=== PATIENT | male | born 1965 | race Caucasian/White ===

== ENCOUNTER 2020-07-02 19:12 | Inpatient (IN) | payer MEDICAID, SELFPAY ==
[2020-07-02] VITALS (28 sets, daily range): BP systolic 124–170; BP diastolic 73–120; PULSE 72–155; RESP 8–26; TEMP 36.7–36.9; O2SAT 93–98; BMI 34.5
--- NOTE | 2020-07-02 19:31 | XR_ITS ---
WS: [id number] Portable AP upright chest, 07/02/2020 Clinical Data: Palpitations Comparison: None. Findings: No nodules, masses or effusions are seen. The heart is normal. The pulmonary vascularity is not increased. No pneumonia or pneumothorax is seen. There are monitor leads on the chest wall. XR/XR chest 1V portable [id number] Impression: Negative chest.
--- NOTE | 2020-07-02 19:46 | W.ED.ARRPALP ---
HPI - Arrhythmia/Palpitations General: Chief Complaint: Arrhythmia/Palpitations Stated Complaint: General Medical Time Seen by Provider: 07/02/20 19:29 Source: patient, family and wood type cutter Mode of arrival: ambulatory Limitations: no limitations History of Present Illness: HPI narrative: Mr. Macdonald is a very nice 55-year-old male who speaks very little Mongolian but mostly Eritrean. His son who is with him as an wood type cutter. We have tried to contact the wood type cutter line but are unable to reach them. Patient states for the past few days he has felt weak and dizzy. He denies any chest pain or heart palpitations. Denies any syncope or near syncope. Patient states overall he just feels weak. He was a follow-up at the [facility] today for recently being treated for pneumonia and he was noted to have a very fast heart rate and because of this he was referred here to the ER. The patient denies any other complaints or this time. Associated symptoms: Deny diaphoresis, nausea, pre-syncope, syncope or vomiting Review of Systems Const: Denies: fever(s), chills, body aches, fatigue, malaise or diaphoresis Eyes: Denies: change in vision, blurry vision, photophobia, eye discomfort, eye discharge, eye redness or yellow eyes ENMT: Denies: throat pain, odynophagia, hoarseness, swelling of lips/tongue, ear or mastoid pain, ear discharge, change in hearing or nasal discharge Card: Denies: chest pain, palpitations, irregular heart rhythm, edema, lightheadedness, syncope, pre-syncope, dyspnea on exertion or orthopnea Resp: Reports: dyspnea; Denies: productive cough, non-productive cough, wheezing, hemoptysis or chest congestion GI: Denies: abdominal pain, nausea, vomiting, hematemesis, coffee ground emesis, heartburn, diarrhea, constipation, GI cramping, hematochezia or melena : Denies: flank pain, dysuria, urinary frequency, urinary urgency or hematuria Musc: Denies: neck pain, back pain, extremity pain, extremity swelling, joint pain, joint swelling, joint redness, joint warmth or joint stiffness Skin/Breast: Denies: rash, pruritus, erythema, skin pain or skin tenderness Neuro: Denies: headache(s), numbness in extremities, weakness in extremities, sensory changes, lack of coordination, difficulty walking, dizziness, vertigo, confusion, Slurred speech present or seizure-like activity Josias/Lymph: Denies: easy bruising, easy bleeding, petechiae, purpura or enlarged lymph nodes All/Imm: Denies: urticaria, throat swelling, tongue swelling, facial swelling or acute wheezing Physical Exam Const: COMMON NORMALS: no acute distress, patient oriented x3, no limitations and alert GENERAL APPEARANCE: cooperative HENMT: COMMON NORMALS: normocephalic, atraumatic, external ears normal, EAC's normal and Normal external nose present HEAD & SCALP: normal to inspection, normocephalic and atraumatic FACE & SINUS: normal facial exam and face symmetric NOSE: Normal external nose present and Normal nares present EXTERNAL EAR: Yes external ears normal EXTERNAL AUDITORY CANAL: EAC's normal MOUTH: Normal oral and palatal mucosa present, lip normal and tongue normal Eye: COMMON NORMALS: Equal, round and reactive pupils present and conjunctivae normal GENERAL EYE: appearance normal, both eyes and all related structures ALIGNMENT: Yes alignment normal PERIORBITAL: periorbital findings normal EYELID: eyelids normal CONJUNCTIVA: Yes conjunctivae normal SCLERA: sclerae normal PUPIL: Yes Equal, round and reactive pupils present Neck/C-Spine: COMMON NORMALS: full ROM, no lymphadenopathy, supple, no meningeal signs and no JVD GENERAL: Yes normal visual inspection and Yes trachea midline Chest: COMMONS NORMALS: normal inspection of the chest and normal palpation of entire chest wall Resp: COMMON NORMALS: normal respiratory effort, No retractions, No use of accessory muscles and clear to auscultation bilaterally EFFORT & INSPECTION: Yes able to speak in complete sentences and Yes symmetric chest movement AUSCULTATION: clear to auscultation bilaterally, no crackles, no rales, no rhonchi and no wheezes Cardio: COMMON NORMALS: no JVD, regular rhythm, S1 normal heart sound present and S2 normal heart sound present RATE: tachycardic RHYTHM: regular rhythm HEART SOUNDS: S1 normal heart sound present, S2 normal heart sound present, no click, no gallops, no murmurs and no rubs GI: COMMON NORMALS: Soft to palpation and No hepatosplenomegaly present PALPATION: Yes Soft to palpation, No Tenderness to palpation present (GI), No Guarding due to palpation present (GI), No Rigid due to palpation, Yes No hepatosplenomegaly present, No Hernia present, No Palpable mass present and No Pulsatile mass present : COMMON NORMALS: Yes no CVA tenderness BLADDER/KIDNEY EXAM: Yes no CVA tenderness Back/Pelvis: COMMON NORMALS: no CVA tenderness, thoracic and lumbar spine normal to inspection, no thoracic nor lumbar tenderness and thoraco-lumbar ROM normal Extremity: COMMON NORMALS: normal to inspection, full ROM, capillary refill normal, no joint enlargement, no clubbing, cyanosis or edema and no calf tenderness Neuro: COMMON NORMALS: patient oriented x3, CN's II-XII intact bilaterally, moves all extremities, no focal motor deficits and no sensory deficits noted SENSORIUM/ORIENTATION: Yes alert MENINGEAL SIGNS: Yes no meningeal signs SPEECH: speech normal Psych: COMMON NORMALS: mental status grossly normal, Normal thought process present, cooperative, normal affect, speech normal and activity/motor behavior normal SPEECH: Yes normal speech THOUGHT PROCESS: Normal thought process present Skin: COMMON NORMALS: no rashes or lesions noted, turgor normal, no jaundice, no petechiae and no mottling GENERAL SKIN EXAM: no rashes or lesions noted and turgor normal Course Vital Signs: Vital signs: Vital Signs Temperature 98.1 F 07/02/20 23:52 Pulse Rate 114 H 07/02/20 23:52 Respiratory Rate 25 H 07/02/20 23:52 Blood Pressure 129/73 07/02/20 23:52 Pulse Oximetry 93 07/02/20 23:52 MDM - Arrhythmia/Palpitations MDM Narrative: Medical decision making narrative: The case was endorsed to Dr. Morgan who agrees to follow-up in the CT of the chest. Patient's been given Lovenox here. His heart rate is improved after 2 boluses of Cardizem and being placed on a drip. Patient has an elevated BNP but clinically there is no sign of congestive heart failure. This time he is feeling better as he feels less short of breath with his heart rate down but because of this new onset atrial fibrillation he will need to be admitted and further evaluated and cared for by the hospitalist service. Lab Data: Attestation: I reviewed the patient's lab results. Labs: Lab Results 07/02/20 07/02/20 07/02/20 Range/Units 19:51 19:51 19:51 WBC 7.9 (4.0-10.0) 10^3/ uL RBC 4.99 (4.1-5.3) 10^6/u L Hgb 14.5 (11.7-16.6) g/dL Hct 43.6 (42.0-52.0) % MCV 87.4 (80-94) fL MCH 29.1 (28.0-34.0) pg MCHC 33.3 (30.0-36.0) g/dL RDW 13.2 (12.1-15.1) % Plt Count 245 (130-400) 10^3/c mm MPV 11.5 H (7.4-10.4) fL Neut % (Auto) 62.1 % Lymph % (Auto) 28.5 % [place] % (Auto) 7.0 % Eos % (Auto) 1.5 % Baso % (Auto) 0.6 % Neut # (Auto) 4.87 (1.8-7.7) 10^3/u L Lymph # (Auto) 2.2 (0.8-4.8) 10^3/u L [place] # (Auto) 0.6 (0.2-0.9) 10^3/u L Eos # (Auto) 0.1 (0.0-0.8) 10^3/u L Baso # (Auto) 0.1 (0.0-0.1) 10^3/u L Nucleated RBC % (a uto) 0 % Nucleated RBCs # 0.0 /100WBC PT 13.00 (12.1-14.9) SECO NDS INR 0.96 (0.8-1.2) APTT 25.2 (23.9-36.7) SECO NDS D-Dimer (0-0.59) ug/mIFE U Sodium 139 (136-145) mmol/L Potassium 4.3 (3.5-5.1) mmol/L Chloride 102 (98-107) mmol/L Carbon Dioxide 25 (22-29) mmol/L Anion Gap 16.3 (5-19) BUN 23 H (6-20) mg/dL Creatinine 0.8 (0.7-1.2) mg/dL GFR Calculation 99.6 (90-130) mL/min Glucose 271 H (65-115) mg/dL Calculated Osmolal ity 301 H (285-295) mOsm/k g Calcium 9.5 (8.5-10.5) mg/dL Magnesium 2.1 (1.7-2.3) mg/dL Total Bilirubin 0.4 (0.15-1.2) mg/dL AST 14 (0-40) U/L ALT 22 (0-41) U/L Alkaline Phosphata se 43 (40-130) IU/L Troponin T Baselin e (0-15) ng/L NT-Pro-B Natriuret Pep 1396 H (0-125) pg/mL Total Protein 6.7 (6.6-8.7) g/dL Albumin 4.4 (3.5-5.2) g/dL Globulin 2.3 (1.3-4.6) g/dL TSH (0.27-4.20) uIU/ mL Free T4 (0.82-1.77) ng/d L SARS-CoV-2 Ag (Rap id) (Negative) 07/02/20 07/02/20 07/02/20 Range/Units 19:51 19:51 20:50 WBC (4.0-10.0) 10^3/ uL RBC (4.1-5.3) 10^6/u L Hgb (11.7-16.6) g/dL Hct (42.0-52.0) % MCV (80-94) fL MCH (28.0-34.0) pg MCHC (30.0-36.0) g/dL RDW (12.1-15.1) % Plt Count (130-400) 10^3/c mm MPV (7.4-10.4) fL Neut % (Auto) % Lymph % (Auto) % [place] % (Auto) % Eos % (Auto) % Baso % (Auto) % Neut # (Auto) (1.8-7.7) 10^3/u L Lymph # (Auto) (0.8-4.8) 10^3/u L [place] # (Auto) (0.2-0.9) 10^3/u L Eos # (Auto) (0.0-0.8) 10^3/u L Baso # (Auto) (0.0-0.1) 10^3/u L Nucleated RBC % (a uto) % Nucleated RBCs # /100WBC PT (12.1-14.9) SECO NDS INR (0.8-1.2) APTT (23.9-36.7) SECO NDS D-Dimer 0.90 H (0-0.59) ug/mIFE U Sodium (136-145) mmol/L Potassium (3.5-5.1) mmol/L Chloride (98-107) mmol/L Carbon Dioxide (22-29) mmol/L Anion Gap (5-19) BUN (6-20) mg/dL Creatinine (0.7-1.2) mg/dL GFR Calculation (90-130) mL/min Glucose (65-115) mg/dL Calculated Osmolal ity (285-295) mOsm/k g Calcium (8.5-10.5) mg/dL Magnesium (1.7-2.3) mg/dL Total Bilirubin (0.15-1.2) mg/dL AST (0-40) U/L ALT (0-41) U/L Alkaline Phosphata se (40-130) IU/L Troponin T Baselin e 17 H (0-15) ng/L NT-Pro-B Natriuret Pep (0-125) pg/mL Total Protein (6.6-8.7) g/dL Albumin (3.5-5.2) g/dL Globulin (1.3-4.6) g/dL TSH 1.28 (0.27-4.20) uIU/ mL Free T4 1.25 (0.82-1.77) ng/d L SARS-CoV-2 Ag (Rap id) (Negative) 07/02/20 Range/Units 21:44 WBC (4.0-10.0) 10^3/ uL RBC (4.1-5.3) 10^6/u L Hgb (11.7-16.6) g/dL Hct (42.0-52.0) % MCV (80-94) fL MCH (28.0-34.0) pg MCHC (30.0-36.0) g/dL RDW (12.1-15.1) % Plt Count (130-400) 10^3/c mm MPV (7.4-10.4) fL Neut % (Auto) % Lymph % (Auto) % [place] % (Auto) % Eos % (Auto) % Baso % (Auto) % Neut # (Auto) (1.8-7.7) 10^3/u L Lymph # (Auto) (0.8-4.8) 10^3/u L [place] # (Auto) (0.2-0.9) 10^3/u L Eos # (Auto) (0.0-0.8) 10^3/u L Baso # (Auto) (0.0-0.1) 10^3/u L Nucleated RBC % (a uto) % Nucleated RBCs # /100WBC PT (12.1-14.9) SECO NDS INR (0.8-1.2) APTT (23.9-36.7) SECO NDS D-Dimer (0-0.59) ug/mIFE U Sodium (136-145) mmol/L Potassium (3.5-5.1) mmol/L Chloride (98-107) mmol/L Carbon Dioxide (22-29) mmol/L Anion Gap (5-19) BUN (6-20) mg/dL Creatinine (0.7-1.2) mg/dL GFR Calculation (90-130) mL/min Glucose (65-115) mg/dL Calculated Osmolal ity (285-295) mOsm/k g Calcium (8.5-10.5) mg/dL Magnesium (1.7-2.3) mg/dL Total Bilirubin (0.15-1.2) mg/dL AST (0-40) U/L ALT (0-41) U/L Alkaline Phosphata se (40-130) IU/L Troponin T Baselin e (0-15) ng/L NT-Pro-B Natriuret Pep (0-125) pg/mL Total Protein (6.6-8.7) g/dL Albumin (3.5-5.2) g/dL Globulin (1.3-4.6) g/dL TSH (0.27-4.20) uIU/ mL Free T4 (0.82-1.77) ng/d L SARS-CoV-2 Ag (Rap id) Negative (Negative) Imaging Data^: CXR: Attestation: I personally reviewed and interpreted this imaging study as follows: My impression: No acute cardiopulmonary findings. EKG Data^: EKG 1: Attestation: I personally reviewed and interpreted this EKG as follows: EKG interpretation date: 07/02/20 EKG interpretation time: 01:55 Interpretation: Probable atrial flutter with a ventricular rate of 155 beats a minute, nonspecific ST and T wave changes. EKG 2: Attestation: I personally reviewed and interpreted this EKG as follows: EKG interpretation date: 07/02/20 EKG interpretation time: 21:41 Interpretation: Atrial flutter with variable block. Ventricular rate 91 beats a minute, PVCs noted, nonspecific ST and T wave changes. Discharge Plan Discharge Patient Disposition: Placed in Observation Admit Provider: Miguel Morgan Clinical Impression: Atrial flutter Condition: Stable Coding Level of Care Code ED Photoengraving Finisher for Chg Fwd Exam Comprehensive
[2020-07-02 20:15] LABS: Basophils # 0.1 10^3/uL (0.0-0.1); Basophils % 0.6 %; Eosinophils # 0.1 10^3/uL (0.0-0.8); Eosinophils % 1.5 %; Hematocrit 43.6 % (42.0-52.0); Hemoglobin 14.5 g/dL (11.7-16.6); Lymphocytes # 2.2 10^3/uL (0.8-4.8); Lymphocytes % 28.5 %; Mean Corpuscular HGB Conc 33.3 g/dL (30.0-36.0); Mean Corpuscular Hemoglobin 29.1 pg (28.0-34.0); Mean Corpuscular Volume 87.4 fL (80-94); Mean Platelet Volume 11.5 fL (7.4-10.4); Monocytes # 0.6 10^3/uL (0.2-0.9); Neutrophils # 4.87 10^3/uL (1.8-7.7); Neutrophils % 62.1 %; Nucleated Red Blood Cells % 0 %; Platelet Count 245 10^3/cmm (130-400); Red Blood Count 4.99 10^6/uL (4.1-5.3); Red Cell Distribution Width 13.2 % (12.1-15.1); White Blood Count 7.9 10^3/uL (4.0-10.0)
[2020-07-02 20:32] LABS: Troponin(5th) Baseline 17 ng/L (0-15)
[2020-07-02 20:36] LABS: Alanine Aminotransferase 22 U/L (0-41); Albumin Level 4.4 g/dL (3.5-5.2); Alkaline Phosphatase 43 IU/L (40-130); Anion Gap 16.3 (5-19); Aspartate Amino Transferase 14 U/L (0-40); Blood Urea Nitrogen 23 mg/dL (6-20); Calcium 9.5 mg/dL (8.5-10.5); Carbon Dioxide 25 mmol/L (22-29); Chloride 102 mmol/L (98-107); Globulin 2.3 g/dL (1.3-4.6); Glomerular Filtration Rate 99.6 mL/min (90-130); Glucose 271 mg/dL (65-115); Magnesium 2.1 mg/dL (1.7-2.3); NT Pro B Type Natriuretic Pept 1396 pg/mL (0-125); Osmolality Calculated 301 mOsm/kg (285-295); Potassium 4.3 mmol/L (3.5-5.1); Sodium 139 mmol/L (136-145); Total Bilirubin 0.4 mg/dL (0.15-1.2); Total Protein 6.7 g/dL (6.6-8.7)
--- NOTE | 2020-07-02 20:57 | CTR_ITS ---
PROCEDURE INFORMATION: Exam: CT Angiography Chest With Contrast Exam date and time: 07/02/2020 9:01 PM Age: 55 years old Clinical indication: Abnormal findings; Abnormal diagnostic tests; Elevated d-dimer; Dyspnea; Additional info: Dyspnea, new onset a. Fib, positive d-dimer TECHNIQUE: Imaging protocol: Computed tomographic angiography of the chest with intravenous contrast. 3D rendering (Not supervised by radiologist): MIP and/or 3D reconstructed images were created by the technologist. Radiation optimization: All CT scans at this facility use at least one of these dose optimization techniques: automated exposure control; mA and/or kV adjustment per patient size (includes targeted exams where dose is matched to clinical indication); or iterative reconstruction. Contrast material: OMNI 350; Contrast volume: 95 ml; Contrast route: INTRAVENOUS (IV); COMPARISON: CR XR chest 1V portable [id number] 07/02/2020 7:49 PM RADIATION DOSE METRICS: Total DLP (mGy-cm): 657.61 FINDINGS: Limitations: Motion on several lower images. Streak artifacts from dense venous contrast. Pulmonary arteries: No central or segmental pulmonary embolus. No suggestion of a subsegmental embolus on the slices without motion. Aorta: No aortic aneurysm. Minimal enhancement in the upper aorta, but no suggestion of a dissection. Other arteries: Two right renal arteries. Thyroid: Very small calcification in the left lobe of the thyroid. Slightly heterogeneous density in the thyroid. Lungs: 8 mm noncalcified nodule in the lateral right middle lobe. Patchy minimal haziness in the lungs along with slight stranding in the posterior lung bases. No consolidation. Pleural space: No pleural fluid or pneumothorax. Heart: Cardiomegaly. No pericardial effusion. Lymph nodes: Slight enlargement of some of the mediastinal and bilateral hilar nodes. Gallbladder and bile ducts: Multiple calcified stones in the gallbladder. No biliary ductal dilatation. Kidneys and ureters: Very small stone in the upper right kidney and slightly larger stone in the left kidney. No upper hydronephrosis. Bones/joints: Prominent degeneration of a cervical disc. A few old minimal compression fractures. No acute fracture. Soft tissues: Questionable minimal body wall edema. CT/CT angio chest PE protcl [id number] IMPRESSION: 1. No visible pulmonary embolus. 2. Cardiomegaly. 3. Cholelithiasis. 4. Slight nephrolithiasis. 5. Patchy haziness in the lungs possibly due to hypoaeration. Slight stranding in the posterior lung bases likely due to atelectasis. 8 mm noncalcified nodule in the right middle lobe. For patients at low risk (minimal or absent history of smoking and of other known risk factors), recommend CT Chest at 6-12 months, then consider CT Chest at 18-24 months. For patients at high risk (history of smoking or of other known risk factors), recommend CT Chest at 6-12 months, then CT Chest at 18-24 months. (Reference: Christine) 6. Mediastinal and bilateral hilar adenopathy. Thyroid abnormalities and other findings detailed above. REFERENCES: Christine H, et al. Guidelines for Management of Incidental Pulmonary Nodules Detected on CT Images: From the Fleischner Society 2017. Radiology. 2017;284(1):228-243. Radiation Dose CTDIVOL = (mGy): DLP = 657.61 (mGy-cm)
--- NOTE | 2020-07-02 21:31 | ECG_ITS ---
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 Measurements Intervals [place] Rate: 91 P: 154 ID: 168 QRS: 21 QRSD: 92 T: 93 QT: 389 QTc: 480 Interpretive Statements Atrial flutter with variable block NONSPECIFIC T-WAVE ABNORMALITY No previous ECG available for comparison Electronically Signed On 07-03-2020 19:35:59 ENERGY CONSULTANT by Shane Gonzalez M.D. [id number]
[2020-07-02 21:33] LABS: INR 0.96 (0.8-1.2)
[2020-07-02 21:34] LABS: Partial Thromboplastin Time 25.2 SECONDS (23.9-36.7)
[2020-07-02 22:00] LABS: Free T4 Free Thyroxine 1.25 ng/dL (0.82-1.77); Thyroid Stimulating Hormone 1.28 uIU/mL (0.27-4.20)
[2020-07-02 22:10] LABS: SARS Covid-2 Antigen Negative (Negative)
[2020-07-02 22:50] LABS: Troponin 5 2HR 18.02 ng/L (0-15); Troponin 5 2HR Delta 1.02 ABS# (0-10)
[2020-07-02] MEDS: enoxaparin 100 mg/mL Syringe SUBCUT (23:10)
--- NOTE | 2020-07-02 23:38 | P.HP_ITS ---
Providers/Chief Complaint Admitting Physician: Miguel Morgan MD Primary Care Provider: [facility] [place] Chief Complaint: General Medical History of Present Illness Conner Macdonald is a 55 year old male with past medical history of diabetes, was admitted with chief complaint of worsening palpitation and shortness of breath, he is having these symptoms for the last 3-weeks. Upon arrival in the ER he was worked up for palpitation and shortness of breath. EKG: Atrial flutter with variable block. Imaging study: CT angio chest:No visible pulmonary embolus. X-ray chest: No acute infiltrates, no pulmonary vascular congestion, no pneumothorax, no pleural effusion. Pertinent labs: D-dimer: 0.90, Troponin: Baseline: 17, 2 hours: 18.02, delta: 1.02, proBNP: 1396, TSH: 1.28 Rapid Covid: Negative ER medication: He was started on diltiazem drip after receiving diltiazem 20 mg IV x2 dose. Lovenox 100 mg subcu x1 dose Review of Systems Const: Denies: fever(s), chills, body aches, change in appetite or diaphoresis Card: Denies: edema, swelling of feet/ankles, orthopnea or leg pain with exertion Resp: Denies: dyspnea, productive cough, wheezing or pain on inspiration GI: Denies: abdominal pain, nausea, vomiting, diarrhea or constipation : Denies: flank pain or difficulty urinating Musc: Denies: back pain, extremity pain or extremity swelling Neuro: Denies: headache(s), difficulty walking or confusion Medications/Allergies Home Medications Medication Instructions Recorded Confirmed Last Taken Type French Aspirin 1 tab PO DAILY 07/02/20 07/02/20 Unknown History glipizide 10 mg PO BID 07/02/20 07/02/20 Unknown History metformin 1,000 mg PO BID 07/02/20 07/02/20 Unknown History Allergies Allergy/AdvReac Type Severity Reaction Status Date / Time No Known Allergies Allergy Unverified 07/02/20 20:07 Vitals/I&O/Wt Last Vital Signs Temp 98.4 F 07/02/20 19:17 Pulse 119 H 07/02/20 23:19 Resp 15 07/02/20 23:19 BP 149/83 07/02/20 23:19 Pulse Ox 95 07/02/20 23:19 07/02/20 07/02/20 07/03/20 14:59 22:59 06:59 Intake Total 4.167 / 4.167 Balance 4.167 / 4.167 Weight last 48 hrs Weight 99.79 kg Physical Exam Const: COMMON NORMALS: patient oriented x3 HENMT: COMMON NORMALS: normocephalic and atraumatic HEAD & SCALP: normocephalic and atraumatic Eye: COMMON NORMALS: no scleral icterus GENERAL EYE: appearance normal, both eyes and all related structures Chest: COMMONS NORMALS: normal inspection of the chest and normal palpation of entire chest wall CHEST: Yes Symmetrical chest wall rise Resp: COMMON NORMALS: normal respiratory effort, No retractions, No use of a ccessory muscles and clear to auscultation bilaterally EFFORT & INSPECTION: Yes symmetric chest movement AUSCULTATION: clear to auscultation bilaterally Cardio: COMMON NORMALS: regular rate, regular rhythm, S1 normal heart sound present, S2 normal heart sound present, No gallops present (Cardio), No murmurs present (Cardio), No rub (Cardio) and Peripheral pulses 2+ throughout RATE: regular rate RHYTHM: regular rhythm HEART SOUNDS: S1 normal heart sound present and S2 normal heart sound present PERIPHERAL PULSES: Peripheral pulses 2+ throughout GI: COMMON NORMALS: Normal to inspection, nondistended, normoactive bowel sounds present, Soft to palpation, non-tender, No hepatosplenomegaly present and no masses AUSCULTATION: Yes normoactive bowel sounds PALPATION: Yes Soft to palpation and Yes No hepatosplenomegaly present RECTAL EXAM: Yes deferred Extremity: COMMON NORMALS: no clubbing, cyanosis or edema and no pedal edema Neuro: COMMON NORMALS: patient oriented x3 Data : 07/03/20 01:43 07/03/20 01:43 A&P Assessment and plan (1) Atrial flutter: Currently on Cardizem drip Cardizem 30 mg p.o. every 6h daily [id number]: 1 Continue Aspirin 81 mg oral daily ECHO Cardiology on Board Status: Acute (2) Diabetes: Low-dose sliding scale insulin Fingerstick glucose Diabetic diet Status: Acute Additional A&P Information DVT prophylaxis: Lovenox 40 subcu daily CODE STATUS: Full code Disposition: Home Attestations Medical Necessity Statement*: Patient is to be in hospital for management of A. Flutter with RVR, anticipated length of stay greater than 2 midnight. Coding Level of Care Code Acute Bowling Ball Molder for [facility] Fwd Exam Comprehensive Diagnoses Atrial flutter I48.92 Diabetes E11.9
[2020-07-03] VITALS (58 sets, daily range): BP systolic 88–127; BP diastolic 55–102; PULSE 69–152; RESP 13–25; TEMP 36.4–36.9; O2SAT 90–97
[2020-07-03] MEDS: iohexol 350 mg/mL 100 mL Btl IV (00:57)
--- NOTE | 2020-07-03 01:31 | ECG_ITS ---
[facility] Test Date: 2020-07-03 Pat Name: Conner Macdonald Department: Room: 106 Gender: Male Product Safety Tester: : 1965 Requested By: Anisa Olivia Order Number: [id number] Jonathan MD: Shane Gonzalez M.D. Measurements Intervals [place] Rate: 93 P: [place]: QRS: 56 QRSD: 98 T: 104 QT: 379 QTc: 472 Interpretive Statements ATRIAL FLUTTER/TACHYCARDIA MODERATE T-WAVE ABNORMALITY, CONSIDER INFERIOR ISCHEMIA [-0.1+ mV T WAVE IN II/aVF] Compared to ECG 07/02/2020 21:41:05 Possible ischemia now present Sinus rhythm no longer present T-wave abnormality still present Electronically Signed On 07-03-2020 19:31:33 TRAFFIC CONTROL SPECIALIST by Shane Gonzalez M.D. [id number]
[2020-07-03 02:25] LABS: Basophils % 0.4 %; Eosinophils # 0.1 10^3/uL (0.0-0.8); Eosinophils % 1.3 %; Hematocrit 42.5 % (42.0-52.0); Hemoglobin 13.9 g/dL (11.7-16.6); Lymphocytes # 2.3 10^3/uL (0.8-4.8); Lymphocytes % 28.9 %; Mean Corpuscular HGB Conc 32.7 g/dL (30.0-36.0); Mean Corpuscular Hemoglobin 28.8 pg (28.0-34.0); Mean Corpuscular Volume 88.2 fL (80-94); Mean Platelet Volume 11.5 fL (7.4-10.4); Monocytes # 0.6 10^3/uL (0.2-0.9); Monocytes % 7.7 %; Neutrophils # 4.89 10^3/uL (1.8-7.7); Neutrophils % 61.4 %; Nucleated Red Blood Cells % 0 %; Platelet Count 224 10^3/cmm (130-400); Red Blood Count 4.82 10^6/uL (4.1-5.3); Red Cell Distribution Width 13.4 % (12.1-15.1)
[2020-07-03 02:34] LABS: INR 1.04 (0.8-1.2)
[2020-07-03 02:35] LABS: Partial Thromboplastin Time 29.4 SECONDS (23.9-36.7)
[2020-07-03 02:45] LABS: Alanine Aminotransferase 19 U/L (0-41); Alkaline Phosphatase 39 IU/L (40-130); Anion Gap 13.3 (5-19); Aspartate Amino Transferase 12 U/L (0-40); Blood Urea Nitrogen 20 mg/dL (6-20); Carbon Dioxide 25 mmol/L (22-29); Chloride 105 mmol/L (98-107); Globulin 2.1 g/dL (1.3-4.6); Glomerular Filtration Rate 99.6 mL/min (90-130); Glucose 181 mg/dL (65-115); Magnesium 2.1 mg/dL (1.7-2.3); Osmolality Calculated 295 mOsm/kg (285-295); Potassium 4.3 mmol/L (3.5-5.1); Sodium 139 mmol/L (136-145); Total Bilirubin 0.4 mg/dL (0.15-1.2); Total Protein 6.1 g/dL (6.6-8.7)
[2020-07-03 02:47] LABS: Estmated Average Glucose 154
[2020-07-03] MEDS: enoxaparin 40 mg/0.4 mL Syringe SUBCUT (04:38)
[2020-07-03] MEDS: dilTIAZem 30 mg Tablet PO ×3 (04:38→14:13)
[2020-07-03 05:24] LABS: Add Urine Microscopic? NO
[2020-07-03 05:49] LABS: Bilirubin Urine Neg (Negative); Blood Urine Neg (Negative); Glucose Urine UA 2+ (Normal); Ketones Urine Negative (Negative); Leukocyte Esterase Urine Negative (Negative); Nitrate Urine Negative (Negative); Protein Urine Neg (Negative); Specific Gravity, Urine 1.025 (1.005-1.030); Urine Appearance Clear (CLEAR); Urine Color Yellow (Yellow); Urobilinogen Urine Norm (Negative)
--- NOTE | 2020-07-03 06:07 | PC.NURSE ---
PT CAME TO ROOM 106 VIA WHEELCHAIR. PT TRANSFERRED TO BED. PT IS IN A-FIB C RVR. CARDIZEM GTT AT 7.5 AND INCREASED TO 10 BY [employer] DRIVER NURSE. PO CARDIZEM AND LOVENOX WERE GIVEN LATE IS AWARE. WANTS PO CARDIZEM HELD AT 0730 IF HR STABILIZES AND RESUME SCHEDULED AFTER. PT DOESN'T UNDERSTAND [place] VERY WELL AND CAN NOT SAY WHAT MEDICATIONS THAT THEY ARE CURRENTLY ON. PT DENIES PAIN. WILL CONTINUE TO MONITOR.
--- NOTE | 2020-07-03 07:00 | USCV_ITS ---
Torres Conner Age: 55 Gender: M : 1965 Exam Date: 07/03/2020 07:23 Ordering Phys: Miguel Morgan MD Technologist: Zelda Patel Exam Location: [facility] [place] Indication: NEW ONSET A FLUTTER BP: 99 / 67 HR: 92 Rhythm: Sinus Technical Quality: Good MEASUREMENTS (Male / Female) Normal Values 2D ECHO LV Diastolic Diameter PLAX 4.9 cm 4.2 - 5.9 / 3.9 - 5.3 cm LV Systolic Diameter PLAX 4.2 cm LV Chamber Size 3.7 cm IVS Diastolic Thickness 0.8 cm 0.6 - 1.0 / 0.6 - 0.9 cm IVS Systolic Thickness 0.9 cm LVPW Diastolic Thickness 2.5 cm 0.6 - 1.0 / 0.6 - 0.9 cm LVPW Systolic Thickness 2.8 cm RV Chamber Size 4.6 cm LVOT Diameter 2.1 cm LV Ejection Fraction 2D Teich 31.2 % LA Diameter 4.9 cm LA Width 2.9 cm LA Height 3.7 cm RA Width 4.3 cm RA Height 3.2 cm Aorta at Sinotubular Diameter 3.4 cm M-MODE LV Diastolic Diameter MM 6.3 cm 4.2 - 5.9 / 3.9 - 5.3 cm LV Systolic Diameter MM 4.5 cm LV Ejection Fraction MM Teich 54.5 % IVS Diastolic Thickness MM 0.7 cm 0.6 - 1.0 / 0.6 - 0.9 cm IVS Systolic Thickness MM 1.1 cm LVPW Diastolic Thickness MM 0.9 cm 0.6 - 1.0 / 0.6 - 0.9 cm LVPW Systolic Thickness MM 1.3 cm Aortic Annulus Diameter 3.6 cm LA Ao Ratio MM 1.5 MV E Point Septal Separation 1.2 cm DOPPLER AV Peak Velocity 93.0 cm/s LVOT Peak Velocity 92.0 cm/s AV Area Cont Eq vti 3.6 cm squared AV Area Cont Eq pk 3.3 cm squared MV Area PHT 6.7 cm squared Mitral E to A Ratio 3.0 MV E' Velocity 61.5 cm/s Mitral E to MV E' Ratio 9.3 Mitral E to LV E' Lateral Ratio 9.1 Mitral E to LV E' Septal Ratio 9.6 TR Peak Velocity 285.8 cm/s TR Peak Gradient 32.7 mmHg TR Mean Velocity 183.6 cm/s TR Mean Gradient 16.4 mmHg TR Velocity Time Integral 68.1 cm TV Peak E Velocity 62.0 cm/s Right Atrial Pressure 3.0 mmHg Pulmonary Artery Systolic Pressu 35.7 mmHg PV Peak Velocity 61.0 cm/s QpQs Shunt Ratio 1.8 RV Acceleration Time 0.1 s RV Ejection Time 0.3 s RV AcT/ET 0.3 FINDINGS Left Ventricle Moderately increased left ventricular cavity size. Severely decreased left ventricular systolic function. Global left ventricular hypokinesis. Left ventricular ejection fraction is estimated at 30%. Right Ventricle The right ventricle is normal in size and function. Right Atrium Moderately increased right atrial size. Left Atrium Moderately increased left atrial size. Mitral Valve Mildly thickened mitral valve. No mitral valve stenosis. Moderate mitral valve regurgitation. Aortic Valve Moderate aortic valve calcification. No aortic valve stenosis. Trace aortic valve regurgitation. Tricuspid Valve Mild tricuspid valve regurgitation. Pulmonic Valve Structurally normal pulmonic valve without significant stenosis. There is no pulmonic regurgitation. Pericardium Normal pericardium without effusion. Aorta Normal ascending aorta dimension. CONCLUSIONS 1-Moderately increased left ventricular cavity size. Severely decreased left ventricular systolic function. Global left ventricular hypokinesis. Left ventricular ejection fraction is estimated at 30%. 2-Moderately increase biatrial enlargement. 3-Moderate aortic valve calcification. No aortic valve stenosis. Trace aortic valve regurgitation. 4-Mildly thickened mitral valve. No mitral valve stenosis. Moderate mitral valve regurgitation. 5-Mild tricuspid valve regurgitation. 6-There is no pericardial effusion. 7-Pulmonary artery systolic pressure is within normal limits. 8-Right atrial pressure is around 15 mm of mercury. 9-There are no prior echocardiogram studies to compare. Osmar Galvez MD (Electronically Signed) Final Date: 03 July 2020 15:36 S
[2020-07-03] MEDS: aspirin 81 mg EC Tablet PO (08:17)
--- NOTE | 2020-07-03 09:01 | P.PN_ITS ---
Subjective Subjective: Interval history: Hemodynamically stable, afebrile, on room air, heart rate better controlled, remains on Cardizem drip. Has been started on oral Cardizem as well. Sitting up in bed, reports feeling well though there is a significant language barrier. Cardiology consult requested. Per review of telemetry seems to have converted to normal sinus rhythm around 8 AM this morning. Medications: Reviewed: Yes Medication Review Details: Active Medications Generic Name Dose Route Start Last Admin Trade Name Freq PRN Reason Stop Dose Admin Acetaminophen 650 mg 07/03/20 01:08 Acetaminophen 32 5 Mg Tablet PO Q6H PRN Mild/Mod Pain Or Temp >/= 101 Aspirin 81 mg 07/03/20 09:00 07/03/20 08:17 Aspirin 81 Mg Ec Tablet PO 81 mg DAILY JOB Administration Bisacodyl 10 mg 07/03/20 01:08 Bisacodyl 5 Mg T ablet PO DAILY PRN CONSTIPATION Diltiazem HCl 30 mg 07/03/20 01:30 07/03/20 08:17 Diltiazem 30 Mg Tablet PO 30 mg Q6H JOB Administration Enoxaparin Sodium 40 mg 07/03/20 01:30 07/03/20 04:38 Enoxaparin 40 Mg /0.4 Ml Syringe SUBCUT 40 mg Q24H JOB Administration Hydromorphone HCl 2 mg 07/03/20 01:08 Hydromorphone 4 Mg Tablet PO Q6H PRN SEVERE PAIN Diltiazem HCl 125 mg/ Sodium 125 mls @ 0 mls/h r 07/02/20 19:45 07/03/20 01:07 Chloride IV 10 mg/hr .Q0M JOB 10 mls/hr Titration Protocol Per Protocol Morphine Sulfate 4 mg 07/03/20 01:08 Morphine 4 Mg/Ml Sdv 1 Ml IVP Q4H PRN SEVERE PAIN Morphine Sulfate 2 mg 07/03/20 01:08 Morphine 4 Mg/Ml Sdv 1 Ml IVP Q4H PRN SEVERE PAIN Naloxone HCl 0.1 mg 07/03/20 01:08 Naloxone 0.4 Mg/ Ml Sdv IVP Q2M PRN OPIATERV Ondansetron HCl 4 mg 07/03/20 01:08 Ondansetron 2 Mg /Ml Sdv 2 Ml IVP Q6H PRN NAUSEA AND VOMITI NG Ondansetron HCl 4 mg 07/03/20 01:08 Ondansetron 2 Mg /Ml Sdv 2 Ml IVP Q8H PRN vomiting, or N/V if npo No Known Allergies Allergy (Unverified 07/02/20 20:07) Vitals/I&O/Wt Last Vital Signs Temp 98.0 F 07/03/20 07:44 Pulse 105 H 07/03/20 07:44 Resp 24 H 07/03/20 07:44 BP 124/94 07/03/20 07:44 Pulse Ox 95 07/03/20 07:44 07/02/20 07/03/20 07/03/20 22:59 06:59 14:59 Intake Total 4.167 / 4.167 32 / 36.167 360 / 360 Output Total 400 / 400 Balance 4.167 / 4.167 -368 / -363.833 360 / 360 Weight last 48 hrs Weight 99.79 kg Physical Exam Const: COMMON NORMALS: no acute distress, patient oriented x3 and alert GENERAL APPEARANCE: cooperative and comfortable ORIENTATION/CONSCIOUSNESS: Yes awake OTHER: -Looks appropriate for age HENMT: COMMON NORMALS: normocephalic, atraumatic, hearing grossly normal bilaterally and moist oral mucous membranes HEAD & SCALP: normocephalic and atraumatic Eye: COMMON NORMALS: Equal, round and reactive pupils present, EOMs intact bilaterally and conjunctivae normal CONJUNCTIVA: Yes conjunctivae normal PUPIL: Yes Equal, round and reactive pupils present Neck/C-Spine: COMMON NORMALS: full ROM GENERAL: Yes normal visual inspection and Yes trachea midline Resp: COMMON NORMALS: normal respiratory effort, No retractions, No use of accessory muscles and clear to auscultation bilaterally EFFORT & INSPECTION: Yes able to speak in complete sentences, Yes symmetric chest movement and No tachypneic AUSCULTATION: clear to auscultation bilaterally Cardio: COMMON NORMALS: regular rate, regular rhythm, S1 normal heart sound present, S2 normal heart sound present and No murmurs present (Cardio) RATE: regular rate RHYTHM: regular rhythm HEART SOUNDS: S1 normal heart sound present and S2 normal heart sound present GI: COMMON NORMALS: Normal to inspection, nondistended, normoactive bowel sounds present, Soft to palpation and non-tender PALPATION: Yes Soft to palpation Extremity: COMMON NORMALS: normal to inspection, full ROM and no clubbing, cyanosis or edema; negative for no pedal edema Neuro: COMMON NORMALS: patient oriented x3, moves all extremities, no focal motor deficits, no sensory deficits noted and gait normal SENSORIUM/ORIENTATION: Yes alert Psych: COMMON NORMALS: mental status grossly normal, Normal thought process present, cooperative, normal affect and speech normal SPEECH: Yes normal speech THOUGHT PROCESS: Normal thought process present Skin: COMMON NORMALS: no rashes or lesions noted, no jaundice, no petechiae and no mottling GENERAL SKIN EXAM: no rashes or lesions noted Data : 07/03/20 01:43 07/03/20 01:43 A&P Assessment and plan (1) Atrial flutter: -Appears to be new onset -Remains on Cardizem drip, wean as tolerated; continue oral Cardizem as well -Echo ordered -Telemetry monitoring -Continue to monitor vital signs -Cardiology consult requested Status: Acute Qualifiers: Atrial flutter type: unspecified Qualified Code(s): I48.92 - Unspecified atrial flutter (2) Diabetes: -A1c-7.0 -Accuchecks, ISS, hypoglycemia precautions -hold oral hypoglycemic agents -consistent carb diet as tolerated Status: Chronic Qualifiers: Diabetes mellitus complication status: without complication Diabetes mellitus long-term insulin use: without bed bug exterminator use Diabetes mellitus type: type 2 Qualified Code(s): E11.9 - Type 2 diabetes mellitus without complications (3) Morbid obesity: -BMI-35 kg/m2 Status: Chronic Additional A&P Information -DVT ppx with lovenox; may need long-term AC once Echo completed -Dispo: home -Code status: FULL code Attestations Medical Necessity Statement*: Patient requires hospitalization for continued management of new onset a flutter, remains on Cardizem drip, pending completion of work-up and cardiology evaluation. Time Spent in Patient Care: 16 - 35 minutes (>than 50% of time spent in counselling and/or direct pt care on unit) . Coding Level of Care Code Acute Spa Coordinator for g Fwd Exam Comprehensive Diagnoses Atrial flutter I48.92 Atrial flutter type: unspecified Diabetes E11.9 Diabetes mellitus complication status: without complication Diabetes mellitus bed bug exterminator insulin use: without bed bug exterminator use Diabetes mellitus type: type 2 Morbid obesity E66.01
--- NOTE | 2020-07-03 09:07 | PC.NURSE ---
Pt converted to SR/ST with occasional PAC's noted in tele. Cardizem drip titrated down. Oral cardizem was given as scheduled.
--- NOTE | 2020-07-03 09:33 | PC.CHAP ---
Pastoral Care Encounter/Spiritual Assessment Type of Contact [] Declined traveling operator visit [] Patient/Family/Request visit [] Outpatient visit [] Follow-up visit [] Physician referral [] Code/Alert [x] Routine visit [] Staff referral [] Actively dying [] Patient sleeping [] Family support [] [] Out of room [] Palliative care [] [] Receiving care in room [] Pre-surgical visit [] Trauma [] Long length of stay [] ICU visit [] Other: Relational/Emotional Strength [] Patient feels connected with others/family/visitors/staff [] Distress [] Loneliness/isolation [] Abandonment Spirituality of Patient [] Person of Nancy [] Attends [employer] of their Nancy [] Believes in Prayer [] Reads Bible or Christianity materials [] There are Spiritual issues to be addressed Lay Health Advocate Interventions [x] Prayer [x] Active listening [x] Non-anxious presence [x] Spiritual/emotional support [] Crisis/trauma care [] Spiritual counseling [] Bereavement support [] Provided bereavement packet [] Provided Bible/devotional materials [] Provided toy/stuffed animal, coloring book to patient or family member [] Provided Communion [] Anointing/[place] [] Salvation [x] Completed spiritual assessment [] Other: Impact on Illness or Injury [] Angry [] Fearful [] Anxious [] Often cries [] Exhaustion [] Unable to work [] Unable to attend roman catholic [] Unable to walk/stand [] Unable to read [] Unable to drive [] Unable to eat/drink [] Unable to sleep [] Unable to be with family [] Patient intubated [] Other: Summary setting on side of bed... feeling stronger Time spent with patient 5 min
--- NOTE | 2020-07-03 16:05 | PC.NURSE ---
Visitor Pt visitor during his stay will be his [place]. Rossy her dgtr was listed as her japanese interpreter in the [employer] but Rossy stated she is not the designated visitor during his stay but his . Explained to her the visitor policy hours between 4-6 pm. Edited the visitor in admission assessment.
--- NOTE | 2020-07-03 16:22 | P.CONIM_ITS ---
Providers/Reason For Consult Consulting Physican/Specialty*: Osmar Galvez MD Reason for Consult*: New onset of heart failure, new onset of atrial flutter, cardiomyopathy with severely depressed LV function Attending Physician: Serenity Glover MD Primary Care Provider: [facility] History of Present Illness History of Present Illness Conner Macdonald is a 55 year old male past medical history not significant for any major medical problem admitted with atrial flutter with rapid ventricle response along with shortness of breath and occasional PND. He was started on Cardizem drip converted into sinus rhythm overnight. He was ruled out for acute coronary syndrome. This morning he had echocardiogram which is suggestive of severely depressed LV function of new onset left ventricle ejection fraction 35% with global hypokinesis. There is bilateral atrial enlargement and moderate mitral valve regurgitation. Currently he is sitting in the bed not in acute distress. Patient denies any prior history of alcohol, tobacco and drug abuse. CT scan of the lungs rule out pulmonary embolism however incidental finding of a nodule was noted. He denies history of diabetes but noted to have hemoglobin A1c of 7.0 with a random blood sugar above 200. Review of Systems Const: Denies: fever(s), chills, body aches, change in appetite, fatigue, malaise or diaphoresis Eyes: Denies: change in vision, blurry vision, photophobia, eye discomfort, eye discharge, eye redness or yellow eyes ENMT: Denies: throat pain, odynophagia, hoarseness, swelling of lips/tongue, ear or mastoid pain, ear discharge, change in hearing or nasal discharge Card: Denies: chest pain, palpitations, irregular heart rhythm, edema, swelling of feet/ankles, lightheadedness, syncope, pre-syncope, dyspnea on exertion, orthopnea or leg pain with exertion Resp: Denies: dyspnea, productive cough, non-productive cough, wheezing, pain on inspiration, hemoptysis or chest congestion GI: Denies: abdominal pain, nausea, vomiting, hematemesis, coffee ground emesis, heartburn, diarrhea, constipation, GI cramping, hematochezia or melena : Denies: flank pain, difficulty urinating, dysuria, urinary frequency, urinary urgency or hematuria Musc: Denies: neck pain, back pain, extremity pain, extremity swelling, joint pain, joint swelling, joint redness, joint warmth or joint stiffness Skin/Breast: Denies: rash, pruritus, erythema, skin pain or skin tenderness Neuro: Denies: headache(s), numbness in extremities, weakness in extremities, sensory changes, lack of coordination, difficulty walking, dizziness, vertigo, confusion, Slurred speech present or seizure-like activity Josias/Lymph: Denies: easy bruising, easy bleeding, petechiae, purpura or enlarged lymph nodes All/Imm: Denies: urticaria, throat swelling, tongue swelling, facial swelling or acute wheezing Meds/Allergies Home Medications and Allergies Home Medications Medication Instructions Recorded Confirmed Last Taken Type Afghan Aspirin 1 tab PO DAILY 07/02/20 07/02/20 Unknown History glipizide 10 mg PO BID 07/02/20 07/02/20 Unknown History metformin 1,000 mg PO BID 07/02/20 07/02/20 Unknown History Allergies Allergy/AdvReac Type Severity Reaction Status Date / Time No Known Allergies Allergy Unverified 07/02/20 20:07 Current Medications Current Medications Generic Name Dose Route Start Last Admin Trade Name Freq PRN Reason Stop Dose Admin Aspirin 81 mg 07/03/20 09:00 07/03/20 08:17 Aspirin 81 Mg Ec Tablet PO 81 mg DAILY JOB Administration Diltiazem HCl 30 mg 07/03/20 01:30 07/03/20 14:13 Diltiazem 30 Mg Tablet PO 30 mg Q6H JOB Administration Enoxaparin Sodium 40 mg 07/03/20 01:30 07/03/20 04:38 Enoxaparin 40 Mg/0.4 Ml Syringe SUBCUT 40 mg Q24H JOB Administration Diltiazem HCl 125 mg/ Sodium 125 mls @ 0 mls/hr 07/02/20 19:45 07/03/20 12:01 Chloride IV Infused .Q0M JOB Titration Protocol Per Protocol Additional Medication Information Active Medications Generic Name Dose Route Start Last Admin Trade Name Freq PRN Reason Stop Dose Admin Acetaminophen 650 mg 07/03/20 01:08 Acetaminophen 325 Mg Tablet PO Q6H PRN Mild/Mod Pain Or Temp >/= 101 Aspirin 81 mg 07/03/20 09:00 07/03/20 08:17 Aspirin 81 Mg Ec Tablet PO 81 mg DAILY JOB Administration Bisacodyl 10 mg 07/03/20 01:08 Bisacodyl 5 Mg Tablet PO DAILY PRN CONSTIPATION Diltiazem HCl 30 mg 07/03/20 01:30 07/03/20 08:17 Diltiazem 30 Mg Tablet PO 30 mg Q6H JOB Administration Enoxaparin Sodium 40 mg 07/03/20 01:30 07/03/20 04:38 Enoxaparin 40 Mg/0.4 Ml Syringe SUBCUT 40 mg Q24H JOB Administration Hydromorphone HCl 2 mg 07/03/20 01:08 Hydromorphone 4 Mg Tablet PO Q6H PRN SEVERE PAIN Diltiazem HCl 125 mg/ Sodium 125 mls @ 0 mls/hr 07/02/20 19:45 07/03/20 01:07 Chloride IV 10 mg/hr .Q0M JOB 10 mls/hr Titration Protocol Per Protocol Morphine Sulfate 4 mg 07/03/20 01:08 Morphine 4 Mg/Ml Sdv 1 Ml IVP Q4H PRN SEVERE PAIN Morphine Sulfate 2 mg 07/03/20 01:08 Morphine 4 Mg/Ml Sdv 1 Ml IVP Q4H PRN SEVERE PAIN Naloxone HCl 0.1 mg 07/03/20 01:08 Naloxone 0.4 Mg/Ml Sdv IVP Q2M PRN OPIATERV Ondansetron HCl 4 mg 07/03/20 01:08 Ondansetron 2 Mg/Ml Sdv 2 Ml IVP Q6H PRN NAUSEA AND VOMITING Ondansetron HCl 4 mg 07/03/20 01:08 Ondansetron 2 Mg/Ml Sdv 2 Ml IVP Q8H PRN vomiting, or N/V if npo No Known Allergies Allergy (Unverified 07/02/20 20:07) PFSH Acute PFSH: Medical History (Updated 07/03/20 @ 16:34 by Osmar Galvez MD) Diabetes Morbid obesity Vitals/I&O/Wt Last Vital Signs Temp 98.5 F 07/03/20 12:32 Pulse 93 07/03/20 14:00 Resp 25 H 07/03/20 12:32 BP 109/71 07/03/20 12:32 Pulse Ox 96 07/03/20 12:32 07/03/20 07/03/20 07/03/20 06:59 14:59 22:59 Intake Total 32 / 36.167 688.833 / 688.833 Output Total 400 / 400 Balance -368 / -363.833 688.833 / 688.833 Weight last 48 hrs Weight 220 lb Physical Exam Narrative: EXAM NARRATIVE: GENERAL: Patient is alert, awake and oriented x3. He is not in acute distress NECK: No jugular vein distension. HEENT: No cyanosis. No icterus. No pallor. HEART: Regular S1 and S2. No murmur, rub or gallop. LUNGS: Decreased breath sound bilaterally. ABDOMEN: Soft, nontender and nondistended. Positive bowel sounds. No guarding, rebound or tenderness. CENTRAL NERVOUS SYSTEM: Grossly nonfocal. EXTREMITIES: Lower extremities without edema bilaterally. A&P Assessment and plan (1) Atrial flutter: New onset of atrial flutter it appeared to me that this is going on for past few days. [id number] score not more than 1 therefore continue full dose aspirin. Patient has concomitant new LV dysfunction with severely depressed ejection fraction and cardiomyopathy ischemic versus nonischemic etiology need to be further explored. Since patient has depressed ejection fraction I will switch him from Cardizem to beta-mitzi. I will start patient on metoprolol succinate 25 mg p.o. daily. Status: Acute Qualifiers: Atrial flutter type: unspecified Qualified Code(s): I48.92 - Unspecified atrial flutter (2) Cardiomyopathy: Most likely nonischemic and dilated however like to rule out ischemic component with the help of left heart cath. He will be diuresed for increased end-diastolic pressures evident by a moderate MR and dilated LA. Status: Acute Qualifiers: Cardiomyopathy type: dilated Qualified Code(s): I42.0 - Dilated cardiomyopathy (3) Mitral valve regurgitation: Moderate MR could be functional, hopefully with offloading ventricle MRI will further improve. Status: Acute Qualifiers: Cardiac valve disease etiology: nonrheumatic Qualified Code(s): I34.0 - Nonrheumatic mitral (valve) insufficiency (4) Congestive heart failure with LV diastolic dysfunction, NYHA class 3: Patient has new onset of congestive heart failure. I will diurese him with Lasix. Medicine will be optimized by adding ESTUARDO inhibitor on top of beta- mitzi. Etiology will be further explored by performing right and left heart cath. Status: Acute (5) Diabetes: Status: Chronic Qualifiers: Diabetes mellitus type: type 2 Diabetes mellitus fdc insulin use: without predatory animal exterminator use Diabetes mellitus complication status: without complication Qualified Code(s): E11.9 - Type 2 diabetes mellitus without c omplications Consult Attestations Medical Necessity Statement: Patient require continuation hospitalization for the above defined care. Coding Level of Care Code New Pt Acute Internal Combustion Engine Inspector for [facility] Fwd Patient Type New History Comprehensive Exam Comprehensive Medical Decision Making High Complexity Diagnoses Atrial flutter I48.92 Atrial flutter type: unspecified Cardiomyopathy I42.0 Cardiomyopathy type: dilated Mitral valve regurgitation I34.0 Cardiac valve disease etiology: nonrheumatic Congestive heart failure with LV diastolic dysfunction, NYHA class 3 I50.30 Diabetes E11.9 Diabetes mellitus type: type 2 Diabetes mellitus predatory animal exterminator insulin use: without predatory animal exterminator use Diabetes mellitus complication status: without complication
[2020-07-03 16:28] LABS: Glucose Point of Care 165 mg/dL (70-110)
[2020-07-03] MEDS: potassium chloride ER 20 mEq Tablet PO (17:15)
[2020-07-03] MEDS: FUROsemide 10 mg/mL SDV 4mL 40 MG IVP (17:15)
[2020-07-03] MEDS: metoprolol succinate ER (24 HR) 25 mg Tablet PO (17:16)
[2020-07-03 20:33] LABS: Glucose Point of Care 202 mg/dL (70-110)
--- NOTE | 2020-07-03 21:33 | PC.NURSE ---
PT IS RESTING IN BED. PT DENIES PAIN. PT STATES THAT HE IS WORRIED ABOUT HIS WEAK HEART. WILL CONTINUE TO MONITOR.
[2020-07-04] VITALS (52 sets, daily range): BP systolic 97–175; BP diastolic 59–97; PULSE 61–116; RESP 1–29; TEMP 36.3–36.9; O2SAT 93–97
[2020-07-04] MEDS: enoxaparin 40 mg/0.4 mL Syringe SUBCUT (00:42)
--- NOTE | 2020-07-04 05:37 | PC.NURSE ---
PT DENIES PAIN. PT IS RESTING IN BED. PT WILL MOST LIKELY HAVE CATH ON 07/05. WILL CONTINUE TO MONITOR.
[2020-07-04 07:21] LABS: Glucose Point of Care 173 mg/dL (70-110)
[2020-07-04 07:35] LABS: Alanine Aminotransferase 21 U/L (0-41); Albumin Level 3.9 g/dL (3.5-5.2); Alkaline Phosphatase 38 IU/L (40-130); Anion Gap 13.8 (5-19); Aspartate Amino Transferase 13 U/L (0-40); Blood Urea Nitrogen 15 mg/dL (6-20); Carbon Dioxide 28 mmol/L (22-29); Chloride 103 mmol/L (98-107); Globulin 2.5 g/dL (1.3-4.6); Glomerular Filtration Rate 99.6 mL/min (90-130); Glucose 189 mg/dL (65-115); Magnesium 2.1 mg/dL (1.7-2.3); Osmolality Calculated 296 mOsm/kg (285-295); Potassium 4.8 mmol/L (3.5-5.1); Sodium 140 mmol/L (136-145); Total Bilirubin 0.6 mg/dL (0.15-1.2); Total Protein 6.4 g/dL (6.6-8.7)
[2020-07-04] MEDS: metoprolol succinate ER (24 HR) 25 mg Tablet PO (08:44)
[2020-07-04] MEDS: aspirin 81 mg EC Tablet PO (08:44)
[2020-07-04] MEDS: potassium chloride ER 20 mEq Tablet PO (08:45)
--- NOTE | 2020-07-04 10:09 | P.PN_ITS ---
Subjective Subjective: Interval history: Started on IV diuresis, had 1125 mL urine output, heart rate remains controlled, on room air. Switched to beta-mitzi and full dose aspirin. Feels well, plan for left and right heart cath tomorrow. Medications: Reviewed: Yes Medication Review Details: Active Medications Generic Name Dose Route Start Last Admin Trade Name Freq PRN Reason Stop Dose Admin Acetaminophen 650 mg 07/03/20 01:08 Acetaminophen 32 5 Mg Tablet PO Q6H PRN Mild/Mod Pain Or Temp >/= 101 Aspirin 325 mg 07/05/20 09:00 Aspirin 325 Mg T ablet PO DAILY JOB Bisacodyl 10 mg 07/03/20 01:08 Bisacodyl 5 Mg T ablet PO DAILY PRN CONSTIPATION Dextrose 25 ml 07/03/20 15:56 Dextrose 50% Syr levi 50 Ml IVP ONCE PRN hypoglycemia prot ocol Protocol Dextrose 50 ml 07/03/20 15:56 Dextrose 50% Syr levi 50 Ml IVP PRN PRN hypoglycemia prot ocol Protocol Enoxaparin Sodium 40 mg 07/03/20 01:30 07/04/20 00:42 Enoxaparin 40 Mg /0.4 Ml Syringe SUBCUT 40 mg Q24H JOB Administration Furosemide 40 mg 07/03/20 17:00 07/03/20 17:15 Furosemide 10 Mg /Ml Sdv 4ml IVP 40 mg Q24H JOB Administration Glucagon 1 mg 07/03/20 15:56 Glucagon 1 Mg/Ml Inj 1 Ml IM ONCE PRN Adult Acute Hypog lycemia Prot. Protocol Hydromorphone HCl 2 mg 07/03/20 01:08 Hydromorphone 4 Mg Tablet PO Q6H PRN SEVERE PAIN Diltiazem HCl 125 mg/ Sodium 125 mls @ 0 mls/h r 07/02/20 19:45 07/03/20 12:01 Chloride IV Infused .Q0M JOB Titration Protocol Per Protocol Dextrose 500 mls @ 100 mls /hr 07/03/20 15:56 D5w IV ONCE PRN Adult Acute Hypog lycemia Prot Protocol Insulin Aspart 0 unit 07/03/20 18:00 07/04/20 08:43 Insulin Aspart 1 00 Unit/1 Ml SUBCUT 2 unit WM&BEDTIME JOB Administration Protocol Metoprolol Succina te 25 mg 07/03/20 17:00 07/04/20 08:44 Metoprolol Succi maryjane Er (24 Hr) 25 Mg Tablet PO 25 mg DAILY JOB Administration Morphine Sulfate 4 mg 07/03/20 01:08 Morphine 4 Mg/Ml Sdv 1 Ml IVP Q4H PRN SEVERE PAIN Morphine Sulfate 2 mg 07/03/20 01:08 Morphine 4 Mg/Ml Sdv 1 Ml IVP Q4H PRN SEVERE PAIN Naloxone HCl 0.1 mg 07/03/20 01:08 Naloxone 0.4 Mg/ Ml Sdv IVP Q2M PRN OPIATERV Ondansetron HCl 4 mg 07/03/20 01:08 Ondansetron 2 Mg /Ml Sdv 2 Ml IVP Q6H PRN NAUSEA AND VOMITI NG Ondansetron HCl 4 mg 07/03/20 01:08 Ondansetron 2 Mg /Ml Sdv 2 Ml IVP Q8H PRN vomiting, or N/V if npo Potassium Chloride 20 meq 07/03/20 17:00 07/04/20 08:45 Potassium Chlori de Er 20 Meq Table t PO 20 meq DAILY JOB Administration No Known Allergies Allergy (Unverified 07/02/20 20:07) Vitals/I&O/Wt Last Vital Signs Temp 97.9 F 07/04/20 08:00 Pulse 100 07/04/20 08:00 Resp 18 07/04/20 08:00 BP 124/97 07/04/20 08:00 Pulse Ox 96 07/04/20 08:00 07/03/20 07/04/20 07/04/20 22:59 06:59 14:59 Intake Total 240 / 928.833 240 / 240 Output Total 400 / 400 775 / 1175 Balance -160 / 528.833 -775 / -246.167 240 / 240 Weight last 48 hrs Weight 99.79 kg Physical Exam Const: COMMON NORMALS: no acute distress, patient oriented x3 and alert GENERAL APPEARANCE: cooperative and comfortable ORIENTATION/CONSCIOUSNESS: Yes awake OTHER: -Looks appropriate for age, sitting up at the edge of bed HENMT: COMMON NORMALS: normocephalic, atraumatic, hearing grossly normal bilaterally and moist oral mucous membranes HEAD & SCALP: normocephalic and atraumatic Eye: COMMON NORMALS: Equal, round and reactive pupils present, EOMs intact bilaterally and conjunctivae normal CONJUNCTIVA: Yes conjunctivae normal PUPIL: Yes Equal, round and reactive pupils present Neck/C-Spine: COMMON NORMALS: full ROM GENERAL: Yes normal visual inspection and Yes trachea midline Resp: COMMON NORMALS: normal respiratory effort, No retractions, No use of accessory muscles and clear to auscultation bilaterally EFFORT & INSPECTION: Yes able to speak in complete sentences, Yes symmetric chest movement and No tachypneic AUSCULTATION: clear to auscultation bilaterally Cardio: COMMON NORMALS: regular rate, regular rhythm, S1 normal heart sound present, S2 normal heart sound present and No murmurs present (Cardio) RATE: regular rate RHYTHM: regular rhythm HEART SOUNDS: S1 normal heart sound present and S2 normal heart sound present GI: COMMON NORMALS: Normal to inspection, nondistended, normoactive bowel sounds present, Soft to palpation and non-tender PALPATION: Yes Soft to palpation Extremity: COMMON NORMALS: normal to inspection, full ROM and no clubbing, cyanosis or edema; negative for no pedal edema Neuro: COMMON NORMALS: patient oriented x3, moves all extremities, no focal motor deficits and no sensory deficits noted SENSORIUM/ORIENTATION: Yes alert Psych: COMMON NORMALS: mental status grossly normal, Normal thought process present, cooperative, normal affect and speech normal SPEECH: Yes normal speech THOUGHT PROCESS: Normal thought process present Skin: COMMON NORMALS: no rashes or lesions noted, no jaundice, no petechiae and no mottling GENERAL SKIN EXAM: no rashes or lesions noted Data : 07/03/20 01:43 07/04/20 06:28 A&P Assessment and plan (1) Atrial flutter: -Appears to be new onset -weaned off Cardizem drip, continue BB -Echo: EF=30%, global LV hypokinesis, moderate biatrial enlargement, trace AR, moderate MR, mild TR -Telemetry monitoring -Continue to monitor vital signs -Cardiology consult by Dr. Galvez, started on IV diuresis, plan for left and right heart cath tomorrow Status: Acute Qualifiers: Atrial flutter type: unspecified Qualified Code(s): I48.92 - Unspecified atrial flutter (2) Diabetes: -A1c-7.0 -Accuchecks, ISS, hypoglycemia precautions -hold oral hypoglycemic agents -consistent carb diet as tolerated Status: Chronic Qualifiers: Diabetes mellitus complication status: without complication Diabetes mellitus moth exterminator insulin use: without prison use Diabetes mellitus type: type 2 Qualified Code(s): E11.9 - Type 2 diabetes mellitus without complications (3) Morbid obesity: -BMI-35 kg/m2 Status: Chronic Additional A&P Information -acute on chronic systolic CHF: Echo as noted above; will need further ischemic workup, on IV diuresis -DVT ppx with lovenox -keep NPO after midnight, cath tomorrow -Dispo: home -Code status: FULL code Attestations Medical Necessity Statement*: Patient requires hospitalization for continued IV diuresis secondary to acute decompensated CHF, continued telemetry monitoring and optimization of medications. Time Spent in Patient Care: 16 - 35 minutes (>than 50% of time spent in counselling and/or direct pt care on unit) . Coding Level of Care Code Acute Business Project Manager for [facility] Fwd Exam Comprehensive Diagnoses Atrial flutter I48.92 Atrial flutter type: unspecified Diabetes E11.9 Diabetes mellitus complication status: without complication Diabetes mellitus moth exterminator insulin use: without moth exterminator use Diabetes mellitus type: type 2 Morbid obesity E66.01
[2020-07-04 10:45] LABS: Glucose Point of Care 216 mg/dL (70-110)
--- NOTE | 2020-07-04 12:26 | P.PN_ITS ---
Subjective Subjective: Interval history: Feeling better. Diuresed well overnight. Started on beta-mitzi which will optimized. No more A. fib overnight. Medications: Reviewed: Yes Medication Review Details: Active Medications Generic Name Dose Route Start Last Admin Trade Name Freq PRN Reason Stop Dose Admin Acetaminophen 650 mg 07/03/20 01:08 Acetaminophen 32 5 Mg Tablet PO Q6H PRN Mild/Mod Pain Or Temp >/= 101 Aspirin 325 mg 07/05/20 09:00 Aspirin 325 Mg T ablet PO DAILY JOB Bisacodyl 10 mg 07/03/20 01:08 Bisacodyl 5 Mg T ablet PO DAILY PRN CONSTIPATION Dextrose 25 ml 07/03/20 15:56 Dextrose 50% Syr levi 50 Ml IVP ONCE PRN hypoglycemia prot ocol Protocol Dextrose 50 ml 07/03/20 15:56 Dextrose 50% Syr levi 50 Ml IVP PRN PRN hypoglycemia prot ocol Protocol Enoxaparin Sodium 40 mg 07/03/20 01:30 07/04/20 00:42 Enoxaparin 40 Mg /0.4 Ml Syringe SUBCUT 40 mg Q24H JOB Administration Furosemide 40 mg 07/03/20 17:00 07/03/20 17:15 Furosemide 10 Mg /Ml Sdv 4ml IVP 40 mg Q24H JOB Administration Glucagon 1 mg 07/03/20 15:56 Glucagon 1 Mg/Ml Inj 1 Ml IM ONCE PRN Adult Acute Hypog lycemia Prot. Protocol Hydromorphone HCl 2 mg 07/03/20 01:08 Hydromorphone 4 Mg Tablet PO Q6H PRN SEVERE PAIN Diltiazem HCl 125 mg/ Sodium 125 mls @ 0 mls/h r 07/02/20 19:45 07/03/20 12:01 Chloride IV Infused .Q0M JOB Titration Protocol Per Protocol Dextrose 500 mls @ 100 mls /hr 07/03/20 15:56 D5w IV ONCE PRN Adult Acute Hypog lycemia Prot Protocol Insulin Aspart 0 unit 07/03/20 18:00 07/04/20 08:43 Insulin Aspart 1 00 Unit/1 Ml SUBCUT 2 unit WM&BEDTIME JOB Administration Protocol Metoprolol Succina te 25 mg 07/03/20 17:00 07/04/20 08:44 Metoprolol Succi maryjane Er (24 Hr) 25 Mg Tablet PO 25 mg DAILY JOB Administration Morphine Sulfate 4 mg 07/03/20 01:08 Morphine 4 Mg/Ml Sdv 1 Ml IVP Q4H PRN SEVERE PAIN Morphine Sulfate 2 mg 07/03/20 01:08 Morphine 4 Mg/Ml Sdv 1 Ml IVP Q4H PRN SEVERE PAIN Naloxone HCl 0.1 mg 07/03/20 01:08 Naloxone 0.4 Mg/ Ml Sdv IVP Q2M PRN OPIATERV Ondansetron HCl 4 mg 07/03/20 01:08 Ondansetron 2 Mg /Ml Sdv 2 Ml IVP Q6H PRN NAUSEA AND VOMITI NG Ondansetron HCl 4 mg 07/03/20 01:08 Ondansetron 2 Mg /Ml Sdv 2 Ml IVP Q8H PRN vomiting, or N/V if npo Potassium Chloride 20 meq 07/03/20 17:00 07/04/20 08:45 Potassium Chlori de Er 20 Meq Table t PO 20 meq DAILY JOB Administration No Known Allergies Allergy (Unverified 07/02/20 20:07) Vitals/I&O/Wt Last Vital Signs Temp 98.5 F 07/04/20 11:39 Pulse 103 H 07/04/20 11:39 Resp 20 H 07/04/20 11:39 BP 119/89 07/04/20 11:39 Pulse Ox 96 07/04/20 11:39 07/03/20 07/04/20 07/04/20 22:59 06:59 14:59 Intake Total 240 / 928.833 240 / 240 Output Total 400 / 400 775 / 1175 Balance -160 / 528.833 -775 / -246.167 240 / 240 Weight last 48 hrs Weight 220 lb Physical Exam Narrative: EXAM NARRATIVE: GENERAL: Patient is alert, awake and oriented x3. HEENT: No cyanosis. No icterus. No pallor. HEART: Regular S1 and S2. No murmur, rub or gallop. LUNGS: Decreased breath sound bilaterally. ABDOMEN: Soft, nontender and nondistended. Positive bowel sounds. No guarding, rebound or tenderness. CENTRAL NERVOUS SYSTEM: Grossly nonfocal. EXTREMITIES: Lower extremities without edema bilaterally. Data : 07/03/20 01:43 07/04/20 06:28 A&P Assessment and plan (1) Atrial flutter: Appear to be stable stays in sinus rhythm. Continue beta-mitzi and aspirin. Status: Acute Qualifiers: Atrial flutter type: unspecified Qualified Code(s): I48.92 - Uns pecified atrial flutter (2) Cardiomyopathy: Continue to optimize medicine patient has been started on ESTUARDO inhibitor. Continue beta-mitzi. Continue to diurese Status: Acute Qualifiers: Cardiomyopathy type: dilated Qualified Code(s): I42.0 - Dilated cardiomyopathy (3) Heart failure, systolic, acute: Patient appeared to be in decompensated systolic heart failure continue IV Lasix 40 mg once a day along with potassium chloride. For new onset of heart failure and cardiomyopathy will proceed with left and right heart cath tomorrow Status: Acute (4) Mitral valve regurgitation: We will continue to diurese and rate control. Feeling better Status: Acute Qualifiers: Cardiac valve disease etiology: nonrheumatic Qualified Code(s): I34.0 - Nonrheumatic mitral (valve) insufficiency (5) Diabetes: Status: Chronic Qualifiers: Diabetes mellitus type: type 2 Diabetes mellitus intermediate project manager insulin use: without intermediate project manager use Diabetes mellitus complication status: without complication Qualified Code(s): E11.9 - Type 2 diabetes mellitus without complications Attestations Medical Necessity Statement*: Patient require continuation hospitalization for above defined care Coding Level of Care Code Established Pt Acute Windows Support Engineer for Juan Tapia Patient Type Established History Detailed Exam Detailed Medical Decision Making Moderate Complexity Diagnoses Atrial flutter I48.92 Atrial flutter type: unspecified Cardiomyopathy I42.0 Cardiomyopathy type: dilated Heart failure, systolic, acute I50.21 Mitral valve regurgitation I34.0 Cardiac valve disease etiology: nonrheumatic Diabetes E11.9 Diabetes mellitus type: type 2 Diabetes mellitus intermediate project manager insulin use: without intermediate project manager use Diabetes mellitus complication status: without complication
[2020-07-04 16:49] LABS: Glucose Point of Care 169 mg/dL (70-110)
[2020-07-04] MEDS: FUROsemide 10 mg/mL SDV 4mL 40 MG IVP (17:51)
[2020-07-04 20:19] LABS: Glucose Point of Care 161 mg/dL (70-110)
[2020-07-05] VITALS (31 sets, daily range): BP systolic 108–145; BP diastolic 70–112; PULSE 79–101; RESP 8–25; TEMP 36.6–36.9; O2SAT 93–97
[2020-07-05] MEDS: sodium chloride 0.9% 1,000 ML 50 ML IV (00:37)
[2020-07-05] MEDS: enoxaparin 40 mg/0.4 mL Syringe SUBCUT (00:38)
--- NOTE | 2020-07-05 02:19 | PC.NURSE ---
PT IS RESTING IN BED. PT DENIES PAIN. PT ALREADY SIGNED CONSENT FORMS. WILL CONTINUE TO MONITOR.
[2020-07-05 06:13] LABS: Glucose Point of Care 171 mg/dL (70-110)
[2020-07-05 06:39] LABS: Alanine Aminotransferase 20 U/L (0-41); Albumin Level 3.7 g/dL (3.5-5.2); Alkaline Phosphatase 42 IU/L (40-130); Anion Gap 14.3 (5-19); Aspartate Amino Transferase 10 U/L (0-40); Blood Urea Nitrogen 16 mg/dL (6-20); Calcium 8.8 mg/dL (8.5-10.5); Carbon Dioxide 24 mmol/L (22-29); Chloride 105 mmol/L (98-107); Globulin 2.7 g/dL (1.3-4.6); Glomerular Filtration Rate 99.6 mL/min (90-130); Glucose 167 mg/dL (65-115); Osmolality Calculated 293 mOsm/kg (285-295); Potassium 4.3 mmol/L (3.5-5.1); Sodium 139 mmol/L (136-145); Total Bilirubin 0.4 mg/dL (0.15-1.2); Total Protein 6.4 g/dL (6.6-8.7)
--- NOTE | 2020-07-05 06:41 | PC.NURSE ---
PT IS RESTING IN BED. PT DENIES PAIN. PT PREPPED FOR CATH. WILL CONTINUE TO MONITOR.
--- NOTE | 2020-07-05 08:09 | XACV_ITS ---
Exam Room: [facility] Ht: 168 cm Wt: 100 kg BSA: 2.20 m2 Gender: Male : 1965 Any Known Allergies: No known allergies Exam Priority: Routine Procedure(s): Procedure Description: Diagnostic procedure Procedure Description: Left Heart Catheterization Procedure Description: Right Heart Catheterization Procedure Description: Left ventriculography Procedure Description: O2 saturation Procedure Description: Coronary Angiography Diagnostic Cath Status: Urgent Diagnostic Findings * No significant disease noted in the Left Main, LAD, Circumflex, or RCA coronary arteries. * Coronary angiography shows right dominance. Conclusions 1. No significant disease noted in the Left Main, LAD, Circumflex, or RCA coronary arteries. 2. The apex, mid posterior, mid septum, anterolateral, mid inferior mckeon are hypokinetic. 3. Moderate left ventricular systolic dysfunction. Ejection fraction of 35%. 4. Right heart cath indication: Cardiomyopathy new onset of heart failureRA 14 mmHgRV 59/5 mmHgPulmonary artery mean pressure 41 mmHgPulmonary capillary wedge 27 mmHgNo significant stepup notedCardiac output 5.0, cardiac index 3.0. Recommendations * Continue current medical management and risk factor modification. Diagnostic RX Recommendation: medical therapy and/or counseling Ventriculography Ejection Fraction: 35.0 % Left Ventriculography Findings: * Severely reduced LV function of 35% with global hypokinesis. Pressures Phase:Rest AO : 123 / 84 ( 99 ) @ 4:52:00 AM 122 / 84 ( 103 ) @ 5:00:00 AM 122 / 84 ( 102 ) @ 5:00:00 AM LV : 128 / 0 / @ 4:58:00 AM 127 / 0 / @ 5:00:00 AM 127 / -1 / @ 5:00:00 AM RV : 59 / 5 / @ 4:41:00 AM PA : 58 / 30 ( 41 ) @ 4:40:00 AM RA : a wave = v wave = mean = 14 @ 4:43:00 AM O2 Content Phase:Rest PA : O2 Content O2: 63.8 @ 4:52:00 AM Saturations Phase:Rest AO : 90 @ 4:58:00 AM RA : 63 @ 5:00:00 AM RV : 65 @ 5:00:00 AM PA : 64 @ 4:52:00 AM Cardiac Output Phase:Rest Jose : 5 @ 4:52:00 AM Jose Cardiac Index: 3 @ 4:52:00 AM Valves Phase:DefaultPhase AV : 5.0 @ 11:07:39 AM AV Mean Gradient: 12.0 @ 11:07:39 AM 12.0 @ 11:07:39 AM Clinical Evaluation EBL: 5mL-10mL Procedural Details Procedure Consent Obtained. Pre-Procedure Time Out. Identified patient by full name and date of as verbalized by the patient/guarantor. Does the consent match the physician's order: Yes. Accurate & Complete Informed Consent: Yes. Inpatient/Outpatient History & Physical on Chart: Yes. If H&P is completed, is and addenduem needed: No; If yes, is the addendum complete: N/A. Visualize and Verify Site with Patient/Guarantor: N/A. Relevant Radiology Images available: N/A. Pre-op teaching completed and patient verbalized understanding. The risks, benefits, and alternatives of sedation and/or procedure were discussed by physician. The patient agrees to continue. Procedure started. [facility] Clinical Fraility Score: 2: Well. Television Service Engineer Indications: Cardiomyopathy. Cardiovascular Instability: No. Correct patient, site and procedure confirmed by cath team. PERRLA. Strong, equal hand services program manager bilaterally. Lungs clear x 5 lobes. IV Site on Arrival: 20 gauge in the left anticubital. IV Fluids: 0.9% NaCl at KVO. 0 mL infused prior to computer lab assistant. Pre Procedural Pulses: bilateral radial was 3+. Pre Procedural Pulses: bilateral posterior tibial was Doppled. Pre Procedural Pulses: bilateral dorsalis pedis was Doppled. Baseline sample Acquired. HR: 105 BPM. A 20 gauge IV was started in the right anticubital using aseptic technique. Physician notified. bilateral groins was prepped with chloroprep then draped in the usual sterile fashion. right radial was prepped with chloroprep then draped in the usual sterile fashion. right brachial was prepped with chloroprep then draped in the usual sterile fashion. Equipment: 6F - Radial. Cardiac Cath Pack. ACwizboo Manifold Kit Model BT 2000. Heparinized Saline (2 units/mL), 1000 mL bag. Physician arrived. Physician scrubbed in. Immediate Pre-Procedure Time Out. Correct Patient: Yes; Correct Procedure: Yes; Correct Site: Yes; Correct Patient Position: Yes; Correct Supplies: Yes; Dried Flammable Prep: Yes; Blood Products Available: N/A;. Wire inserted through IV catheter in right brachial vein. Lidocaine 1% infiltrated to the right brachial. IV catheter removed over wire. [place] MON catheter inserted. [place] out. Lidocaine 1% infiltrated to the right radial. Arterial access obtained. A 5 ugandan TIG catheter in over wire. Multiple views taken of left coronary artery. Catheter redirected to the RCA. Catheter removed over the exchange wire. A 5 ugandan Angled Pig catheter in over wire. EDP Sample taken: LV 128/0,24; HR: 98 BPM; SpO2: 91%. LV gram performed in [place] @ 10 mL/second for a total of 30 mL. EDP Sample taken: LV 127/0,19; HR: 98 BPM; SpO2: 91%. Pullback taken: LV 127/-2,21; AO 122/84(103); Mean: 12mmHg, Peak to Peak: 5mmHg, SEP: 8sec/min; HR: 90 BPM; SpO2: 91%. Catheter removed over the exchange wire. Physician scrubbed out. A Manual Compression was successful obtaining hemostatsis at the Right Brachial Vein insertion site. A TR Band was successful obtaining hemostatsis at the Right Radial artery insertion site. TR band placed. Hemostasis obtained. Post Procedure: Pulses reassessed and unchanged. PERRLA. Strong, equal hand services program manager bilaterally. No VTE prophylaxis required. Medication's Wasted: Lidocaine 1% = 8 mL. Medication's Wasted: Nitro = 49.8 mg. Medication's Wasted: Heparin = 1000 units. Total IV fluids: 100 mL. Contrast type used: Omnipaque 300 mgI/mL, 500 mL bottle. Post-op diagnosis: non ischemic cardiomyopathy, normal coronaries. Complications: none. Estimated blood loss: 5mL-10mL. Procedure completed. Patient transferred by wheelchair to 1st floor. Vital chart was stopped. Access Site Site: Right Brachial Vein Sheath Size: 6 Fr Hemostasis Method: Manual Compression Hemostasis Success: Successful Site: Right Radial artery Sheath Size: 6 Fr Hemostasis Method: TR Band Hemostasis Success: Successful Procedure Medications Start: 9:57 AM Stop: 9:57 AM Medication: Fentanyl Amount: 50 mcg Route: I.V. Start: 10:32 AM Stop: 10:32 AM Medication: Versed Amount: 1 mg Route: I.V. Start: 10:32 AM Stop: 10:32 AM Medication: Fentanyl Amount: 50 mcg Route: I.V. Start: 10:35 AM Stop: 10:35 AM Medication: Versed Amount: 1 mg Route: I.V. Start: 10:49 AM Stop: 10:49 AM Medication: Nitrogylcerin Amount: 200 mcg Route: I.A. Start: 11:02 AM Stop: 11:02 AM Medication: Lovenox (Enoxaparin) Amount: 30 mg Route: I.V. bolus I, the attending physician, have reviewed and verified all procedure medications. Yes, all medications given per verbal order History/Risk Factors Hypertension: No Dyslipidemia: No Peripheral Arterial Disease (PAD): No Myocardial Infarction (NM): No Obesity: No Renal Disease: No Prior Interventions PCI: No CABG: No Valve Surgery: No Report Signatures Finalized by Osmar Galvez MD on 07/19/2020 06:40 PM
[2020-07-05] MEDS: diphenhydrAMINE 50 mg Capsule PO (08:36)
[2020-07-05] MEDS: aspirin 325 mg Tablet PO (08:36)
[2020-07-05] MEDS: metoprolol succinate ER (24 HR) 25 mg Tablet PO (08:36)
[2020-07-05] MEDS: potassium chloride ER 20 mEq Tablet PO (08:36)
--- NOTE | 2020-07-05 09:55 | PC.NURSE ---
Off unit to agricultural labor camp manager
--- NOTE | 2020-07-05 10:00 | PM.PN ---
Subjective Subjective: Interval history: Cath today, labs reviewed including renal function which is normal. Had 600 mL urine output overnight. Hemodynamically stable, afebrile, on RA. Seen following cath, dilated non-ischemic cardiomyopathy on angiogram. Hypertensive this AM, BP has improved. Medications: Reviewed: Yes Medication Review Details: Active Medications Generic Name Dose Route Start Last Admin Trade Name Freq PRN Reason Stop Dose Admin Acetaminophen 650 mg 07/03/20 01:08 Acetaminophen 32 5 Mg Tablet PO Q6H PRN Mild/Mod Pain Or Temp >/= 101 Aspirin 325 mg 07/05/20 09:00 07/05/20 08:36 Aspirin 325 Mg T ablet PO 325 mg DAILY JOB Administration Bisacodyl 10 mg 07/03/20 01:08 Bisacodyl 5 Mg T ablet PO DAILY PRN CONSTIPATION Dextrose 25 ml 07/03/20 15:56 Dextrose 50% Syr levi 50 Ml IVP ONCE PRN hypoglycemia prot ocol Protocol Dextrose 50 ml 07/03/20 15:56 Dextrose 50% Syr levi 50 Ml IVP PRN PRN hypoglycemia prot ocol Protocol Enoxaparin Sodium 40 mg 07/03/20 01:30 07/05/20 00:38 Enoxaparin 40 Mg /0.4 Ml Syringe SUBCUT 40 mg Q24H JOB Administration Furosemide 40 mg 07/03/20 17:00 07/04/20 17:51 Furosemide 10 Mg /Ml Sdv 4ml IVP 40 mg Q24H JOB Administration Glucagon 1 mg 07/03/20 15:56 Glucagon 1 Mg/Ml Inj 1 Ml IM ONCE PRN Adult Acute Hypog lycemia Prot. Protocol Hydromorphone HCl 2 mg 07/03/20 01:08 Hydromorphone 4 Mg Tablet PO Q6H PRN SEVERE PAIN Diltiazem HCl 125 mg/ Sodium 125 mls @ 0 mls/h r 07/02/20 19:45 07/03/20 12:01 Chloride IV Infused .Q0M JOB Titration Protocol Per Protocol Dextrose 500 mls @ 100 mls /hr 07/03/20 15:56 D5w IV ONCE PRN Adult Acute Hypog lycemia Prot Protocol Sodium Chloride 1,000 mls @ 50 ml s/hr 07/05/20 00:00 07/05/20 00:37 Sodium Chloride 0.9% IV 50 mls/hr .Q20H JOB Administration Insulin Aspart 0 unit 07/03/20 18:00 07/05/20 07:29 Insulin Aspart 1 00 Unit/1 Ml SUBCUT Not Given WM&BEDTIME JOB Protocol Metoprolol Succina te 25 mg 07/03/20 17:00 07/05/20 08:36 Metoprolol Succi maryjane Er (24 Hr) 25 Mg Tablet PO 25 mg DAILY JOB Administration Morphine Sulfate 4 mg 07/03/20 01:08 Morphine 4 Mg/Ml Sdv 1 Ml IVP Q4H PRN SEVERE PAIN Morphine Sulfate 2 mg 07/03/20 01:08 Morphine 4 Mg/Ml Sdv 1 Ml IVP Q4H PRN SEVERE PAIN Naloxone HCl 0.1 mg 07/03/20 01:08 Naloxone 0.4 Mg/ Ml Sdv IVP Q2M PRN OPIATERV Ondansetron HCl 4 mg 07/03/20 01:08 Ondansetron 2 Mg /Ml Sdv 2 Ml IVP Q6H PRN NAUSEA AND VOMITI NG Ondansetron HCl 4 mg 07/03/20 01:08 Ondansetron 2 Mg /Ml Sdv 2 Ml IVP Q8H PRN vomiting, or N/V if npo Potassium Chloride 20 meq 07/03/20 17:00 07/05/20 08:36 Potassium Chlori de Er 20 Meq Table t PO 20 meq DAILY JOB Administration No Known Allergies Allergy (Unverified 07/02/20 20:07) Vitals/I&O/Wt Last Vital Signs Temp 97.4 F L 07/04/20 15:58 Pulse 101 H 07/05/20 08:36 Resp 22 H 07/05/20 08:36 BP 144/112 07/05/20 08:36 Pulse Ox 97 07/05/20 08:36 07/04/20 07/05/20 07/05/20 22:59 06:59 14:59 Intake Total 240 / 840 120 / 960 Output Total 600 / 600 300 / 300 Balance 240 / 840 -480 / 360 -300 / -300 Physical Exam Const: COMMON NORMALS: no acute distress, patient oriented x3 and alert GENERAL APPEARANCE: cooperative and comfortable ORIENTATION/CONSCIOUSNESS: Yes awake OTHER: -Looks appropriate for age, sitting up in bed HENMT: COMMON NORMALS: normocephalic, atraumatic, hearing grossly normal bilaterally and moist oral mucous membranes HEAD & SCALP: normocephalic and atraumatic Eye: COMMON NORMALS: Equal, round and reactive pupils present, EOMs intact bilaterally and conjunctivae normal CONJUNCTIVA: Yes conjunctivae normal PUPIL: Yes Equal, round and reactive pupils present Neck/C-Spine: COMMON NORMALS: full ROM GENERAL: Yes normal visual inspection and Yes trachea midline Resp: COMMON NORMALS: normal respiratory effort, No retractions, No use of accessory muscles and clear to auscultation bilaterally EFFORT & INSPECTION: Yes able to speak in complete sentences, Yes symmetric chest movement and No tachypneic AUSCULTATION: clear to auscultation bilaterally Cardio: COMMON NORMALS: regular rate, regular rhythm, S1 normal heart sound present, S2 normal heart sound present and No murmurs present (Cardio) RATE: regular rate RHYTHM: regular rhythm HEART SOUNDS: S1 normal heart sound present and S2 normal heart sound present GI: COMMON NORMALS: Normal to inspection, nondistended, normoactive bowel sounds present, Soft to palpation and non-tender PALPATION: Yes Soft to palpation Extremity: COMMON NORMALS: normal to inspection, full ROM and no clubbing, cyanosis or edema; negative for no pedal edema NARRATIVE EXTREMITY EXAM: -TR band in place (R wrist) Neuro: COMMON NORMALS: patient oriented x3, moves all extremities, no focal motor deficits and no sensory deficits noted SENSORIUM/ORIENTATION: Yes alert Psych: COMMON NORMALS: mental status grossly normal, Normal thought process present, cooperative, normal affect and speech normal SPEECH: Yes normal speech THOUGHT PROCESS: Normal thought process present Skin: COMMON NORMALS: no rashes or lesions noted, no jaundice, no petechiae and no mottling GENERAL SKIN EXAM: no rashes or lesions noted Data : 07/03/20 01:43 07/05/20 05:24 A&P Assessment and plan (1) Cardiomyopathy: -Cardiology consult by Dr. Galvez, on IV diuresis, s/p left and right heart cath today showing dilated non-ischemic cardiomyopathy, normal coronaries -add ACEi; continue BB, ASA -LifeVest recommended Status: Acute Qualifiers: Cardiomyopathy type: dilated Qualified Code(s): I42.0 - Dilated cardiomyopathy (2) Atrial flutter: -Appears to be new onset -weaned off Cardizem drip, continue BB -Echo: EF=30%, global LV hypokinesis, moderate biatrial enlargement, trace AR, moderate MR, mild TR -Telemetry monitoring -Continue to monitor vital signs Status: Acute Qualifiers: Atrial flutter type: unspecified Qualified Code(s): I48.92 - Unspecified atrial flutter (3) Diabetes: -A1c-7.0 -Accuchecks, ISS, hypoglycemia precautions -hold oral hypoglycemic agents -consistent carb diet as tolerated Status: Chronic Qualifiers: Diabetes mellitus complication status: without complication Diabetes mellitus shelter insulin use: without oysterman use Diabetes mellitus type: type 2 Qualified Code(s): E11.9 - Type 2 diabetes mellitus without complications (4) Mitral valve regurgitation: -noted on Echo, moderate Status: Acute Qualifiers: Cardiac valve disease etiology: nonrheumatic Qualified Code(s): I34.0 - Nonrheumatic mitral (valve) insufficiency (5) Heart failure, systolic, acute: -on IV lasix -Echo as noted above Status: Acute (6) Morbid obesity: -BMI-35 kg/m2 Status: Chronic Additional A&P Information -DVT ppx with lovenox -NPO after midnight, cath today -Dispo: home -Code status: FULL code Attestations Medical Necessity Statement*: Patient requires hospitalization for continued management of cardiomyopathy s/p cath today with noted dilated non-ischemic disease, needs LifeVest and optimization of medications. Time Spent in Patient Care: 16 - 35 minutes (>than 50% of time spent in counselling and/or direct pt care on unit). Coding Level of Care Code Acute Wet Process Technician for Chg Fwd Exam Comprehensive Diagnoses Cardiomyopathy I42.0 Cardiomyopathy type: dilated Atrial flutter I48.92 Atrial flutter type: unspecified Diabetes E11.9 Diabetes mellitus complication status: without complication Diabetes mellitus shelter insulin use: without oysterman use Diabetes mellitus type: type 2 Mitral valve regurgitation I34.0 Cardiac valve disease etiology: nonrheumatic Heart failure, systolic, acute I50.21 Morbid obesity E66.01
--- NOTE | 2020-07-05 11:32 | PM.PN ---
Subjective Subjective: Interval history: Patient underwent left and right heart cath for new onset of heart failure cardiomyopathy noted to have dilated nonischemic cardiomyopathy with normal coronaries. Medications: Reviewed: Yes Medication Review Details: Active Medications Generic Name Dose Route Start Last Admin Trade Name Freq PRN Reason Stop Dose Admin Acetaminophen 650 mg 07/03/20 01:08 Acetaminophen 32 5 Mg Tablet PO Q6H PRN Mild/Mod Pain Or Temp >/= 101 Aspirin 325 mg 07/05/20 09:00 07/05/20 08:36 Aspirin 325 Mg T ablet PO 325 mg DAILY JOB Administration Bisacodyl 10 mg 07/03/20 01:08 Bisacodyl 5 Mg T ablet PO DAILY PRN CONSTIPATION Dextrose 25 ml 07/03/20 15:56 Dextrose 50% Syr levi 50 Ml IVP ONCE PRN hypoglycemia prot ocol Protocol Dextrose 50 ml 07/03/20 15:56 Dextrose 50% Syr levi 50 Ml IVP PRN PRN hypoglycemia prot ocol Protocol Enoxaparin Sodium 40 mg 07/03/20 01:30 07/05/20 00:38 Enoxaparin 40 Mg /0.4 Ml Syringe SUBCUT 40 mg Q24H JOB Administration Furosemide 40 mg 07/03/20 17:00 07/04/20 17:51 Furosemide 10 Mg /Ml Sdv 4ml IVP 40 mg Q24H JOB Administration Glucagon 1 mg 07/03/20 15:56 Glucagon 1 Mg/Ml Inj 1 Ml IM ONCE PRN Adult Acute Hypog lycemia Prot. Protocol Hydromorphone HCl 2 mg 07/03/20 01:08 Hydromorphone 4 Mg Tablet PO Q6H PRN SEVERE PAIN Diltiazem HCl 125 mg/ Sodium 125 mls @ 0 mls/h r 07/02/20 19:45 07/03/20 12:01 Chloride IV Infused .Q0M JOB Titration Protocol Per Protocol Dextrose 500 mls @ 100 mls /hr 07/03/20 15:56 D5w IV ONCE PRN Adult Acute Hypog lycemia Prot Protocol Sodium Chloride 1,000 mls @ 50 ml s/hr 07/05/20 00:00 07/05/20 00:37 Sodium Chloride 0.9% IV 50 mls/hr .Q20H JOB Administration Insulin Aspart 0 unit 07/03/20 18:00 07/05/20 07:29 Insulin Aspart 1 00 Unit/1 Ml SUBCUT Not Given WM&BEDTIME [facility] Protocol Metoprolol Succina te 25 mg 07/03/20 17:00 07/05/20 08:36 Metoprolol Succi maryjane Er (24 Hr) 25 Mg Tablet PO 25 mg DAILY JOB Administration Morphine Sulfate 4 mg 07/03/20 01:08 Morphine 4 Mg/Ml Sdv 1 Ml IVP Q4H PRN SEVERE PAIN Morphine Sulfate 2 mg 07/03/20 01:08 Morphine 4 Mg/Ml Sdv 1 Ml IVP Q4H PRN SEVERE PAIN Naloxone HCl 0.1 mg 07/03/20 01:08 Naloxone 0.4 Mg/ Ml Sdv IVP Q2M PRN OPIATERV Ondansetron HCl 4 mg 07/03/20 01:08 Ondansetron 2 Mg /Ml Sdv 2 Ml IVP Q6H PRN NAUSEA AND VOMITI NG Ondansetron HCl 4 mg 07/03/20 01:08 Ondansetron 2 Mg /Ml Sdv 2 Ml IVP Q8H PRN vomiting, or N/V if npo Potassium Chloride 20 meq 07/03/20 17:00 07/05/20 08:36 Potassium Chlori de Er 20 Meq Table t PO 20 meq DAILY JOB Administration No Known Allergies Allergy (Unverified 07/02/20 20:07) Vitals/I&O/Wt Last Vital Signs Temp 97.4 F L 07/04/20 15:58 Pulse 101 H 07/05/20 08:36 Resp 22 H 07/05/20 08:36 BP 144/112 07/05/20 08:36 Pulse Ox 97 07/05/20 08:36 07/04/20 07/05/20 07/05/20 22:59 06:59 14:59 Intake Total 240 / 840 120 / 960 Output Total 600 / 600 300 / 300 Balance 240 / 840 -480 / 360 -300 / -300 Physical Exam Narrative: EXAM NARRATIVE: GENERAL: Patient is alert, awake and oriented x3. HEENT: No cyanosis. No icterus. No pallor. HEART: Regular S1 and S2. No murmur, rub or gallop. LUNGS: Decreased breath sound bilaterally. ABDOMEN: Soft, nontender and nondistended. Positive bowel sounds. No guarding, rebound or tenderness. CENTRAL NERVOUS SYSTEM: Grossly nonfocal. EXTREMITIES: Lower extremities without edema bilaterally. Data : 07/03/20 01:43 07/05/20 05:24 A&P Assessment and plan (1) Atrial flutter: Continues to be in sinus rhythm continue beta-mitzi, full dose aspirin Status: Acute Qualifiers: Atrial flutter type: unspecified Qualified Code(s): I48.92 - Unspecified atrial flutter (2) Cardiomyopathy: Nonischemic dilated cardiomyopathy with left ventricle ejection fraction around 30% by left ventriculogram in less than 35% by echocardiogram. Recommend optimization of medicine with beta-mitzi ESTUARDO inhibitor and diuretics. Recommend LifeVest for primary prevention for 90 days. Patient has been discussed in detail regarding all risk benefit and alternative for LifeVest. I have discussed all these findings and recommendation with his niece who can interpret for him [place]. She and patient agrees. We will proceed with LifeVest Status: Acute Qualifiers: Cardiomyopathy type: dilated Qualified Code(s): I42.0 - Dilated cardiomyopathy (3) Heart failure, systolic, acute: Continue to optimize medicine increase diuresis Status: Acute (4) Mitral valve regurgitation: Most likely due to dilated cardiomyopathy and functional MR hopefully with offloading of ventricle mitral valve will improve Status: Acute Qualifiers: Cardiac valve disease etiology: nonrheumatic Qualified Code(s): I34.0 - Nonrheumatic mitral (valve) insufficiency (5) Diabetes: Status: Chronic Qualifiers: Diabetes mellitus type: type 2 Diabetes mellitus dedicated intermodal truck driver insulin use: without dedicated intermodal truck driver use Diabetes mellitus complication status: without complication Qualified Code(s): E11.9 - Type 2 diabetes mellitus without complications Attestations Medical Necessity Statement*: Patient require continuation hospitalization for above defined care. Coding Level of Care Code Established Pt Acute Frame Aligner for g Fwd Patient Type Established History Detailed Exam Detailed Medical Decision Making Moderate Complexity Diagnoses Atrial flutter I48.92 Atrial flutter type: unspecified Cardiomyopathy I42.0 Cardiomyopathy type: dilated Heart failure, systolic, acute I50.21 Mitral valve regurgitation I34.0 Cardiac valve disease etiology: nonrheumatic Diabetes E11.9 Diabetes mellitus type: type 2 Diabetes mellitus [facility] insulin use: without [facility] use Diabetes mellitus complication status: without complication
[2020-07-05 11:46] LABS: Glucose Point of Care 158 mg/dL (70-110)
--- NOTE | 2020-07-05 13:32 | W.PM.OPSUD ---
Surgery/Procedure H&P Update DATE OF PROCEDURE: July 05, 2020 DATE H&P PERFORMED: 07/03/20 H&P UPDATE INFORMATION: I have reviewed H&P completed within last 30 days, I have examined patient prior to procedure and No changes to prior documentation PREOP DIAGNOSIS: New onset of heart failure PLANNED PROCEDURE: Operation Date: 07/05/20 10:00 Proposed Procedures p Cardiac Catheterization(Bilateral) - Osmar Galvez MD PATIENT REASSESSED PRIOR TO SEDATION, WITH NO CHANGE NOTED: Yes PHYSICAL EXAM: alert, oriented x 3, clear to auscultation bilaterally and regular rate & rhythm AIRWAY EVAL/ANESTHESIA PLAN: ASA II, Risks, benefits & alternatives of sedation and/or procedure discussed and Patient agrees to continue as planned
--- NOTE | 2020-07-05 14:30 | PC.NURSE ---
TR Band removal No bleeding, hematoma, swelling or pain. Radial pulse is palpabe +2. Dressing applied to right wrist. Activity restrictions on right arm discuss to pt. Pt verbalizes understanding.
[2020-07-05] MEDS: FUROsemide 10 mg/mL SDV 4mL 40 MG IVP (16:58)
[2020-07-05 17:08] LABS: Glucose Point of Care 255 mg/dL (70-110)
--- NOTE | 2020-07-05 19:54 | PC.NURSE ---
awaiting for [facility] life vest response faxed papers to them.
[2020-07-05 20:22] LABS: Glucose Point of Care 171 mg/dL (70-110)
[2020-07-06] VITALS (27 sets, daily range): BP systolic 121–157; BP diastolic 73–119; PULSE 71–141; RESP 12–30; TEMP 35.7–36.8; O2SAT 90–98
[2020-07-06] MEDS: enoxaparin 40 mg/0.4 mL Syringe SUBCUT (02:46)
--- NOTE | 2020-07-06 05:18 | PC.NURSE ---
Notified Dr Galvez due to change in patient heart rate. Rate up to 140's with elevated BP of 144/103 Patient was started on Metoprolol 25 mg yesterday. New order to give once order of metoprolol 25 mg now. Will continue to monitor
[2020-07-06] MEDS: metoprolol succinate ER (24 HR) 25 mg Tablet PO ×4 (05:39→17:09)
[2020-07-06 05:52] LABS: Basophils # 0.1 10^3/uL (0.0-0.1); Basophils % 0.7 %; Eosinophils # 0.1 10^3/uL (0.0-0.8); Eosinophils % 1.6 %; Hemoglobin 14.9 g/dL (11.7-16.6); Lymphocytes # 1.9 10^3/uL (0.8-4.8); Lymphocytes % 25.3 %; Mean Corpuscular HGB Conc 33.1 g/dL (30.0-36.0); Mean Corpuscular Hemoglobin 29.3 pg (28.0-34.0); Mean Corpuscular Volume 88.4 fL (80-94); Mean Platelet Volume 11.3 fL (7.4-10.4); Monocytes # 0.6 10^3/uL (0.2-0.9); Monocytes % 8.4 %; Neutrophils # 4.89 10^3/uL (1.8-7.7); Neutrophils % 63.7 %; Nucleated Red Blood Cells % 0 %; Platelet Count 209 10^3/cmm (130-400); Red Blood Count 5.09 10^6/uL (4.1-5.3); White Blood Count 7.7 10^3/uL (4.0-10.0)
[2020-07-06 06:16] LABS: Anion Gap 15.4 (5-19); Blood Urea Nitrogen 16 mg/dL (6-20); Calcium 8.9 mg/dL (8.5-10.5); Carbon Dioxide 24 mmol/L (22-29); Chloride 105 mmol/L (98-107); Glomerular Filtration Rate 116.2 mL/min (90-130); Glucose 195 mg/dL (65-115); Osmolality Calculated 297 mOsm/kg (285-295); Potassium 4.4 mmol/L (3.5-5.1); Sodium 140 mmol/L (136-145)
[2020-07-06 06:36] LABS: Glucose Point of Care 213 mg/dL (70-110)
--- NOTE | 2020-07-06 07:21 | PC.NURSE ---
Patient only had mild response to oral metoprolol dosage. Pulse continues to be in the 130's at this time. ST is the rhythm but patient is asymptomatic with no voiced chest pain or s/s of cardiac distress. Will continue to monitor and assist as needed following CPOC
--- NOTE | 2020-07-06 08:04 | PC.NURSE ---
Dr. Galvez notified patient HR 130-140s a flutter c rvr BP 130/108. Patient reports mild SOB. Telephone order to administer 25 mg metoprolol dose now. RBTO. Nurse to continue to monitor.
[2020-07-06] MEDS: aspirin 325 mg Tablet PO (08:21)
[2020-07-06] MEDS: potassium chloride ER 20 mEq Tablet PO (08:22)
[2020-07-06] MEDS: lisinopril 5 mg Tablet PO (08:22)
--- NOTE | 2020-07-06 10:54 | PC.NURSE ---
HR maintaining 130-140s a flutter. Dr. Galvez at bedside. Verbal order to give patient 150 mg IV amiodarone bolus and initiate amodarone gtt. RBVO.
--- NOTE | 2020-07-06 10:59 | P.PN_ITS ---
Subjective Subjective: Interval history: Hospital course, labs and vitals noted. Medication done with patient through his daughter via phone who is interpreting [place]ian to [place]. Examination patient sitting comfortably in bed. Denies any nausea, vomiting or palpitation, chest pain, difficulty in breathing. Currently heart rate around 130 bpm, irregular the patient denies of having any symptoms. Vitals/I&O/Wt Last Vital Signs Temp 96.3 F L 07/06/20 07:06 Pulse 136 H 07/06/20 07:06 Resp 21 H 07/06/20 07:06 BP 130/108 07/06/20 07:06 Pulse Ox 96 07/06/20 07:06 07/05/20 07/06/20 07/06/20 22:59 06:59 14:59 Intake Total 200 / 318 100 / 418 240 / 240 Balance 200 / 18 100 / 118 240 / 240 Physical Exam Narrative: EXAM NARRATIVE: General: No acute distress, AO x3 HEENT: PERRLA, pupils bilaterally equal and reactive Chest: Normal vesicular breath sounds, no added sounds, equal good air entry bilaterally CVS: S1-S2 irregularly irregular, pansystolic murmur at apex going up to mid axilla, tachycardia, no gallops, no rubs Abdomen: Soft, nontender, no organomegaly, bowel sounds present Neuro: No focal deficits, no facial deformity, AO x3, power 5/5 in all limbs Data : 07/06/20 05:28 07/06/20 05:28 A&P Assessment and plan (1) Cardiomyopathy: Status: Acute Qualifiers: Cardiomyopathy type: dilated Qualified Code(s): I42.0 - Dilated cardiomyopathy (2) Atrial flutter: Status: Acute Qualifiers: Atrial flutter type: unspecified Qualified Code(s): I48.92 - Unspecified atrial flutter (3) Diabetes: -A1c-7.0 -Accuchecks, ISS, hypoglycemia precautions -hold oral hypoglycemic agents -consistent carb diet as tolerated Status: Chronic Qualifiers: Diabetes mellitus complication status: without complication Diabetes mellitus snf insulin use: without terminal system operator use Diabetes mellitus type: type 2 Qualified Code(s): E11.9 - Type 2 diabetes mellitus without complications (4) Mitral valve regurgitation: -noted on Echo, moderate Status: Acute Qualifiers: Cardiac valve disease etiology: nonrheumatic Qualified Code(s): I34.0 - Nonrheumatic mitral (valve) insufficiency (5) Heart failure, systolic, acute: -on IV lasix -Echo as noted above Status: Acute (6) Morbid obesity: -BMI-35 kg/m2 Status: Chronic Additional A&P Information Atrial flutter/fibrillation: Patient back in rapid ventricular response yesterday morning. Case discussed with Dr. Galvez. Start patient on amnio drip after 150 mg bolus. Continue with metoprolol but will increase the dose to 25 mg twice daily. Sagar vas score-1. Continue with full dose aspirin 325 mg daily. Cardiomyopathy: Nonischemic: Most likely because of chronic atrial fibrillation. Post cardiac cath on July 05, 2020 which showed nonobstructive CAD. Lipid panel, HbA1c appreciated. Low-dose ESTUARDO inhibitor, beta-mitzi as above. Will uptitrate medications as per the blood pressure and renal functions. Most likely will try to add on spironolactone depending on renal functions. Continue with Lasix 40 mg IV twice daily. Strict input output charting. Patient overall euvolemic since admission. Daily weights. Patient will require LifeVest on discharge. Case management has been consulted as patient does not have any insurance for financial assistance. -DVT ppx with lovenox Cardiac diet. -Dispo: home -Code status: FULL code Attestations Medical Necessity Statement*: Patient requires further hospitalization for management of atrial fibrillation with rapid ventricular response in setting of nonischemic cardiomyopathy. Time Spent in Patient Care: Greater than 35 minutes (>than 50% of time spent in counselling and/or direct pt care on unit) . Coding Level of Care Code Acute Residential Electrician for [facility] Fwd Diagnoses Cardiomyopathy I42.0 Cardiomyopathy type: dilated Atrial flutter I48.92 Atrial flutter type: unspecified Diabetes E11.9 Diabetes mellitus complication status: without complication Diabetes mellitus terminal system operator insulin use: without terminal system operator use Diabetes mellitus type: type 2 Mitral valve regurgitation I34.0 Cardiac valve disease etiology: nonrheumatic Heart failure, systolic, acute I50.21 Morbid obesity E66.01
[2020-07-06 11:04] LABS: Glucose Point of Care 269 mg/dL (70-110)
[2020-07-06] MEDS: famotidine 20 mg/2 mL INJ IVP ×2 (11:28→23:47)
--- NOTE | 2020-07-06 12:37 | PM.PN ---
Subjective Subjective: Interval history: Patient has episode of A. fib with RVR given extra 25 mg of metoprolol however did not slow down. He denies any complaint walking around Medications: Reviewed: Yes Medication Review Details: Active Medications Generic Name Dose Route Start Last Admin Trade Name Freq PRN Reason Stop Dose Admin Acetaminophen 650 mg 07/03/20 01:08 Acetaminophen 32 5 Mg Tablet PO Q6H PRN Mild/Mod Pain Or Temp >/= 101 Aspirin 325 mg 07/05/20 09:00 07/05/20 08:36 Aspirin 325 Mg T ablet PO 325 mg DAILY JOB Administration Bisacodyl 10 mg 07/03/20 01:08 Bisacodyl 5 Mg T ablet PO DAILY PRN CONSTIPATION Dextrose 25 ml 07/03/20 15:56 Dextrose 50% Syr levi 50 Ml IVP ONCE PRN hypoglycemia prot ocol Protocol Dextrose 50 ml 07/03/20 15:56 Dextrose 50% Syr levi 50 Ml IVP PRN PRN hypoglycemia prot ocol Protocol Enoxaparin Sodium 40 mg 07/03/20 01:30 07/05/20 00:38 Enoxaparin 40 Mg /0.4 Ml Syringe SUBCUT 40 mg Q24H JOB Administration Furosemide 40 mg 07/03/20 17:00 07/04/20 17:51 Furosemide 10 Mg /Ml Sdv 4ml IVP 40 mg Q24H JOB Administration Glucagon 1 mg 07/03/20 15:56 Glucagon 1 Mg/Ml Inj 1 Ml IM ONCE PRN Adult Acute Hypog lycemia Prot. Protocol Hydromorphone HCl 2 mg 07/03/20 01:08 Hydromorphone 4 Mg Tablet PO Q6H PRN SEVERE PAIN Diltiazem HCl 125 mg/ Sodium 125 mls @ 0 mls/h r 07/02/20 19:45 07/03/20 12:01 Chloride IV Infused .Q0M JOB Titration Protocol Per Protocol Dextrose 500 mls @ 100 mls /hr 07/03/20 15:56 D5w IV ONCE PRN Adult Acute Hypog lycemia Prot Protocol Sodium Chloride 1,000 mls @ 50 ml s/hr 07/05/20 00:00 07/05/20 00:37 Sodium Chloride 0.9% IV 50 mls/hr .Q20H JOB Administration Insulin Aspart 0 unit 07/03/20 18:00 07/05/20 07:29 Insulin Aspart 1 00 Unit/1 Ml SUBCUT Not Given WM&BEDTIME JOB Protocol Metoprolol Succina te 25 mg 07/03/20 17:00 07/05/20 08:36 Metoprolol Succi maryjane Er (24 Hr) 25 Mg Tablet PO 25 mg DAILY JOB Administration Morphine Sulfate 4 mg 07/03/20 01:08 Morphine 4 Mg/Ml Sdv 1 Ml IVP Q4H PRN SEVERE PAIN Morphine Sulfate 2 mg 07/03/20 01:08 Morphine 4 Mg/Ml Sdv 1 Ml IVP Q4H PRN SEVERE PAIN Naloxone HCl 0.1 mg 07/03/20 01:08 Naloxone 0.4 Mg/ Ml Sdv IVP Q2M PRN OPIATERV Ondansetron HCl 4 mg 07/03/20 01:08 Ondansetron 2 Mg /Ml Sdv 2 Ml IVP Q6H PRN NAUSEA AND VOMITI NG Ondansetron HCl 4 mg 07/03/20 01:08 Ondansetron 2 Mg /Ml Sdv 2 Ml IVP Q8H PRN vomiting, or N/V if npo Potassium Chloride 20 meq 07/03/20 17:00 07/05/20 08:36 Potassium Chlori de Er 20 Meq Table t PO 20 meq DAILY JOB Administration No Known Allergies Allergy (Unverified 07/02/20 20:07) Vitals/I&O/Wt Last Vital Signs Temp 96.3 F L 07/06/20 07:06 Pulse 136 H 07/06/20 07:06 Resp 21 H 07/06/20 07:06 BP 130/108 07/06/20 07:06 Pulse Ox 96 07/06/20 07:06 07/05/20 07/06/20 07/06/20 22:59 06:59 14:59 Intake Total 200 / 318 100 / 418 343 / 343 Balance 200 / 18 100 / 118 343 / 343 Physical Exam Narrative: EXAM NARRATIVE: GENERAL: Patient is alert, awake and oriented x3. HEENT: No cyanosis. No icterus. No pallor. HEART: Regular S1 and S2. No murmur, rub or gallop. LUNGS: Decreased breath sound bilaterally. ABDOMEN: Soft, nontender and nondistended. Positive bowel sounds. No guarding, rebound or tenderness. CENTRAL NERVOUS SYSTEM: Grossly nonfocal. EXTREMITIES: Lower extremities without edema bilaterally. Const: COMMON NORMALS: alert Resp: COMMON NORMALS: clear to auscultation bilaterally AUSCULTATION: clear to auscultation bilaterally Neuro: SENSORIUM/ORIENTATION: Yes alert Data : 07/06/20 05:28 07/06/20 05:28 A&P Assessment and plan (1) Atrial flutter: At this point I will start patient on amiodarone to convert him to sinus rhythm since patient is in heart failure and it can make heart failure further worsen. Status: Acute Qualifiers: Atrial flutter type: unspecified Qualified Code(s): I48.92 - Unspecified atrial flutter (2) Cardiomyopathy: Nonischemic dilated cardiomyopathy with left ventricle ejection fraction around 30% by left ventriculogram in less than 35% by echocardiogram. Recommend optimization of medicine with beta-mitzi ESTUARDO inhibitor and diuretics. Recommend LifeVest for primary prevention for 90 days. Patient has been discussed in detail regarding all risk benefit and alternative for LifeVest. I have discussed all these findings and recommendation with his niece who can interpret for him Lolis. She and patient agrees. We will proceed with LifeVest I will increase diuretics to 40 mg IV twice daily replenish potassium. Will add ESTUARDO inhibitor Status: Acute Qualifiers: Cardiomyopathy type: dilated Qualified Code(s): I42.0 - Dilated cardiomyopathy (3) Heart failure, systolic, acute: Continue to optimize medicine increase diuresis Status: Acute (4) Mitral valve regurgitation: Most likely due to dilated cardiomyopathy and functional MR hopefully with offloading of ventricle mitral valve will improve Status: Acute Qualifiers: Cardiac valve disease etiology: nonrheumatic Qualified Code(s): I34.0 - Nonrheumatic mitral (valve) insufficiency (5) Diabetes: Status: Chronic Qualifiers: Diabetes mellitus type: type 2 Diabetes mellitus skilled nursing insulin use: without terminal gauger use Diabetes mellitus complication status: without complication Qualified Code(s): E11.9 - Type 2 diabetes mellitus without complications Attestations Medical Necessity Statement*: Patient require continuation hospitalization for above defined care Coding Level of Care Code 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
[2020-07-06 13:04] LABS: NT Pro B Type Natriuretic Pept 935 pg/mL (0-125)
[2020-07-06 16:03] LABS: Glucose Point of Care 242 mg/dL (70-110)
--- NOTE | 2020-07-06 16:30 | PC.NURSE ---
Telephone order from Dr. Camacho to change Lasix administration frequency to 0800 and 1600. RBTO.
[2020-07-06] MEDS: FUROsemide 10 mg/mL SDV 4mL 40 MG IVP (17:06)
--- NOTE | 2020-07-06 17:23 | PC.NURSE ---
Dr. Galvez updated on patient condition via telephone. HR 130-140s a flutter, BP 153/105. Physician gave telephone order to administer additional 25 mg of metoprolol for a total of 50 mg. RBTO. Nurse to continue to monitor.
[2020-07-06 20:37] LABS: Glucose Point of Care 374 mg/dL (70-110)
[2020-07-07] VITALS (26 sets, daily range): BP systolic 107–155; BP diastolic 77–102; PULSE 79–141; RESP 6–40; TEMP 36.4–36.9; O2SAT 93–98
[2020-07-07] MEDS: enoxaparin 40 mg/0.4 mL Syringe SUBCUT (01:31)
[2020-07-07 04:34] LABS: Basophils # 0.1 10^3/uL (0.0-0.1); Basophils % 0.5 %; Eosinophils # 0.2 10^3/uL (0.0-0.8); Eosinophils % 1.7 %; Hematocrit 48.1 % (42.0-52.0); Hemoglobin 15.8 g/dL (11.7-16.6); Lymphocytes # 2.3 10^3/uL (0.8-4.8); Lymphocytes % 23.6 %; Mean Corpuscular HGB Conc 32.8 g/dL (30.0-36.0); Mean Corpuscular Hemoglobin 28.8 pg (28.0-34.0); Mean Corpuscular Volume 87.6 fL (80-94); Mean Platelet Volume 11.2 fL (7.4-10.4); Monocytes # 0.8 10^3/uL (0.2-0.9); Monocytes % 7.9 %; Nucleated Red Blood Cells % 0 %; Platelet Count 240 10^3/cmm (130-400); Red Blood Count 5.49 10^6/uL (4.1-5.3); Red Cell Distribution Width 13.2 % (12.1-15.1); White Blood Count 9.9 10^3/uL (4.0-10.0)
[2020-07-07 05:11] LABS: Alanine Aminotransferase 23 U/L (0-41); Albumin Level 3.9 g/dL (3.5-5.2); Alkaline Phosphatase 43 IU/L (40-130); Anion Gap 17.1 (5-19); Aspartate Amino Transferase 14 U/L (0-40); Blood Urea Nitrogen 17 mg/dL (6-20); Calcium 8.7 mg/dL (8.5-10.5); Carbon Dioxide 22 mmol/L (22-29); Chloride 98 mmol/L (98-107); Globulin 2.8 g/dL (1.3-4.6); Glomerular Filtration Rate 116.2 mL/min (90-130); Glucose 336 mg/dL (65-115); Osmolality Calculated 291 mOsm/kg (285-295); Potassium 4.1 mmol/L (3.5-5.1); Sodium 133 mmol/L (136-145); Total Bilirubin 0.4 mg/dL (0.15-1.2); Total Protein 6.7 g/dL (6.6-8.7)
[2020-07-07 06:41] LABS: Glucose Point of Care 199 mg/dL (70-110)
[2020-07-07] MEDS: FUROsemide 10 mg/mL SDV 4mL 40 MG IVP (07:41)
--- NOTE | 2020-07-07 07:45 | PC.NURSE ---
Dr. Galvez updated on patient condition. HR 135 a flutter c rvr, BP 124/98. Telephone order received to increase metoprolol to 75 mg this am, increase lasix to 60 mg BID. RBTO Nurse to continue to monitor
[2020-07-07] MEDS: FUROsemide 10 mg/mL SDV 2mL 20 MG IVP (09:13)
[2020-07-07] MEDS: metoprolol succinate ER (24 HR) 50 mg Tablet PO (09:14)
[2020-07-07] MEDS: aspirin 325 mg Tablet PO (09:14)
[2020-07-07] MEDS: metoprolol succinate ER (24 HR) 25 mg Tablet PO (09:15)
[2020-07-07] MEDS: lisinopril 5 mg Tablet PO (09:15)
[2020-07-07] MEDS: potassium chloride ER 20 mEq Tablet 40 MEQ PO (09:15)
[2020-07-07 11:21] LABS: Glucose Point of Care 217 mg/dL (70-110)
[2020-07-07] MEDS: famotidine 20 mg/2 mL INJ IVP ×2 (11:51→23:16)
--- NOTE | 2020-07-07 12:04 | PM.PN ---
Subjective Subjective: Interval history: No events overnight. Patient denies any difficulty in breathing, palpitation, headache, dizziness. Patient continues to remain in atrial fibrillation with heart rate going up to 130s. He is on amiodarone drip at 0.5. Vitals/I&O/Wt Last Vital Signs Temp 97.9 F 07/07/20 10:59 Pulse 138 H 07/07/20 10:59 Resp 16 07/07/20 10:59 BP 141/97 07/07/20 10:59 Pulse Ox 98 07/07/20 10:59 07/06/20 07/07/20 07/07/20 22:59 06:59 14:59 Intake Total 692.5 / 1395.5 144 / 1539.5 240 / 240 Output Total 1950 / 1950 400 / 2350 300 / 300 Balance -1257.5 / -554.5 -256 / -810.5 -60 / -60 Physical Exam Narrative: EXAM NARRATIVE: General: No acute distress, AO x3 HEENT: PERRLA, pupils bilaterally equal and reactive Chest: Normal vesicular breath sounds, no added sounds, equal good air entry bilaterally CVS: S1-S2 irregularly irregular, pansystolic murmur at apex going up to mid axilla, tachycardia, no gallops, no rubs Abdomen: Soft, nontender, no organomegaly, bowel sounds present Neuro: No focal deficits, no facial deformity, AO x3, power 5/5 in all limbs Data : 07/07/20 03:55 07/07/20 03:55 A&P Assessment and plan (1) Atrial flutter: Status: Acute Qualifiers: Atrial flutter type: unspecified Qualified Code(s): I48.92 - Unspecified atrial flutter (2) Cardiomyopathy: Status: Acute Qualifiers: Cardiomyopathy type: dilated Qualified Code(s): I42.0 - Dilated cardiomyopathy (3) Diabetes: -A1c-7.0 -Accuchecks, ISS, hypoglycemia precautions -hold oral hypoglycemic agents -consistent carb diet as tolerated Status: Chronic Qualifiers: Diabetes mellitus complication status: without complication Diabetes mellitus senior living insulin use: without senior living use Diabetes mellitus type: type 2 Qualified Code(s): E11.9 - Type 2 diabetes mellitus without complications (4) Mitral valve regurgitation: -noted on Echo, moderate Status: Acute Qualifiers: Cardiac valve disease etiology: nonrheumatic Qualified Code(s): I34.0 - Nonrheumatic mitral (valve) insufficiency (5) Heart failure, systolic, acute: -on IV lasix -Echo as noted above Status: Acute (6) Morbid obesity: -BMI-35 kg/m2 Status: Chronic Additional A&P Information Atrial flutter/fibrillation: Patient back in rapid ventricular response yesterday morning. Case discussed with Dr. Galvez. Patient is on amiodarone drip as per the protocol. Given persistent atrial fibrillation patient most likely requires electrocardioversion because he has failed multiple medications. On further discussion with the patient he wants to continue trying medical management and is denying electrocardioversion for now. For now plan will be to start patient on amiodarone 4 mg twice daily, increase metoprolol to 75 mg twice daily. Continue telemetry and continue to monitor. Sagar vas score-1. Continue with full dose aspirin 325 mg daily. Cardiomyopathy: Nonischemic: Most likely because of chronic atrial fibrillation. Post cardiac cath on July 05, 2020 which showed nonobstructive CAD. Lipid panel, HbA1c appreciated. Low-dose ESTUARDO inhibitor, beta-mitzi as above. Will uptitrate medications as per the blood pressure and renal functions. Most likely will try to add on spironolactone depending on renal functions. Continue Lasix 60 mg IV twice daily. Would most likely send patient on 40 mg oral twice daily on discharge. Strict input output charting. Patient overall euvolemic since admission. Daily weights. Patient will require LifeVest on discharge. Case management has been consulted as patient does not have any insurance for financial assistance. -DVT ppx with lovenox Cardiac diet. -Dispo: home -Code status: FULL code Attestations Medical Necessity Statement*: Patient requires further hospitalization for management of atrial fibrillation with rapid ventricular response, nonischemic cardiomyopathy. Time Spent in Patient Care: Greater than 35 minutes (>than 50% of time spent in counselling and/or direct pt care on unit). 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
--- NOTE | 2020-07-07 12:41 | PM.PN ---
Subjective Subjective: Interval history: Patient continues to be in atrial flutter despite optimization of medicine. He continues to diurese well. Medications: Reviewed: Yes Medication Review Details: Active Medications Generic Name Dose Route Start Last Admin Trade Name Damon PRN Reason Stop Dose Admin Acetaminophen 650 mg 07/03/20 01:08 Acetaminophen 32 5 Mg Tablet PO Q6H PRN Mild/Mod Pain Or Temp >/= 101 Aspirin 325 mg 07/05/20 09:00 07/05/20 08:36 Aspirin 325 Mg T ablet PO 325 mg DAILY JOB Administration Bisacodyl 10 mg 07/03/20 01:08 Bisacodyl 5 Mg T ablet PO DAILY PRN CONSTIPATION Dextrose 25 ml 07/03/20 15:56 Dextrose 50% Syr levi 50 Ml IVP ONCE PRN hypoglycemia prot ocol Protocol Dextrose 50 ml 07/03/20 15:56 Dextrose 50% Syr levi 50 Ml IVP PRN PRN hypoglycemia prot ocol Protocol Enoxaparin Sodium 40 mg 07/03/20 01:30 07/05/20 00:38 Enoxaparin 40 Mg /0.4 Ml Syringe SUBCUT 40 mg Q24H JOB Administration Furosemide 40 mg 07/03/20 17:00 07/04/20 17:51 Furosemide 10 Mg /Ml Sdv 4ml IVP 40 mg Q24H JOB Administration Glucagon 1 mg 07/03/20 15:56 Glucagon 1 Mg/Ml Inj 1 Ml IM ONCE PRN Adult Acute Hypog lycemia Prot. Protocol Hydromorphone HCl 2 mg 07/03/20 01:08 Hydromorphone 4 Mg Tablet PO Q6H PRN SEVERE PAIN Diltiazem HCl 125 mg/ Sodium 125 mls @ 0 mls/h r 07/02/20 19:45 07/03/20 12:01 Chloride IV Infused .Q0M JOB Titration Protocol Per Protocol Dextrose 500 mls @ 100 mls /hr 07/03/20 15:56 D5w IV ONCE PRN Adult Acute Hypog lycemia Prot Protocol Sodium Chloride 1,000 mls @ 50 ml s/hr 07/05/20 00:00 07/05/20 00:37 Sodium Chloride 0.9% IV 50 mls/hr .Q20H JOB Administration Insulin Aspart 0 unit 07/03/20 18:00 07/05/20 07:29 Insulin Aspart 1 00 Unit/1 Ml SUBCUT Not Given WM&BEDTIME JOB Protocol Metoprolol Succina te 25 mg 07/03/20 17:00 07/05/20 08:36 Metoprolol Succi maryjane Er (24 Hr) 25 Mg Tablet PO 25 mg DAILY JOB Administration Morphine Sulfate 4 mg 07/03/20 01:08 Morphine 4 Mg/Ml Sdv 1 Ml IVP Q4H PRN SEVERE PAIN Morphine Sulfate 2 mg 07/03/20 01:08 Morphine 4 Mg/Ml Sdv 1 Ml IVP Q4H PRN SEVERE PAIN Naloxone HCl 0.1 mg 07/03/20 01:08 Naloxone 0.4 Mg/ Ml Sdv IVP Q2M PRN OPIATERV Ondansetron HCl 4 mg 07/03/20 01:08 Ondansetron 2 Mg /Ml Sdv 2 Ml IVP Q6H PRN NAUSEA AND VOMITI NG Ondansetron HCl 4 mg 07/03/20 01:08 Ondansetron 2 Mg /Ml Sdv 2 Ml IVP Q8H PRN vomiting, or N/V if npo Potassium Chloride 20 meq 07/03/20 17:00 07/05/20 08:36 Potassium Chlori de Er 20 Meq Table t PO 20 meq DAILY JOB Administration No Known Allergies Allergy (Unverified 07/02/20 20:07) Vitals/I&O/Wt Last Vital Signs Temp 97.9 F 07/07/20 10:59 Pulse 138 H 07/07/20 10:59 Resp 16 07/07/20 10:59 BP 141/97 07/07/20 10:59 Pulse Ox 98 07/07/20 10:59 07/06/20 07/07/20 07/07/20 22:59 06:59 14:59 Intake Total 692.5 / 1395.5 144 / 1539.5 240 / 240 Output Total 1950 / 1950 400 / 2350 300 / 300 Balance -1257.5 / -554.5 -256 / -810.5 -60 / -60 Physical Exam Narrative: EXAM NARRATIVE: GENERAL: Patient is alert, awake and oriented x3. HEENT: No cyanosis. No icterus. No pallor. HEART: Regular S1 and S2. No murmur, rub or gallop. LUNGS: Decreased breath sound bilaterally. ABDOMEN: Soft, nontender and nondistended. Positive bowel sounds. No guarding, rebound or tenderness. CENTRAL NERVOUS SYSTEM: Grossly nonfocal. EXTREMITIES: Lower extremities without edema bilaterally. Const: COMMON NORMALS: alert Resp: COMMON NORMALS: clear to auscultation bilaterally AUSCULTATION: clear to auscultation bilaterally Neuro: SENSORIUM/ORIENTATION: Yes alert Data : 07/07/20 03:55 07/07/20 03:55 A&P Assessment and plan (1) Atrial flutter: Despite of optimization of medicine IV amiodarone and p.o. increasing dose of beta-mitzi patient has not slowed down heart rates around 130 35 atrial flutter with underlying rhythm. Patient declined options off ISABEL guided electrical cardioversion I would like to be treated only with medicine for now. We will continue to optimize medicine. I will switch her to p.o. 400 mg of amiodarone twice daily and metoprolol 75 mg p.o. twice daily if slows down I may will send him home with event monitor. Status: Acute Qualifiers: Atrial flutter type: unspecified Qualified Code(s): I48.92 - Unspecified atrial flutter (2) Cardiomyopathy: Nonischemic cardiomyopathy. Continue to optimize medicine continue beta-mitzi ESTUARDO inhibitor and diuretics I will increase diuretics to 40 mg IV twice daily replenish potassium. Will add ESTUARDO inhibitor Status: Acute Qualifiers: Cardiomyopathy type: dilated Qualified Code(s): I42.0 - Dilated cardiomyopathy (3) Heart failure, systolic, acute: Diuresing well continue IV Lasix Status: Acute (4) Mitral valve regurgitation: Most likely due to dilated cardiomyopathy and functional MR hopefully with offloading of ventricle mitral valve will improve Status: Acute Qualifiers: Cardiac valve disease etiology: nonrheumatic Qualified Code(s): I34.0 - Nonrheumatic mitral (valve) insufficiency (5) Diabetes: Status: Chronic Qualifiers: Diabetes mellitus type: type 2 Diabetes mellitus salvage determiner insulin use: without prison use Diabetes mellitus complication status: without complication Qualified Code(s): E11.9 - Type 2 diabetes mellitus without complications Attestations Medical Necessity Statement*: Patient require continuation hospitalization for above defined care. 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
--- NOTE | 2020-07-07 13:27 | PC.NURSE ---
Telephone order received from Dr. Galvez to give 400 mg Amiodarone PO now. Continue remaining volume in Amiodarone gtt bag and then discontinue. Call physician with HR and BP before giving 1800 dose of amiodarone. RBTO.
[2020-07-07] MEDS: amiodarone 200 mg Tablet 400 MG PO ×2 (13:44→17:24)
[2020-07-07 16:48] LABS: Glucose Point of Care 282 mg/dL (70-110)
--- NOTE | 2020-07-07 17:16 | PC.NURSE ---
Dr. Galvez updated on patient condition. HR 130-140s a flutter, BP 103/86. Telephone order received to hold evening lasix and metoprolol dose. Administer amiodarone. RBTO.
[2020-07-07 21:10] LABS: Glucose Point of Care 246 mg/dL (70-110)
[2020-07-08] VITALS (10 sets, daily range): BP systolic 96–115; BP diastolic 77–94; PULSE 127–134; RESP 17–22; TEMP 36.1–36.8; O2SAT 96–98
[2020-07-08] MEDS: enoxaparin 40 mg/0.4 mL Syringe SUBCUT (01:41)
[2020-07-08 06:28] LABS: Glucose Point of Care 236 mg/dL (70-110)
[2020-07-08] MEDS: metoprolol succinate ER (24 HR) 50 mg Tablet 75 MG PO ×2 (08:32→18:07)
[2020-07-08] MEDS: lisinopril 5 mg Tablet PO (08:32)
[2020-07-08] MEDS: amiodarone 200 mg Tablet 400 MG PO ×3 (08:32→21:06)
[2020-07-08] MEDS: aspirin 325 mg Tablet PO (08:32)
[2020-07-08] MEDS: potassium chloride ER 20 mEq Tablet 40 MEQ PO (08:32)
[2020-07-08] MEDS: FUROsemide 10 mg/mL SDV 4mL 60 MG IVP (08:33)
[2020-07-08 11:37] LABS: Glucose Point of Care 285 mg/dL (70-110)
[2020-07-08] MEDS: famotidine 20 mg/2 mL INJ IVP (11:40)
[2020-07-08] MEDS: apixaban 5 mg Tablet PO ×2 (11:40→18:06)
--- NOTE | 2020-07-08 14:42 | PC.NURSE ---
Call from Dr ramos, for nursing to go through chain of command to approve more than one visitors to be allowed to see patient during visiting hours RD notified
--- NOTE | 2020-07-08 15:16 | PM.PN ---
Subjective Subjective: Interval history: No acute events overnight. Patient's heart rate continues to be remaining in 130s. Discussed in detail with patient again regarding possible need of cardioversion which he continues to decline. He states he would want only medical management and is cleared of electrocardioversion. Denies of nausea, vomiting, headache, dizziness. Did have one episode of blood pressure going down into 90 systolics last night. Documented urine output last 24 hours around 1 L. Vitals/I&O/Wt Last Vital Signs Temp 97.8 F 07/08/20 11:18 Pulse 132 H 07/08/20 14:00 Resp 18 07/08/20 11:18 BP 96/77 07/08/20 11:18 Pulse Ox 96 07/08/20 11:18 07/08/20 07/08/20 07/08/20 06:59 14:59 22:59 Intake Total 100 / 1119.5 240 / 240 Output Total 200 / 850 500 / 500 Balance -100 / 269.5 -260 / -260 Physical Exam Narrative: EXAM NARRATIVE: General: No acute distress, AO x3 HEENT: PERRLA, pupils bilaterally equal and reactive Chest: Normal vesicular breath sounds, no added sounds, equal good air entry bilaterally CVS: S1-S2 irregularly irregular, pansystolic murmur at apex going up to mid axilla, tachycardia, no gallops, no rubs Abdomen: Soft, nontender, no organomegaly, bowel sounds present Neuro: No focal deficits, no facial deformity, AO x3, power 5/5 in all limbs Data : 07/07/20 03:55 07/07/20 03:55 A&P Assessment and plan (1) Atrial flutter: Status: Acute Qualifiers: Atrial flutter type: unspecified Qualified Code(s): I48.92 - Unspecified atrial flutter (2) Cardiomyopathy: Status: Acute Qualifiers: Cardiomyopathy type: dilated Qualified Code(s): I42.0 - Dilated cardiomyopathy (3) Diabetes: -A1c-7.0 -Accuchecks, ISS, hypoglycemia precautions -hold oral hypoglycemic agents -consistent carb diet as tolerated Status: Chronic Qualifiers: Diabetes mellitus type: type 2 Diabetes mellitus 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 operator intermodal yard insulin use: without equipment operator intermodal yard use Diabetes mellitus complication status: without complication Qualified Code(s): E11.9 - Type 2 diabetes mellitus without complications (4) Mitral valve regurgitation: -noted on Echo, moderate Status: Acute Qualifiers: Cardiac valve disease etiology: nonrheumatic Qualified Code(s): I34.0 - Nonrheumatic mitral (valve) insufficiency (5) Heart failure, systolic, acute: -on IV lasix -Echo as noted above Status: Acute (6) Morbid obesity: -BMI-35 kg/m2 Status: Chronic Additional A&P Information Atrial flutter/fibrillation: Patient back in rapid ventricular response yesterday morning. Case discussed with Dr. Galvez. Most likely patient requires electrocardioversion but patient is declining. Plan to optimize medications as much as possible. Continue with metoprolol 75 mg twice daily, increase amiodarone to 400 mg 3 times daily. Will monitor blood pressures. Sagar vas score 1 but patient's echocardiogram consistent with left atrial smoke so we will start on Eliquis as per cardiology recommendations. Eliquis 5 mg twice daily. Cardiomyopathy: Nonischemic: Most likely because of chronic atrial fibrillation. Post cardiac cath on July 05, 2020 which showed nonobstructive CAD. Lipid panel, HbA1c appreciated. Continue with beta-mitzi as above. Continue lisinopril 5 mg daily. Uptitrate as per blood pressures. If blood pressure accommodates can start spironolactone as well. Change Lasix to 40 mg oral twice daily. Strict input output charting. Patient overall euvolemic since admission. Daily weights. Patient will require LifeVest on discharge. Patient will get LifeVest tomorrow. -DVT ppx with lovenox Cardiac diet. -Dispo: home -Code status: FULL code Attestations Medical Necessity Statement*: Patient requires further hospitalization for management of persistent atrial fibrillation with rapid ventricular response for optimization of medications in setting of nonischemic cardiomyopathy. Time Spent in Patient Care: Greater than 35 minutes (>than 50% of time spent in counselling and/or direct pt care on unit). Coding Level of Care Code Acute Project Engineer for [facility] Diagnoses Atrial flutter I48.92 Atrial flutter type: unspecified Cardiomyopathy I42.0 Cardiomyopathy type: dilated Diabetes E11.9 Diabetes mellitus type: type 2 Diabetes mellitus equipment operator intermodal yard insulin use: without equipment operator intermodal yard use Diabetes mellitus complication status: without complication Mitral valve regurgitation I34.0 Cardiac valve disease etiology: nonrheumatic Heart failure, systolic, acute I50.21 Morbid obesity E66.01
[2020-07-08] MEDS: FUROsemide 40 mg Tablet PO (16:35)
[2020-07-08 16:58] LABS: Glucose Point of Care 182 mg/dL (70-110)
--- NOTE | 2020-07-08 19:51 | PC.NURSE ---
PT RESTING IN BED. PT STATES THAT THEY ARE HAPPY TO BE GOING HOME TOMORROW, BUT IS WORRIED THAT NO ONE KNOWS WHY HIS HR IS SO HIGH. THIS NURSE TRIED TO EXPLAIN, BUT PT WASN'T COMPREHENDING D/T LANGUAGE BARRIER. PT DENIES PAIN AT THIS TIME. WILL CONTINUE TO MONITOR.
--- NOTE | 2020-07-08 20:09 | P.PN_ITS ---
Subjective Subjective: Interval history: Heart rate continues to be in 130s to 140s. Patient declined again electrical cardioversion Medications: Reviewed: Yes Medication Review Details: Active Medications Generic Name Dose Route Start Last Admin Trade Name Damon PRN Reason Stop Dose Admin Acetaminophen 650 mg 07/03/20 01:08 Acetaminophen 32 5 Mg Tablet PO Q6H PRN Mild/Mod Pain Or Temp >/= 101 Aspirin 325 mg 07/05/20 09:00 07/05/20 08:36 Aspirin 325 Mg T ablet PO 325 mg DAILY JOB Administration Bisacodyl 10 mg 07/03/20 01:08 Bisacodyl 5 Mg T ablet PO DAILY PRN CONSTIPATION Dextrose 25 ml 07/03/20 15:56 Dextrose 50% Syr levi 50 Ml IVP ONCE PRN hypoglycemia prot ocol Protocol Dextrose 50 ml 07/03/20 15:56 Dextrose 50% Syr levi 50 Ml IVP PRN PRN hypoglycemia prot ocol Protocol Enoxaparin Sodium 40 mg 07/03/20 01:30 07/05/20 00:38 Enoxaparin 40 Mg /0.4 Ml Syringe SUBCUT 40 mg Q24H JOB Administration Furosemide 40 mg 07/03/20 17:00 07/04/20 17:51 Furosemide 10 Mg /Ml Sdv 4ml IVP 40 mg Q24H JOB Administration Glucagon 1 mg 07/03/20 15:56 Glucagon 1 Mg/Ml Inj 1 Ml IM ONCE PRN Adult Acute Hypog lycemia Prot. Protocol Hydromorphone HCl 2 mg 07/03/20 01:08 Hydromorphone 4 Mg Tablet PO Q6H PRN SEVERE PAIN Diltiazem HCl 125 mg/ Sodium 125 mls @ 0 mls/h r 07/02/20 19:45 07/03/20 12:01 Chloride IV Infused .Q0M JOB Titration Protocol Per Protocol Dextrose 500 mls @ 100 mls /hr 07/03/20 15:56 D5w IV ONCE PRN Adult Acute Hypog lycemia Prot Protocol Sodium Chloride 1,000 mls @ 50 ml s/hr 07/05/20 00:00 07/05/20 00:37 Sodium Chloride 0.9% IV 50 mls/hr .Q20H JOB Administration Insulin Aspart 0 unit 07/03/20 18:00 07/05/20 07:29 Insulin Aspart 1 00 Unit/1 Ml SUBCUT Not Given WM&BEDTIME [facility] Protocol Metoprolol Succina te 25 mg 07/03/20 17:00 07/05/20 08:36 Metoprolol Succi maryjane Er (24 Hr) 25 Mg Tablet PO 25 mg DAILY JOB Administration Morphine Sulfate 4 mg 07/03/20 01:08 Morphine 4 Mg/Ml Sdv 1 Ml IVP Q4H PRN SEVERE PAIN Morphine Sulfate 2 mg 07/03/20 01:08 Morphine 4 Mg/Ml Sdv 1 Ml IVP Q4H PRN SEVERE PAIN Naloxone HCl 0.1 mg 07/03/20 01:08 Naloxone 0.4 Mg/ Ml Sdv IVP Q2M PRN OPIATERV Ondansetron HCl 4 mg 07/03/20 01:08 Ondansetron 2 Mg /Ml Sdv 2 Ml IVP Q6H PRN NAUSEA AND VOMITI NG Ondansetron HCl 4 mg 07/03/20 01:08 Ondansetron 2 Mg /Ml Sdv 2 Ml IVP Q8H PRN vomiting, or N/V if npo Potassium Chloride 20 meq 07/03/20 17:00 07/05/20 08:36 Potassium Chlori de Er 20 Meq Table t PO 20 meq DAILY JOB Administration No Known Allergies Allergy (Unverified 07/02/20 20:07) Vitals/I&O/Wt Last Vital Signs Temp 97.8 F 07/08/20 16:00 Pulse 134 H 07/08/20 16:00 Resp 22 H 07/08/20 16:00 BP 110/94 07/08/20 16:00 Pulse Ox 98 07/08/20 16:00 07/08/20 07/08/20 07/08/20 06:59 14:59 22:59 Intake Total 100 / 1119.5 240 / 240 240 / 480 Output Total 200 / 850 880 / 880 Balance -100 / 269.5 -640 / -640 240 / -400 Physical Exam Narrative: EXAM NARRATIVE: GENERAL: Patient is alert, awake and oriented x3. HEENT: No cyanosis. No icterus. No pallor. HEART: Regular S1 and S2. No murmur, rub or gallop. LUNGS: Decreased breath sound bilaterally. ABDOMEN: Soft, nontender and nondistended. Positive bowel sounds. No guarding, rebound or tenderness. CENTRAL NERVOUS SYSTEM: Grossly nonfocal. EXTREMITIES: Lower extremities without edema bilaterally. Const: COMMON NORMALS: alert Resp: COMMON NORMALS: clear to auscultation bilaterally AUSCULTATION: clear to auscultation bilaterally Neuro: SENSORIUM/ORIENTATION: Yes alert Data : 07/07/20 03:55 07/07/20 03:55 A&P Assessment and plan (1) Atrial flutter: Patient heart rate has not declined he continues to be in atrial flutter. I will increase amiodarone to 400 mg 3 times daily continue metoprolol 75 mg p.o. daily, we will start patient on Eliquis since he has CHF and [id number] score is around 2. Patient has been discussed regarding anticoagulation risk benefit and alternative. He would like to proceed with it Status: Acute Qualifiers: Atrial flutter type: unspecified Qualified Code(s): I48.92 - Unspecifi ed atrial flutter (2) Cardiomyopathy: Nonischemic cardiomyopathy. We will switch patient to oral Lasix. Status: Acute Qualifiers: Cardiomyopathy type: dilated Qualified Code(s): I42.0 - Dilated cardi omyopathy (3) Heart failure, systolic, acute: Well compensated. Status: Acute (4) Mitral valve regurgitation: Continue to optimize medicine Status: Acute Qualifiers: Cardiac valve disease etiology: nonrheumatic Qualified Code(s): I34.0 - Nonrheumatic mitral (valve) insufficiency (5) Diabetes: Status: Chronic Qualifiers: Diabetes mellitus type: type 2 Diabetes mellitus termite control servicer insulin use: without termite control servicer use Diabetes mellitus complication status: without complication Qualified Code(s): E11.9 - Type 2 diabetes mellitus without complications Attestations Medical Necessity Statement*: Patient require continuation hospitalization for above defined care. 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
[2020-07-08 20:44] LABS: Glucose Point of Care 336 mg/dL (70-110)
[2020-07-09] VITALS (7 sets, daily range): BP systolic 103–131; BP diastolic 78–93; PULSE 121–131; RESP 17–23; TEMP 35.9–36.8; O2SAT 96–98
--- NOTE | 2020-07-09 01:20 | PC.NURSE ---
RN COULDN'T GIVE PEPCID IVP BECAUSE THE IV INFILTRATED. PT REFUSED TO HAVE US PUT NEW IV IN BECAUSE THEY SAID THAT THEY WERE GOING HOME TOMORROW. DR GR WAS NOTIFIED. DR GUTIERREZ WITH NO IV ACCESS. WILL CONTINUE TO MONITOR.
--- NOTE | 2020-07-09 06:18 | PC.NURSE ---
PT RESTING IN BED AT THIS TIME. PT STATES THAT THEY DON'T WANT TO BE BOTHERED WITH BLOOD DRAW AT THIS TIME. PT STATES THAT THEY ARE GOING HOME. THAT THEIR REALLY ISN'T A POINT. DR GR NOTIFIED. WILL CONTINUE TO MONITOR.
[2020-07-09] MEDS: apixaban 5 mg Tablet PO (08:27)
[2020-07-09] MEDS: lisinopril 5 mg Tablet PO (08:27)
[2020-07-09] MEDS: metoprolol succinate ER (24 HR) 50 mg Tablet 75 MG PO (08:28)
[2020-07-09] MEDS: FUROsemide 40 mg Tablet PO (08:29)
[2020-07-09] MEDS: potassium chloride ER 20 mEq Tablet 40 MEQ PO (08:29)
[2020-07-09] MEDS: amiodarone 200 mg Tablet 400 MG PO (08:29)
[2020-07-09] MEDS: aspirin 325 mg Tablet PO (08:29)
[2020-07-09 11:22] LABS: Glucose Point of Care 310 mg/dL (70-110)
--- NOTE | 2020-07-09 11:41 | P.DS_ITS ---
Discharge Providers Date of Admission: 07/03/20 01:08 Date of Discharge: July 09, 2020 Attending Provider at Admission: Miguel Morgan MD Attending Provider at Discharge: Alberto Camacho MD Consults: Cardiology: Dr. Galvez Diagnoses at Discharge Discharge Diagnosis (1) Atrial flutter: Status: Acute Qualifiers: Atrial flutter type: unspecified Qualified Code(s): I48.92 - Unspecified atrial flutter (2) Cardiomyopathy: Status: Acute Qualifiers: Cardiomyopathy type: dilated Qualified Code(s): I42.0 - Dilated cardiomyopathy (3) Heart failure, systolic, acute: Status: Acute (4) Mitral valve regurgitation: Status: Acute Qualifiers: Cardiac valve disease etiology: nonrheumatic Qualified Code(s): I34.0 - Nonrheumatic mitral (valve) insufficiency (5) Diabetes: Status: Chronic Qualifiers: Diabetes mellitus complication status: without complication 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 He was started on Cardizem drip converted into sinus rhythm overnight. He was ruled out for acute coronary syndrome. Echocardiogram was done which is suggestive of severely depressed LV function of new onset left ventricle ejection fraction 35% with global hypokinesis. There is bilateral atrial enlargement and moderate mitral valve regurgitation. Ischemic causes were ruled out with an left angiogram which was negative for obstructive CAD. During hospitalization patient went back in atrial fibrillation for which she was started on amiodarone drip per protocol and dose of beta-mitzi was increased. Patient did not respond to the amiodarone drip and he was advised for electrocardioversion to which patient declined even after extensive counseling and discussion of merits versus demerits. His dose of amiodarone was increased further in hope for improving his heart rate though it was futile. Patient was advised again regarding electrocardioversion but he continued to decline. He is been discharged on amiodarone 400 mg twice daily, Met XL 75 mg daily which could not be increased any further because of borderline blood pressures, lisinopril 5 mg daily, Lasix 40 mg twice daily, Eliquis 5 mg twice daily as anticoagulation in setting of atrial fibrillation. Patient did not have any insurance for which financial assistance was provided and patient was fitted with a LifeVest. Patient is been discharged with event monitor with advised to follow-up with Dr. Galvez in his office within next 1 month and to report for event monitor in 1 week. Medications any problem to him with meds to bed and he has been advised to follow-up with Dr. Patel over [address] physician and he can get medications at a lower rate if prescribed to him as per his request. Physical Exam Narrative: EXAM NARRATIVE: General: No acute distress, AO x3 HEENT: PERRLA, pupils bilaterally equal and reactive Chest: Normal vesicular breath sounds, no added sounds, equal good air entry bilaterally CVS: S1-S2 irregularly irregular, pansystolic murmur at apex going up to mid axilla, tachycardia, no gallops, no rubs Abdomen: Soft, nontender, no organomegaly, bowel sounds present Neuro: No focal deficits, no facial deformity, AO x3, power 5/5 in all limbs Discharge Data Data Completed and Pending: Completed Studies During Hospitalization Category Date Time Status CT angio chest PE protcl [id number] Stat Cat Scan 07/02/20 20:57 Completed XR chest 1V tarah ble [id number] Stat Exams 07/02/20 19:31 Completed CV echo complete* [id number] Routine Ultrasound 07/03/20 07:00 Completed Pending at discharge Category Date Time Status SPINNER CAP FRAME request for service Routin e Exams 07/05/20 08:09 Taken Labs from last 24 hours 07/09/20 07/08/20 07/08/20 10:54 20:21 16:52 POC Glucose 310 336 182 Vitals: Last Vital Signs Temp 97.0 F L 07/09/20 10:55 Pulse 131 H 07/09/20 10:55 Resp 22 H 07/09/20 10:55 BP 109/93 07/09/20 10:55 Pulse Ox 98 07/09/20 10:55 Discharge Plan Discharge Patient Disposition: Home Condition: Stable Prescriptions: New furosemide 40 mg Tablet 40 mg PO BID@,16 Qty: 60 RF: 0 Pacerone 200 mg Tablet 400 mg PO BID Qty: 60 RF: 0 metoprolol succinate 50 mg Tablet Extended Release 24 Hr 75 mg PO DAILY Qty: 60 RF: 0 Klor-Con M20 20 mEq Tablet,Er Particles/Crystals 20 meq PO DAILY Qty: 30 RF: 0 lisinopril 5 mg Tablet 5 mg PO DAILY Qty: 30 RF: 0 Eliquis 5 mg Tablet 5 mg PO BID Qty: 60 RF: 0 Continued glipizide 10 mg Tablet 10 mg PO BID RF: 0 metformin 1,000 mg Tablet 1,000 mg PO BID RF: 0 Fijian Aspirin 1 tab PO DAILY RF: 0 Discharge Orders: Discharge Order (Routine); Ordered 07/09/20 Ordered By: Alberto Camacho Other Ambulatory Orders: [place] cardiac event monitor (Routine) Timeframe: 1 Week Facility: [facility] - Location: Cardiac Diagnostic Laboratory Ordered By: Alberto Camacho Referrals: Artis Patel MD [Physician] - 4-7 days (You have an appointment to follow up and establish care with Dr Patel on 07/16/2020 at 11am. Please arrive 15 min early and bring your discharge packet with list of medications with you to appointment. Please verify if financial assistance paperwork has been filled out for clinics. If not, ask clinic to assist with this application. ) Osmar Galvez MD [Physician] - 1 month (You have a cardiolgy followup with Dr. Galvez at [facility] on August 06 2020 at 1:15pm) Daisy Warner FNP [Nurse Practitioner] - 1 week (ALSO ON June: You have a post Procedure followup with NATHAN Cash at [facility] at 1:30pm on , July 16) Discharge Diet: Cardiac Discharge Activity: Resume usual activity Patient Instructions: Metoprolol (By mouth), Lisinopril (By mouth), Furosemide (By mouth), Amiodarone (By mouth), Potassium Supplement (By mouth), Apixaban (By mouth), Heart Failure (DC), Atrial Fibrillation (DC), CHF Stoplight, Post Angiogram Home Care Instructions Activity Restrictions/Additional Instructions: Please follow-up with cardiology within next 1 week. LifeVest has been arranged for you. Please wear the event monitor as prescribed. Please take medications as directed. Please follow-up with your new primary care provider within next 1 week so that medications can be given to you by [address] [facility]. Upon Discharge from the Hospital, You will be fitted with a 14 day Event Monitor at [facility] at 4:00pm Today Discharge Attestations Time Spent in Discharge Care*: greater than 30 min Specific Discharge Activities: educating patient, educating and/or supporting family/caregiver, discussing with pcp/other providers, discussing with rn field case manager/social workers/dc planners, documenting/other paperwork and evaluating patient/reviewing data Status at Discharge: Cognitive status at discharge: cognitively intact , Behavioral status at discharge: cooperative , Functional status at discharge: independent ambulation Overall status at discharge: patient is progressing back to baseline Quality Metrics Clinical Quality Measures During this hospital stay, did patient experience: None Coding Level of Care Code Acute Human Resources Leader for Juan Tapia Diagnoses Atrial flutter I48.92 Atrial flutter type: unspecified Cardiomyopathy I42.0 Cardiomyopathy type: dilated Heart failure, systolic, acute I50.21 Mitral valve regurgitation I34.0 Cardiac valve disease etiology: nonrheumatic Diabetes E11.9 Diabetes mellitus complication status: without complication Diabetes mellitus skilled nursing insulin use: without long wall mining machine helper use Diabetes mellitus type: type 2
--- NOTE | 2020-07-09 12:18 | PM.PN ---
Subjective Subjective: Interval history: Patient continues to be in atrial flutter with heart rate of 130s. Otherwise he feels fine denies any chest pain out of your shortness of breath PND orthopnea presyncope syncope. Patient would like to go home anyways he did not want to be cardioverted electrically and he would not like to stay more in the hospital. He understand the risks involved and worsening of atrial flutter, arrhythmia such as ventricular tachycardia such as worsening of heart failure and worse case scenario sudden cardiac . Medications: Reviewed: Yes Medication Review Details: Active Medications Generic Name Dose Route Start Last Admin Trade Name Freq PRN Reason Stop Dose Admin Acetaminophen 650 mg 07/03/20 01:08 Acetaminophen 32 5 Mg Tablet PO Q6H PRN Mild/Mod Pain Or Temp >/= 101 Aspirin 325 mg 07/05/20 09:00 07/05/20 08:36 Aspirin 325 Mg T ablet PO 325 mg DAILY JOB Administration Bisacodyl 10 mg 07/03/20 01:08 Bisacodyl 5 Mg T ablet PO DAILY PRN CONSTIPATION Dextrose 25 ml 07/03/20 15:56 Dextrose 50% Syr levi 50 Ml IVP ONCE PRN hypoglycemia prot ocol Protocol Dextrose 50 ml 07/03/20 15:56 Dextrose 50% Syr levi 50 Ml IVP PRN PRN hypoglycemia prot ocol Protocol Enoxaparin Sodium 40 mg 07/03/20 01:30 07/05/20 00:38 Enoxaparin 40 Mg /0.4 Ml Syringe SUBCUT 40 mg Q24H JOB Administration Furosemide 40 mg 07/03/20 17:00 07/04/20 17:51 Furosemide 10 Mg /Ml Sdv 4ml IVP 40 mg Q24H JOB Administration Glucagon 1 mg 07/03/20 15:56 Glucagon 1 Mg/Ml Inj 1 Ml IM ONCE PRN Adult Acute Hypog lycemia Prot. Protocol Hydromorphone HCl 2 mg 07/03/20 01:08 Hydromorphone 4 Mg Tablet PO Q6H PRN SEVERE PAIN Diltiazem HCl 125 mg/ Sodium 125 mls @ 0 mls/h r 07/02/20 19:45 07/03/20 12:01 Chloride IV Infused .Q0M JOB Titration Protocol Per Protocol Dextrose 500 mls @ 100 mls /hr 07/03/20 15:56 D5w IV ONCE PRN Adult Acute Hypog lycemia Prot Protocol Sodium Chloride 1,000 mls @ 50 ml s/hr 07/05/20 00:00 07/05/20 00:37 Sodium Chloride 0.9% IV 50 mls/hr .Q20H JOB Administration Insulin Aspart 0 unit 07/03/20 18:00 07/05/20 07:29 Insulin Aspart 1 00 Unit/1 Ml SUBCUT Not Given WM&BEDTIME JOB Protocol Metoprolol Succina te 25 mg 07/03/20 17:00 07/05/20 08:36 Metoprolol Succi maryjane Er (24 Hr) 25 Mg Tablet PO 25 mg DAILY JOB Administration Morphine Sulfate 4 mg 07/03/20 01:08 Morphine 4 Mg/Ml Sdv 1 Ml IVP Q4H PRN SEVERE PAIN Morphine Sulfate 2 mg 07/03/20 01:08 Morphine 4 Mg/Ml Sdv 1 Ml IVP Q4H PRN SEVERE PAIN Naloxone HCl 0.1 mg 07/03/20 01:08 Naloxone 0.4 Mg/ Ml Sdv IVP Q2M PRN OPIATERV Ondansetron HCl 4 mg 07/03/20 01:08 Ondansetron 2 Mg /Ml Sdv 2 Ml IVP Q6H PRN NAUSEA AND VOMITI NG Ondansetron HCl 4 mg 07/03/20 01:08 Ondansetron 2 Mg /Ml Sdv 2 Ml IVP Q8H PRN vomiting, or N/V if npo Potassium Chloride 20 meq 07/03/20 17:00 07/05/20 08:36 Potassium Chlori de Er 20 Meq Table t PO 20 meq DAILY JOB Administration No Known Allergies Allergy (Unverified 07/02/20 20:07) Vitals/I&O/Wt Last Vital Signs Temp 97.0 F L 07/09/20 10:55 Pulse 131 H 07/09/20 10:55 Resp 22 H 07/09/20 10:55 BP 109/93 07/09/20 10:55 Pulse Ox 98 07/09/20 10:55 07/08/20 07/09/20 07/09/20 22:59 06:59 14:59 Intake Total 360 / 600 350 / 950 360 / 360 Output Total 800 / 1680 Balance 360 / -280 -450 / -730 360 / 360 Physical Exam Narrative: EXAM NARRATIVE: GENERAL: Patient is alert, awake and oriented x3. HEENT: No cyanosis. No icterus. No pallor. HEART: Regular S1 and S2. No murmur, rub or gallop. LUNGS: Decreased breath sound bilaterally. ABDOMEN: Soft, nontender and nondistended. Positive bowel sounds. No guarding, rebound or tenderness. CENTRAL NERVOUS SYSTEM: Grossly nonfocal. EXTREMITIES: Lower extremities without edema bilaterally. Const: COMMON NORMALS: alert Resp: COMMON NORMALS: clear to auscultation bilaterally AUSCULTATION: clear to auscultation bilaterally Neuro: SENSORIUM/ORIENTATION: Yes alert Data : 07/07/20 03:55 07/07/20 03:55 A&P Assessment and plan (1) Atrial flutter: Will reduce amiodarone 400 mg twice a day, continue apixaban, will discharge patient on event monitor. Follow-up in 7 days with our nurse practitioner Daisy Warner and myself in 1 month. I have spoken to patient and his family his niece Lolis patient and his family understand risk as defined above. We will discharge him today Status: Acute Qualifiers: Atrial flutter type: unspecified Qualified Code(s): I48.92 - Unspecified atrial flutter (2) Cardiomyopathy: Nonischemic cardiomyopathy well compensated continue beta-mitzi continue ESTUARDO inhibitor and diuretics. We will switch patient to oral Lasix. Status: Acute Qualifiers: Cardiomyopathy type: dilated Qualified Code(s): I42.0 - Dilated cardiomyopathy (3) Heart failure, systolic, acute: Well compensated. 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 insulin use: without group home use Diabetes mellitus complication status: without complication Qualified Code(s): E11.9 - Type 2 diabetes mellitus without complications Attestations Medical Necessity Statement*: Patient can be discharged home on event monitor Coding Level of Care Code Established 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
--- NOTE | 2020-07-09 16:27 | PC.NURSE ---
pt did not want to have [place] air traffic control specialist called.he wants his daughter in law to interpret for him.spoke with krystin several times by phone to explain discharge plan.pharmacist from [facility] pharmacy delivered medications to bedside and instructed on meds.pt has lifevest.discharged at 1550..and taken to cardiac services to have event monitor placed.
== END 2020-07-09 15:50 | disposition home or self-care (01) | DRG 286 ==
LOC: ER 20:23 → CSU 22:49
PROVIDERS: Family Medicine; Internal Medicine Cardiovascular Disease; Admitting Provider Internal Medicine; Emergency Provider Emergency Medicine; Visit Provider Student in an Organized Health Care Education/Training Program
PROC: 4A023N8 Measurement of Cardiac Sampling and Pressure, Bilateral, Percutaneous Approach (ICD-10-PCS; principal; 2020-07-05 10:00)
DX: I48.92 Unspecified atrial flutter (principal); I50.33 Acute on chronic diastolic (congestive) heart failure; E11.9 Type 2 diabetes mellitus without complications; I34.0 Nonrheumatic mitral (valve) insufficiency; E66.01 Morbid (severe) obesity due to excess calories; Z68.35 Body mass index [BMI] 35.0-35.9, adult; I42.8 Other cardiomyopathies; I48.91 Unspecified atrial fibrillation; Z79.84 Long term (current) use of oral hypoglycemic drugs
CPT/HCPCS: 12345; 36415; 36416; 71045; 71275; 80048; 80053; 81003; 82962; 83036; 83735; 83880; 84439; 84443; 84484; 85025; 85378; 85610; 85730; 87426; 93005; 93306; 93461; 96372; 96375; 99283; C1751; C1769; C1887; C1894; G0378; J0282; J1644; J1650; J1815; J1940; J2250; J3010; J3490; J7030; J7060; Q0163; Q9967

== ENCOUNTER → 2020-07-16 14:26 | Outpatient (BNVA) | payer MEDICAID, SELFPAY | PROVIDERS: PCP Internal Medicine; Visit Provider Nurse Practitioner Family | DX: I50.21 Acute systolic (congestive) heart failure (principal); I48.92 Unspecified atrial flutter | CPT/HCPCS: 80048 ==

== ENCOUNTER 2020-08-30 09:08 | Emergency (ER) | payer MEDICAID, SELFPAY ==
[2020-08-30] VITALS (7 sets, daily range): BP systolic 104–140; BP diastolic 68–87; PULSE 115–120; RESP 18–34; TEMP 37.2; O2SAT 90–96; BMI 31.5
--- NOTE | 2020-08-30 09:25 | XRR_ITS ---
PROCEDURE INFORMATION: Exam: XR Chest, 1 View Exam date and time: 08/30/2020 9:39 AM Age: 55 years old Clinical indication: Shortness of breath; Additional info: SOB TECHNIQUE: Imaging protocol: XR of the chest Views: 1 view. COMPARISON: CR XR chest 1V portable [id number] 07/02/2020 7:49 PM FINDINGS: Lungs: Bilateral interstitial pulmonary infiltrates are present in the mid and lower lung zones. These have arisen since previous chest x-ray from 07/02/2020. This could represent an interstitial pneumonia possibly viral in nature. Pleural spaces: Unremarkable. No pleural effusion. No pneumothorax. Heart/Mediastinum: Unremarkable. No cardiomegaly. Bones/joints: Unremarkable. XR/XR chest 1V portable [id number] IMPRESSION: Bilateral interstitial pulmonary infiltrates which may represent an interstitial pneumonia possibly viral in nature.
--- NOTE | 2020-08-30 09:52 | W.ED.COVID ---
HPI - COVID General: Chief Complaint: COVID symptoms Stated Complaint: Fever, Trouble Breathing Time Seen by Provider: 08/30/20 09:24 Source: patient and director of cardiac rehabilitation Mode of arrival: ambulatory Limitations: language barrier Triage information: Has fever, cough or shortness of breath. No known COVID + exposure last 14 days History of Present Illness: HPI Narrative: 55-year-old male presenting with 3-day history of fever, shortness of breath, cough, nausea, myalgias. Associated symptoms include decreased appetite, productive painful cough, and orthopnea. No known sick contacts. He has a history of atrial fibrillation, is anticoagulated on Eliquis. He has continued to take all of his medications as scheduled. MD complaint: has COVID symptoms Prior covid testing: no COVID 19 common symptoms: positive fever(s), chills, cough, productive cough, dyspnea, fatigue, body aches, headache(s), nausea, vomiting and diarrhea COVID 19 other sytmptoms: positive pleuritic pain, requiring oxygen and respiratory distress Onset (ago): day(s) Pertinent comorbid conditions: diabetes, hypertension and heart disease COVID Results: SARS-CoV-2 Antigen (Rapid) Negative (Negative) 08/30/20 10:30 08/30/20 Nasal/Oral Coronavirus 2019 PCR Pending 08/30/20 11:38 08/30/20 Review of Systems Const: Reports: fever(s), body aches and fatigue Resp: Reports: dyspnea and productive cough GI: Reports: nausea, vomiting and diarrhea Neuro: Reports: headache(s) [facility] PFSH: Medical History Atrial fibrillation with controlled ventricular rate Atrial flutter Cardiomyopathy Diabetes Morbid obesity Obesity (BMI 30.0-34.9) Family History Other CAD (coronary artery disease) Hypertension Denies family history of Anesthesia complication Bleeding disorder Stroke Social History Smoking and tobacco status: never smoked Alcohol intake: never Physical Exam Const: COMMON NORMALS: no acute distress, average body habitus, patient oriented x3, alert and well nourished GENERAL APPEARANCE: cooperative and well kempt; not in distress, not anxious and not ill appearing NUTRITIONAL APPEARANCE: overweight ORIENTATION/CONSCIOUSNESS: Yes oriented to person, Yes oriented to place and Yes oriented to time HENMT: COMMON NORMALS: normocephalic and atraumatic HEAD & SCALP: normal to inspection, normocephalic and atraumatic FACE & SINUS: normal facial exam and face symmetric MOUTH: Normal oral and palatal mucosa present Eye: COMMON NORMALS: Equal, round and reactive pupils present, EOMs intact bilaterally, conjunctivae normal and no scleral icterus GENERAL EYE: appearance normal, both eyes and all related structures CONJUNCTIVA: Yes conjunctivae normal PUPIL: Yes Equal, round and reactive pupils present Neck/C-Spine: COMMON NORMALS: full ROM, no lymphadenopathy, supple and no JVD Chest: COMMONS NORMALS: normal inspection of the chest CHEST: No crepitus Resp: COMMON NORMALS: normal respiratory effort EFFORT & INSPECTION: Yes able to speak in complete sentences, Yes tachypneic, No respiratory distress, No labored and No Actively coughing AUSCULTATION: crackles Laterality: bilateral and rales diffuse Cardio: COMMON NORMALS: no JVD and regular rate RATE: regular rate and tachycardic HEART SOUNDS: no murmurs GI: COMMON NORMALS: Normal to inspection, nondistended, normoactive bowel sounds present, Soft to palpation, non-tender, No hepatosplenomegaly present, no masses and no bruits PALPATION: Yes Soft to palpation and Yes No hepatosplenomegaly present Extremity: COMMON NORMALS: normal to inspection and capillary refill normal; negative for no pedal edema GENERAL: Yes edema (Trace bilateral pitting edema.) Neuro: COMMON NORMALS: patient oriented x3, moves all extremities, no focal motor deficits and no sensory deficits noted SENSORIUM/ORIENTATION: Yes alert, Yes oriented to person, Yes oriented to place, Yes oriented to time and No lethargic CRANIAL NERVES: Yes CN normal except as noted Psych: COMMON NORMALS: mental status grossly normal, Normal thought process present, cooperative and normal affect APPEARANCE: Yes grossly normal and Yes well kempt ATTITUDE: Yes calm THOUGHT PROCESS: Normal thought process present Skin: COMMON NORMALS: no rashes or lesions noted, no wounds, turgor normal, no jaundice, no petechiae and no mottling GENERAL SKIN EXAM: no rashes or lesions noted and turgor normal Course Vital Signs: Vital signs: Vital Signs Temperature 98.9 F 08/30/20 09:16 Pulse Rate 115 H 08/30/20 14:37 Respiratory Rate 30 H 08/30/20 14:37 Blood Pressure 140/77 08/30/20 14:37 Pulse Oximetry 92 08/30/20 14:37 MDM - COVID MDM Narrative: Medical decision making narrative: 55-year-old male with 3-day history of COVID-19 symptoms. O2 sats 91% on room air on arrival, tachycardic 119, no respiratory distress. ABG : pH 7.50, PaO2 86.9 on 2 L nasal cannula, PCO2 27 Bilateral patchy interstitial infiltrates on chest x-ray consistent with viral pneumonia EKG; atrial flutter with RVR, rate ranging from 115-125. Will administer IV fluid bolus and monitor for improvement. The patient reportedly has been taking his metoprolol, so likely the elevated rate is due to volume depletion. D-dimer<1, no CTA indicated. Also, the patient is on Eliquis. Rapid Covid swab negative. Send out PCR pending No improvement in heart rate after first 500 cc bolus, in fact his breathing seems to be more labored. On reexamination, his work of breathing improves with sitting upright, and he has mild JVD. IV fluids discontinued, will give a dose of 40 mg IV Lasix and monitor for improvement. On review of his prior records, he does have dilated cardiomyopathy, with the last EF being 30 to 35% His BNP is elevated at 4477 increased from 900s last month. This could be due to pulmonary process or it could be indicating a true CHF exacerbation. Did drop down slightly after Lasix, oxygen requirement decreased. Ambulatory O2 sats remained above 91%, does not qualify for home O2. Send out Covid PCR pending, seems less likely now. Follow-up closely with his PCP in the next 3 days to recheck heart rate and pulse ox. Differential Diagnosis: Differential diagnosis: Likely COVID 19, influenza, pneumonia, copd exacerbation, pulmonary embolism, NSTEMI/STEMI and CHF exacerbation Medical Records: Attestation: I reviewed the patient's medical records. Lab Data: Attestation: I reviewed the patient's lab results. Labs: Lab Results 08/30/20 08/30/20 08/30/20 Range/Units 09:30 09:30 09:30 WBC Cancelled Corrected WBC Cancelled RBC Cancelled Hgb Cancelled Hct Cancelled MCV Cancelled MCH Cancelled MCHC Cancelled RDW Cancelled Plt Count Cancelled MPV Cancelled Gran % Cancelled Neut % (Auto) Cancelled Lymph % (Auto) Cancelled [place] % (Auto) Cancelled Eos % (Auto) Cancelled Baso % (Auto) Cancelled Neut # (Auto) Cancelled Lymph # (Auto) Cancelled [place] # (Auto) Cancelled Eos # (Auto) Cancelled Baso # (Auto) Cancelled Absolute Gran (aut o) Cancelled Nucleated RBC % (a uto) Cancelled Nucleated RBCs # Cancelled PT 16.70 H (12.1-14.9) SECO NDS INR 1.30 H (0.8-1.2) D-Dimer 0.96 H (0-0.59) ug/mIFE U Specimen Type Sample Site ABG pH (7.35-7.45) ABG pCO2 (35-45) mmHg ABG pO2 (80.0-100.0) mmH g ABG HCO3 (22-26) mmol/L ABG O2 Saturation ABG Base Excess (-2.0-2.0) mmol/ L Joe Test A-a O2 Gradient (5-10) mmHg Hematocrit (42-52) % Hgb O2 Saturation (95-100) % Carboxyhemoglobin (0.4-20.1) %THgb Methemoglobin (0.4-1.5) % Total Hemoglobin (14-18) g/dL Ionized Calcium (1.1-1.4) mmol/L O2 Delivery Device O2 Liters/Min % FiO2 % Studio Director ID Sodium 137 (136-145) mmol/L Potassium 4.3 (3.5-5.1) mmol/L Chloride 102 (98-107) mmol/L Carbon Dioxide 21 L (22-29) mmol/L Anion Gap 18.3 (5-19) BUN 23 H (6-20) mg/dL Creatinine 0.8 (0.7-1.2) mg/dL GFR Calculation 99.6 (90-130) mL/min Glucose 144 H (65-115) mg/dL Calculated Osmolal ity 290 (285-295) mOsm/k g Calcium 8.5 (8.5-10.5) mg/dL Magnesium 2.0 (1.7-2.3) mg/dL Total Bilirubin 1.9 H (0.15-1.2) mg/dL AST 23 (0-40) U/L ALT 40 (0-41) U/L Alkaline Phosphata se 55 (40-130) IU/L C-Reactive Protein 128.6 H (0.0-4.9) mg/L NT-Pro-B Natriuret Pep 4477 H (0-125) pg/mL Total Protein 6.8 (6.6-8.7) g/dL Albumin 3.5 (3.5-5.2) g/dL Globulin 3.3 (1.3-4.6) g/dL Procalcitonin (0-0.5) ng/mL SARS-CoV-2 Ag (Rap id) (Negative) 08/30/20 08/30/20 08/30/20 Range/Units 09:30 09:44 10:30 WBC Corrected WBC RBC Hgb Hct MCV MCH MCHC RDW Plt Count MPV Gran % Neut % (Auto) Lymph % (Auto) [place] % (Auto) Eos % (Auto) Baso % (Auto) Neut # (Auto) Lymph # (Auto) [place] # (Auto) Eos # (Auto) Baso # (Auto) Absolute Gran (aut o) Nucleated RBC % (a uto) Nucleated RBCs # PT (12.1-14.9) SECO NDS INR (0.8-1.2) D-Dimer (0-0.59) ug/mIFE U Specimen Type Arterial Sample Site Radial, left ABG pH 7.50 H (7.35-7.45) ABG pCO2 27.0 L (35-45) mmHg ABG pO2 86.9 (80.0-100.0) mmH g ABG HCO3 20.9 L (22-26) mmol/L ABG O2 Saturation 94.9 ABG Base Excess -1.1 (-2.0-2.0) mmol/ L Joe Test Pos A-a O2 Gradient 10.1 H (5-10) mmHg Hematocrit 41.4 L (42-52) % Hgb O2 Saturation 93.8 L (95-100) % Carboxyhemoglobin 0.3 L (0.4-20.1) %THgb Methemoglobin 0.8 (0.4-1.5) % Total Hemoglobin 13.5 L (14-18) g/dL Ionized Calcium 1.1 (1.1-1.4) mmol/L O2 Delivery Device Nc O2 Liters/Min 2.0 % FiO2 28.0 % Studio Director ID Cak Sodium 132.0 (136-145) mmol/L Potassium 4.1 (3.5-5.1) mmol/L Chloride (98-107) mmol/L Carbon Dioxide (22-29) mmol/L Anion Gap (5-19) BUN (6-20) mg/dL Creatinine (0.7-1.2) mg/dL GFR Calculation (90-130) mL/min Glucose 145.0 H (65-115) mg/dL Calculated Osmolal ity (285-295) mOsm/k g Calcium (8.5-10.5) mg/dL Magnesium (1.7-2.3) mg/dL Total Bilirubin (0.15-1.2) mg/dL AST (0-40) U/L ALT (0-41) U/L Alkaline Phosphata se (40-130) IU/L C-Reactive Protein (0.0-4.9) mg/L NT-Pro-B Natriuret Pep (0-125) pg/mL Total Protein (6.6-8.7) g/dL Albumin (3.5-5.2) g/dL Globulin (1.3-4.6) g/dL Procalcitonin 0.36 (0-0.5) ng/mL SARS-CoV-2 Ag (Rap id) Negative (Negative) 08/30/20 Range/Units 11:18 WBC 13.9 H Corrected WBC RBC 4.15 Hgb 12.4 Hct 38.5 L MCV 92.8 MCH 29.9 MCHC 32.2 RDW 15.8 H Plt Count 218 MPV 11.1 H Gran % Neut % (Auto) 88.9 Lymph % (Auto) 4.5 [place] % (Auto) 6.1 Eos % (Auto) 0.0 Baso % (Auto) 0.1 Neut # (Auto) 12.33 H Lymph # (Auto) 0.[address] [place] # (Auto) 0.9 Eos # (Auto) 0.0 Baso # (Auto) 0.0 Absolute Gran (aut o) Nucleated RBC % (a uto) 0 Nucleated RBCs # 0.0 PT (12.1-14.9) SECO NDS INR (0.8-1.2) D-Dimer (0-0.59) ug/mIFE U Specimen Type Sample Site ABG pH (7.35-7.45) ABG pCO2 (35-45) mmHg ABG pO2 (80.0-100.0) mmH g ABG HCO3 (22-26) mmol/L ABG O2 Saturation ABG Base Excess (-2.0-2.0) mmol/ L Joe Test A-a O2 Gradient (5-10) mmHg Hematocrit (42-52) % Hgb O2 Saturation (95-100) % Carboxyhemoglobin (0.4-20.1) %THgb Methemoglobin (0.4-1.5) % Total Hemoglobin (14-18) g/dL Ionized Calcium (1.1-1.4) mmol/L O2 Delivery Device O2 Liters/Min % FiO2 % Studio Director ID Sodium (136-145) mmol/L Potassium (3.5-5.1) mmol/L Chloride (98-107) mmol/L Carbon Dioxide (22-29) mmol/L Anion Gap (5-19) BUN (6-20) mg/dL Creatinine (0.7-1.2) mg/dL GFR Calculation (90-130) mL/min Glucose (65-115) mg/dL Calculated Osmolal ity (285-295) mOsm/k g Calcium (8.5-10.5) mg/dL Magnesium (1.7-2.3) mg/dL Total Bilirubin (0.15-1.2) mg/dL AST (0-40) U/L ALT (0-41) U/L Alkaline Phosphata se (40-130) IU/L C-Reactive Protein (0.0-4.9) mg/L NT-Pro-B Natriuret Pep (0-125) pg/mL Total Protein (6.6-8.7) g/dL Albumin (3.5-5.2) g/dL Globulin (1.3-4.6) g/dL Procalcitonin (0-0.5) ng/mL SARS-CoV-2 Ag (Rap id) (Negative) EKG Data: EKG 1: Attestation: I personally reviewed and interpreted this EKG as follows: EKG interpretation date: 08/30/20 EKG interpretation time: 09:30 Prior EKG tracings: available for review Interpretation: Atrial flutter, with RVR, rate 118, occasional PVC. Normal axis. No acute ST segment elevation or depression. QRS 98, QTc 257 COVID Results: SARS-CoV-2 Antigen (Rapid) Negative (Negative) 08/30/20 10:30 08/30/20 Nasal/Oral Coronavirus 2019 PCR Pending 08/30/20 11:38 08/30/20 Discharge Plan Discharge Patient Disposition: Home Clinical Impression: Atrial flutter with rapid ventricular response, Person under investigation for COVID-19, Acute dyspnea CHF exacerbation Qualifiers: Heart failure type: combined systolic and diastolic Qualified Code(s): I50.43 - Acute on chronic combined systolic (congestive) and diastolic (congestive) heart failure Condition: Stable Prescriptions: New cefdinir 300 mg capsule 300 mg PO BID 10 Days Qty: 20 RF: 0 Continued Pacerone 200 mg tablet 400 mg PO BID Qty: 60 RF: 0 Eliquis 5 mg tablet 5 mg PO BID Qty: 60 RF: 0 lisinopril 5 mg tablet 5 mg PO DAILY Qty: 30 RF: 0 Klor-Con M20 20 mEq tablet,ER particles/crystals 20 meq PO DAILY Qty: 30 RF: 0 furosemide 40 mg tablet 40 mg PO DAILY Qty: 30 RF: 5 metoprolol succinate 100 mg tablet extended release 24 hr 100 mg PO DAILY Qty: 90 RF: 2 metformin 1,000 mg Tablet 1,000 mg PO BID RF: 0 [place] Aspirin 1 tab PO DAILY RF: 0 glipizide 10 mg tablet 10 mg PO BID RF: 0 Discharge Orders: Discharge ED (Routine); Ordered 08/30/20 Ordered By: Meenakshi Chin Referrals: Gumaro Whatley MD [Primary Care Provider] - Discharge Diet: Diabetic and Low Salt Discharge Activity: Increase activity as tolerated Patient Instructions: Heart Failure (ED), Viral Pneumonia (ED) Activity Restrictions/Additional Instructions: Rest, avoid unnecessary exertion. Call to schedule a follow-up appointment with your heart doctor as well as your primary care doctor. You will be notified of the additional Covid test results in the next 24 hours. Until then, remain quarantined at home. Take Tylenol for fever and body aches. Return immediately to the ER if you develop worsening shortness of breath, chest pain, or if you are unable to keep down liquids. Coding Level of Care Code ED Mri Special Procedures Technologist for Juan Fwd Exam Comprehensive
[2020-08-30 09:55] LABS: Alveolar-Arterial Oxygen Gradi 10.1 mmHg (5-10); Arterial Blood Gas Hematocrit 41.4 % (42-52); Base Excess ABG -1.1 mmol/L (-2.0-2.0); Blood Gas Allen Test Pos; Blood Gas Operator Identificat CAK; Blood Gas Sample Site Radial, left; Blood Gas Sample Type Arterial; Carboxyhemoglobin 0.3 %THgb (0.4-20.1); HCO3 ABG 20.9 mmol/L (22-26); HGB O2 Sat 93.8 % (95-100); Ionized Calcium Level - ABG 1.1 mmol/L (1.1-1.4); Methemoglobin 0.8 % (0.4-1.5); Oxygen Device NC; Oxygen Saturation ABG 94.9; PO2 ABG 86.9 mmHg (80.0-100.0); Potassium Level - ABG 4.1 mmol/L (3.5-5.0); Total Hemoglobin 13.5 g/dL (14-18)
[2020-08-30 10:24] LABS: D Dimer 0.96 ug/mIFEU (0-0.59)
[2020-08-30] MEDS: dexamethasone 4 mg/mL INJ 6 MG IVP (10:25)
[2020-08-30] MEDS: sodium chloride 0.9% 1,000 ML 999 ML IV (10:25)
[2020-08-30 10:57] LABS: Alanine Aminotransferase 40 U/L (0-41); Albumin Level 3.5 g/dL (3.5-5.2); Alkaline Phosphatase 55 IU/L (40-130); Anion Gap 18.3 (5-19); Aspartate Amino Transferase 23 U/L (0-40); Blood Urea Nitrogen 23 mg/dL (6-20); C Reactive Protein 128.6 mg/L (0.0-4.9); Calcium 8.5 mg/dL (8.5-10.5); Carbon Dioxide 21 mmol/L (22-29); Chloride 102 mmol/L (98-107); Globulin 3.3 g/dL (1.3-4.6); Glomerular Filtration Rate 99.6 mL/min (90-130); Glucose 144 mg/dL (65-115); NT Pro B Type Natriuretic Pept 4477 pg/mL (0-125); Osmolality Calculated 290 mOsm/kg (285-295); Potassium 4.3 mmol/L (3.5-5.1); Sodium 137 mmol/L (136-145); Total Bilirubin 1.9 mg/dL (0.15-1.2); Total Protein 6.8 g/dL (6.6-8.7)
[2020-08-30 11:13] LABS: SARS Covid-2 Antigen Negative (Negative)
[2020-08-30 11:26] LABS: Basophils % 0.1 %; Hematocrit 38.5 % (42.0-52.0); Hemoglobin 12.4 g/dL (11.7-16.6); Lymphocytes # 0.6 10^3/uL (0.8-4.8); Lymphocytes % 4.5 %; Mean Corpuscular HGB Conc 32.2 g/dL (30.0-36.0); Mean Corpuscular Hemoglobin 29.9 pg (28.0-34.0); Mean Corpuscular Volume 92.8 fL (80-94); Mean Platelet Volume 11.1 fL (7.4-10.4); Monocytes # 0.9 10^3/uL (0.2-0.9); Monocytes % 6.1 %; Neutrophils # 12.33 10^3/uL (1.8-7.7); Neutrophils % 88.9 %; Nucleated Red Blood Cells % 0 %; Platelet Count 218 10^3/cmm (130-400); Red Blood Count 4.15 10^6/uL (4.1-5.3); Red Cell Distribution Width 15.8 % (12.1-15.1); White Blood Count 13.9 10^3/uL (4.0-10.0)
[2020-08-30] MEDS: cefTRIAXone 1,000 MG in sodium chloride 0.9% (plus) 50 ML 100 MG IV (11:55)
[2020-08-30] MEDS: acetaminophen 500 mg Tablet 1000 MG PO (12:36)
[2020-08-30] MEDS: FUROsemide 10 mg/mL SDV 4mL 40 MG IVP (12:36)
--- NOTE | 2020-08-30 13:55 | ECG_ITS ---
[facility] Test Date: 2020-08-30 Pat Name: Conner Macdonald Department: Room: Gender: Male Specialized Developer: : 1965 Requested By: Meenakshi Chin Order Number: [id number] Jonathan MD: Lonnie Machado M.D. Measurements Intervals [place] Rate: 118 P: [place]: QRS: 30 QRSD: 98 T: 120 QT: 183 QTc: 257 Interpretive Statements ATRIAL FLUTTER/TACHYCARDIA WITH RAPID VENTRICULAR RESPONSE WITH ABERRANT CONDUCTION OR VENTRICULAR PREMATURE COMPLEXES NONSPECIFIC ST & T-WAVE ABNORMALITY Compared to ECG 07/03/2020 02:17:55 Ventricular premature complex(es) now present Possible ischemia no longer present T-wave abnormality still present Electronically Signed On 08-30-2020 17:01:22 CRIMINAL JUSTICE PROGRAM DIRECTOR by Lonnie Machado M.D. [email or web address] [email or web address]/[id number]
[2020-08-30] MEDS: metoprolol tartrate 1 mg/1 mL SDV 5 mL 5 MG IV (14:10)
[2020-08-30 16:24] LABS: Procalcitonin 0.36 ng/mL (0-0.5)
[2020-08-31 14:50] LABS: Coronavirus Test Green County Not Detected
--- NOTE | 2020-08-31 17:20 | PC.NURSE ---
Pt called and notified of negative COVID result.
== END 2020-08-30 14:39 | disposition home or self-care (01) ==
PROVIDERS: Emergency Provider Family Medicine; PCP Internal Medicine
DX: I48.92 Unspecified atrial flutter (principal); R06.00 Dyspnea, unspecified; I11.0 Hypertensive heart disease with heart failure; I50.43 Acute on chronic combined systolic (congestive) and diastolic (congestive) heart failure; Z79.01 Long term (current) use of anticoagulants; Z79.84 Long term (current) use of oral hypoglycemic drugs; E11.9 Type 2 diabetes mellitus without complications
CPT/HCPCS: 12345; 36415; 36600; 71045; 80051; 80053; 82330; 82805; 83605; 83735; 83880; 84145; 85025; 85378; 85610; 86140; 87426; 87635; 93005; 96365; 96375; 99283; 99284; J0696; J1100; J1940; J3490; J7030

== ENCOUNTER 2020-09-02 14:08 | Inpatient (IN) | payer MEDICAID, SELFPAY ==
[2020-09-02] VITALS (12 sets, daily range): BP systolic 87–109; BP diastolic 66–73; PULSE 115–123; RESP 18–41; TEMP 37; O2SAT 83–93; BMI 34.8
--- NOTE | 2020-09-02 14:33 | XR_ITS ---
WS: [id number] PORTABLE CHEST HISTORY: SOB COMPARISON: 08/30/2020 Moderate progression of bilateral pulmonary opacifications. Hazy opacifications have increased in mul tiple lobes since the prior study. No pleural effusion or pneumothorax. Cardiac size: Mildly enlarged cardiac silhouette. Mediastinum/Aorta: Normal mediastinum. No osseous abnormality seen. XR/XR chest 1V portable [id number] IMPRESSION: Moderate progression of bilateral multilobar opacifications. Consider Covid as a possible etiology.
--- NOTE | 2020-09-02 14:34 | CT_ITS ---
WS: [id number] CT CHEST ANGIOGRAPHY WITH REFORMATS HISTORY: SOB, hypoxia, hemoptysis TECHNIQUE: Contiguous axial images are obtained through the chest during arterial injection of intrav enous contrast. Images are reconstructed to evaluate the pulmonary arteries. MIP imaging also reviewe d. All CT scans at [facility] use at least one of these dose optimization techniques: aut omated exposure control; mA and/or kV adjustment per patient size (includes targeted exams where dose is matched to clinical indication); or iterative reconstruction. CONTRAST: Omnipaque 350; 95 mL IV. DLP: 552.93 mGy.cm COMPARISON: 07/03/2020 Very good opacification of the pulmonary arteries. Centrally and through the segmental branches no pu lmonary embolism. Normal-sized thoracic aorta. Cardiac chambers are enlarged. There is significant di latation of the LEFT atrium and LEFT ventricle. Majority of the contrast remains within the RIGHT hea rt indicating there may be LEFT heart failure. Diffuse, multilobar areas of consolidation throughout all lobes. Some of the consolidation is greater than groundglass attenuation. There is mild sparing of the periphery. Significant progression of fin dings since the prior study. Stable nodule measuring 10 mm RIGHT middle lobe. There is no pneumothora x. Very tiny amount of RIGHT pleural fluid. Numerous mediastinal and hilar lymph nodes. RIGHT hilar lymph node measures up to 1.7 cm. No abnormality in the upper abdomen. Mild tricuspid regurgitation into hepatic veins. No adrenal mass . CT/CT angio chest PE protcl [id number] IMPRESSION: 1. No pulmonary embolism. 2. Moderately enlarged LEFT heart chambers. Little IV contrast within the LEFT heart. Consider LEFT heart failure. 3. Diffuse bilateral pulmonary opacifications. Differential includes pulmonary edema/ARDS, acute interstitial pneumonia and pulmonary hemorrhage. Significant progression of opacifications since 07/03/2020. 4. Indeterminate but prominent mediastinal and hilar lymph nodes.
--- NOTE | 2020-09-02 14:34 | ECG_ITS ---
[facility] Test Date: 2020-09-02 Pat Name: Conner Macdonald Department: Room: Gender: Male Access Service Representative: : 1965 Requested By: Yuly Kan Order Number: [id number] Jonathan MD: Shane Gonzalez M.D. Measurements Intervals [place] Rate: 115 P: 61 VA: 138 QRS: 20 QRSD: 101 T: 138 QT: 413 QTc: 572 Interpretive Statements Possible atrial flutter with a 2-[address] & T-WAVE ABNORMALITY Compared to ECG 08/30/2020 09:22:25 Atrial flutter no longer present Ventricular premature complex(es) no longer present T-wave abnormality still present Electronically Signed On 09-02-2020 20:12:03 SAMPLE PREPARATION SUPERVISOR by Shane Gonzalez M.D. [id number]
--- NOTE | 2020-09-02 14:35 | ED_ITS ---
Documented by User: JACQUELIN Leo 09/03/20 17:22 HPI - SOB/Dyspnea General: Chief Complaint: Shortness of Breath/Dyspnea Stated Complaint: DIFF BREATHING, COUGHING, UNSTABLE HR, COVID(-)SUN Time Seen by Provider: 09/02/20 14:18 Source: patient and family (Provides interpretation as patient does not speak Martiniquais) Mode of arrival: ambulatory Limitations: language barrier (Daughter provides interpretation) History of Present Illness: HPI Narrative: Patient is a 55-year-old male with a history of CHF, atrial flutter, cardiomyopathy/CAD (EF 35%), and DM here for complaints of chest pain or shortness of breath. Patient was seen at our facility 3 to 4 days ago for similar symptoms. Patient was discharged home from that visit with home O2 and a prescription for antibiotics. Patient tells me his symptoms of worsened. He was noted to desat to 83% with ambulation back to his room. He tells me during his last visit he had a small amount of blood- tinged sputum. He states that has worsened over the past few days and is now having brighter red-colored sputum. Filament Maker is Dr. Galvez. Unknown last stress test/echo. Patient had cath procedure 06/2020 after looking through his records. MD elicited complaint: shortness of breath and cough Pertinent past history: congestive heart failure and diabetes Severity: moderate Exacerbating factors: lying flat and exertion Relieving factors: nothing Associated symptoms: Reports chest congestion, chest pain, fever(s) (he states on Sat he had fever of 102), hemoptysis and orthopnea; Deny abdominal pain, lightheadedness, nausea, palpitations, syncope or vomiting Related Data: Home oxygen amount: none Review of Systems Const: Reports: fever(s) (he states on Sat he had fever of 102); Denies: chills, body aches, fatigue or malaise Eyes: Denies: change in vision ENMT: Denies: odynophagia Card: Reports: chest pain, irregular heart rhythm (hx of atrial flutter), edema, swelling of feet/ankles, dyspnea on exertion and orthopnea; Denies: palpitations, lightheadedness, syncope or pre-syncope Resp: Reports: dyspnea, productive cough, change in phlegm color, hemoptysis and chest congestion GI: Denies: abdominal pain, nausea, vomiting or diarrhea : Denies: flank pain Musc: Denies: neck pain or back pain Skin/Breast: Denies: rash Neuro: Denies: headache(s), numbness in extremities, weakness in extremities or sensory changes [facility] ED PFSH: Medical History (Updated 09/02/20 @ 17:49 by Lee Coronado MD) Atrial fibrillation with controlled ventricular rate Atrial flutter Cardiomyopathy Diabetes Medication induced coagulopathy Morbid obesity Obesity (BMI 30.0-34.9) Family History Other CAD (coronary artery disease) Hypertension Denies family history of Anesthesia complication Bleeding disorder Stroke Social History Smoking and tobacco status: never smoked Alcohol intake: never Physical Exam Const: COMMON NORMALS: patient oriented x3, no limitations and alert GENERAL APPEARANCE: cooperative and in distress (mild respiratory distress) HENMT: COMMON NORMALS: normocephalic and atraumatic HEAD & SCALP: normocephalic and atraumatic Resp: EFFORT & INSPECTION: Yes tachypneic and Yes labored AUSCULTATION: diminished lung sounds Cardio: RATE: tachycardic Extremity: GENERAL: Yes edema Neuro: LOPEZ COMA SCALE: document GCS findings [place] coma scale eye opening: Spontaneous Lopez coma scale verbal response: Orientated [place] coma scale motor response: Obey commands Lopez coma scale total score: 15 COMMON NORMALS: patient oriented x3 SENSORIUM/ORIENTATION: Yes alert Skin: COMMON NORMALS: no rashes or lesions noted GENERAL SKIN EXAM: no rashes or lesions noted Course Vital Signs: Vital signs: Vital Signs Temperature 98.6 F 09/03/20 15:11 Pulse Rate 120 H 09/03/20 15:55 Respiratory Rate 18 09/03/20 15:53 Blood Pressure 92/71 09/03/20 15:11 Pulse Oximetry 85 L 09/03/20 15:53 MDM - SOB/Dyspnea MDM Narrative: Medical decision making narrative: Patient here with acute on chronic CHF. His BNP has doubled since his last visit. He is requiring 4L O2 just to sat in the low 90s. CTA ordered due to worsening SOB/chest pain/hemoptysis. The is no pulmonary embolus but he has bilateral opacific ations. With his elevated procalcitonin this most likely represents pneumonia. He is in atrial flutter with uncontrolled rate. Patient needs to be hospitalized at this time for further management. Dr. Barkley has seen patient and agrees. He will speak to hospitalist for admission. Lab Data: Labs: Lab Results 09/02/20 09/02/20 09/02/20 Range/Units 14:45 14:45 14:55 WBC (4.0-10.0) 10^3/ uL RBC (4.1-5.3) 10^6/u L Hgb (11.7-16.6) g/dL Hct (42.0-52.0) % MCV (80-94) fL MCH (28.0-34.0) pg MCHC (30.0-36.0) g/dL RDW (12.1-15.1) % Plt Count (130-400) 10^3/c mm MPV (7.4-10.4) fL Neut % (Auto) % Lymph % (Auto) % Johnson % (Auto) % Eos % (Auto) % Baso % (Auto) % Neut # (Auto) (1.8-7.7) 10^3/u L Lymph # (Auto) (0.8-4.8) 10^3/u L Johnson # (Auto) (0.2-0.9) 10^3/u L Eos # (Auto) (0.0-0.8) 10^3/u L Baso # (Auto) (0.0-0.1) 10^3/u L Nucleated RBC % (a uto) % Nucleated RBCs # /100WBC PT (12.1-14.9) SECO NDS INR (0.8-1.2) APTT (23.9-36.7) SECO NDS Fibrinogen (174-498) mg/dL D-Dimer (0-0.59) ug/mIFE U Specimen Type Sample Site ABG pH (7.35-7.45) ABG pCO2 (35-45) mmHg ABG pO2 (80.0-100.0) mmH g ABG HCO3 (22-26) mmol/L ABG Base Excess (-2.0-2.0) mmol/ L Joe Test Hematocrit (42-52) % O2 Delivery Device O2 Liters/Min % FiO2 % Dietetic Technician ID Sodium (136-145) mmol/L Potassium (3.5-5.1) mmol/L Chloride (98-107) mmol/L Carbon Dioxide (22-29) mmol/L Anion Gap (5-19) BUN (6-20) mg/dL Creatinine (0.7-1.2) mg/dL GFR Calculation (90-130) mL/min Glucose (65-115) mg/dL Calculated Osmolal ity (285-295) mOsm/k g Lactic Acid (0.5-2.2) mmol/L Calcium (8.5-10.5) mg/dL Total Bilirubin (0.15-1.2) mg/dL AST (0-40) U/L ALT (0-41) U/L Alkaline Phosphata se (40-130) IU/L Troponin T Baselin e (0-15) ng/L C-Reactive Protein (0.0-4.9) mg/L NT-Pro-B Natriuret Pep (0-125) pg/mL Total Protein (6.6-8.7) g/dL Albumin (3.5-5.2) g/dL Globulin (1.3-4.6) g/dL Procalcitonin (0-0.5) ng/mL Nasal/Oral COVID-1 9 PCR Not detected Influenza Type A A g Negative (Negative) Influenza Type B A g Negative (Negative) SARS-CoV-2 Ag (Rap id) Negative (Negative) 09/02/20 09/02/20 09/02/20 Range/Units 15:06 15:10 15:10 WBC 13.7 H (4.0-10.0) 10^3/ uL RBC 4.52 (4.1-5.3) 10^6/u L Hgb 13.3 (11.7-16.6) g/dL Hct 41.8 L (42.0-52.0) % MCV 92.5 (80-94) fL MCH 29.4 (28.0-34.0) pg MCHC 31.8 (30.0-36.0) g/dL RDW 15.8 H (12.1-15.1) % Plt Count 325 (130-400) 10^3/c mm MPV 11.1 H (7.4-10.4) fL Neut % (Auto) 88.3 % Lymph % (Auto) 5.5 % Johnson % (Auto) 5.6 % Eos % (Auto) 0.1 % Baso % (Auto) 0.1 % Neut # (Auto) 12.10 H (1.8-7.7) 10^3/u L Lymph # (Auto) 0.8 (0.8-4.8) 10^3/u L Johnson # (Auto) 0.8 (0.2-0.9) 10^3/u L Eos # (Auto) 0.0 (0.0-0.8) 10^3/u L Baso # (Auto) 0.0 (0.0-0.1) 10^3/u L Nucleated RBC % (a uto) 0 % Nucleated RBCs # 0.0 /100WBC PT 20.10 H (12.1-14.9) SECO NDS INR 1.65 H (0.8-1.2) APTT 37.5 H (23.9-36.7) SECO NDS Fibrinogen 816 H (174-498) mg/dL D-Dimer 0.73 H (0-0.59) ug/mIFE U Specimen Type Arterial Sample Site Brachial, left ABG pH 7.51 H (7.35-7.45) ABG pCO2 28.9 L (35-45) mmHg ABG pO2 64.1 L (80.0-100.0) mmH g ABG HCO3 22.9 (22-26) mmol/L ABG Base Excess 0.8 (-2.0-2.0) mmol/ L Joe Test Pos Hematocrit 40.8 L (42-52) % O2 Delivery Device Nc O2 Liters/Min 4.0 % FiO2 36.0 % Dietetic Technician ID Monro Sodium (136-145) mmol/L Potassium (3.5-5.1) mmol/L Chloride (98-107) mmol/L Carbon Dioxide (22-29) mmol/L Anion Gap (5-19) BUN (6-20) mg/dL Creatinine (0.7-1.2) mg/dL GFR Calculation (90-130) mL/min Glucose (65-115) mg/dL Calculated Osmolal ity (285-295) mOsm/k g Lactic Acid (0.5-2.2) mmol/L Calcium (8.5-10.5) mg/dL Total Bilirubin (0.15-1.2) mg/dL AST (0-40) U/L ALT (0-41) U/L Alkaline Phosphata se (40-130) IU/L Troponin T Baselin e (0-15) ng/L C-Reactive Protein (0.0-4.9) mg/L NT-Pro-B Natriuret Pep (0-125) pg/mL Total Protein (6.6-8.7) g/dL Albumin (3.5-5.2) g/dL Globulin (1.3-4.6) g/dL Procalcitonin (0-0.5) ng/mL Nasal/Oral COVID-1 9 PCR Influenza Type A A g (Negative) Influenza Type B A g (Negative) SARS-CoV-2 Ag (Rap id) (Negative) 09/02/20 09/02/20 09/02/20 Range/Units 15:10 15:10 15:10 WBC (4.0-10.0) 10^3/ uL RBC (4.1-5.3) 10^6/u L Hgb (11.7-16.6) g/dL Hct (42.0-52.0) % MCV (80-94) fL MCH (28.0-34.0) pg MCHC (30.0-36.0) g/dL RDW (12.1-15.1) % Plt Count (130-400) 10^3/c mm MPV (7.4-10.4) fL Neut % (Auto) % Lymph % (Auto) % Johnson % (Auto) % Eos % (Auto) % Baso % (Auto) % Neut # (Auto) (1.8-7.7) 10^3/u L Lymph # (Auto) (0.8-4.8) 10^3/u L Johnson # (Auto) (0.2-0.9) 10^3/u L Eos # (Auto) (0.0-0.8) 10^3/u L Baso # (Auto) (0.0-0.1) 10^3/u L Nucleated RBC % (a uto) % Nucleated RBCs # /100WBC PT (12.1-14.9) SECO NDS INR (0.8-1.2) APTT (23.9-36.7) SECO NDS Fibrinogen (174-498) mg/dL D-Dimer (0-0.59) ug/mIFE U Specimen Type Sample Site ABG pH (7.35-7.45) ABG pCO2 (35-45) mmHg ABG pO2 (80.0-100.0) mmH g ABG HCO3 (22-26) mmol/L ABG Base Excess (-2.0-2.0) mmol/ L Joe Test Hematocrit (42-52) % O2 Delivery Device O2 Liters/Min % FiO2 % Dietetic Technician ID Sodium 136 (136-145) mmol/L Potassium 4.6 (3.5-5.1) mmol/L Chloride 98 (98-107) mmol/L Carbon Dioxide 26 (22-29) mmol/L Anion Gap 16.6 (5-19) BUN 19 (6-20) mg/dL Creatinine 0.9 (0.7-1.2) mg/dL GFR Calculation 87.0 L (90-130) mL/min Glucose 114 (65-115) mg/dL Calculated Osmolal ity 285 (285-295) mOsm/k g Lactic Acid 2.4 H (0.5-2.2) mmol/L Calcium 8.7 (8.5-10.5) mg/dL Total Bilirubin 1.8 H (0.15-1.2) mg/dL AST 22 (0-40) U/L ALT 47 H (0-41) U/L Alkaline Phosphata se 78 (40-130) IU/L Troponin T Baselin e 22 H (0-15) ng/L C-Reactive Protein 287.2 H (0.0-4.9) mg/L NT-Pro-B Natriuret Pep 8423 H (0-125) pg/mL Total Protein 6.5 L (6.6-8.7) g/dL Albumin 3.5 (3.5-5.2) g/dL Globulin 3.0 (1.3-4.6) g/dL Procalcitonin 1.13 H (0-0.5) ng/mL Nasal/Oral COVID-1 9 PCR Influenza Type A A g (Negative) Influenza Type B A g (Negative) SARS-CoV-2 Ag (Rap id) (Negative) Imaging Data^: CXR: Radiologist's impression: [place] [address] XRay Report Signed Patient: Conner Macdonald AUnit #: [id number] : 1965Acct#:[id number] Age/Sex: 55 / MADM Date: 09/02/20 Loc: ERRoom/Bed: Attending Dr: Ordering Provider/Ordering MD: Yuly Kan Date of Service: 09/02/20 Procedure(s): XR chest 1V portable [id number] Accession Number(s): [id number] Report Number: [id number] WS: [id number] PORTABLE CHEST HISTORY: SOB COMPARISON: 08/30/2020 Moderate progression of bilateral pulmonary opacifications. Hazy opacifications have increased in multiple lobes since the prior study. No pleural effusion or pneumothorax. Cardiac size: Mildly enlarged cardiac silhouette. Mediastinum/Aorta: Normal mediastinum. No osseous abnormality seen. XR/XR chest 1V portable [id number] IMPRESSION: Moderate progression of bilateral multilobar opacifications. Consider Covid as a possible etiology. Dictated By:Glory Reed DO Signed By:Glory Reed DOSigned Date/Time:09/02/20 1525 DD/ 1523 CTA Chest: Radiologist's impression: [employer] [address] [address] [address] Scan Report Signed Patient: Conner Macdonald AUnit #: [id number] : 1965Acct#:[id number] Age/Sex: 55 / MADM Date: 09/02/20 Loc: ERRoom/Bed: Attending Dr: Ordering Provider/Ordering MD: Yuly Kan Date of Service: 09/02/20 Procedure(s): CT angio chest PE protcl [id number] Accession Number(s): [id number] Report Number: [id number] WS: [id number] CT CHEST ANGIOGRAPHY WITH REFORMATS HISTORY: SOB, hypoxia, hemoptysis TECHNIQUE: Contiguous axial images are obtained through the chest during arterial injection of intravenous contrast. Images are reconstructed to evaluate the pulmonary arteries. MIP imaging also reviewed. All CT scans at [facility] use at least one of these dose optimization techniques: automated exposure control; mA and/or kV adjustment per patient size (includes targeted exams where dose is matched to clinical indication); or iterative reconstru ction. CONTRAST: Omnipaque 350; 95 mL IV. DLP: 552.93 mGy.cm COMPARISON: 07/03/2020 Very good opacification of the pulmonary arteries. Centrally and through the segmental branches no pulmonary embolism. Normal-sized thoracic aorta. Cardiac chambers are enlarged. There is significant dilatation of the LEFT atrium and LEFT ventricle. Majority of the contrast remains within the RIGHT heart indicati ng there may be LEFT heart failure. Diffuse, multilobar areas of consolidation throughout all lobes. Some of the consolidation is greater than groundglass attenuation. There is mild sparing of the periphery. Significant progression of findings since the prior study. Stable nodule measuring 10 mm RIGHT middle lobe. There is no pneumothorax. Very tiny amount of RIGHT pleural fluid. Numerous mediastinal and hilar lymph nodes. RIGHT hilar lymph node measures up to 1.7 cm. No abnormality in the upper abdomen. Mild tricuspid regurgitation into hepatic veins. No adrenal mass. CT/CT angio chest PE protcl [id number] IMPRESSION: 1. No pulmonary embolism. 2. Moderately enlarged LEFT heart chambers. Little IV contrast within the LEFT heart. Consider LEFT heart failure. 3. Diffuse bilateral pulmonary opacifications. Differential includes pulmonary edema/ARDS, acute interstitial pneumonia and pulmonary hemorrhage. Significant progression of opacifications since 07/03/2020. 4. Indeterminate but prominent mediastinal and hilar lymph nodes. Dictated By:Glory Reed DO Signed By:Glory Reed DOSigned Date/Time:09/02/20 1600 DD/ 1549 Discharge Plan Discharge Patient Disposition: Admitted As Inpatient Admit Provider: Lee Coronado Clinical Impression: Acute on chronic clinical systolic heart failure Respiratory failure, acute Qualifiers: Respiratory failure complication: hypoxia Qualified Code(s): J96.01 - Acute respiratory failure with hypoxia Bilateral pneumonia Qualifiers: Pneumonia type: due to unspecified organism Lung location: unspecified part of lung Qualified Code(s): J18.9 - Pneumonia, unspecified organism Sepsis Qualifiers: Sepsis type: sepsis due to unspecified organism Sepsis acute organ dysfunction status: with acute organ dysfunction Severe sepsis acute organ dysfunction type: acute respiratory failure Acute respiratory failure type: with hypoxia Severe sepsis shock status: with septic shock Qualified Code(s): A41.9 - Sepsis, unspecified organism Atrial flutter Qualifiers: Atrial flutter type: unspecified Qualified Code(s): I48.92 - Unspecified atrial flutter Condition: Stable Sign Out Sign Out Data: Patient Sign Out occurred on 09/02/20 at 16:41. Patient's care was discussed, and care was transferred from to Jordyn Barkley [place], [facility] [place] Level of Care Code ED Prenatal Teacher for Chg Fwd Exam Detailed Documented by User: Jordyn Barkley MD, [facility] [place] 09/02/20 22:57 HPI - SOB/Dyspnea General: Chief Complaint: Shortness of Breath/Dyspnea Stated Complaint: DIFF BREATHING, COUGHING, UNSTABLE HR, COVID(-)SUN Time Seen by Provider: 09/02/20 14:18 [facility] ED PFSH: Medical History (Updated 09/02/20 @ 17:49 by Lee Coronado MD) Atrial fibrillation with controlled ventricular rate Atrial flutter Cardiomyopathy Diabetes Medication induced coagulopathy Morbid obesity Obesity (BMI 30.0-34.9) Family History Other CAD (coronary artery disease) Hypertension Denies family history of Anesthesia complication Bleeding disorder Stroke Social History Smoking and tobacco status: never smoked Alcohol intake: never Course Vital Signs: Vital signs: Vital Signs Temperature 98.6 F 09/03/20 15:11 Pulse Rate 120 H 09/03/20 15:55 Respiratory Rate 18 09/03/20 15:53 Blood Pressure 92/71 02/04/21 15:11 Pulse Oximetry 85 L 09/03/20 15:53 MDM - SOB/Dyspnea MDM Narrative: Medical decision making narrative: Kindly evaluate the midlevel provider, Yuly Kan's note for the complete history and physical examination. I also evaluated this patient and agree with her findings. Essentially this is a pleasant 55-year-old male with a history of congestive heart failure who presented to the emergency department with worsening dyspnea. He was seen here about 3 days ago for the same thing and was discharged home. He was already on diuretics and this was continued. He had some hemoptysis at that time and he states it has progressively worsened. He has dyspnea on exertion and was hypoxic on walking to his bed. He is oxygen saturation dropped to the mid to low 80s on room air while walking. Evaluation in the emergency department is consistent with congestive heart failure exacerbation with markedly elevated proBNP which had almost doubled in about 3 days. He was diuresed in the emergency department, placed on oxygen and admitted for further evaluation and management. Patient was also tachycardic, had elevated lactic acid and elevated procalcitonin so he has pneumonia and is likely septic too. He was given a dose of intravenous ceftriaxone in the emergency department. Medical Records: Attestation: I reviewed the patient's medical records. Lab Data: Attestation: I reviewed the patient's lab results. Labs: Lab Results 09/02/20 09/02/20 09/02/20 Range/Units 14:45 14:45 14:55 WBC (4.0-10.0) 10^3/ uL RBC (4.1-5.3) 10^6/u L Hgb (11.7-16.6) g/dL Hct (42.0-52.0) % MCV (80-94) fL MCH (28.0-34.0) pg MCHC (30.0-36.0) g/dL RDW (12.1-15.1) % Plt Count (130-400) 10^3/c mm MPV (7.4-10.4) fL Neut % (Auto) % Lymph % (Auto) % Johnson % (Auto) % Eos % (Auto) % Baso % (Auto) % Neut # (Auto) (1.8-7.7) 10^3/u L Lymph # (Auto) (0.8-4.8) 10^3/u L Johnson # (Auto) (0.2-0.9) 10^3/u L Eos # (Auto) (0.0-0.8) 10^3/u L Baso # (Auto) (0.0-0.1) 10^3/u L Nucleated RBC % (a uto) % Nucleated RBCs # /100WBC PT (12.1-14.9) SECO NDS INR (0.8-1.2) APTT (23.9-36.7) SECO NDS Fibrinogen (174-498) mg/dL D-Dimer (0-0.59) ug/mIFE U Specimen Type Sample Site ABG pH (7.35-7.45) ABG pCO2 (35-45) mmHg ABG pO2 (80.0-100.0) mmH g ABG HCO3 (22-26) mmol/L ABG Base Excess (-2.0-2.0) mmol/ L Joe Test Hematocrit (42-52) % O2 Delivery Device O2 Liters/Min % FiO2 % Dietetic Technician ID Sodium (136-145) mmol/L Potassium (3.5-5.1) mmol/L Chloride (98-107) mmol/L Carbon Dioxide (22-29) mmol/L Anion Gap (5-19) BUN (6-20) mg/dL Creatinine (0.7-1.2) mg/dL GFR Calculation (90-130) mL/min Glucose (65-115) mg/dL Calculated Osmolal ity (285-295) mOsm/k g Lactic Acid (0.5-2.2) mmol/L Calcium (8.5-10.5) mg/dL Total Bilirubin (0.15-1.2) mg/dL AST (0-40) U/L ALT (0-41) U/L Alkaline Phosphata se (40-130) IU/L Troponin T Baselin e (0-15) ng/L C-Reactive Protein (0.0-4.9) mg/L NT-Pro-B Natriuret Pep (0-125) pg/mL Total Protein (6.6-8.7) g/dL Albumin (3.5-5.2) g/dL Globulin (1.3-4.6) g/dL Procalcitonin (0-0.5) ng/mL Nasal/Oral COVID-1 9 PCR Not detected Influenza Type A A g Negative (Negative) Influenza Type B A g Negative (Negative) SARS-CoV-2 Ag (Rap id) Negative (Negative) 09/02/20 09/02/20 09/02/20 Range/Units 15:06 15:10 15:10 WBC 13.7 H (4.0-10.0) 10^3/ uL RBC 4.52 (4.1-5.3) 10^6/u L Hgb 13.3 (11.7-16.6) g/dL Hct 41.8 L (42.0-52.0) % MCV 92.5 (80-94) fL MCH 29.4 (28.0-34.0) pg MCHC 31.8 (30.0-36.0) g/dL RDW 15.8 H (12.1-15.1) % Plt Count 325 (130-400) 10^3/c mm MPV 11.1 H (7.4-10.4) fL Neut % (Auto) 88.3 % Lymph % (Auto) 5.5 % Johnson % (Auto) 5.6 % Eos % (Auto) 0.1 % Baso % (Auto) 0.1 % Neut # (Auto) 12.10 H (1.8-7.7) 10^3/u L Lymph # (Auto) 0.8 (0.8-4.8) 10^3/u L Johnson # (Auto) 0.8 (0.2-0.9) 10^3/u L Eos # (Auto) 0.0 (0.0-0.8) 10^3/u L Baso # (Auto) 0.0 (0.0-0.1) 10^3/u L Nucleated RBC % (a uto) 0 % Nucleated RBCs # 0.0 /100WBC PT 20.10 H (12.1-14.9) SECO NDS INR 1.65 H (0.8-1.2) APTT 37.5 H (23.9-36.7) SECO NDS Fibrinogen 816 H (174-498) mg/dL D-Dimer 0.73 H (0-0.59) ug/mIFE U Specimen Type Arterial Sample Site Brachial, left ABG pH 7.51 H (7.35-7.45) ABG pCO2 28.9 L (35-45) mmHg ABG pO2 64.1 L (80.0-100.0) mmH g ABG HCO3 22.9 (22-26) mmol/L ABG Base Excess 0.8 (-2.0-2.0) mmol/ L Joe Test Pos Hematocrit 40.8 L (42-52) % O2 Delivery Device Nc O2 Liters/Min 4.0 % FiO2 36.0 % Dietetic Technician ID Monro Sodium (136-145) mmol/L Potassium (3.5-5.1) mmol/L Chloride (98-107) mmol/L Carbon Dioxide (22-29) mmol/L Anion Gap (5-19) BUN (6-20) mg/dL Creatinine (0.7-1.2) mg/dL GFR Calculation (90-130) mL/min Glucose (65-115) mg/dL Calculated Osmolal ity (285-295) mOsm/k g Lactic Acid (0.5-2.2) mmol/L Calcium (8.5-10.5) mg/dL Total Bilirubin (0.15-1.2) mg/dL AST (0-40) U/L ALT (0-41) U/L Alkaline Phosphata se (40-130) IU/L Troponin T Baselin e (0-15) ng/L C-Reactive Protein (0.0-4.9) mg/L NT-Pro-B Natriuret Pep (0-125) pg/mL Total Protein (6.6-8.7) g/dL Albumin (3.5-5.2) g/dL Globulin (1.3-4.6) g/dL Procalcitonin (0-0.5) ng/mL Nasal/Oral COVID-1 9 PCR Influenza Type A A g (Negative) Influenza Type B A g (Negative) SARS-CoV-2 Ag (Rap id) (Negative) 09/02/20 09/02/20 09/02/20 Range/Units 15:10 15:10 15:10 WBC (4.0-10.0) 10^3/ uL RBC (4.1-5.3) 10^6/u L Hgb (11.7-16.6) g/dL Hct (42.0-52.0) % MCV (80-94) fL MCH (28.0-34.0) pg MCHC (30.0-36.0) g/dL RDW (12.1-15.1) % Plt Count (130-400) 10^3/c mm MPV (7.4-10.4) fL Neut % (Auto) % Lymph % (Auto) % Johnson % (Auto) % Eos % (Auto) % Baso % (Auto) % Neut # (Auto) (1.8-7.7) 10^3/u L Lymph # (Auto) (0.8-4.8) 10^3/u L Johnson # (Auto) (0.2-0.9) 10^3/u L Eos # (Auto) (0.0-0.8) 10^3/u L Baso # (Auto) (0.0-0.1) 10^3/u L Nucleated RBC % (a uto) % Nucleated RBCs # /100WBC PT (12.1-14.9) SECO NDS INR (0.8-1.2) APTT (23.9-36.7) SECO NDS Fibrinogen (174-498) mg/dL D-Dimer (0-0.59) ug/mIFE U Specimen Type Sample Site ABG pH (7.35-7.45) ABG pCO2 (35-45) mmHg ABG pO2 (80.0-100.0) mmH g ABG HCO3 (22-26) mmol/L ABG Base Excess (-2.0-2.0) mmol/ L Joe Test Hematocrit (42-52) % O2 Delivery Device O2 Liters/Min % FiO2 % Dietetic Technician ID Sodium 136 (136-145) mmol/L Potassium 4.6 (3.5-5.1) mmol/L Chloride 98 (98-107) mmol/L Carbon Dioxide 26 (22-29) mmol/L Anion Gap 16.6 (5-19) BUN 19 (6-20) mg/dL Creatinine 0.9 (0.7-1.2) mg/dL GFR Calculation 87.0 L (90-130) mL/min Glucose 114 (65-115) mg/dL Calculated Osmolal ity 285 (285-295) mOsm/k g Lactic Acid 2.4 H (0.5-2.2) mmol/L Calcium 8.7 (8.5-10.5) mg/dL Total Bilirubin 1.8 H (0.15-1.2) mg/dL AST 22 (0-40) U/L ALT 47 H (0-41) U/L Alkaline Phosphata se 78 (40-130) IU/L Troponin T Baselin e 22 H (0-15) ng/L C-Reactive Protein 287.2 H (0.0-4.9) mg/L NT-Pro-B Natriuret Pep 8423 H (0-125) pg/mL Total Protein 6.5 L (6.6-8.7) g/dL Albumin 3.5 (3.5-5.2) g/dL Globulin 3.0 (1.3-4.6) g/dL Procalcitonin 1.13 H (0-0.5) ng/mL Nasal/Oral COVID-1 9 PCR Influenza Type A A g (Negative) Influenza Type B A g (Negative) SARS-CoV-2 Ag (Rap id) (Negative) EKG Data^: EKG 1: Attestation: I personally reviewed and interpreted this EKG as follows: EKG Interpretation Date: 09/02/20 EKG interpretation time: 16:39 Prior EKG tracings: available for review Interpretation: Atrial flutter with RVR. Heart rate [address] changes. Discharge Plan Discharge Patient Disposition: Admitted As Inpatient Admit Provider: Lee Coronado Clinical Impression: Acute on chronic clinical systolic heart failure Respiratory failure, acute Qualifiers: Respiratory failure complication: hypoxia Qualified Code(s): J96.01 - Acute respiratory failure with hypoxia Bilateral pneumonia Qualifiers: Pneumonia type: due to unspecified organism Lung location: unspecified part of lung Qualified Code(s): J18.9 - Pneumonia, unspecified organism Sepsis Qualifiers: Sepsis type: sepsis due to unspecified organism Sepsis acute organ dysfunction status: with acute organ dysfunction Severe sepsis acute organ dysfunction type: acute respiratory failure Acute respiratory failure type: with hypoxia Severe sepsis shock status: with septic shock Qualified Code(s): A41.9 - Sepsis, unspecified organism Atrial flutter Qualifiers: Atrial flutter type: unspecified Qualified Code(s): I48.92 - Unspecified atrial flutter Condition: Stable Sign Out Sign Out Data: Patient Sign Out occurred on 09/02/20 at 16:41. Patient's care was discussed, and care was transferred from to Jordyn Barkley MD, [facility] [place] Level of Care Code ED Prenatal Teacher for [facility] Fwd Exam Detailed
[2020-09-02 15:17] LABS: Basophils % 0.1 %; Eosinophils % 0.1 %; Hematocrit 41.8 % (42.0-52.0); Hemoglobin 13.3 g/dL (11.7-16.6); Lymphocytes # 0.8 10^3/uL (0.8-4.8); Lymphocytes % 5.5 %; Mean Corpuscular HGB Conc 31.8 g/dL (30.0-36.0); Mean Corpuscular Hemoglobin 29.4 pg (28.0-34.0); Mean Corpuscular Volume 92.5 fL (80-94); Mean Platelet Volume 11.1 fL (7.4-10.4); Monocytes # 0.8 10^3/uL (0.2-0.9); Monocytes % 5.6 %; Neutrophils % 88.3 %; Nucleated Red Blood Cells % 0 %; Platelet Count 325 10^3/cmm (130-400); Red Blood Count 4.52 10^6/uL (4.1-5.3); Red Cell Distribution Width 15.8 % (12.1-15.1); White Blood Count 13.7 10^3/uL (4.0-10.0)
[2020-09-02 15:20] LABS: ABG PCO2 28.9 mmHg (35-45); ABG PH Result 7.51 (7.35-7.45); Arterial Blood Gas Hematocrit 40.8 % (42-52); Base Excess ABG 0.8 mmol/L (-2.0-2.0); Blood Gas Allen Test Pos; Blood Gas Operator Identificat MONRO; Blood Gas Sample Site Brachial, left; Blood Gas Sample Type Arterial; HCO3 ABG 22.9 mmol/L (22-26); Oxygen Device NC; PO2 ABG 64.1 mmHg (80.0-100.0)
[2020-09-02 15:25] LABS: SARS Covid-2 Antigen Negative (Negative)
[2020-09-02] MEDS: iohexol 350 mg/mL 100 mL Btl IV (15:39)
[2020-09-02 15:42] LABS: Influenza A by IFA Negative (Negative); Influenza B by IFA Negative (Negative)
[2020-09-02 15:43] LABS: INR 1.65 (0.8-1.2)
[2020-09-02 15:44] LABS: Fibrinogen 816 mg/dL (174-498); Partial Thromboplastin Time 37.5 SECONDS (23.9-36.7)
[2020-09-02 15:47] LABS: D Dimer 0.73 ug/mIFEU (0-0.59)
[2020-09-02 15:52] LABS: Lactic Sepsis W/Reflex 2.4 mmol/L (0.5-2.2); Troponin(5th) Baseline 22 ng/L (0-15)
[2020-09-02 15:56] LABS: NT Pro B Type Natriuretic Pept 8423 pg/mL (0-125); Procalcitonin 1.13 ng/mL (0-0.5)
[2020-09-02 16:07] LABS: Alanine Aminotransferase 47 U/L (0-41); Albumin Level 3.5 g/dL (3.5-5.2); Alkaline Phosphatase 78 IU/L (40-130); Anion Gap 16.6 (5-19); Aspartate Amino Transferase 22 U/L (0-40); Blood Urea Nitrogen 19 mg/dL (6-20); C Reactive Protein 287.2 mg/L (0.0-4.9); Calcium 8.7 mg/dL (8.5-10.5); Carbon Dioxide 26 mmol/L (22-29); Chloride 98 mmol/L (98-107); Glucose 114 mg/dL (65-115); Osmolality Calculated 285 mOsm/kg (285-295); Potassium 4.6 mmol/L (3.5-5.1); Sodium 136 mmol/L (136-145); Total Bilirubin 1.8 mg/dL (0.15-1.2); Total Protein 6.5 g/dL (6.6-8.7)
[2020-09-02] MEDS: FUROsemide 10 mg/mL SDV 4mL 40 MG IVP (16:30)
--- NOTE | 2020-09-02 16:34 | ECG_ITS ---
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 Measurements Intervals [place] Rate: 118 P: [place]: QRS: 8 QRSD: 98 T: 155 QT: 406 QTc: 569 Interpretive Statements ATRIAL FLUTTER/TACHYCARDIA WITH RAPID VENTRICULAR RESPONSE NONSPECIFIC ST & T-WAVE ABNORMALITY Compared to ECG 08/30/2020 09:22:25 Ventricular premature complex(es) no longer present T-wave abnormality still present Electronically Signed On 09-02-2020 20:19:37 ORACLE SPECIALIST by hSane Gonzalez M.D. [id number]
[2020-09-02 17:02] LABS: Reflex Lactate Order REFLEX LACTIC ORDERD
--- NOTE | 2020-09-02 17:14 | PC.NURSE ---
EKG done at 1639 and shown to ER doctor
--- NOTE | 2020-09-02 17:26 | PM.HP ---
Providers/Chief Complaint Primary Care Provider: Gumaro Whatley MD Chief Complaint: DIFF BREATHING, COUGHING, UNSTABLE HR, COVID(-)SUN History of Present Illness Conner Macdonald is a 55 year old male presents to emergency department with gradually worsening shortness of breath for more than a week especially worsened since last Monday. Patient reports that he has been having some blood-tinged/dark phlegm productive cough. Reports having diffuse chest pain every time he coughs. He has been very short of breath especially with ambulation. Reports that yesterday he could not lay flat and had to sleep in sitting position. He noticed some lower extremity swelling bilaterally. He noticed that his heart rate has been jumping all over from 40s to 150s. Reports that when he drops low he feels more short of breath. He appeared to be in paroxysmal atrial fibrillation on monitor and appears to convert to normal sinus rhythm or a flutter during my evaluation with heart rate in 110s to 120s. He had fever over the last 2 days and yesterday was 102. He has been diaphoretic. Denies sick contacts. He denies any problems with taste but was not very hungry in the last several days. He did try to drink large amount of water. His rapid COVID-19 test was negative. He does report being lightheaded for the last several days especially when he gets up. He took 2 extra aspirin tablets yesterday. Reports that yesterday he also noticed somewhat black stool but no evidence of hematochezia. He had CTA of the chest showing evidence of pneumonia. On exam patient appears to be in mild CHF exacerbation as well. He meets severe sepsis criteria. We were able to arrange room in cardiac stepdown unit. He does have history of atrial fibrillation and is taking amiodarone and metoprolol. He is anticoagulated with Eliquis and does report medical compliance. He had coronary angiogram recently showing no significant disease requiring intervention. Review of Systems Const: Reports: fever(s) and chills Eyes: Denies: change in vision ENMT: Reports: throat pain; Denies: change in hearing Card: Reports: chest pain, edema and lightheadedness Resp: Reports: dyspnea and productive cough GI: Reports: melena; Denies: abdominal pain, nausea, vomiting, dysphagia, diarrhea, constipation or hematochezia Musc: Denies: joint pain or joint swelling Skin/Breast: Denies: rash or erythema Neuro: Denies: headache(s) or weakness in extremities Psych: Denies: depression or suicidal ideation Endo: Denies: excessive sweating Josias/Lymph: Denies: easy bleeding or tender lymph nodes All/Imm: Denies: throat swelling Medications/Allergies Home Medications Medication Instructions Recorded Confirmed Last Taken Type [place] Aspirin 1 tab PO DAILY@0900 07/02/20 09/02/20 09/02/20 History metformin 1,000 mg PO BID@0900,1800 07/02/20 09/02/20 09/02/20 History glipizide 10 mg tablet 10 mg PO BID@,18 07/16/20 09/02/20 09/02/20 History Eliquis 5 mg PO BID@,09/02/20 09/02/20 09/02/20 History Klor-Con M20 20 meq PO DAILY@0900 09/02/20 09/02/20 09/02/20 History Pacerone 400 mg PO BID@,09/02/20 09/02/20 09/02/20 History furosemide 40 mg PO DAILY@09 09/02/20 09/02/20 09/02/20 History lisinopril 5 mg PO DAILY@0909/02/20 09/02/20 09/02/20 History metoprolol succinate 100 mg PO DAILY@0900 09/02/20 09/02/20 09/02/20 History Allergies Allergy/AdvReac Type Severity Reaction Status Date / Time No Known Allergies Allergy Verified 07/16/20 13:37 PFSH Acute PFSH: Medical History Atrial fibrillation with controlled ventricular rate Atrial flutter Cardiomyopathy Diabetes Morbid obesity Obesity (BMI 30.0-34.9) Family History Other CAD (coronary artery disease) Hypertension Denies family history of Anesthesia complication Bleeding disorder Stroke Social History Smoking and tobacco status: never smoked Alcohol intake: never Vitals/I&O/Wt Last Vital Signs Temp 98.6 F 09/02/20 14:11 Pulse 118 H 09/02/20 16:12 Resp 22 H 09/02/20 16:12 BP 109/73 09/02/20 14:24 Pulse Ox 89 L 09/02/20 16:12 Weight last 48 hrs Weight 113.398 kg Physical Exam Const: COMMON NORMALS: patient oriented x3 and alert OTHER: Appears ill. HENMT: COMMON NORMALS: normocephalic and atraumatic HEAD & SCALP: normocephalic and atraumatic Eye: COMMON NORMALS: EOMs intact bilaterally, conjunctivae normal and no scleral icterus CONJUNCTIVA: Yes conjunctivae normal Neck/C-Spine: COMMON NORMALS: no lymphadenopathy and no meningeal signs Lymph: LYMPHATIC: no lymphadenopathy noted Chest: COMMONS NORMALS: normal palpation of entire chest wall Resp: COMMON NORMALS: No use of accessory muscles OTHER: Minimal bibasilar Rales. Cardio: COMMON NORMALS: regular rate, regular rhythm and No murmurs present (Cardio) RATE: regular rate RHYTHM: regular rhythm OTHER: 1-2+ lower extremity edema GI: COMMON NORMALS: Soft to palpation and non-tender PALPATION: Yes Soft to palpation RECTAL EXAM: Yes deferred : COMMON NORMALS: Yes no CVA tenderness BLADDER/KIDNEY EXAM: Yes no CVA tenderness OTHER: Reports slow stream, Difficulty initiating and frequency but otherwise denies any pain with urination Back/Pelvis: COMMON NORMALS: no CVA tenderness and thoracic and lumbar spine normal to inspection Extremity: COMMON NORMALS: normal to inspection and capillary refill normal Neuro: COMMON NORMALS: patient oriented x3 and no focal motor deficits SENSORIUM/ORIENTATION: Yes alert MENINGEAL SIGNS: Yes no meningeal signs Psych: COMMON NORMALS: mental status grossly normal, Normal thought process present and cooperative THOUGHT PROCESS: Normal thought process present Skin: COMMON NORMALS: no rashes or lesions noted GENERAL SKIN EXAM: no rashes or lesions noted Data : 09/02/20 15:10 09/02/20 15:10 Micro: Microbiology 09/02/20 15:30 Blood Culture - Preliminary Blood SPECIMEN COLLECTED 09/02/20 15:10 Blood Culture - Preliminary Blood SPECIMEN COLLECTED A&P Assessment and plan (1) Complaint of melena: Concern for slow NSAID induced gastritis related upper GI bleed. Status: Acute (2) Community acquired pneumonia: Status: Acute (3) Severe sepsis: As exhibited by tachycardia, tachypnea, leukocytosis and reported fever along with elevated lactic acid and bilirubin. Status: Acute (4) Atrial flutter with rapid ventricular response: Status: Acute (5) Obesity (BMI 30.0-34.9): Status: Acute (6) Diabetes: Type II, [id number]. Status: Chronic Qualifiers: Diabetes mellitus type: type 2 Diabetes mellitus manager intermediate insulin use: without manager intermediate use Diabetes mellitus complication status: without complication Qualified Code(s): E11.9 - Type 2 diabetes mellitus without complications (7) Acute on chronic clinical systolic heart failure: EF 30%. Status: Acute (8) Acute respiratory failure with hypoxia: Status: Acute (9) Medication induced coagulopathy: Secondary to Eliquis. Status: Acute (10) Benign prostatic hyperplasia: Status: Acute Additional A&P Information PLAN: We will start patient on Zosyn, Levaquin, vancomycin and admit to stepdown unit. Patient was given Lasix in ER and I will restart his home medications but otherwise avoid aggressive diuresis at this point. We will use BiPAP if needed and if patient worsens we may need to transfer patient to ICU I will hold Eliquis for now and perform iron studies as well as monitor hemoglobin. Start patient on high-dose PPI and avoid NSAIDs. Monitor blood pressure and down the road consider starting patient on Flomax. Monitor ins and outs and monitor on telemetry. Restart patient's home siobhan blocking agents. I think with treatment of pneumonia patient's heart rate should normalize. Awaiting send out COVID-19 test. Will avoid dexamethasone at this point unless Covid comes back positive. Awaiting troponin. Acute coronary syndrome felt highly unlikely. Patient's elevated liver enzymes appear to be related to sepsis due to pneumonia but will go ahead and get gallbladder ultrasound for evaluation. Attestations Medical Necessity Statement*: Patient with severe sepsis and respiratory failure requires close inpatient monitoring and treatment. I expect patient will require more than 2 midnights. Time Spent in Patient Care: Greater than 35 minutes Coding Level of Care Code Acute Expander Machine Operator for Juan Tapia Diagnoses Complaint of melena K92.1 Community acquired pneumonia J18.9 Severe sepsis A41.9; R65.20 Atrial flutter with rapid ventricular response I48.92 Obesity (BMI 30.0-34.9) E66.9 Diabetes E11.9 Diabetes mellitus type: type 2 Diabetes mellitus manager intermediate insulin use: without penitentiary use Diabetes mellitus complication status: without complication Acute on chronic clinical systolic heart failure I50.23 Acute respiratory failure with hypoxia J96.01 Medication induced coagulopathy D68.9; T50.905A Benign prostatic hyperplasia N40.0
[2020-09-02] MEDS: cefTRIAXone 2,000 MG in sodium chloride 0.9% (plus) 50 ML 100 MG IV (17:36)
--- NOTE | 2020-09-02 17:56 | PC.NURSE ---
called respiratory to place patient on BIPAP, per doctors orders. Nurse is also aware.
[2020-09-02 19:02] LABS: Lactic Acid level (Lactate) 1.8 mmol/L (0.5-2.2)
[2020-09-02 19:28] LABS: Troponin 5 2HR Delta 0 ABS# (0-10)
--- NOTE | 2020-09-02 20:34 | ECG_ITS ---
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
[2020-09-02 21:24] LABS: Troponin 5 6HR 21.79 ng/L (0-15)
[2020-09-02] MEDS: pantoprazole DR 40 mg Tablet PO (21:27)
[2020-09-02] MEDS: levofloxacin-dextrose 5 % 750 MG/150 ML PREMIX 100 MG IV (21:31)
[2020-09-02] MEDS: piperacillin-tazobactam 3.375 GM in sodium chloride 0.9% (plus) 50 ML IV (21:32)
[2020-09-02 21:34] LABS: Troponin 5 6HR Delta -0.21 ng/L (0-12)
[2020-09-03] VITALS (18 sets, daily range): BP systolic 90–108; BP diastolic 69–81; PULSE 115–125; RESP 18–44; TEMP 36.3–37.2; O2SAT 85–99
[2020-09-03] MEDS: acetaminophen 325 mg Tablet 650 MG PO (00:35)
[2020-09-03] MEDS: sodium chloride 0.9% 250 ML IV (00:35)
--- NOTE | 2020-09-03 01:07 | PC.NURSE ---
NURSE'S NOTE: LOW BP AT 2044 THIS SHIFT, CONTACTED DR. RED FOR BP OF 87/66 WITH HR OF 123. RECEIVED NO NEW ORDERS AT THIS TIME BUT WAS TOLD TO CALL DR. RED WHEN SBP IN THE 70'S. AT APPROXIMATELY 0015, BP = 77/53. NOTIFIED DR. RED AT THIS TIME AND RECEIVED ORDERS FOR NS 250CC BOLUS X1 TIME NOW. FLUIDS HANGING PER ORDERS. PT ALSO HAD ELEVATED TEMP OF 99.1 WITH C/O HEADACHE. TYLENOL ALSO GIVEN ORDERED AT THIS TIME. WILL CONTINUE TO MONITOR.
[2020-09-03] MEDS: albuterol 8 gm MDI 2 PUFF INHALATION ×2 (03:35→15:51)
[2020-09-03] MEDS: piperacillin-tazobactam 3.375 GM in sodium chloride 0.9% (plus) 50 ML IV ×3 (04:12→21:27)
[2020-09-03 05:44] LABS: Basophils % 0.2 %; Eosinophils # 0.1 10^3/uL (0.0-0.8); Eosinophils % 0.5 %; Hematocrit 36.6 % (42.0-52.0); Lymphocytes # 1.1 10^3/uL (0.8-4.8); Lymphocytes % 11.1 %; Mean Corpuscular HGB Conc 30.1 g/dL (30.0-36.0); Mean Corpuscular Hemoglobin 28.9 pg (28.0-34.0); Mean Corpuscular Volume 96.3 fL (80-94); Mean Platelet Volume 11.2 fL (7.4-10.4); Monocytes # 0.6 10^3/uL (0.2-0.9); Monocytes % 5.9 %; Neutrophils # 8.41 10^3/uL (1.8-7.7); Neutrophils % 81.8 %; Nucleated Red Blood Cells % 0 %; Platelet Count 230 10^3/cmm (130-400); Red Cell Distribution Width 15.8 % (12.1-15.1); White Blood Count 10.3 10^3/uL (4.0-10.0)
[2020-09-03 06:05] LABS: Alanine Aminotransferase 32 U/L (0-41); Albumin Level 2.5 g/dL (3.5-5.2); Alkaline Phosphatase 55 IU/L (40-130); Anion Gap 12.7 (5-19); Aspartate Amino Transferase 20 U/L (0-40); Blood Urea Nitrogen 19 mg/dL (6-20); Carbon Dioxide 25 mmol/L (22-29); Chloride 103 mmol/L (98-107); Globulin 3.2 g/dL (1.3-4.6); Glomerular Filtration Rate 99.6 mL/min (90-130); Glucose 64 mg/dL (65-115); Magnesium 2.2 mg/dL (1.7-2.3); Osmolality Calculated 284 mOsm/kg (285-295); Potassium 3.7 mmol/L (3.5-5.1); Sodium 137 mmol/L (136-145); Thyroid Stimulating Hormone 0.32 uIU/mL (0.27-4.20); Total Bilirubin 1.1 mg/dL (0.15-1.2); Total Protein 5.7 g/dL (6.6-8.7)
--- NOTE | 2020-09-03 06:41 | PC.NURSE ---
NURSE NOTE: BLOOD GLUCOSE: PT'S LAB BG = 64. NOTIFIED DR. RED. RECEIVED ORDERS FOR 25ML OF D50. TOOK PT'S ACCUCHECK , BG = 74. LET DR. RED KNOW AND HE GAVE ORDERS TO HOLD D50 FOR NOW , RECHECK BG AT 0740 AND GIVE D50 IF NEEDED.
[2020-09-03 06:46] LABS: Ferritin 426 ng/mL (30-400); Iron 16 ug/dL (59-158); NT Pro B Type Natriuretic Pept 4098 pg/mL (0-125)
[2020-09-03 06:50] LABS: Glucose Point of Care 74 mg/dL (70-110)
--- NOTE | 2020-09-03 07:00 | US_ITS ---
WS: [id number] RIGHT UPPER QUADRANT ULTRASOUND HISTORY: Elevated liver enzymes COMPARISON: None available. Liver: 21.7 cm in length. Markedly enlarged liver. No mass or bile duct dilatation. Gallbladder: Normally distended gallbladder with stones. No evidence for acute cholecystitis. CBD: 0.3 cm Pancreas: Poorly visualized. Right kidney: 13.2 cm in length. Normal size and echogenicity. No hydronephrosis or mass. Aorta and IVC: Unremarkable abdominal aorta and IVC. No ascites. US/US gall bladder 06241 IMPRESSION: 1. Cholelithiasis without acute cholecystitis. 2. Marked hepatomegaly. No bile duct dilatation.
[2020-09-03 08:06] LABS: Glucose Point of Care 87 mg/dL (70-110)
[2020-09-03] MEDS: pantoprazole DR 40 mg Tablet PO ×2 (09:10→17:50)
[2020-09-03] MEDS: FUROsemide 40 mg Tablet PO (09:10)
[2020-09-03] MEDS: metoprolol succinate ER (24 HR) 100 mg Tablet PO (09:10)
[2020-09-03] MEDS: potassium chloride ER 20 mEq Tablet PO (09:10)
[2020-09-03 14:00] LABS: Coronavirus Test Green County Not Detected
--- NOTE | 2020-09-03 14:19 | P.PN_ITS ---
Subjective Subjective: Interval history: Patient reports feeling slightly better. He had good urinary output. He is still tachycardic but denies chest pain. He used BiPAP overnight and tolerated it well. His white blood cell count improved. His BNP and bilirubin improved. Patient apparently was not using LifeVest at home because it was very inconvenient. Had no more episodes of melanotic stool Vitals/I&O/Wt Last Vital Signs Temp 97.4 F L 09/03/20 08:00 Pulse 122 H 09/03/20 08:16 Resp 23 H 09/03/20 08:00 BP 95/70 09/03/20 08:00 Pulse Ox 92 09/03/20 08:16 09/02/20 09/03/20 09/03/20 22:59 06:59 14:59 Intake Total 1240 / 1240 50 / 50 Output Total 400 / 400 Balance 1240 / 1240 -350 / -350 Weight last 48 hrs Weight 113.398 kg Physical Exam Narrative: EXAM NARRATIVE: Exam shows very minimal bibasilar Rales and regular heart. Lower extremities show 1+ edema Data : 09/03/20 04:56 09/03/20 04:56 Micro: Microbiology 09/02/20 18:00 Gram Stain - Final Sputum - Expectorated Sputum 09/03/20 04:15 Legionella Urinary Antigen - Final Urine,Clean Catch 09/03/20 04:15 Bacterial Antigens - Final Urine,Clean Catch 09/02/20 15:30 Blood Culture - Preliminary Blood SPECIMEN COLLECTED 09/02/20 15:10 Blood Culture - Preliminary Blood SPECIMEN COLLECTED A&P Assessment and plan (1) Complaint of melena: Concern for slow NSAID induced gastritis related upper GI bleed. Status: Acute (2) Community acquired pneumonia: Status: Acute (3) Severe sepsis: As exhibited by tachycardia, tachypnea, leukocytosis and reported fever along with elevated lactic acid and bilirubin. Status: Acute (4) Atrial flutter with rapid ventricular response: Status: Acute (5) Obesity (BMI 30.0-34.9): Status: Acute (6) Diabetes: Type II, [id number]. Status: Chronic Qualifiers: Diabetes mellitus type: type 2 Diabetes mellitus chcf insulin use: without chcf use Diabetes mellitus complication status: without complication Qualified Code(s): E11.9 - Type 2 diabetes mellitus without complications (7) Acute on chronic clinical systolic heart failure: EF 30%. Status: Acute (8) Acute respiratory failure with hypoxia: Status: Acute (9) Medication induced coagulopathy: Secondary to Eliquis. Status: Acute (10) Benign prostatic hyperplasia: Status: Acute Additional A&P Information PLAN: Will continue patient's home Lasix at this point with close monitoring of vitals. Will restart amiodarone but dosed for angiogram daily and increase metoprolol to 100 mg twice daily for better heart rate control. Continue holding Eliquis for 1 more day and review CBC tomorrow. Continue current antibiotics and BiPAP support as needed. Gallbladder ultrasound showed cholelithiasis but otherwise no evidence of cholecystitis. Patient has marked hepatomegaly and may require further outpatient evaluation. Attestations Medical Necessity Statement*: Patient with acute respiratory failure requires close inpatient monitoring and treatment. Time Spent in Patient Care: 16 - 35 minutes Coding Level of Care Code Acute Pigment Pusher for [facility] Diagnoses Complaint of melena K92.1 Community acquired pneumonia J18.9 Severe sepsis A41.9; R65.20 Atrial flutter with rapid ventricular response I48.92 Obesity (BMI 30.0-34.9) E66.9 Diabetes E11.9 Diabetes mellitus type: type 2 Diabetes mellitus chcf insulin use: without terminal press operator use Diabetes mellitus complication status: without complication Acute on chronic clinical systolic heart failure I50.23 Acute respiratory failure with hypoxia J96.01 Medication induced coagulopathy D68.9; T50.905A Benign prostatic hyperplasia N40.0
[2020-09-03] MEDS: amiodarone 200 mg Tablet 400 MG PO ×2 (15:01→21:28)
[2020-09-03] MEDS: metoprolol tartrate 1 mg/1 mL SDV 5 mL 5 MG IV (15:08)
--- NOTE | 2020-09-03 15:12 | PC.NURSE ---
Dr. Coronado notified patient BP 88/64 HR 125. Patient reports feeling dizzy, weak and tired. Telephone order to administer PO Amiodarone and 5 mg IVP metoprolol now. Reassess BP and HR in one hour and call physician with results. RBTO.
--- NOTE | 2020-09-03 16:30 | PC.NURSE ---
Dr. Coronado updated on patient condition. HR 125 BP 98/70. Telephone order to hold PO dose of metoprolol until patient evaluated by cardiology. RBTO.
--- NOTE | 2020-09-03 17:30 | P.CONIM_ITS ---
Providers/Reason For Consult Consulting Physican/Specialty*: Lonnie Machado MD/Cardiology Reason for Consult*: Atrial fibrillation with RVR Attending Physician: Lee Coronado MD Primary Care Provider: Gumaro Whatley MD History of Present Illness History of Present Illness Conner Macdonald is a 55 year old male who is patient of Dr. Galvez presented to emergency department with gradually worsening shortness of breath for more than a week especially worsened since last Monday. He also was having blood- tinged productive cough. Patient experiences chest pain with coughing. Minimal exertion makes him very symptomatic. Cardiology was consulted as he was in atrial fibrillation/flutter with RVR. He is currently on amiodarone 400 mg daily. His anticoagulation was held because of possible bleeding with cough. Also complained of possible melanotic stools. Patient has possible pneumonia and sepsis. He is still in atrial flutter with RVR. I spoke with patient and his daughter. They do not want to have electrical cardioversion and only want to be treated wi th medications. Review of Systems Narrative: CONSTITUTIONAL: No fever chills weight loss or gain or night sw eats. [] HEENT: Normocephalic, atraumatic.[] RESPIRATORY: No cough, sputum, hemoptysis or wheezing.[] CARDIOVASCULAR: Has shortness of breath and palpitations, no chest pain, PND, orthopnea, lower extremity edema, presyncope or syncope. [] GI: no nausea vomiting diarrhea. [] TENTS ASSEMBLER: No numbness, tingling, weakness or loss of function in any part of the body. [] MUSCULOSKELETAL: No knee or joint pain or rashes. [] Meds/Allergies Home Medications and Allergies Home Medications Medication Instructions Recorded Confirmed Last Taken Type [place] Aspirin 1 tab PO DAILY@0900 07/02/20 09/02/20 09/02/20 History metformin 1,000 mg PO BID@0900,1800 07/02/20 09/02/20 09/02/20 History glipizide 10 mg tablet 10 mg PO BID@18 07/16/20 09/02/20 09/02/20 History Eliquis 5 mg PO BID@,18 09/02/20 09/02/20 09/02/20 History Klor-Con M20 20 meq PO DAILY@0900 09/02/20 09/02/20 09/02/20 History Pacerone 400 mg PO BID@09/02/20 09/02/20 09/02/20 History furosemide 40 mg PO DAILY@09/02/20 09/02/20 09/02/20 History lisinopril 5 mg PO DAILY@89909/02/20 09/02/20 09/02/20 History metoprolol succinate 100 mg PO DAILY@89909/02/20 09/02/20 09/02/20 History Allergies Allergy/AdvReac Type Severity Reaction Status Date / Time No Known Allergies Allergy Verified 07/16/20 13:37 Current Medications Current Medications Generic Name Dose Route Start Last Admin Trade Name Freq PRN Reason Stop Dose Admin Acetaminophen 650 mg 09/02/20 20:06 09/03/20 00:35 Acetaminophen 325 Mg Tablet PO 650 mg Q6H PRN Administration Mild/Mod Pain Or Temp >/= 101 Albuterol Sulfate 2 puff 09/02/20 23:18 09/03/20 15:51 Albuterol 8 Gm Mdi INHALATION 2 puff Q4H.RESPIRATORY PRN Administration SHORTNESS OF BREATH Amiodarone HCl 400 mg 09/03/20 15:00 09/03/20 15:01 Amiodarone 200 Mg Tablet PO 400 mg DAILY JOB Administration Furosemide 40 mg 09/03/20 09:00 09/03/20 09:10 Furosemide 40 Mg Tablet PO 40 mg DAILY@09 JOB Administration Piperacillin Sod/Tazobactam 50 mls @ 12.5 mls/hr 09/02/20 20:30 09/03/20 16:58 Sod 3.375 gm/ Sodium Chloride IV Infused Q8H JOB Infusion Vancomycin HCl 2,000 mg/ 500 mls @ 250 mls/hr 09/03/20 01:00 09/03/20 15:15 Sodium Chloride IV Infused Q12H JOB Infusion Metoprolol Tartrate 5 mg 09/02/20 20:06 09/03/20 15:08 Metoprolol Tartrate 1 Mg/1 Ml Sdv 5 Ml IV 5 mg Q4H PRN Administration HEART RATE-HIGH Pantoprazole Sodium 40 mg 09/02/20 20:06 09/03/20 09:[address] 40 Mg Tablet PO 40 mg BID JOB Administration Potassium Chloride 20 meq 09/03/20 09:00 09/03/20 09:10 Potassium Chloride Er 20 Meq Tablet PO 20 meq DAILY@0900 JOB Administration PFSH Acute PFSH: Medical History Atrial fibrillation with controlled ventricular rate Atrial flutter Cardiomyopathy Diabetes Medication induced coagulopathy Morbid obesity Obesity (BMI 30.0-34.9) Family History Other CAD (coronary artery disease) Hypertension Denies family history of Anesthesia complication Bleeding disorder Stroke Social History Smoking and tobacco status: never smoked Alcohol intake: never Vitals/I&O/Wt Last Vital Signs Temp 98.6 F 09/03/20 15:11 Pulse 120 H 09/03/20 15:55 Resp 18 09/03/20 15:53 BP 92/71 09/03/20 15:11 Pulse Ox 85 L 09/03/20 15:53 09/03/20 09/03/20 09/03/20 06:59 14:59 22:59 Intake Total 1240 / 1240 850 / 850 550 / 1400 Output Total 1525 / 1525 Balance 1240 / 1240 -675 / -675 550 / -125 Weight last 48 hrs Weight 250 lb Physical Exam Narrative: EXAM NARRATIVE: GENERAL: Patient is alert, awake and oriented x3. [] NECK: No jugular vein distension. [] HEENT: No cyanosis. No icterus. No pallor. [] HEART: Tachycardia, irregularly irregular heart rhythm. No murmur, rub or gallop. [] LUNGS: Clear to auscultate bilaterally. [] ABDOMEN: Soft, nontender and nondistended. Positive bowel sounds. No guarding, r ebound or tenderness. [] CENTRAL NERVOUS SYSTEM: Grossly nonfocal. [] EXTREMITIES: Lower extremities with 1+ edema bilaterally. Pulses palpable in the lower extremities, both dorsalis pedis and posterior tibial. [] Data Micro: Micro: Microbiology 09/02/20 15:30 Blood Culture - Pr eliminary Blood NEGATIVE TO CAROLINE E 09/02/20 15:10 Blood Culture - Pr eliminary Blood NEGATIVE TO CAROLINE E 09/02/20 18:00 Gram Stain - Final Sputum - Expector ated Sputum 09/03/20 04:15 Legionella Urinary Antigen - Final Urine,Clean Catch 09/03/20 04:15 Bacterial Antigens - Final Urine,Clean Catch A&P Assessment and plan (1) Atrial fibrillation with controlled ventricular rate: Status: Acute (2) Diabetes: Status: Chronic Qualifiers: Diabetes mellitus type: type 2 Diabetes mellitus tank terminal gauger insulin use: without [place] [facility] use Diabetes mellitus complication status: without complication Qualified Code(s): E11.9 - Type 2 diabetes mellitus without complications (3) Cardiomyopathy: Status: Acute Qualifiers: Cardiomyopathy type: dilated Qualified Code(s): I42.0 - Dilated cardiomyopathy (4) Atrial flutter: Status: Acute Qualifiers: Atrial flutter type: unspecified Qualified Code(s): I48.92 - Unspecified atrial flutter (5) Heart failure, systolic, acute: Status: Acute Patient's heart rate is difficult to control. He does not want to have electrical cardioversion performed. Increase amiodarone to 400 mg twice daily. If heart rate stays uncontrolled, we will need to be put on amiodarone drip. However will recommend to do that once anticoagulation is restarted. Once pneumonia/infection improves, heart rate likely will improve. Can uptitrate beta-mitzi if blood pressure allows. Restart anticoagulation once consider bleeding risk is low. Thank you for involving us with care of this patient. We will continue to follow. Please call with questions. Coding Level of Care Code Acute Mud Jack Operator for Juan Tapia Diagnoses Atrial fibrillation with controlled ventricular rate I48.91 Diabetes E11.9 Diabetes mellitus type: type 2 Diabetes mellitus tank terminal gauger insulin use: without [place] [facility] use Diabetes mellitus complication status: without complication Cardiomyopathy I42.0 Cardiomyopathy type: dilated Atrial flutter I48.92 Atrial flutter type: unspecified Heart failure, systolic, acute I50.21
[2020-09-04] VITALS (70 sets, daily range): BP systolic 71–135; BP diastolic 47–96; PULSE 90–125; RESP 17–51; TEMP 36.2–38.3; O2SAT 72–100
[2020-09-04] MEDS: piperacillin-tazobactam 3.375 GM in sodium chloride 0.9% (plus) 50 ML IV ×3 (03:34→20:28)
[2020-09-04 04:00] LABS: Basophils % 0.2 %; Eosinophils # 0.1 10^3/uL (0.0-0.8); Eosinophils % 0.9 %; Hematocrit 36.5 % (42.0-52.0); Hemoglobin 11.5 g/dL (11.7-16.6); Lymphocytes # 0.8 10^3/uL (0.8-4.8); Mean Corpuscular HGB Conc 31.5 g/dL (30.0-36.0); Mean Corpuscular Hemoglobin 29.3 pg (28.0-34.0); Mean Corpuscular Volume 93.1 fL (80-94); Mean Platelet Volume 11.5 fL (7.4-10.4); Monocytes # 0.7 10^3/uL (0.2-0.9); Monocytes % 5.8 %; Neutrophils # 11.14 10^3/uL (1.8-7.7); Neutrophils % 86.6 %; Nucleated Red Blood Cells % 0 %; Platelet Count 270 10^3/cmm (130-400); Red Blood Count 3.92 10^6/uL (4.1-5.3); Red Cell Distribution Width 15.9 % (12.1-15.1); White Blood Count 12.9 10^3/uL (4.0-10.0)
[2020-09-04 04:20] LABS: Alanine Aminotransferase 62 U/L (0-41); Albumin Level 2.6 g/dL (3.5-5.2); Alkaline Phosphatase 70 IU/L (40-130); Anion Gap 10.8 (5-19); Aspartate Amino Transferase 48 U/L (0-40); Blood Urea Nitrogen 21 mg/dL (6-20); Calcium 8.1 mg/dL (8.5-10.5); Carbon Dioxide 26 mmol/L (22-29); Chloride 103 mmol/L (98-107); Globulin 3.4 g/dL (1.3-4.6); Glomerular Filtration Rate 99.6 mL/min (90-130); Glucose 136 mg/dL (65-115); Osmolality Calculated 287 mOsm/kg (285-295); Potassium 3.8 mmol/L (3.5-5.1); Sodium 136 mmol/L (136-145); Total Bilirubin 0.9 mg/dL (0.15-1.2)
--- NOTE | 2020-09-04 05:07 | PC.NURSE ---
NURSE NOTE: PT ALERT AND ORIENTED X4. MOVES ALL EXTREMITIES AND FOLLOWS COMMANDS. DENIES PAIN. C/O SOA AROUND 0200-SATS DROPPING TO 85% ON 5L NC. BIPAP ON PER RT AND THIS TIME. SATS NOW 97%-100%. SEE CHART FOR SETTINGS. NO FURTHER C/O NOTED. ALL VS AND ASSESSMENTS CHARTED. NO DISTRESS NOTED AT THIS TIME.
--- NOTE | 2020-09-04 07:45 | PC.NURSE ---
Dr. Coronado notified that patient has 1+ pitting edema to bilateral lower extremities, fine crackles in bases with expiratory wheezing. Patient exhibits SOB with exertion. RT at bedside. BP 111/73, HR 120. No new orders received at this time.
[2020-09-04] MEDS: albuterol 8 gm MDI 2 PUFF INHALATION (08:06)
[2020-09-04] MEDS: potassium chloride ER 20 mEq Tablet PO ×3 (08:56→20:53)
[2020-09-04] MEDS: FUROsemide 40 mg Tablet PO (08:56)
[2020-09-04] MEDS: metoprolol succinate ER (24 HR) 100 mg Tablet PO (08:57)
[2020-09-04] MEDS: pantoprazole DR 40 mg Tablet PO ×2 (08:57→18:14)
[2020-09-04] MEDS: amiodarone 200 mg Tablet 400 MG PO (09:00)
--- NOTE | 2020-09-04 11:45 | P.PN_ITS ---
Subjective Subjective: Interval history: Patient reports further improving this morning. He unfortunately was desaturating to the 80s on 6 L by nasal cannula. His oxygenation rapidly improved with BiPAP. He continues to be in atrial flutter with rapid ventricular response. He absolutely refused to consider electrical cardioversion. His hemoglobin is stable Vitals/I&O/Wt Last Vital Signs Temp 98.0 F 09/04/20 10:44 Pulse 120 H 09/04/20 10:44 Resp 20 H 09/04/20 10:44 BP 133/64 09/04/20 10:44 Pulse Ox 99 09/04/20 10:44 09/03/20 09/04/20 09/04/20 22:59 06:59 14:59 Intake Total 790 / 1640 600 / 2240 360 / 360 Output Total 250 / 1775 475 / 2250 100 / 100 Balance 540 / -135 125 / -10 260 / 260 Weight last 48 hrs Weight 113.398 kg Physical Exam Narrative: EXAM NARRATIVE: Exam shows very minimal bibasilar Rales and regular heart. Lower extremities show 1+ edema Data : 09/04/20 03:02 09/04/20 03:02 Micro: Microbiology 09/02/20 15:30 Blood Culture - Preliminary Blood NEGATIVE TO DATE 09/02/20 15:10 Blood Culture - Preliminary Blood NEGATIVE TO DATE 09/02/20 18:00 Gram Stain - Final Sputum - Expectorated Sputum A&P Assessment and plan (1) Complaint of melena: Concern for slow NSAID induced gastritis related upper GI bleed. Status: Acute (2) Community acquired pneumonia: Status: Acute (3) Severe sepsis: As exhibited by tachycardia, tachypnea, leukocytosis and reported fever along with elevated lactic acid and bilirubin. Status: Acute (4) Atrial flutter with rapid ventricular response: Status: Acute (5) Obesity (BMI 30.0-34.9): Status: Acute (6) Diabetes: Type II, [id number]. Status: Chronic Qualifiers: Diabetes mellitus type: type 2 Diabetes mellitus technician terminal and repeater insulin use: without residential use Diabetes mellitus complication status: without compl ication Qualified Code(s): E11.9 - Type 2 diabetes mellitus without compli cations (7) Acute on chronic clinical systolic heart failure: EF 30%. Status: Acute (8) Acute respiratory failure with hypoxia: Status: Acute (9) Medication induced coagulopathy: Secondary to Eliquis. Status: Acute (10) Benign prostatic hyperplasia: Status: Acute Additional A&P Information PLAN: Will increase Lasix to twice daily and restart Eliquis with close monitoring of hemoglobin. Continue high-dose PPI. Continue antibiotics for now and consider narrowing down tomorrow if continues to improve. Attestations Medical Necessity Statement*: Patient with pneumonia and heart failure requires close inpatient monitoring and treatment until deemed safe for discharge. Coding Level of Care Code Acute Architectural Engineering Teacher for [facility] Diagnoses Complaint of melena K92.1 Community acquired pneumonia J18.9 Severe sepsis A41.9; R65.20 Atrial flutter with rapid ventricular response I48.92 Obesity (BMI 30.0-34.9) E66.9 Diabetes E11.9 Diabetes mellitus type: type 2 Diabetes mellitus residential insulin use: without technician terminal and repeater use Diabetes mellitus complication status: without complication Acute on chronic clinical systolic heart failure I50.23 Acute respiratory failure with hypoxia J96.01 Medication induced coagulopathy D68.9; T50.905A Benign prostatic hyperplasia N40.0
--- NOTE | 2020-09-04 12:30 | PC.NURSE ---
Dr. Coronado updated on patient condition. While patient was resting, oxygen saturations dropped to high 70s-low 80s on 6 L NC. Patient was short of breath while resting. Oxygen was titrated up. Oxygen saturations recovered to mid 80s on oxymask. Patient placed on bipap, oxygen saturations recovered to mid to high 90s. Patient lung sounds are slightly course throughout. No new orders received. Nurse to continue to monitor.
[2020-09-04 13:00] LABS: Vancomycin Trough 13.1 ug/mL (10-15)
--- NOTE | 2020-09-04 13:09 | PC.CHAP ---
Pastoral Care Encounter/Spiritual Assessment Type of Contact [] Declined digital cartographic technician visit [] Patient/Family/Request visit [] Outpatient visit [] Follow-up visit [] Physician referral [] Code/Alert [xx] Routine visit [] Staff referral [] Actively dying [] Patient sleeping [] Family support [] [] Out of room [] Palliative care [] [] Receiving care in room [] Pre-surgical visit [] Trauma [] Long length of stay [] ICU visit [] Other: Relational/Emotional Strength [] Patient feels connected with others/family/visitors/staff [] Distress [] Loneliness/isolation [] Abandonment Spirituality of Patient [xx] Person of Nancy [] Attends Sikhism of their Nancy [xx] Believes in Prayer [] Reads Bible or Episcopal materials [] There are Spiritual issues to be addressed Stitching Machine Feeder Or Offbearer Interventions [xx] Prayer [xx] Active listening [xx] Non-anxious presence [] Spiritual/emotional support [] Crisis/trauma care [] Spiritual counseling [] Bereavement support [] Provided bereavement packet [] Provided Bible/devotional materials [] Provided toy/stuffed animal, coloring book to patient or family member [] Provided Communion [] Anointing/[place] [] Salvation [xx] Completed spiritual assessment [] Other: Impact on Illness or Injury [] Angry [] Fearful [] Anxious [] Often cries [] Exhaustion [] Unable to work [] Unable to attend uatsdin [] Unable to walk/stand [] Unable to read [] Unable to drive [] Unable to eat/drink [] Unable to sleep [] Unable to be with family [] Patient intubated [] Other: Summary Patient wearing oxygen mask making it almost impossible to conduct thorough spiritual assessment. Patient was able to communicate his desire for prayer. Time spent with patient 6 minutes
[2020-09-04] MEDS: FUROsemide 10 mg/mL SDV 4mL 40 MG IVP ×2 (17:56→18:34)
[2020-09-04] MEDS: LORazepam 2 mg/mL INJ 1 mL 0.25 MG IVP (18:07)
[2020-09-04] MEDS: acetaminophen 325 mg Tablet 650 MG PO (18:14)
[2020-09-04] MEDS: apixaban 5 mg Tablet PO (18:14)
--- NOTE | 2020-09-04 18:53 | PC.NURSE ---
Physician Notification O2 sats dropped to 70s while on bi pap. Crackles auscultated in lung boateng. Patient tachypneic with abdominal muscle use. RT called to bedside stat. Dr. Coronado notified. Telephone order for lasix 40 mg IVP once now. RBTO. Physician to reported to bedside. Verbal order received for 0.25 mg ativan IVP tid prn. Ativan administered. Dr. Galvez also at bedside. Verbal order received for additional lasix 40 mg IVP now. Call provider in 3 hours with urine output, VS, and Bipap settings. Physician to adjust orders accordingly, RBVO. Patient o2 sats now 95% on bipap. Patient appears relaxed, resting in bed. Even, non-labored breathing. Nurse to continue to monitor.
--- NOTE | 2020-09-04 20:41 | PC.NURSE ---
Dr. Curry is currently on the unit advised to hold amiodarone at this time due to the patient's blood pressures.
--- NOTE | 2020-09-04 22:45 | PM.PN ---
Subjective Subjective: Interval history: Patient is short of breath. No chest pain. Continues to be in atrial flutter. Vitals/I&O/Wt Last Vital Signs Temp 98.2 F 09/04/20 19:48 Pulse 121 H 09/04/20 21:00 Resp 35 H 09/04/20 21:00 BP 93/73 09/04/20 21:00 Pulse Ox 95 09/04/20 21:00 09/04/20 09/04/20 09/04/20 06:59 14:59 22:59 Intake Total 600 / 2240 360 / 360 670 / 1030 Output Total 475 / 2250 650 / 650 2325 / 2975 Balance 125 / -10 -290 / -290 -1655 / -1945 Physical Exam Narrative: EXAM NARRATIVE: GENERAL: Patient is alert, awake and oriented x3. [] NECK: No jugular vein distension. [] HEENT: No cyanosis. No icterus. No pallor. [] HEART: Tachycardia, irregularly irregular heart rhythm. No murmur, rub or gallop. [] LUNGS: Clear to auscultate bilaterally. [] ABDOMEN: Soft, nontender and nondistended. Positive bowel sounds. No guarding, rebound or tenderness. [] CENTRAL NERVOUS SYSTEM: Grossly nonfocal. [] EXTREMITIES: Lower extremities with 1+ edema bilaterally. Pulses palpable in the lower extremities, both dorsalis pedis and posterior tibial. [] Data : 09/05/20 03:40 09/05/20 03:40 Micro: Microbiology 09/02/20 18:00 Gram Stain - Final Sputum - Expectorated Sputum Sputum Culture - Preliminary A&P Assessment and plan (1) Atrial fibrillation with controlled ventricular rate: Status: Acute (2) Diabetes: Status: Chronic Qualifiers: Diabetes mellitus type: type 2 Diabetes mellitus long-term insulin use: without watcher automat long goods use Diabetes mellitus complication status: without complication Qualified Code(s): E11.9 - Type 2 diabetes mellitus without complications (3) Cardiomyopathy: Status: Acute Qualifiers: Cardiomyopathy type: dilated Qualified Code(s): I42.0 - Dilated cardiomyopathy (4) Atrial flutter: Status: Acute Qualifiers: Atrial flutter type: unspecified Qualified Code(s): I48.92 - Unspecified atrial flutter (5) Heart failure, systolic, acute: Status: Acute Patient's heart rate is difficult to control. He does not want to have electrical cardioversion performed. Can switch to Amiodarone gtt if heart rate does not improve today Restart anticoagulation with Eliquis. Once pneumonia/infection improves, heart rate likely will improve. Can uptitrate beta-mitzi if blood pressure allows. Thank you for involving us with care of this patient. We will continue to follow. Please call with questions. Attestations Medical Necessity Statement*: Care not expected to cross 2 midnights Coding Level of Care Code Acute Speech And Language Assistant for g Fwd Diagnoses Atrial fibrillation with controlled ventricular rate I48.91 Diabetes E11.9 Diabetes mellitus type: type 2 Diabetes mellitus long-term insulin use: without watcher automat long goods use Diabetes mellitus complication status: without complication Cardiomyopathy I42.0 Cardiomyopathy type: dilated Atrial flutter I48.92 Atrial flutter type: unspecified Heart failure, systolic, acute I50.21
[2020-09-05] VITALS (20 sets, daily range): BP systolic 91–113; BP diastolic 60–72; PULSE 90–127; RESP 15–39; TEMP 36.6–37.4; O2SAT 88–100
--- NOTE | 2020-09-05 01:06 | PC.NURSE ---
Pt has some readness noted to the bridge of his nose secondary to the bi-pap. A duo-derm was cut to size and placed across the bridge of his nose to act as a preventative barrier without interfering with the mask seal. Pt states that this does feel better and he no longer feels the pressure/pain from the mask.
[2020-09-05] MEDS: FUROsemide 10 mg/mL SDV 4mL 40 MG IVP ×3 (02:16→18:58)
[2020-09-05] MEDS: piperacillin-tazobactam 3.375 GM in sodium chloride 0.9% (plus) 50 ML IV ×3 (03:59→20:30)
[2020-09-05 04:26] LABS: ABG PCO2 41.2 mmHg (35-45); ABG PH Result 7.51 (7.35-7.45); Alveolar-Arterial Oxygen Gradi 36.6 mmHg (5-10); Arterial Blood Gas Hematocrit 37.5 % (42-52); Base Excess ABG 8.7 mmol/L (-2.0-2.0); Blood Gas Sample Site Brachial, right; Blood Gas Sample Type Arterial; Carboxyhemoglobin < 0.0 %THgb (0.4-20.1); HCO3 ABG 32.6 mmol/L (22-26); HGB O2 Sat 96.1 % (95-100); Ionized Calcium Level - ABG 1.1 mmol/L (1.1-1.4); Methemoglobin 0.3 % (0.4-1.5); Oxygen Saturation ABG 96.3; PO2 ABG 93.8 mmHg (80.0-100.0); Potassium Level - ABG 3.6 mmol/L (3.5-5.0); Total Hemoglobin 12.2 g/dL (14-18)
[2020-09-05 04:47] LABS: Basophils % 0.2 %; Eosinophils # 0.1 10^3/uL (0.0-0.8); Eosinophils % 0.8 %; Lymphocytes # 0.7 10^3/uL (0.8-4.8); Lymphocytes % 5.7 %; Mean Corpuscular HGB Conc 31.6 g/dL (30.0-36.0); Mean Corpuscular Hemoglobin 29.3 pg (28.0-34.0); Mean Corpuscular Volume 92.9 fL (80-94); Mean Platelet Volume 11.4 fL (7.4-10.4); Monocytes # 0.6 10^3/uL (0.2-0.9); Neutrophils # 10.63 10^3/uL (1.8-7.7); Neutrophils % 87.6 %; Nucleated Red Blood Cells % 0 %; Platelet Count 304 10^3/cmm (130-400); Red Blood Count 4.09 10^6/uL (4.1-5.3); Red Cell Distribution Width 15.7 % (12.1-15.1); White Blood Count 12.1 10^3/uL (4.0-10.0)
[2020-09-05 05:28] LABS: Alanine Aminotransferase 79 U/L (0-41); Albumin Level 2.7 g/dL (3.5-5.2); Alkaline Phosphatase 68 IU/L (40-130); Anion Gap 16.8 (5-19); Aspartate Amino Transferase 41 U/L (0-40); Blood Urea Nitrogen 15 mg/dL (6-20); Calcium 8.2 mg/dL (8.5-10.5); Carbon Dioxide 28 mmol/L (22-29); Chloride 100 mmol/L (98-107); Globulin 3.7 g/dL (1.3-4.6); Glomerular Filtration Rate 99.6 mL/min (90-130); Glucose 161 mg/dL (65-115); NT Pro B Type Natriuretic Pept 3146 pg/mL (0-125); Osmolality Calculated 296 mOsm/kg (285-295); Potassium 3.8 mmol/L (3.5-5.1); Sodium 141 mmol/L (136-145); Total Bilirubin 1.1 mg/dL (0.15-1.2); Total Protein 6.4 g/dL (6.6-8.7)
--- NOTE | 2020-09-05 07:00 | XRR_ITS ---
PROCEDURE INFORMATION: Exam: XR Chest, 1 View Exam date and time: 09/05/2020 8:23 AM Age: 55 years old Clinical indication: Shortness of breath; Additional info: Chf, pneumonia TECHNIQUE: Imaging protocol: XR of the chest Views: 1 view. COMPARISON: CR XR chest 1V portable [id number] 09/02/2020 3:00 PM FINDINGS: Lungs: Asymmetric bilateral airspace disease, consistent with bronchopneumonia in the appropriate clinical setting. Interstitial prominence. Pleural spaces: Questionable small pleural effusions. Heart/Mediastinum: Cardiomegaly. Bones/joints: Degenerative change. XR/XR chest 1V portable [id number] IMPRESSION: 1. Asymmetric bilateral airspace disease, consistent with bronchopneumonia in the appropriate clinical setting. 2. Additional findings as described above.
[2020-09-05 08:06] LABS: Glucose Point of Care 169 mg/dL (70-110)
--- NOTE | 2020-09-05 08:07 | PC.NURSE ---
VS reported to Dr. Coronado. Verbal order to administer all morning medications as prescribed. Update physician on any changes. RBVO. Nurse to continue to monitor.
--- NOTE | 2020-09-05 09:19 | PM.PN ---
Subjective Subjective: Interval history: Patient shortness of breath much improved this morning. He was switched to heated high flow saturating in the mid 90s on 40 L. His blood pressure is 90s over 60s. He denies chest pain or abdominal pain. He is eating breakfast. I had discussion regarding importance of fluid restriction if he starts noticing worsening lower extremity swelling and shortness of breath. His cough appears to be further improving. He had no more melanotic stools. His hemoglobin and platelets are stable. Chest x-ray continues to have significant infiltrates highly suggestive of pneumonia. Send out COVID-19 test came back negative. Vitals/I&O/Wt Last Vital Signs Temp 97.8 F 09/05/20 07:19 Pulse 119 H 09/05/20 07:30 Resp 18 09/05/20 07:30 BP 91/60 09/05/20 07:19 Pulse Ox 90 09/05/20 07:30 09/04/20 09/05/20 09/05/20 22:59 06:59 14:59 Intake Total 670 / 1030 730 / 1760 360 / 360 Output Total 2325 / 2975 1900 / 4875 400 / 400 Balance -1655 / -1945 -1170 / -3115 -40 / -40 Physical Exam Narrative: EXAM NARRATIVE: Exam shows very minimal bibasilar Rales and regular heart. Lower extremities show trace edema. Abdomen is soft and nontender with positive bowel sounds. Data : 09/05/20 03:40 09/05/20 03:40 Micro: Microbiology 09/02/20 18:00 Gram Stain - Final Sputum - Expectorated Sputum Sputum Culture - Preliminary A&P Assessment and plan (1) Complaint of melena: Concern for slow NSAID induced gastritis related upper GI bleed. Status: Acute (2) Community acquired pneumonia: Status: Acute (3) Severe sepsis: As exhibited by tachycardia, tachypnea, leukocytosis and reported fever along with elevated lactic acid and bilirubin. Status: Acute (4) Atrial flutter with rapid ventricular response: Status: Acute (5) Obesity (BMI 30.0-34.9): Status: Acute (6) Diabetes: Type II, [id number]. Status: Chronic Qualifiers: Diabetes mellitus type: type 2 Diabetes mellitus roasterman insulin use: without roasterman use Diabetes mellitus complication status: without complication Qualified Code(s): E11.9 - Type 2 diabetes mellitus without complications (7) Acute on chronic clinical systolic heart failure: EF 30%. Status: Acute (8) Acute respiratory failure with hypoxia: Status: Acute (9) Medication induced coagulopathy: Secondary to Eliquis. Status: Acute (10) Benign prostatic hyperplasia: Status: Acute Additional A&P Information PLAN: Will add Levaquin and closely monitor QT interval with daily EKGs. I am concerned that pneumonia is worsening. I will continue Zosyn and vancomycin for now until pneumonia starts improving to start narrowing antibiotics. Will decrease Lasix to twice daily and request limited echocardiogram to evaluate EF. Repeat procalcitonin in a.m. Attestations Medical Necessity Statement*: Patient with pneumonia and acute heart failure requires close inpatient monitoring and treatment. Time Spent in Patient Care: Greater than 35 minutes Coding Level of Care Code Acute Infant Room Teacher for [facility] Fwd Diagnoses Complaint of melena K92.1 Community acquired pneumonia J18.9 Severe sepsis A41.9; R65.20 Atrial flutter with rapid ventricular response I48.92 Obesity (BMI 30.0-34.9) E66.9 Diabetes E11.9 Diabetes mellitus type: type 2 Diabetes mellitus roasterman insulin use: without chcf use Diabetes mellitus complication status: without complication Acute on chronic clinical systolic heart failure I50.23 Acute respiratory failure with hypoxia J96.01 Medication induced coagulopathy D68.9; T50.905A Benign prostatic hyperplasia N40.0
[2020-09-05] MEDS: potassium chloride ER 20 mEq Tablet PO ×3 (09:20→20:30)
[2020-09-05] MEDS: metoprolol succinate ER (24 HR) 100 mg Tablet PO (09:20)
[2020-09-05] MEDS: pantoprazole DR 40 mg Tablet PO ×2 (09:20→17:55)
[2020-09-05] MEDS: amiodarone 200 mg Tablet 400 MG PO ×2 (09:27→20:30)
[2020-09-05] MEDS: apixaban 5 mg Tablet PO ×2 (09:27→17:54)
--- NOTE | 2020-09-05 10:00 | ECG_ITS ---
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: : 1965 Requested By: Lee Coronado Order Number: [id number] Reading MD: NANCY GARCIA Measurements Intervals [place] Rate: 123 P: OR: QRS: -6 QRSD: 101 T: 120 QT: 172 QTc: 247 Interpretive Statements ATRIAL FLUTTER/TACHYCARDIA WITH RAPID VENTRICULAR RESPONSE MINIMAL VOLTAGE CRITERIA FOR LVH, CONSIDER NORMAL VARIANT [MEETS CRITERIA IN ONE OF: R(aVL), S(V1), R(V5), R(V5/V6)+S(V1)] NONSPECIFIC ST & T-WAVE ABNORMALITY Compared to ECG 09/02/2020 22:01:17 No significant changes Electronically Signed On 09-05-2020 21:34:52 RESEARCH ASSOCIATE POLICY by NANCY GARCIA [id number]
[2020-09-05] MEDS: levofloxacin-dextrose 5 % 750 MG/150 ML PREMIX 100 MG IV (10:22)
[2020-09-05 11:20] LABS: Glucose Point of Care 149 mg/dL (70-110)
--- NOTE | 2020-09-05 12:15 | PC.NURSE ---
Verbal order from Dr Galvez to give an additional 20 mg IVP lasix following vancomycin administration, rbvo.
[2020-09-05] MEDS: FUROsemide 10 mg/mL SDV 2mL 20 MG IVP (14:44)
--- NOTE | 2020-09-05 15:42 | PC.NURSE ---
Patient o2 saturations dropped to 70s while resting on hi-flow. RT notified and reported to bedside. Patient placed on bipap, titrated by RT. Patient saturations returned to mid 90s. Nurse to continue to monitor.
[2020-09-05 17:11] LABS: Glucose Point of Care 159 mg/dL (70-110)
--- NOTE | 2020-09-05 17:35 | PM.PN ---
Subjective Subjective: Interval history: Diuresed well overnight more than 4 L. Pulmonary edema resolved feeling better can lay flat on the bed heart rate on the higher side with soft blood pressure Medications: Reviewed: Yes Vitals/I&O/Wt Last Vital Signs Temp 98.1 F 09/05/20 14:52 Pulse 123 H 09/05/20 15:27 Resp 37 H 09/05/20 14:52 BP 101/71 09/05/20 14:52 Pulse Ox 99 09/05/20 15:27 09/05/20 09/05/20 09/05/20 06:59 14:59 22:59 Intake Total 730 / 1760 1060 / 1060 50 / 1110 Output Total 1900 / 4875 2024 / 2024 800 / 2825 Balance -1170 / -3115 -965 / -965 -750 / -1715 Physical Exam Narrative: EXAM NARRATIVE: GENERAL: Patient is alert, awake and oriented x3. NECK: No jugular vein distension. HEENT: No cyanosis. No icterus. No pallor. HEART: Irregularly irregular S1 and S2. No murmur, rub or gallop. LUNGS: Clear to auscultate bilaterally. ABDOMEN: Soft, nontender and nondistended. Positive bowel sounds. No guarding, rebound or tenderness. CENTRAL NERVOUS SYSTEM: Grossly nonfocal. EXTREMITIES: Lower extremities without edema bilaterally. Data : 09/05/20 03:40 09/05/20 03:40 Micro: Microbiology 09/02/20 18:00 Gram Stain - Final Sputum - Expectorated Sputum Sputum Culture - Final A&P Assessment and plan (1) Atrial fibrillation with controlled ventricular rate: Status: Acute (2) Diabetes: Status: Chronic Qualifiers: Diabetes mellitus type: type 2 Diabetes mellitus rn long term care insulin use: without rn long term care use Diabetes mellitus complication status: without complication Qualified Code(s): E11.9 - Type 2 diabetes mellitus without complications (3) Cardiomyopathy: Status: Acute Qualifiers: Cardiomyopathy type: dilated Qualified Code(s): I42.0 - Dilated cardiomyopathy (4) Atrial flutter: Status: Acute Qualifiers: Atrial flutter type: unspecified Qualified Code(s): I48.92 - Unspecified atrial flutter (5) Heart failure, systolic, acute: Status: Acute Pulmonary edema has been resolved continue diuretics. Add digoxin for the heart rate control. Again patient declined cardioversion which will be more appropriate in his case Continue antibiotics as per medicine Anticoagulation is on hold due to hemoptysis Attestations Medical Necessity Statement*: Patient require continuation of hospitalization for above defined Coding Level of Care Code Established Pt Acute Celery Cutter for Juan Fwd Patient Type Established History Detailed Exam Detailed Medical Decision Making Moderate Complexity Diagnoses Atrial fibrillation with controlled ventricular rate I48.91 Diabetes E11.9 Diabetes mellitus type: type 2 Diabetes mellitus assisted insulin use: without assisted use Diabetes mellitus complication status: without complication Cardiomyopathy I42.0 Cardiomyopathy type: dilated Atrial flutter I48.92 Atrial flutter type: unspecified Heart failure, systolic, acute I50.21
--- NOTE | 2020-09-05 18:25 | PC.NURSE ---
O2 requirement increased to 45 L 55% FIO2. Dr. Coronado notified. Orders to follow.
[2020-09-05] MEDS: digoxin 250 mcg/ml INJ 2 mL 500 MCG IVP (18:57)
--- NOTE | 2020-09-05 19:15 | PC.NURSE ---
Received report from LEATHA Romano. Patient resting in bed. On hi flow NC at 45L and 55%. Administered medications as ordered. Changed dressing to IV site in the right AC space due to leaking. Flushes well without leaking does not draw. D/C IV access to right inner forearm due to patient c/o of burning to this site. Assessment completed as documented.
[2020-09-05 20:22] LABS: Glucose Point of Care 160 mg/dL (70-110)
--- NOTE | 2020-09-05 21:55 | PC.NURSE ---
Spoke with Dr Galvez regarding patient's elevated heart rate which is currently 127 bpm. Doctor is ok with this at this time. Patient has orders for digoxin and is on amiodarone per Dr Galvez.
--- NOTE | 2020-09-05 22:16 | PC.NURSE ---
Patient up to use urinal. Patient SpO2 decreases to 83 to 85% with exertion. Patient denies any increased SOB at this time. Reports feeling okay .
[2020-09-06] VITALS (17 sets, daily range): BP systolic 87–110; BP diastolic 56–73; PULSE 85–128; RESP 19–41; TEMP 36.4–37; O2SAT 89–94
--- NOTE | 2020-09-06 | USCV_ITS ---
Conner Macdonald Age: 55 Gender: M : 1965 Exam Date: 09/06/2020 07:09 Ordering Phys: Lee Coronado MD Technologist: Katty Gabriel Exam Location: [facility] [place] Indication: Evaluate EF BP: 87 / 67 HR: 125 Rhythm: Sinus Technical Quality: Suboptimal MEASUREMENTS (Male / Female) Normal Values 2D ECHO LV Diastolic Diameter PLAX 4.9 cm 4.2 - 5.9 / 3.9 - 5.3 cm LV Systolic Diameter PLAX 4.5 cm LV Chamber Size 5.1 cm IVS Diastolic Thickness 1.6 cm 0.6 - 1.0 / 0.6 - 0.9 cm IVS Systolic Thickness 1.8 cm LVPW Diastolic Thickness 1.3 cm 0.6 - 1.0 / 0.6 - 0.9 cm LVPW Systolic Thickness 1.6 cm RV Chamber Size 2.8 cm LV Ejection Fraction 2D Teich 19.2 % LV Ejection Fraction MOD 2C 44.7 % LV Ejection Fraction 2C AL 47.2 % LA Width 4.5 cm LA Height 6.9 cm RA Width 3.1 cm RA Height 5.8 cm M-MODE LV Diastolic Diameter MM 7.0 cm 4.2 - 5.9 / 3.9 - 5.3 cm LV Systolic Diameter MM 6.0 cm LV Ejection Fraction MM Teich 29.3 % IVS Diastolic Thickness MM 1.7 cm 0.6 - 1.0 / 0.6 - 0.9 cm IVS Systolic Thickness MM 2.0 cm LVPW Diastolic Thickness MM 1.4 cm 0.6 - 1.0 / 0.6 - 0.9 cm LVPW Systolic Thickness MM 2.0 cm FINDINGS Left Ventricle Moderately increased left ventricular cavity size. Severely decreased left ventricular systolic function. Left ventricular ejection fraction is estimated at 30 %. The presence of atrial fibrillation diastolic function cannot be assessed accurately. Right Ventricle Right Atrium Left Atrium Mitral Valve Aortic Valve Tricuspid Valve Pulmonic Valve Pericardium Aorta CONCLUSIONS Please note that this is a limited study to evaluate ejection fraction 1-Moderately increased left ventricular cavity size. Severely decreased left ventricular systolic function. Left ventricular ejection fraction is estimated at 30 %. The presence of atrial fibrillation diastolic function cannot be assessed accurately. 2-There is no pericardial effusion. 3-No significant change since the prior echocardiogram study of 07/03/2020. Osmar Galvez MD (Electronically Signed) Final Date: 06 September 2020 18:52 S
[2020-09-06] MEDS: digoxin 250 mcg/ml INJ 2 mL IVP ×2 (00:28→05:48)
[2020-09-06] MEDS: FUROsemide 10 mg/mL SDV 4mL 40 MG IVP ×3 (02:31→18:00)
[2020-09-06] MEDS: piperacillin-tazobactam 3.375 GM in sodium chloride 0.9% (plus) 50 ML IV ×3 (03:26→20:40)
--- NOTE | 2020-09-06 03:27 | PC.NURSE ---
Zosyn given 5 min early to provide clustered care so patient can sleep.
[2020-09-06 04:30] LABS: Basophils % 0.2 %; Eosinophils # 0.1 10^3/uL (0.0-0.8); Eosinophils % 0.7 %; Hematocrit 40.9 % (42.0-52.0); Hemoglobin 12.8 g/dL (11.7-16.6); Lymphocytes # 0.9 10^3/uL (0.8-4.8); Lymphocytes % 7.7 %; Mean Corpuscular HGB Conc 31.3 g/dL (30.0-36.0); Mean Corpuscular Hemoglobin 28.7 pg (28.0-34.0); Mean Corpuscular Volume 91.7 fL (80-94); Mean Platelet Volume 11.3 fL (7.4-10.4); Monocytes # 0.7 10^3/uL (0.2-0.9); Monocytes % 5.7 %; Neutrophils # 10.23 10^3/uL (1.8-7.7); Neutrophils % 84.9 %; Nucleated Red Blood Cells % 0 %; Platelet Count 328 10^3/cmm (130-400); Red Blood Count 4.46 10^6/uL (4.1-5.3); Red Cell Distribution Width 15.6 % (12.1-15.1); White Blood Count 12.1 10^3/uL (4.0-10.0)
[2020-09-06 05:03] LABS: NT Pro B Type Natriuretic Pept 3054 pg/mL (0-125); Procalcitonin 0.74 ng/mL (0-0.5)
[2020-09-06 05:18] LABS: Alanine Aminotransferase 71 U/L (0-41); Albumin Level 2.7 g/dL (3.5-5.2); Alkaline Phosphatase 68 IU/L (40-130); Anion Gap 16.9 (5-19); Aspartate Amino Transferase 34 U/L (0-40); Carbon Dioxide 29 mmol/L (22-29); Chloride 96 mmol/L (98-107); Globulin 4.1 g/dL (1.3-4.6); Glucose 171 mg/dL (65-115); Potassium 3.9 mmol/L (3.5-5.1); Sodium 138 mmol/L (136-145); Total Bilirubin 1.1 mg/dL (0.15-1.2); Total Protein 6.8 g/dL (6.6-8.7)
[2020-09-06 05:38] LABS: Calcium 8.8 mg/dL (8.5-10.5)
[2020-09-06 05:45] LABS: Blood Urea Nitrogen 18 mg/dL (6-20); Osmolality Calculated 292 mOsm/kg (285-295)
[2020-09-06 06:37] LABS: Glucose Point of Care 179 mg/dL (70-110)
[2020-09-06] MEDS: pantoprazole DR 40 mg Tablet PO ×2 (09:12→18:00)
[2020-09-06] MEDS: apixaban 5 mg Tablet PO ×2 (09:12→17:59)
[2020-09-06] MEDS: digoxin 125 mcg Tablet PO (09:12)
[2020-09-06] MEDS: metoprolol succinate ER (24 HR) 100 mg Tablet PO (09:12)
[2020-09-06] MEDS: amiodarone 200 mg Tablet 400 MG PO ×2 (09:12→20:40)
[2020-09-06] MEDS: potassium chloride ER 20 mEq Tablet PO ×3 (09:12→20:40)
[2020-09-06] MEDS: levofloxacin-dextrose 5 % 750 MG/150 ML PREMIX 100 MG IV (09:13)
[2020-09-06] MEDS: albuterol 8 gm MDI 2 PUFF INHALATION (09:27)
--- NOTE | 2020-09-06 10:00 | ECG_ITS ---
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1965 Requested By: Lee Coronado Order Number: [id number] Reading MD: NANCY GARCIA Measurements Intervals [place] Rate: 126 P: SD: QRS: -14 QRSD: 154 T: -67 QT: 398 QTc: 576 Interpretive Statements ATRIAL FLUTTER/TACHYCARDIA WITH RAPID VENTRICULAR RESPONSE WITH ABERRANT CONDUCTION OR VENTRICULAR PREMATURE COMPLEXES INTRAVENTRICULAR CONDUCTION DELAY [130+ ms QRS DURATION] Compared to ECG 09/05/2020 10:13:03 Ventricular premature complex(es) now present Aberrant conduction of supraventricular beat(s) now present Intraventricular conduction delay now present T-wave abnormality no longer present Electronically Signed On 09-06-2020 21:18:54 BREAKFAST ATTENDANT by NANCY GARCIA [id number]
--- NOTE | 2020-09-06 11:14 | PM.PN ---
Subjective Subjective: Interval history: Patient reports feeling better this morning. He continues to be in rapid ventricular response with heart rate in 120s despite being loaded with digoxin. Reports that his cough is now completely gone. He denies chest pain. Medications: Reviewed: Yes Vitals/I&O/Wt Last Vital Signs Temp 97.8 F 09/06/20 11:03 Pulse 128 H 09/06/20 11:03 Resp 24 H 09/06/20 11:03 BP 103/70 09/06/20 11:03 Pulse Ox 89 L 09/06/20 09:26 09/05/20 09/06/20 09/06/20 22:59 06:59 14:59 Intake Total 50 / 1110 549.583 / 1659.583 240 / 240 Output Total 1975 / 4000 2400 / 6400 350 / 350 Balance -1925 / -2890 -1850.417 / -4740.417 -110 / -110 Physical Exam Narrative: EXAM NARRATIVE: His lungs are clear. Heart is regular. Lower extremities show no edema. Abdomen is soft and nontender with positive bowel sounds. Data : 09/06/20 03:40 09/06/20 03:40 Micro: Microbiology 09/02/20 18:00 Gram Stain - Final Sputum - Expectorated Sputum Sputum Culture - Final A&P Assessment and plan (1) Complaint of melena: Concern for slow NSAID induced gastritis related upper GI bleed. Status: Acute (2) Community acquired pneumonia: Status: Acute (3) Severe sepsis: As exhibited by tachycardia, tachypnea, leukocytosis and reported fever along with elevated lactic acid and bilirubin. Status: Acute (4) Atrial flutter with rapid ventricular response: Status: Acute (5) Obesity (BMI 30.0-34.9): Status: Acute (6) Diabetes: Type II, bwx-tivlrax-uzfmmelft. Status: Chronic Qualifiers: Diabetes mellitus type: type 2 Diabetes mellitus long term care administrator insulin use: without long term care administrator use Diabetes mellitus complication status: without complication Qualified Code(s): E11.9 - Type 2 diabetes mellitus without complications (7) Acute on chronic clinical systolic heart failure: EF 30%. Status: Acute (8) Acute respiratory failure with hypoxia: Status: Acute (9) Medication induced coagulopathy: Secondary to Eliquis. Status: Acute (10) Benign prostatic hyperplasia: Status: Acute Additional A&P Information PLAN: We will continue Zosyn and vancomycin but unfortunately we will have to stop Levaquin as patient's QTC got significantly elevated today. Discussed with Dr. Galvez. Controlling patient's heart rate is very important and if not successful we may need to consider electrical cardioversion. Had discussion with patient who reports that he will consider if we are unable to control it with medications. Attestations Medical Necessity Statement*: Patient with pneumonia as well as atrial fibrillation with rapid ventricular response and heart failure requires close inpatient monitoring and treatment. Time Spent in Patient Care: Greater than 35 minutes Coding Level of Care Code Acute Clinic Assistant for [facility] Fwd Diagnoses Complaint of melena K92.1 Community acquired pneumonia J18.9 Severe sepsis A41.9; R65.20 Atrial flutter with rapid ventricular response I48.92 Obesity (BMI 30.0-34.9) E66.9 Diabetes E11.9 Diabetes mellitus type: type 2 Diabetes mellitus long term care administrator insulin use: without long term care administrator use Diabetes mellitus complication status: without complication Acute on chronic clinical systolic heart failure I50.23 Acute respiratory failure with hypoxia J96.01 Medication induced coagulopathy D68.9; T50.905A Benign prostatic hyperplasia N40.0
[2020-09-06 11:17] LABS: Glucose Point of Care 156 mg/dL (70-110)
--- NOTE | 2020-09-06 16:20 | PM.PN ---
Subjective Subjective: Interval history: Continues to steadily improve however remains in atrial flutter. Dr. Coronado discussed the option of transesophageal echo guided cardioversion with the patient and the both are in agreement and would like to proceed with the since he is not getting under control despite of optimization of medicine including amiodarone digoxin and beta-mitzi. Heart failure is also getting worsen in the presence of atrial flutter. Medications: Reviewed: Yes Vitals/I&O/Wt Last Vital Signs Temp 98.6 F 09/06/20 15:14 Pulse 102 H 09/06/20 15:14 Resp 27 H 09/06/20 15:14 BP 110/56 09/06/20 15:14 Pulse Ox 90 09/06/20 15:14 09/06/20 09/06/20 09/06/20 06:59 14:59 22:59 Intake Total 549.583 / 1659.583 290 / 290 Output Total 2400 / 6400 350 / 350 Balance -1850.417 / -4740.417 -60 / -60 Physical Exam Narrative: EXAM NARRATIVE: GENERAL: Patient is alert, awake and oriented x3. NECK: No jugular vein distension. HEENT: No cyanosis. No icterus. No pallor. HEART: Irregularly S1 and S2. No murmur, rub or gallop. LUNGS: Clear to auscultate bilaterally. ABDOMEN: Soft, nontender and nondistended. Positive bowel sounds. No guarding, rebound or tenderness. CENTRAL NERVOUS SYSTEM: Grossly nonfocal. EXTREMITIES: Lower extremities without edema bilaterally. Data : 09/06/20 03:40 09/06/20 03:40 Micro: Microbiology 09/02/20 18:00 Gram Stain - Final Sputum - Expectorated Sputum Sputum Culture - Final A&P Assessment and plan (1) Atrial fibrillation with controlled ventricular rate: Status: Acute (2) Diabetes: Status: Chronic Qualifiers: Diabetes mellitus type: type 2 Diabetes mellitus exterminator helper termite insulin use: without correction use Diabetes mellitus complication status: without complication Qualified Code(s): E11.9 - Type 2 diabetes mellitus without complications (3) Cardiomyopathy: Status: Acute Qualifiers: Cardiomyopathy type: dilated Qualified Code(s): I42.0 - Dilated cardiomyopathy (4) Atrial flutter: Status: Acute Qualifiers: Atrial flutter type: unspecified Qualified Code(s): I48.92 - Unspecified atrial flutter (5) Heart failure, systolic, acute: Status: Acute Patient continues to be in A. fib switching back and forth with a flutter despite of antiarrhythmics digoxin beta-mitzi. Heart failure has worsened. We suggest cardioversion after transesophageal echo to rule out left atrial lower appendage thrombus. Dr. Jonathan Coronado who knows [place] has spoken to the patient and at bedside regarding transesophageal echocardiogram guided electrical cardioversion. Patient understand risk benefit and not later for the procedure. Patient understand the risk of intubation stroke severe bradycardia requiring temporary pacemaker and other arrhythmias. He would like to proceed with it. We will schedule him for ISABEL guided electrical cardioversion tomorrow. Continue IV diuresis 40 mg 3 times daily Attestations Medical Necessity Statement*: Patient require continuation hospitalization for above defined care. Coding Level of Care Code Acute Editor In Chief for [facility] Fwd Diagnoses Atrial fibrillation with controlled ventricular rate I48.91 Diabetes E11.9 Diabetes mellitus type: type 2 Diabetes mellitus correction insulin use: without correction use Diabetes mellitus complication status: without complication Cardiomyopathy I42.0 Cardiomyopathy type: dilated Atrial flutter I48.92 Atrial flutter type: unspecified Heart failure, systolic, acute I50.21
[2020-09-06 16:56] LABS: Glucose Point of Care 117 mg/dL (70-110)
[2020-09-06 20:20] LABS: Glucose Point of Care 283 mg/dL (70-110)
[2020-09-07] VITALS (19 sets, daily range): BP systolic 100–120; BP diastolic 66–74; PULSE 75–126; RESP 16–37; TEMP 36.4–36.8; O2SAT 90–97
[2020-09-07] MEDS: FUROsemide 10 mg/mL SDV 4mL 40 MG IVP ×3 (03:32→18:13)
[2020-09-07] MEDS: piperacillin-tazobactam 3.375 GM in sodium chloride 0.9% (plus) 50 ML IV ×3 (03:33→20:14)
--- NOTE | 2020-09-07 03:37 | PC.NURSE ---
Lasix given 2 min late in attempt to cluster care. Patient is requesting to be allowed to sleep. Patient reports feeling much better this morning. Patient looks good. No distress observed.
[2020-09-07 05:43] LABS: Basophils # 0.1 10^3/uL (0.0-0.1); Basophils % 0.7 %; Eosinophils # 0.2 10^3/uL (0.0-0.8); Eosinophils % 1.8 %; Hematocrit 42.8 % (42.0-52.0); Hemoglobin 13.4 g/dL (11.7-16.6); Lymphocytes % 9.4 %; Mean Corpuscular HGB Conc 31.3 g/dL (30.0-36.0); Mean Corpuscular Hemoglobin 28.3 pg (28.0-34.0); Mean Corpuscular Volume 90.3 fL (80-94); Mean Platelet Volume 11.1 fL (7.4-10.4); Monocytes # 0.6 10^3/uL (0.2-0.9); Monocytes % 5.4 %; Neutrophils # 8.59 10^3/uL (1.8-7.7); Nucleated Red Blood Cells % 0 %; Platelet Count 356 10^3/cmm (130-400); Red Blood Count 4.74 10^6/uL (4.1-5.3); Red Cell Distribution Width 15.2 % (12.1-15.1); White Blood Count 10.5 10^3/uL (4.0-10.0)
[2020-09-07 06:09] LABS: Digoxin 1.4 ng/mL (0.6-1.2)
[2020-09-07 06:13] LABS: Alanine Aminotransferase 89 U/L (0-41); Albumin Level 2.7 g/dL (3.5-5.2); Alkaline Phosphatase 74 IU/L (40-130); Anion Gap 15.9 (5-19); Aspartate Amino Transferase 45 U/L (0-40); Blood Urea Nitrogen 21 mg/dL (6-20); Calcium 8.7 mg/dL (8.5-10.5); Carbon Dioxide 28 mmol/L (22-29); Chloride 98 mmol/L (98-107); Globulin 4.3 g/dL (1.3-4.6); Glomerular Filtration Rate 99.6 mL/min (90-130); Glucose 135 mg/dL (65-115); Magnesium 2.3 mg/dL (1.7-2.3); NT Pro B Type Natriuretic Pept 2046 pg/mL (0-125); Osmolality Calculated 291 mOsm/kg (285-295); Potassium 3.9 mmol/L (3.5-5.1); Sodium 138 mmol/L (136-145)
[2020-09-07 06:47] LABS: Glucose Point of Care 132 mg/dL (70-110)
[2020-09-07] MEDS: pantoprazole DR 40 mg Tablet PO ×2 (08:11→18:13)
[2020-09-07] MEDS: metoprolol succinate ER (24 HR) 100 mg Tablet PO (08:11)
[2020-09-07] MEDS: potassium chloride ER 20 mEq Tablet PO ×3 (08:11→21:08)
[2020-09-07] MEDS: apixaban 5 mg Tablet PO ×2 (08:11→18:13)
[2020-09-07] MEDS: amiodarone 200 mg Tablet 400 MG PO ×2 (08:12→21:08)
[2020-09-07] MEDS: digoxin 250 mcg Tablet 125 MCG PO (08:12)
[2020-09-07 09:59] LABS: Glucose Point of Care 122 mg/dL (70-110)
--- NOTE | 2020-09-07 10:00 | ECG_ITS ---
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
[2020-09-07 11:09] LABS: Glucose Point of Care 138 mg/dL (70-110)
--- NOTE | 2020-09-07 11:50 | PC.NURSE ---
attempted to obtain consent from patient for ISABEL with cardio version Patient refuses to consent to procedure without speaking to Dr. Jonathan Coronado notified of patient concerns instructions to hold off on procedure until he consults manager merchandising Dr ramos.
--- NOTE | 2020-09-07 12:41 | PC.NURSE ---
after speaking with Dr. Coronado patient is agreeable to cardioversion however a mix up occurred with scheduling and anesthesia is not available spoke with richard procedure rescheduled for 09/08/2020 1200 noon
--- NOTE | 2020-09-07 12:50 | PM.PN ---
Subjective Subjective: Interval history: Patient continues to be in atrial flutter with rapid ventricular response. Electrical cardioversion with the prior to procedure was recommended as it appears to be the major cause of patient's cardiomyopathy. I had extensive discussion with patient with Dr. Galvez at the bedside and patient agreed to proceed. Unfortunately we had no anesthesiologist available this afternoon therefore procedure is postponed for tomorrow noon time. Medications: Reviewed: Yes Vitals/I&O/Wt Last Vital Signs Temp 97.8 F 09/07/20 10:56 Pulse 76 09/07/20 11:38 Resp 16 09/07/20 11:38 BP 106/73 09/07/20 10:56 Pulse Ox 91 09/07/20 11:38 09/06/20 09/07/20 09/07/20 22:59 06:59 14:59 Intake Total 790 / 1230 548.125 / 1778.125 50 / 50 Output Total 1600 / 1950 1250 / 3200 1225 / 1225 Balance -810 / -720 -701.875 / -1421.875 -1175 / -1175 Physical Exam Narrative: EXAM NARRATIVE: His lungs are clear. Heart is regular, tachycardic. Lower extremities show no edema. Abdomen is soft and nontender with positive bowel sounds. Data : 09/07/20 05:22 09/07/20 05:22 A&P Assessment and plan (1) Complaint of melena: Concern for slow NSAID induced gastritis related upper GI bleed. Status: Acute (2) Community acquired pneumonia: Status: Acute (3) Severe sepsis: As exhibited by tachycardia, tachypnea, leukocytosis and reported fever along with elevated lactic acid and bilirubin. Status: Acute (4) Atrial flutter with rapid ventricular response: Status: Inactive (5) Obesity (BMI 30.0-34.9): Status: Acute (6) Diabetes: Type II, dli-jtpmhin-jymbvwpda. Status: Chronic Qualifiers: Diabetes mellitus type: type 2 Diabetes mellitus senior living insulin use: without senior living use Diabetes mellitus complication status: without complication Qualified Code(s): E11.9 - Type 2 diabetes mellitus without complications (7) Acute on chronic clinical systolic heart failure: EF 30%. Status: Acute (8) Acute respiratory failure with hypoxia: Status: Acute (9) Medication induced coagulopathy: Secondary to Eliquis. Status: Acute (10) Benign prostatic hyperplasia: Status: Acute Additional A&P Information PLAN: I will continue current monitoring and treatment including antibiotics. We will proceed with ISABEL cardioversion tomorrow noon. Attestations Medical Necessity Statement*: Patient with pneumonia, nonischemic cardiomyopathy and atrial flutter with rapid ventricular response requires close inpatient monitoring and treatment Time Spent in Patient Care: Greater than 35 minutes (>than 50% of time spent in counselling and/or direct pt care on unit). Coding Level of Care Code Acute Reproduction Production Manager for [facility] Diagnoses Complaint of melena K92.1 Community acquired pneumonia J18.9 Severe sepsis A41.9; R65.20 Atrial flutter with rapid ventricular response I48.92 Obesity (BMI 30.0-34.9) E66.9 Diabetes E11.9 Diabetes mellitus type: type 2 Diabetes mellitus senior living insulin use: without local intermodal truck driver use Diabetes mellitus complication status: without complication Acute on chronic clinical systolic heart failure I50.23 Acute respiratory failure with hypoxia J96.01 Medication induced coagulopathy D68.9; T50.905A Benign prostatic hyperplasia N40.0
--- NOTE | 2020-09-07 14:02 | PC.NURSE ---
medication delay due to patient needing another IV to run multiple non compatible medications
--- NOTE | 2020-09-07 16:12 | PM.PN ---
Subjective Subjective: Interval history: Patient continues to be in supraventricular atrial flutter alternating with atrial fib rhythm. We schedule for cardioversion ISABEL guided today but due to anesthesia unavailability it has been postponed till tomorrow noon. Medications: Reviewed: Yes Vitals/I&O/Wt Last Vital Signs Temp 97.5 F L 09/07/20 15:22 Pulse 75 09/07/20 15:44 Resp 18 09/07/20 15:44 BP 103/66 09/07/20 15:22 Pulse Ox 93 09/07/20 15:44 09/07/20 09/07/20 09/07/20 06:59 14:59 22:59 Intake Total 548.125 / 1778.125 290 / 290 Output Total 1250 / 3200 1225 / 1225 Balance -701.875 / -1421.875 -935 / -935 Physical Exam Narrative: EXAM NARRATIVE: GENERAL: Patient is alert, awake and oriented x3. NECK: No jugular vein distension. HEENT: No cyanosis. No icterus. No pallor. HEART: Irregularly S1 and S2. No murmur, rub or gallop. LUNGS: Clear to auscultate bilaterally. ABDOMEN: Soft, nontender and nondistended. Positive bowel sounds. No guarding, rebound or tenderness. CENTRAL NERVOUS SYSTEM: Grossly nonfocal. EXTREMITIES: Lower extremities without edema bilaterally. Data : 09/07/20 05:22 09/07/20 05:22 Micro: Microbiology 09/02/20 15:30 Blood Culture - Final Blood NO GROWTH AFTER 5 DAYS 09/02/20 15:10 Blood Culture - Final Blood NO GROWTH AFTER 5 DAYS A&P Assessment and plan (1) Atrial fibrillation with controlled ventricular rate: Status: Acute (2) Diabetes: Status: Chronic Qualifiers: Diabetes mellitus type: type 2 Diabetes mellitus buttermaker continuous churn insulin use: without buttermaker continuous churn use Diabetes mellitus complication status: without complication Qualified Code(s): E11.9 - Type 2 diabetes mellitus without complications (3) Cardiomyopathy: Status: Acute Qualifiers: Cardiomyopathy type: dilated Qualified Code(s): I42.0 - Dilated cardiomyopathy (4) Atrial flutter: Status: Acute Qualifiers: Atrial flutter type: unspecified Qualified Code(s): I48.92 - Unspecified atrial flutter (5) Heart failure, systolic, acute: Status: Acute Continue current regimen, continue current diuresis with IV Lasix. Reschedule transesophageal echocardiogram guided electrical cardioversion since patient is not tolerating the rhythm and continues to be in persistent heart failure. Attestations Medical Necessity Statement*: Patient require continuation hospitalization for above defined care. Coding Level of Care Code Established Pt Acute Secondary Education Professor for [facility] Fwd Patient Type Established History Expanded Problem Focused Exam Expanded Problem Focused Medical Decision Making Moderate Complexity Diagnoses Atrial fibrillation with controlled ventricular rate I48.91 Diabetes E11.9 Diabetes mellitus type: type 2 Diabetes mellitus skilled nursing insulin use: without buttermaker continuous churn use Diabetes mellitus complication status: without complication Cardiomyopathy I42.0 Cardiomyopathy type: dilated Atrial flutter I48.92 Atrial flutter type: unspecified Heart failure, systolic, acute I50.21
[2020-09-07 17:09] LABS: Glucose Point of Care 192 mg/dL (70-110)
[2020-09-07 20:59] LABS: Glucose Point of Care 147 mg/dL (70-110)
[2020-09-08] VITALS (18 sets, daily range): BP systolic 97–114; BP diastolic 63–76; PULSE 83–126; RESP 14–31; TEMP 36.3–36.8; O2SAT 90–96
[2020-09-08] MEDS: FUROsemide 10 mg/mL SDV 4mL 40 MG IVP ×3 (02:38→17:52)
[2020-09-08 04:53] LABS: Basophils # 0.1 10^3/uL (0.0-0.1); Basophils % 0.8 %; Eosinophils # 0.3 10^3/uL (0.0-0.8); Eosinophils % 2.3 %; Hemoglobin 13.5 g/dL (11.7-16.6); Lymphocytes # 1.1 10^3/uL (0.8-4.8); Lymphocytes % 9.6 %; Mean Corpuscular HGB Conc 31.4 g/dL (30.0-36.0); Mean Corpuscular Hemoglobin 28.3 pg (28.0-34.0); Mean Corpuscular Volume 90.1 fL (80-94); Monocytes # 0.6 10^3/uL (0.2-0.9); Monocytes % 5.2 %; Neutrophils # 9.48 10^3/uL (1.8-7.7); Neutrophils % 81.3 %; Nucleated Red Blood Cells % 0 %; Platelet Count 343 10^3/cmm (130-400); Red Blood Count 4.77 10^6/uL (4.1-5.3); Red Cell Distribution Width 15.3 % (12.1-15.1); White Blood Count 11.7 10^3/uL (4.0-10.0)
[2020-09-08] MEDS: piperacillin-tazobactam 3.375 GM in sodium chloride 0.9% (plus) 50 ML IV ×3 (04:56→20:23)
[2020-09-08 05:11] LABS: Digoxin 1.2 ng/mL (0.6-1.2)
[2020-09-08 05:24] LABS: Alanine Aminotransferase 86 U/L (0-41); Albumin Level 2.7 g/dL (3.5-5.2); Alkaline Phosphatase 72 IU/L (40-130); Anion Gap 14.9 (5-19); Aspartate Amino Transferase 37 U/L (0-40); Blood Urea Nitrogen 26 mg/dL (6-20); Calcium 8.7 mg/dL (8.5-10.5); Carbon Dioxide 27 mmol/L (22-29); Chloride 100 mmol/L (98-107); Globulin 4.2 g/dL (1.3-4.6); Glucose 165 mg/dL (65-115); Magnesium 2.1 mg/dL (1.7-2.3); Osmolality Calculated 294 mOsm/kg (285-295); Potassium 3.9 mmol/L (3.5-5.1); Sodium 138 mmol/L (136-145); Total Bilirubin 0.6 mg/dL (0.15-1.2); Total Protein 6.9 g/dL (6.6-8.7)
[2020-09-08 07:02] LABS: Glucose Point of Care 177 mg/dL (70-110)
--- NOTE | 2020-09-08 07:46 | PC.NURSE ---
spoke with dr thomas about patient bg levels and protocol dose for 2 units with patients NPO status ok to non administer this dose and monitor
[2020-09-08] MEDS: pantoprazole DR 40 mg Tablet PO ×2 (08:30→17:52)
[2020-09-08] MEDS: apixaban 5 mg Tablet PO ×2 (08:30→17:52)
[2020-09-08] MEDS: potassium chloride ER 20 mEq Tablet PO ×3 (08:30→20:23)
[2020-09-08] MEDS: metoprolol succinate ER (24 HR) 100 mg Tablet PO (08:31)
[2020-09-08] MEDS: digoxin 250 mcg Tablet 125 MCG PO (08:31)
[2020-09-08] MEDS: amiodarone 200 mg Tablet 400 MG PO ×2 (08:32→20:23)
[2020-09-08] MEDS: albuterol 8 gm MDI 2 PUFF INHALATION ×3 (08:44→20:10)
--- NOTE | 2020-09-08 10:00 | ECG_ITS ---
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 Measurements Intervals [place] Rate: 83 P: 206 ME: 188 QRS: 7 QRSD: 98 T: 0 QT: 209 QTc: 246 Interpretive Statements Atrial fibrillation/flutter NONSPECIFIC ST & T-WAVE ABNORMALITY Compared to ECG 09/07/2020 10:45:29 Atrial flutter no longer present T-wave abnormality still present Electronically Signed On 09-08-2020 19:54:28 PHLEBOTOMY PROGRAM COORDINATOR by Shane Gonzalez M.D. [id number]
--- NOTE | 2020-09-08 11:27 | PM.PN ---
Subjective Subjective: Interval history: Continues to be in atrial flutter. Today he refused again cardioversion which was recommended therefore we will cancel. Patient understand all risk and benefit and alternative for the procedure. Vitals/I&O/Wt Last Vital Signs Temp 97.6 F 09/08/20 11:21 Pulse 90 09/08/20 11:21 Resp 25 H 09/08/20 11:21 BP 114/74 09/08/20 11:21 Pulse Ox 94 09/08/20 11:21 09/07/20 09/08/20 09/08/20 22:59 06:59 14:59 Intake Total 1020 / 1310 550 / 1860 50 / 50 Output Total 800 / 2025 1550 / 3575 700 / 700 Balance 220 / -715 -1000 / -1715 -650 / -650 Physical Exam Narrative: EXAM NARRATIVE: GENERAL: Patient is alert, awake and oriented x3. NECK: No jugular vein distension. HEENT: No cyanosis. No icterus. No pallor. HEART: Regular S1 and S2. No murmur, rub or gallop. LUNGS: Clear to auscultate bilaterally. ABDOMEN: Soft, nontender and nondistended. Positive bowel sounds. No guarding, rebound or tenderness. CENTRAL NERVOUS SYSTEM: Grossly nonfocal. EXTREMITIES: Lower extremities without edema bilaterally. Pulses palpable in the lower extremities, both dorsalis pedis and posterior tibial. Data : 09/08/20 04:33 09/08/20 04:33 Micro: Microbiology 09/02/20 15:30 Blood Culture - Final Blood NO GROWTH AFTER 5 DAYS 09/02/20 15:10 Blood Culture - Final Blood NO GROWTH AFTER 5 DAYS A&P Assessment and plan (1) Atrial flutter: Patient is very ambivalent he has scheduled and refused cardioversion fourth or fifth time. We will cancel it again. Continue current regimen Status: Acute Qualifiers: Atrial flutter type: unspecified Qualified Code(s): I48.92 - Unspecified atrial flutter (2) Mitral valve regurgitation: Continue to diurese Status: Acute Qualifiers: Cardiac valve disease etiology: nonrheumatic Qualified Code(s): I34.0 - Nonrheumatic mitral (valve) insufficiency (3) Heart failure, systolic, acute: Continue to diurese still decompensated. Status: Acute (4) Cardiomyopathy: Nonischemic cardiomyopathy most likely dilated versus tachycardia induced Status: Acute Qualifiers: Cardiomyopathy type: dilated Qualified Code(s): I42.0 - Dilated cardiomyopathy Attestations Medical Necessity Statement*: Patient require continuation hospitalization for above defined care. Coding Level of Care Code Established Pt Acute Stock Digger for [facility] Fwd Patient Type Established History Detailed Exam Detailed Medical Decision Making Moderate Complexity Diagnoses Atrial flutter I48.92 Atrial flutter type: unspecified Mitral valve regurgitation I34.0 Cardiac valve disease etiology: nonrheumatic Heart failure, systolic, acute I50.21 Cardiomyopathy I42.0 Cardiomyopathy type: dilated
[2020-09-08 11:29] LABS: Glucose Point of Care 166 mg/dL (70-110)
[2020-09-08 13:09] LABS: Glucose Point of Care 192 mg/dL (70-110)
--- NOTE | 2020-09-08 13:18 | PC.NURSE ---
clarified with pharmacy van dose ok to administer
--- NOTE | 2020-09-08 15:18 | PM.PN ---
Subjective Subjective: Interval history: Patient reports feeling much better this morning. Reports that he is heart rate being in the 80s throughout the night based on his wrist watch monitor. He continues to be in atrial flutter/fibrillation. His heart rate remains in the 120s during my evaluation. He absolutely refused again today to have electrical cardioversion performed. He is somewhat scared of this procedure despite our explanation that we will use medications to make sure he is not in discomfort. We also explained to patient that his cardiomyopathy is nonischemic and likely induced by atrial flutter/fibrillation and that restoring sinus rhythm would be very beneficial. Patient still refused and procedure was canceled. Patient reports that his cough is completely gone and he did not have any more episodes of diaphoresis. Medications: Reviewed: Yes Vitals/I&O/Wt Last Vital Signs Temp 97.5 F L 09/08/20 14:49 Pulse 121 H 09/08/20 14:49 Resp 31 H 09/08/20 14:49 BP 101/74 09/08/20 14:49 Pulse Ox 93 09/08/20 14:49 09/08/20 09/08/20 09/08/20 06:59 14:59 22:59 Intake Total 550 / 1860 290 / 290 Output Total 1550 / 3575 700 / 700 Balance -1000 / -1715 -410 / -410 Physical Exam Narrative: EXAM NARRATIVE: His lungs are clear. Heart is irregularly irregular, tachycardic. Lower extremities show no edema. Abdomen is soft and nontender with positive bowel sounds. Data : 09/08/20 04:33 09/08/20 04:33 Micro: Microbiology 09/02/20 15:30 Blood Culture - Final Blood NO GROWTH AFTER 5 DAYS 09/02/20 15:10 Blood Culture - Final Blood NO GROWTH AFTER 5 DAYS A&P Assessment and plan (1) Complaint of melena: Concern for slow NSAID induced gastritis related upper GI bleed. Status: Acute (2) Community acquired pneumonia: Status: Acute (3) Severe sepsis: As exhibited by tachycardia, tachypnea, leukocytosis and reported fever along with elevated lactic acid and bilirubin. Status: Acute (4) Atrial flutter with rapid ventricular response: Status: Inactive (5) Obesity (BMI 30.0-34.9): Status: Acute (6) Diabetes: Type II, ofp-rpicnno-yiwvryzdw. Status: Chronic Qualifiers: Diabetes mellitus type: type 2 Diabetes mellitus medical terminologist insulin use: without halfway use Diabetes mellitus complication status: without complication Qualified Code(s): E11.9 - Type 2 diabetes mellitus without complications (7) Acute on chronic clinical systolic heart failure: EF 30%. Status: Acute (8) Acute respiratory failure with hypoxia: Status: Acute (9) Medication induced coagulopathy: Secondary to Eliquis. Status: Acute (10) Benign prostatic hyperplasia: Status: Acute Additional A&P Information PLAN: Continue current monitoring and treatment but will increase metoprolol dose to add 50 mg evening time. Continue digoxin. Continue current antibiotics and Eliquis. Patient reports that he had no more episodes of melanotic stools. Hemoglobin stable. Attestations Medical Necessity Statement*: Patient with pneumonia as well as atrial fibrillation/flutter with rapid ventricular response requires close inpatient monitoring and treatment. Time Spent in Patient Care: 16 - 35 minutes Coding Level of Care Code Acute Contact Center Analyst for [facility] Diagnoses Complaint of melena K92.1 Community acquired pneumonia J18.9 Severe sepsis A41.9; R65.20 Atrial flutter with rapid ventricular response I48.92 Obesity (BMI 30.0-34.9) E66.9 Diabetes E11.9 Diabetes mellitus type: type 2 Diabetes mellitus halfway insulin use: without medical terminologist use Diabetes mellitus complication status: without complication Acute on chronic clinical systolic heart failure I50.23 Acute respiratory failure with hypoxia J96.01 Medication induced coagulopathy D68.9; T50.905A Benign prostatic hyperplasia N40.0
[2020-09-08 16:45] LABS: Glucose Point of Care 260 mg/dL (70-110)
[2020-09-08] MEDS: metoprolol succinate ER (24 HR) 50 mg Tablet PO (20:24)
[2020-09-09] VITALS (11 sets, daily range): BP systolic 97–104; BP diastolic 65–78; PULSE 77–89; RESP 15–20; TEMP 36.1–36.8; O2SAT 88–100
[2020-09-09] MEDS: FUROsemide 10 mg/mL SDV 4mL 40 MG IVP ×2 (02:35→12:05)
[2020-09-09] MEDS: piperacillin-tazobactam 3.375 GM in sodium chloride 0.9% (plus) 50 ML IV (04:47)
[2020-09-09 06:50] LABS: Glucose Point of Care 173 mg/dL (70-110)
[2020-09-09 06:50] LABS: Glucose Point of Care 216 mg/dL (70-110)
[2020-09-09] MEDS: digoxin 250 mcg Tablet 125 MCG PO (08:05)
[2020-09-09] MEDS: apixaban 5 mg Tablet PO (08:06)
[2020-09-09] MEDS: amiodarone 200 mg Tablet 400 MG PO (08:06)
[2020-09-09] MEDS: pantoprazole DR 40 mg Tablet PO (08:06)
[2020-09-09] MEDS: metoprolol succinate ER (24 HR) 100 mg Tablet PO (08:06)
[2020-09-09] MEDS: potassium chloride ER 20 mEq Tablet PO (08:11)
[2020-09-09 09:26] LABS: Basophils # 0.2 10^3/uL (0.0-0.1); Basophils % 1.4 %; Eosinophils # 0.3 10^3/uL (0.0-0.8); Eosinophils % 2.4 %; Hematocrit 49.2 % (42.0-52.0); Hemoglobin 14.8 g/dL (11.7-16.6); Lymphocytes # 1.1 10^3/uL (0.8-4.8); Lymphocytes % 10.5 %; Mean Corpuscular HGB Conc 30.1 g/dL (30.0-36.0); Mean Corpuscular Hemoglobin 28.4 pg (28.0-34.0); Mean Corpuscular Volume 94.3 fL (80-94); Mean Platelet Volume 11.6 fL (7.4-10.4); Monocytes # 0.5 10^3/uL (0.2-0.9); Monocytes % 4.5 %; Neutrophils # 8.55 10^3/uL (1.8-7.7); Neutrophils % 79.8 %; Nucleated Red Blood Cells % 0 %; Platelet Count 356 10^3/cmm (130-400); Red Blood Count 5.22 10^6/uL (4.1-5.3); Red Cell Distribution Width 15.4 % (12.1-15.1); White Blood Count 10.7 10^3/uL (4.0-10.0)
[2020-09-09 09:41] LABS: Alanine Aminotransferase 85 U/L (0-41); Albumin Level 2.9 g/dL (3.5-5.2); Alkaline Phosphatase 81 IU/L (40-130); Anion Gap 14.2 (5-19); Aspartate Amino Transferase 34 U/L (0-40); Blood Urea Nitrogen 27 mg/dL (6-20); Calcium 8.9 mg/dL (8.5-10.5); Carbon Dioxide 29 mmol/L (22-29); Chloride 98 mmol/L (98-107); Globulin 4.5 g/dL (1.3-4.6); Glucose 205 mg/dL (65-115); Osmolality Calculated 295 mOsm/kg (285-295); Potassium 4.2 mmol/L (3.5-5.1); Sodium 137 mmol/L (136-145); Total Bilirubin 0.5 mg/dL (0.15-1.2); Total Protein 7.4 g/dL (6.6-8.7)
[2020-09-09] MEDS: albuterol 8 gm MDI 2 PUFF INHALATION (10:13)
--- NOTE | 2020-09-09 11:18 | P.PN_ITS ---
Subjective Subjective: Interval history: Patient reports feeling much better this morning. His heart rate is under much better control. He still appears to be in atrial flutter based on telemetry. He denies any cough and reports breathing is back to normal. He requires 3 L of oxygen by nasal cannula to saturate in 92%. Patient wants to go home. Has good appetite and oral intake. Medications: Reviewed: Yes Vitals/I&O/Wt Last Vital Signs Temp 97.9 F 09/09/20 10:52 Pulse 77 09/09/20 10:52 Resp 17 09/09/20 10:52 BP 100/69 09/09/20 10:52 Pulse Ox 92 09/09/20 10:52 09/08/20 09/09/20 09/09/20 22:59 06:59 14:59 Intake Total 800 / 1090 790 / 1880 240 / 240 Output Total 750 / 1450 1300 / 2750 500 / 500 Balance 50 / -360 -510 / -870 -260 / -260 Physical Exam Narrative: EXAM NARRATIVE: His lungs are clear. Heart is regular. Lower extremities show no edema. Abdomen is soft and nontender with positive bowel sounds. Data : 09/09/20 09:10 09/09/20 09:10 A&P Assessment and plan (1) Complaint of melena: Concern for slow NSAID induced gastritis related upper GI bleed. Status: Acute (2) Community acquired pneumonia: Status: Acute (3) Severe sepsis: As exhibited by tachycardia, tachypnea, leukocytosis and reported fever along with elevated lactic acid and bilirubin. Status: Acute (4) Atrial flutter with rapid ventricular response: Status: Inactive (5) Obesity (BMI 30.0-34.9): Status: Acute (6) Diabetes: Type II, [id number]. Status: Chronic Qualifiers: Diabetes mellitus type: type 2 Diabetes mellitus custodial insulin use: without custodial use Diabetes mellitus complication status: without complication Qualified Code(s): E11.9 - Type 2 diabetes mellitus without complications (7) Acute on chronic clinical systolic heart failure: EF 30%. Status: Acute (8) Acute respiratory failure with hypoxia: Status: Acute (9) Medication induced coagulopathy: Secondary to Eliquis. Status: Acute (10) Benign prostatic hyperplasia: Status: Acute Additional A&P Information PLAN: Continue current monitoring and treatment. Will discuss with Dr. Galvez and we will likely be able to dismiss patient home today after home O2 evaluation. Attestations Medical Necessity Statement*: Patient with pneumonia and heart failure with a flutter requires inpatient monitoring and treatment until deemed safe for discharge. 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
[2020-09-09 11:21] LABS: Glucose Point of Care 241 mg/dL (70-110)
--- NOTE | 2020-09-09 11:39 | PM.DCS ---
Discharge Providers Date of Admission: 09/02/20 17:00 Date of Discharge: September 09, 2020 Attending Provider at Admission: Lee Coronado MD Attending Provider at Discharge: Lee Coronado MD Primary Care Provider: Gumaro Whatley MD Diagnoses at Discharge Discharge Diagnosis (1) Complaint of melena: Status: Acute Permanent problem details: Resolved (2) Community acquired pneumonia: Status: Acute Permanent problem details: Resolved (3) Severe sepsis: Status: Acute Permanent problem details: Resolved (4) Atrial flutter with rapid ventricular response: Status: Inactive (5) Obesity (BMI 30.0-34.9): Status: Acute (6) Diabetes: Status: Chronic Qualifiers: Diabetes mellitus complication status: without complication Diabetes mellitus intermediate insulin use: without exterminator helper termite use Diabetes mellitus type: type 2 Qualified Code(s): E11.9 - Type 2 diabetes mellitus without complications (7) Acute on chronic clinical systolic heart failure: Status: Acute Permanent problem details: Improved (8) Acute respiratory failure with hypoxia: Status: Acute Permanent problem details: Improved (9) Medication induced coagulopathy: Status: Acute (10) Benign prostatic hyperplasia: Status: Acute Reason for Visit Reason for Visit: DIFF BREATHING, COUGHING, UNSTABLE HR, COVID(-)SUN Hospital Course Hospital Course Patient presented with gradually worsening shortness of breath and diagnosed with acute hypoxic respiratory failure secondary to bilateral pneumonia as well as acute heart failure. Patient was found to be in atrial flutter with rapid ventricular response. Patient was treated with antibiotics, diuretics and siobhan blocking agents. Patient absolutely refused to consider electrical cardioversion. His heart rate gradually improved with medication adjustments and this morning patient reports feeling much better and wants to go home. Reports that his shortness of breath completely resolved and he does not have any cough. On exam his lungs are clear. Patient received 1 week of antibiotics and therefore I will not continue anymore. Discussed with Dr. Galvez this morning and patient will be dismissed on twice daily Lasix and siobhan blocking agents he is currently on. We will request digoxin level next Monday and request outpatient follow-up with Dr. Galvez in 1 week. Patient was told to keep blood pressure, heart rate log 3 times daily to present to Dr. Bradley for medication adjustment. He initially reported melanotic stool which he did not have anymore. His hemoglobin is stable. Patient was told not to take NSAIDs and Vietnamese aspirin and only take small dose enteric-coated aspirin. Patient started on high-dose PPI and if melanotic stool recurs patient will need to have further evaluation with endoscopy. Patient was told to continue using LifeVest. We will perform home O2 evaluation prior to discharge. Physical Exam Narrative: EXAM NARRATIVE: Lungs are clear and heart is regular. No lower extremity edema. Abdomen is soft and nontender with positive bowel sounds. Discharge Data Data Completed and Pending: Completed Studies During Hospitalization Category Date Time Status CT angio chest PE protcl [id number] Urge nt Cat Scan 09/02/20 14:34 Completed XR chest 1V tarah ble [id number] Routine Exams 09/05/20 07:00 Completed XR chest 1V tarah ble [id number] Stat Exams 09/02/20 14:33 Completed CV echo limited 9 [id number] Routine Ultrasound 09/06/20 Completed US gall bladder 7 6705 Routine Ultrasound 09/03/20 07:00 Completed Pending at discharge Category Date Time Status ABG FULL [Arteria l Blood Gas Full] Routine Lab 09/05/20 04:14 Results Complete Blood Co unt w/Auto AM LABS Lab 09/10/20 04:00 Ordered Complete Blood Co unt w/Auto AM LABS Lab 09/11/20 04:00 Ordered Complete Blood Co unt w/Auto AM LABS Lab 09/12/20 04:00 Ordered Comprehensive Met abolic Panel AM LA BS Lab 09/10/20 04:00 Ordered Comprehensive Met abolic Panel AM LA BS Lab 09/11/20 04:00 Ordered Comprehensive Met abolic Panel AM LA BS Lab 09/12/20 04:00 Ordered Immunochemical Fe lay OCB Routine Lab 09/02/20 17:58 Uncollected Magnesium AM LABS Lab 09/10/20 04:00 Ordered Magnesium AM LABS Lab 09/11/20 04:00 Ordered Magnesium AM LABS Lab 09/12/20 04:00 Ordered Sputum Culture an d Gram Stain Prema ne Lab 09/02/20 20:06 Uncollected Labs from last 24 hours 09/09/20 09/09/20 09/09/20 10:50 09:10 09:10 WBC 10.7 H RBC 5.22 Hgb 14.8 Hct 49.2 MCV 94.3 H MCH 28.4 MCHC 30.1 RDW 15.4 H Plt Count 356 MPV 11.6 H Neut % (Auto) 79.8 Lymph % (Auto) 10.5 Glynn % (Auto) 4.5 Eos % (Auto) 2.4 Baso % (Auto) 1.4 Neut # (Auto) 8.55 H Lymph # (Auto) 1.1 Glynn # (Auto) 0.5 Eos # (Auto) 0.3 Baso # (Auto) 0.2 H Nucleated RBC % (a uto) 0 Nucleated RBCs # 0.0 Sodium 137 Potassium 4.2 Chloride 98 Carbon Dioxide 29 Anion Gap 14.2 BUN 27 H Creatinine 1.0 GFR Calculation 77.0 L Glucose 205 H POC Glucose 241 H Calculated Osmolal ity 295 Calcium 8.9 Total Bilirubin 0.5 AST 34 ALT 85 H Alkaline Phosphata se 81 Total Protein 7.4 Albumin 2.9 L Globulin 4.5 Vancomycin Trough 09/09/20 09/08/20 09/08/20 06:39 19:33 16:41 WBC RBC Hgb Hct MCV MCH MCHC RDW Plt Count MPV Neut % (Auto) Lymph % (Auto) Glynn % (Auto) Eos % (Auto) Baso % (Auto) Neut # (Auto) Lymph # (Auto) Glynn # (Auto) Eos # (Auto) Baso # (Auto) Nucleated RBC % (a uto) Nucleated RBCs # Sodium Potassium Chloride Carbon Dioxide Anion Gap BUN Creatinine GFR Calculation Glucose POC Glucose 173 H 216 H 260 H Calculated Osmolal ity Calcium Total Bilirubin AST ALT Alkaline Phosphata se Total Protein Albumin Globulin Vancomycin Trough 09/08/20 09/08/20 13:01 12:11 WBC RBC Hgb Hct MCV MCH MCHC RDW Plt Count MPV Neut % (Auto) Lymph % (Auto) Glynn % (Auto) Eos % (Auto) Baso % (Auto) Neut # (Auto) Lymph # (Auto) Glynn # (Auto) Eos # (Auto) Baso # (Auto) Nucleated RBC % (a uto) Nucleated RBCs # Sodium Potassium Chloride Carbon Dioxide Anion Gap BUN Creatinine GFR Calculation Glucose POC Glucose 192 H Calculated Osmolal ity Calcium Total Bilirubin AST ALT Alkaline Phosphata se Total Protein Albumin Globulin Vancomycin Trough 19.0 H Vitals: Last Vital Signs Temp 97.9 F 09/09/20 10:52 Pulse 77 09/09/20 10:52 Resp 17 09/09/20 10:52 BP 100/69 09/09/20 10:52 Pulse Ox 92 09/09/20 10:52 Discharge Plan Discharge Patient Disposition: Home Condition: Stable Prescriptions: New bisacodyl 5 mg Tablet,Delayed Release (Dr/Ec) 10 mg PO DAILY PRN (Reason: Constipation) Qty: 30 RF: 0 digoxin 250 mcg (0.25 mg) Tablet 125 mcg PO DAILY Qty: 30 RF: 0 metoprolol succinate 50 mg Tablet Extended Release 24 Hr 50 mg PO DAILY@2100 Qty: 30 RF: 0 furosemide [Lasix] 40 mg tablet 40 mg PO BID Qty: 60 RF: 0 aspirin [Ecotrin Low Strength] 81 mg tablet,delayed release (DR/EC) 81 mg PO DAILY Qty: 30 RF: 0 pantoprazole 40 mg Tablet,Delayed Release (Dr/Ec) 40 mg PO BID Qty: 60 RF: 0 potassium chloride [Klor-Con M20] 20 mEq Tablet,Er Particles/Crystals 20 meq PO BID Qty: 60 RF: 0 Continued Pacerone 200 mg tablet 400 mg PO BID@09,18 RF: 0 metoprolol succinate 100 mg tablet extended release 24 hr 100 mg PO DAILY@0900 RF: 0 lisinopril 5 mg tablet 5 mg PO DAILY@0900 RF: 0 Eliquis 5 mg tablet 5 mg PO BID@09,18 RF: 0 metformin 1,000 mg Tablet 1,000 mg PO BID@0900,1800 RF: 0 glipizide 10 mg tablet 10 mg PO BID@,18 RF: 0 Discontinued furosemide 40 mg tablet 40 mg PO DAILY@09 RF: 0 Klor-Con M20 20 mEq tablet,ER particles/crystals 20 meq PO DAILY@0900 RF: 0 Vietnamese Aspirin 1 tab PO DAILY@0900 RF: 0 Other Ambulatory Orders: Comprehensive Metabolic Panel (Routine) Timeframe: 20200914 Facility: [facility] - Location: Lab - Main Lab Ordered By: Lee Coronado Digoxin (Routine) Timeframe: 20200914 Facility: [facility] - Location: Lab - Main Lab Ordered By: Lee Coronado Referrals: Gumaro Whatley MD [Primary Care Provider] - Osmar Galvez MD [Physician] - 1 week Discharge Diet: Advance as tolerated Discharge Activity: Increase activity as tolerated Activity Restrictions/Additional Instructions: Please call your doctor or present to emergency department if your condition worsens or you develop diarrhea, lightheadedness, fatigue or see blood in your stool or black stool. Please do not take Vietnamese aspirin or any other NSAIDs including ibuprofen, Advil etc. and only take 81 mg enteric-coated aspirin to avoid melanotic stools and GI bleed. Please discuss with your doctor next visit to consider decreasing Protonix to once daily. Please notify your doctor if you again develop melanotic stool (black stool) as you will need to be further evaluated for GI bleed with endoscopy. Please keep blood pressure and heart rate log 3 times daily to present to Dr. Galvez next visit for medication adjustment. Please discuss with your doctor regarding holding amiodarone, metoprolol or digoxin if your heart rate drops below 60. Please note that you will need to have blood work performed to check digoxin level in several days with results sent to Dr. Galvez. Please wear LifeVest as was previously prescribed. Please follow-up with your primary care physician within next 4 to 7 days. 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
--- NOTE | 2020-09-09 19:45 | P.PN_ITS ---
Subjective Subjective: Interval history: Feeling better heart rate is somewhat under control appear to be euvolemic. Medications: Reviewed: Yes Vitals/I&O/Wt Last Vital Signs Temp 97.9 F 09/09/20 15:56 Pulse 77 09/09/20 15:56 Resp 17 09/09/20 15:56 BP 104/78 09/09/20 15:56 Pulse Ox 94 09/09/20 15:56 09/09/20 09/09/20 09/09/20 06:59 14:59 22:59 Intake Total 790 / 1880 480 / 480 Output Total 1300 / 2750 1000 / 1000 Balance -510 / -870 -520 / -520 Physical Exam Narrative: EXAM NARRATIVE: GENERAL: Patient is alert, awake and oriented x3. NECK: No jugular vein distension. HEENT: No cyanosis. No icterus. No pallor. HEART: Regular S1 and S2. No murmur, rub or gallop. LUNGS: Clear to auscultate bilaterally. ABDOMEN: Soft, nontender and nondistended. Positive bowel sounds. No guarding, rebound or tenderness. CENTRAL NERVOUS SYSTEM: Grossly nonfocal. EXTREMITIES: Lower extremities without edema bilaterally. Pulses palpable in the lower extremities, both dorsalis pedis and posterior tibial. Data : 09/09/20 09:10 09/09/20 09:10 A&P Assessment and plan (1) Atrial flutter: Rate is reasonable control but patient would like to go home and does not like cardioversion which he declined. We will switch to 400 mg p.o. twice daily amiodarone, continue digoxin continue metoprolol and anticoagulation Status: Acute Qualifiers: Atrial flutter type: unspecified Qualified Code(s): I48.92 - Unspecified atrial flutter (2) Mitral valve regurgitation: Continue current regimen and diuresis Status: Acute Qualifiers: Cardiac valve disease etiology: nonrheumatic Qualified Code(s): I34.0 - Nonrheumatic mitral (valve) insufficiency (3) Heart failure, systolic, acute: Well compensated. Continue p.o. Lasix 40 mg twice a day potassium chloride 20 mg twice a day Status: Acute (4) Cardiomyopathy: Nonischemic cardiomyopathy most likely dilated versus tachycardia induced. 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
== END 2020-09-09 15:45 | disposition home or self-care (01) | DRG 871 ==
LOC: ER 16:41 → CSU 17:50
PROVIDERS: Internal Medicine; Physician Assistant; Admitting Provider Internal Medicine; Emergency Provider Family Medicine; PCP Internal Medicine; Visit Provider Internal Medicine
DX: A41.9 Sepsis, unspecified organism (principal); J18.9 Pneumonia, unspecified organism; I50.23 Acute on chronic systolic (congestive) heart failure; J96.01 Acute respiratory failure with hypoxia; I42.0 Dilated cardiomyopathy; E87.2 Acidosis; I48.92 Unspecified atrial flutter; K92.1 Melena; D68.9 Coagulation defect, unspecified; R65.20 Severe sepsis without septic shock; I48.91 Unspecified atrial fibrillation; E11.9 Type 2 diabetes mellitus without complications; E66.01 Morbid (severe) obesity due to excess calories; Z68.34 Body mass index [BMI] 34.0-34.9, adult; K29.70 Gastritis, unspecified, without bleeding; T39.395A Adverse effect of other nonsteroidal anti-inflammatory drugs [NSAID], initial encounter; N40.0 Benign prostatic hyperplasia without lower urinary tract symptoms; T45.515A Adverse effect of anticoagulants, initial encounter; I34.0 Nonrheumatic mitral (valve) insufficiency; Z79.84 Long term (current) use of oral hypoglycemic drugs; Z79.01 Long term (current) use of anticoagulants
CPT/HCPCS: 12345; 36415; 36416; 36600; 71045; 71275; 76705; 80051; 80053; 80162; 80202; 82330; 82728; 82803; 82805; 82962; 83540; 83605; 83735; 83880; 84145; 84443; 84484; 85025; 85378; 85384; 85610; 85730; 86140; 86403; 87040; 87070; 87205; 87426; 87449; 87635; 87804; 93005; 93308; 94640; 94660; 96372; 99282; J0696; J1160; J1815; J1940; J1956; J2060; J2543; J3370; J3490; J3535; J7040; J7050; Q9967

== ENCOUNTER 2020-09-15 09:53 | Outpatient (CLI) | payer MEDICAID, SELFPAY ==
[2020-09-15 10:47] LABS: Alanine Aminotransferase 39 U/L (0-41); Albumin Level 3.8 g/dL (3.5-5.2); Alkaline Phosphatase 63 IU/L (40-130); Anion Gap 15.3 (5-19); Aspartate Amino Transferase 18 U/L (0-40); Blood Urea Nitrogen 19 mg/dL (6-20); Calcium 9.3 mg/dL (8.5-10.5); Carbon Dioxide 26 mmol/L (22-29); Chloride 100 mmol/L (98-107); Globulin 3.3 g/dL (1.3-4.6); Glucose 134 mg/dL (65-115); Osmolality Calculated 288 mOsm/kg (285-295); Potassium 4.3 mmol/L (3.5-5.1); Sodium 137 mmol/L (136-145); Total Bilirubin 0.4 mg/dL (0.15-1.2); Total Protein 7.1 g/dL (6.6-8.7)
[2020-09-15 13:17] LABS: Digoxin 0.7 ng/mL (0.6-1.2)
== END 2020-09-15 09:54 | disposition home or self-care (01) ==
PROVIDERS: PCP Internal Medicine; Visit Provider Internal Medicine
DX: I48.92 Unspecified atrial flutter (principal); I50.23 Acute on chronic systolic (congestive) heart failure
CPT/HCPCS: 80053; 80162

== ENCOUNTER → 2020-11-19 14:35 | Outpatient (BNVA) | payer MEDICAID, SELFPAY | PROVIDERS: PCP Internal Medicine; Visit Provider Family Medicine Adult Medicine | DX: E11.9 Type 2 diabetes mellitus without complications (principal); I42.0 Dilated cardiomyopathy; Z91.19 Patient's noncompliance with other medical treatment and regimen; N20.0 Calculus of kidney; R30.9 Painful micturition, unspecified; E66.9 Obesity, unspecified; I50.20 Unspecified systolic (congestive) heart failure; I34.0 Nonrheumatic mitral (valve) insufficiency; I48.92 Unspecified atrial flutter | CPT/HCPCS: 80053; 83036 ==

== ENCOUNTER 2020-12-14 13:34 | Outpatient (CLI) | payer MEDICAID, SELFPAY ==
--- NOTE | 2020-12-14 13:00 | XRR_ITS ---
PROCEDURE INFORMATION: Exam: XR Abdomen Exam date and time: 12/14/2020 1:41 PM Age: 55 years old Clinical indication: Condition or disease; Kidney or ureter condition; Calculus (stone) in kidney; Prior surgery; Surgery type: Pacemaker; Additional info: HX of kidney stones TECHNIQUE: Imaging protocol: XR of the abdomen. Views: Frontal supine view of the abdomen. 1 View. COMPARISON: No relevant prior studies available. FINDINGS: Gastrointestinal tract: No dilated gas-filled loops of bowel. Organs: There is left nephrolithiasis. There is a bladder calculus. Bones/joints: Multilevel degenerative changes in the lumbar spine, more so inferiorly. XR/XR KUB [id number] IMPRESSION: 1. Left nephrolithiasis. 2. Bladder calculus.
== END 2020-12-14 13:35 | disposition home or self-care (01) ==
LOC: RAD 13:41
PROVIDERS: PCP Internal Medicine; Visit Provider Nurse Practitioner Family
DX: Z87.442 Personal history of urinary calculi (principal); N20.0 Calculus of kidney; N21.0 Calculus in bladder
CPT/HCPCS: 74018; 81003

== ENCOUNTER 2021-01-11 11:27 | Emergency (ER) | payer MEDICAID, SELFPAY ==
[2021-01-11 12:35] VITALS: BP 138/93; PULSE 80; RESP 18; TEMP 36.8; O2SAT 96; BMI 29.8
[2021-01-11 13:55] LABS: Basophils # 0.1 10^3/uL (0.0-0.1); Basophils % 0.4 %; Eosinophils # 0.1 10^3/uL (0.0-0.8); Eosinophils % 0.5 %; Hematocrit 45.8 % (42.0-52.0); Hemoglobin 14.7 g/dL (11.7-16.6); Lymphocytes # 1.7 10^3/uL (0.8-4.8); Lymphocytes % 14.4 %; Mean Corpuscular HGB Conc 32.1 g/dL (30.0-36.0); Mean Corpuscular Volume 87.2 fL (80-94); Mean Platelet Volume 11.7 fL (7.4-10.4); Monocytes # 0.8 10^3/uL (0.2-0.9); Monocytes % 6.5 %; Neutrophils # 9.21 10^3/uL (1.8-7.7); Neutrophils % 77.8 %; Nucleated Red Blood Cells % 0 %; Platelet Count 198 10^3/cmm (130-400); Red Blood Count 5.25 10^6/uL (4.1-5.3); Red Cell Distribution Width 15.6 % (12.1-15.1); White Blood Count 11.9 10^3/uL (4.0-10.0)
[2021-01-11 14:17] LABS: Alanine Aminotransferase 29 U/L (0-41); Albumin Level 3.9 g/dL (3.5-5.2); Alkaline Phosphatase 50 IU/L (40-130); Anion Gap 15.5 (5-19); Aspartate Amino Transferase 18 U/L (0-40); Blood Urea Nitrogen 19 mg/dL (6-20); Calcium 8.6 mg/dL (8.5-10.5); Carbon Dioxide 25 mmol/L (22-29); Chloride 104 mmol/L (98-107); Globulin 2.7 g/dL (1.3-4.6); Glomerular Filtration Rate 99.6 mL/min (90-130); Glucose 104 mg/dL (65-115); Osmolality Calculated 293 mOsm/kg (285-295); Potassium 4.5 mmol/L (3.5-5.1); Sodium 140 mmol/L (136-145); Total Bilirubin 0.9 mg/dL (0.15-1.2); Total Protein 6.6 g/dL (6.6-8.7)
[2021-01-11 15:40] LABS: Blood Urine 3+ (Negative); Glucose Urine UA Trace (Normal); Ketones Urine Negative (Negative); Nitrate Urine Negative (Negative); Protein Urine 1+ (Negative); Urine Appearance Bloody (CLEAR); Urine Color Red (Yellow); pH Urine 7 (5-7)
[2021-01-11 15:41] LABS: Bilirubin Urine Neg (Negative); Leukocyte Esterase Urine Trace (Negative); Urobilinogen Urine Norm (Negative)
--- NOTE | 2021-01-11 15:42 | ED_ITS ---
HPI - Male Genitourinary General: Chief complaint: Urogenital-Male Stated complaint: Blood in Urine/Trouble Urinating Time Seen by Provider: 01/11/21 15:40 History of Present Illness: HPI Narrative: 55-year-old male comes in complaining of difficulty with urination. He spent having frequency of urination is also noticed that gross hematuria. Patient is on Eliquis due to atrial fibrillation he also has a cardiomyopathy started the Eliquis late last year. This the first time he has had hematuria he is also had ureterolithiasis reviewing his chart there is visits at the urologist. He has discomfort with urination he denies any fever sweats chills denies any flank pain. MD Complaint: dysuria Onset (ago): day(s) Duration: intermittent Severity: moderate Quality: burning Relieving factors: none Exacerbating factors: urination Associated symptoms: Reports dysuria and hematuria; Deny discharge, fevers/chills, nausea, rash, swelling, urinary incontinence, urinary retention, mass or vomiting Review of Systems Const: Denies: fever(s), chills, body aches, change in appetite, fatigue or malaise ENMT: Denies: throat pain, ear or mastoid pain, nasal discharge or nasal congestion Card: Denies: chest pain, edema, dyspnea on exertion or orthopnea Resp: Denies: dyspnea, productive cough or non-productive cough GI: Denies: nausea or vomiting : Reports: dysuria and hematuria; Denies: urinary incontinence Skin/Breast: Denies: rash or pruritus PFSH ED PFSH: Medical History Atrial fibrillation with controlled ventricular rate Atrial flutter Cardiac resynchronization therapy defibrillator (INSULATION SUPERVISOR-D) in place Cardiomyopathy Diabetes Hepatomegalia Medication induced coagulopathy Noncompliance Obesity (BMI 30.0-34.9) Person under investigation for COVID-19 Systolic heart failure Urolithiasis Surgical History S/P AV siobhan ablation Family History Father , AT AGE 77 Heart disease Mother , AT 75 Heart disease Other CAD (coronary artery disease) Hypertension Social History Smoking and tobacco status: never smoked Alcohol intake: never Marital status: Current occupational status: disabled History of recent travel: No Physical Exam Const: COMMON NORMALS: no acute distress GENERAL APPEARANCE: cooperative and comfortable ORIENTATION/CONSCIOUSNESS: Yes awake, Yes oriented to person, Yes oriented to place and Yes oriented to time HENMT: COMMON NORMALS: normocephalic, atraumatic, hearing grossly normal bilaterally, external ears normal, EAC's normal and TM's normal bilaterally HEAD & SCALP: normocephalic and atraumatic EXTERNAL EAR: Yes external ears normal EXTERNAL AUDITORY CANAL: EAC's normal TYMPANIC MEMBRANE: TM's normal bilaterally Neck/C-Spine: COMMON NORMALS: no JVD Resp: COMMON NORMALS: normal respiratory effort, No retractions, No use of accessory muscles and clear to auscultation bilaterally AUSCULTATION: clear to auscultation bilaterally Cardio: COMMON NORMALS: no JVD, regular rate, regular rhythm and No murmurs present (Cardio) RATE: regular rate RHYTHM: regular rhythm GI: COMMON NORMALS: Soft to palpation and No hepatosplenomegaly present AUSCULTATION: Yes normoactive bowel sounds PALPATION: Yes Soft to palpation, No Tenderness to palpation present (GI), No Guarding due to palpation present (GI) and Yes No hepatosplenomegaly present Extremity: COMMON NORMALS: normal to inspection, capillary refill normal, no clubbing, cyanosis or edema, no calf tenderness and no pedal edema Neuro: SENSORIUM/ORIENTATION: Yes oriented to person, Yes oriented to place and Yes oriented to time Skin: COMMON NORMALS: no rashes or lesions noted GENERAL SKIN EXAM: no rashes or lesions noted Course Vital Signs: Vital signs: Vital Signs Temperature 98.2 F 01/11/21 12:35 Pulse Rate 81 01/11/21 17:54 Respiratory Rate 20 H 01/11/21 17:54 Blood Pressure 148/100 01/11/21 17:54 Pulse Oximetry 98 01/11/21 17:54 MDM - Male MDM Narrative: Medical decision making narrative: Hematuria most certainly due to the Eliquis probably exacerbated by the history of nephrolithiasis. We will start him on some antibiotics to cover at this point we will have to continue his Eliquis Follow-up with cardiology and urology Lab Data: Labs: Lab Results 01/11/21 01/11/21 01/11/21 Range/Units 13:43 13:44 13:44 WBC 11.9 H (4.0-10.0) 10^3/ uL RBC 5.25 (4.1-5.3) 10^6/u L Hgb 14.7 (11.7-16.6) g/dL Hct 45.8 (42.0-52.0) % MCV 87.2 (80-94) fL MCH 28.0 (28.0-34.0) pg MCHC 32.1 (30.0-36.0) g/dL RDW 15.6 H (12.1-15.1) % Plt Count 198 (130-400) 10^3/c mm MPV 11.7 H (7.4-10.4) fL Neut % (Auto) 77.8 % Lymph % (Auto) 14.4 % Calhoun % (Auto) 6.5 % Eos % (Auto) 0.5 % Baso % (Auto) 0.4 % Neut # (Auto) 9.21 H (1.8-7.7) 10^3/u L Lymph # (Auto) 1.7 (0.8-4.8) 10^3/u L Calhoun # (Auto) 0.8 (0.2-0.9) 10^3/u L Eos # (Auto) 0.1 (0.0-0.8) 10^3/u L Baso # (Auto) 0.1 (0.0-0.1) 10^3/u L Nucleated RBC % (a uto) 0 % Nucleated RBCs # 0.0 /100WBC Sodium 140 (136-145) mmol/L Potassium 4.5 (3.5-5.1) mmol/L Chloride 104 (98-107) mmol/L Carbon Dioxide 25 (22-29) mmol/L Anion Gap 15.5 (5-19) BUN 19 (6-20) mg/dL Creatinine 0.8 (0.7-1.2) mg/dL GFR Calculation 99.6 (90-130) mL/min Glucose 104 (65-115) mg/dL Calculated Osmolal ity 293 (285-295) mOsm/k g Calcium 8.6 (8.5-10.5) mg/dL Total Bilirubin 0.9 (0.15-1.2) mg/dL AST 18 (0-40) U/L ALT 29 (0-41) U/L Alkaline Phosphata se 50 (40-130) IU/L Total Protein 6.6 (6.6-8.7) g/dL Albumin 3.9 (3.5-5.2) g/dL Globulin 2.7 (1.3-4.6) g/dL Urine Color Red (Yellow) Urine Appearance Bloody A (CLEAR) Urine pH 7 (5-7) Ur Specific Gravit y 1.010 (1.005-1.030) Urine Protein 1+ H (Negative) Urine Glucose (UA) Trace H (Normal) Urine Ketones Negative (Negative) Urine Blood 3+ H (Negative) Urine Nitrate Negative (Negative) Urine Bilirubin Neg (Negative) Urine Urobilinogen Norm (Negative) mg/dL Ur Leukocyte Jes ase Trace H (Negative) Urine RBC Too numerous to c nt H (0-2) /hpf Urine WBC 5-10 H (0-5) /hpf Ur Squamous Epith Cells None (0-5) /hpf Amorphous Sediment Not Reportable Urine Bacteria 1+ H (NONE) /hpf Discharge Plan Discharge Patient Disposition: Home Clinical Impression: Hematuria, Atrial flutter, Urolithiasis Condition: Stable Prescriptions: New Cipro 250 mg tablet 250 mg PO BID Qty: 14 RF: 0 No Action metoprolol tartrate 50 mg tablet 50 mg PO BID RF: 0 Lasix 40 mg tablet 40 mg PO DAILY RF: 0 aspirin [Adult Aspirin Regimen] 81 mg tablet,delayed release (DR/EC) 81 mg PO DAILY RF: 0 tamsulosin 0.4 mg capsule 0.4 mg PO DAILY RF: 0 lisinopril 5 mg tablet 5 mg PO DAILY@0900 RF: 0 Eliquis 5 mg tablet 5 mg PO BID@,18 RF: 0 Klor-Con M20 20 mEq Tablet,Er Particles/Crystals 20 meq PO BID Qty: 60 RF: 0 glipizide 10 mg tablet 5 mg PO BID@,18 RF: 0 metformin 1,000 mg tablet 500 mg PO BID@0900,1800 RF: 0 Discharge Orders: Discharge ED (Routine); Ordered 01/11/21 Ordered By: Hugo Eaton Referrals: Artis Patel MD [Primary Care Provider] - Discharge Diet: Usual diet Discharge Activity: Resume usual activity Patient Instructions: Opioid Safety Activity Restrictions/Additional Instructions: Follow-up with cardiology and with urology within the week. Coding Level of Care Code ED Casing In Line Setter for Chg Fwd Exam Comprehensive
[2021-01-11 15:51] LABS: Add Urine Culture? Yes; Bacteria Urine 1+ /hpf; RBC Urine TOO NUMEROUS TO CNT /hpf (0-2)
--- NOTE | 2021-01-11 16:55 | PC.NURSE ---
patient bladder was scanned and 40 mls of urine in bladder
[2021-01-11 17:54] VITALS: BP 148/100; PULSE 81; RESP 20; O2SAT 98
--- NOTE | 2021-01-12 10:47 | DCPLANNER ---
product mgmt dev manager had message to schedule a follow up appointment for patient with Dr. Georges. product mgmt dev manager called the office of Dr. Georges, spoke with Krystal, gave clinic patients information. product mgmt dev manager was told that patients information would be printed and reviewed. Clinic will call patient with appointment information.
--- NOTE | 2021-01-12 10:52 | DCPLANNER ---
customer acquisition manager had message to schedule a follow up appointment for patient with heart care. customer acquisition manager called [facility], spoke with Aliyah, gave clinic patients information. A follow up appointment was scheduled for patient for , January 21, 2021 at 10:00 with Daisy Warner NP. customer acquisition manager called patients daughter and gave her the appointment information.
--- NOTE | 2021-01-13 11:26 | DCPLANNER ---
Patient has a follow up appointment scheduled for Monday, January 22, 2021 at 11:[address] Georges. Clinic will call patient with appointment information.
--- NOTE | 2021-02-22 07:33 | DCPLANNER ---
Patient had a follow up appointment scheduled for 01.21.21 with Daisy at [facility] - patient did attend appointment.
--- NOTE | 2021-02-25 07:00 | DCPLANNER ---
Patient had a follow up appointment scheduled with Dr. wynn - patient did attend appointment.
== END 2021-01-11 17:56 | disposition home or self-care (01) ==
PROVIDERS: Physician Assistant; Emergency Provider Family Medicine; PCP Family Medicine Adult Medicine
DX: R31.9 Hematuria, unspecified (principal); I48.92 Unspecified atrial flutter; N20.9 Urinary calculus, unspecified; Z79.01 Long term (current) use of anticoagulants; Z79.84 Long term (current) use of oral hypoglycemic drugs; Z79.82 Long term (current) use of aspirin; E11.9 Type 2 diabetes mellitus without complications
CPT/HCPCS: 51798; 80053; 81001; 85025; 87086; 99282

== ENCOUNTER → 2021-01-14 08:37 | Outpatient (BNVA) | payer MEDICAID, SELFPAY | PROVIDERS: PCP Family Medicine Adult Medicine; Visit Provider Urology | DX: N21.0 Calculus in bladder (principal); R31.0 Gross hematuria; N21.9 Calculus of lower urinary tract, unspecified; Z20.822 Contact with and (suspected) exposure to COVID-19 | CPT/HCPCS: 87635 ==

== ENCOUNTER 2021-01-18 11:08 | Day surgery (SDC) | payer MEDICAID, SELFPAY ==
[2021-01-15 14:21] VITALS: BMI 29.9
[2021-01-18 11:39] LABS: Glucose Point of Care 167 mg/dL (70-110)
--- NOTE | 2021-01-18 11:56 | P.ANESASSM_ITS ---
Pre-Anesthetic Assessment Pre-Anesthetic Assessment: Height/Weight: Height 1.8 m Weight 97.522 kg Preop Diagnosis: Cystolithiasis Proposed Procedure: Operation Date: 01/18/21 12:00 Proposed Procedures p Cystolitholapaxy 71446 N21.0(Not Applicable) - Yovani Georges MD s Cystoscopy(Not Applicable) - Yovani Georges MD Familial anesthetic complications: none Was Beta Bertha taken within 24 hours: Yes Was Clonidine taken within 24 hours: N/A Last intake: Intake Last Liquid Date 01/18/21 Last Liquid Time 03:00 Last Solid Date 01/17/21 Last Solid Time 21:00 Social: Social History: No alcohol and No tobacco Exam: Pre-Anes Outpt Exam: alert, oriented x 3, clear to auscultation bilaterally and regular rate & rhythm Airway: MP: 3 Dentition: Full CV/HEM: CV/HEM: Arrythmia (a flutter) and CHF Comments: AICD Echo CONCLUSIONS 1-Moderately increased left ventricular cavity size. Severely decreased left ventricular systolic function. Global left ventricular hypokinesis. Left ventricular ejection fraction is estimated at 30%. 2-Moderately increase biatrial enlargement. 3-Moderate aortic valve calcification. No aortic valve stenosis. Trace aortic valve regurgitation. 4-Mildly thickened mitral valve. No mitral valve stenosis. Moderate mitral valve regurgitation. 5-Mild tricuspid valve regurgitation. 6-There is no pericardial effusion. 7-Pulmonary artery systolic pressure is within normal limits. 8-Right atrial pressure is around 15 mm of mercury. 9-There are no prior echocardiogram studies to compare. 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 No significant disease noted in the Left Main, LAD, Circumflex, or RCA coronary arteries. 2. The apex, mid posterior, mid septum, anterolateral, mid inferior mckeon are hypokinetic. 3. Moderate left ventricular systolic dysfunction. Ejection fraction of 35%. 4. Right heart cath indication: Cardiomyopathy new onset of heart failureRA 14 mmHgRV 59/5 mmHgPulmonary artery mean pressure 41 mmHgPulmonary capillary wedge 27 mmHgNo significant stepup notedCardiac output 5.0, cardiac index 3.0. Hepatic: Comments: hepatomegaly Metabolic: Metabolic: DM Anesthetic Plan: ASA status: 4 Anesthesia: General Risk of > 500 ml blood loss (7ml/kg in children): No PFSH Anesthesia PFSH: Medical History Atrial fibrillation with controlled ventricular rate Atrial flutter Cardiac resynchronization therapy defibrillator (GROUND MIXER-D) in place Cardiomyopathy Diabetes Hepatomegalia Medication induced coagulopathy Noncompliance Obesity (BMI 30.0-34.9) Person under investigation for COVID-19 Systolic heart failure Urolithiasis Surgical History S/P AV siobhan ablation Family History Father , AT AGE 77 Heart disease Mother , AT 75 Heart disease Other CAD (coronary artery disease) Hypertension Social History Smoking and tobacco status: never smoked Alcohol intake: never Marital status: Current occupational status: disabled History of recent travel: No Data Anesthesia Other Labs: Laboratory Results - last 48 hr 01/18/21 11:34 POC Glucose 167 H Cardiac Studies: No Data to Display
[2021-01-18] MEDS: sodium chloride 0.9% 1,000 ML 30 ML IV (12:15)
--- NOTE | 2021-01-18 12:15 | W.PM.OPSUD ---
Surgery/Procedure H&P Update DATE OF PROCEDURE: January 18, 2021 DATE H&P PERFORMED: 01/14/21 H&P UPDATE INFORMATION: I have reviewed H&P completed within last 30 days, I have examined patient prior to procedure, No changes to prior documentation and H&P is in [facility] EMR on date indicated PREOP DIAGNOSIS: Cystolithiasis PLANNED PROCEDURE: Operation Date: 01/18/21 12:00 Proposed Procedures p Cystolitholapaxy 33179 N21.0(Not Applicable) - Yovani Georges MD s Cystoscopy(Not Applicable) - Yovani Georges MD
[2021-01-18] MEDS: levofloxacin-dextrose 5 % 500 MG/100 ML PREMIX 100 MG IV (12:45)
--- NOTE | 2021-01-18 14:47 | PM.OP ---
Operative Report Date of procedure: January 18, 2021 Pre-op Diagnosis: Large bladder stone Post-op diagnosis: same Procedure Done: 1. Cystolitholapaxy >2.5 cm Specimens removed/disposition: Stone fragments Pathology: Stone fragments Surgeon: Destini Anesthesia: General Estimated blood loss: Less than 5 cc Urine output: Not measured Complications: None Findings: Large hard bladder stone requiring almost 2 hours of laser therapy to completely fragment. All fragments removed. Bladder intact without trauma at the completion of the procedure Condition: stable Disposition: PACU Brief History: The patient is a 55-year-old white male with at least a several year history of a well-known bladder stone. Recently he has become more symptomatic and sought care. Complained of interrupted stream and obstructive type symptoms. Also had gross hematuria and pain. Ultimately elected to proceed with endoscopic treatment of the stone. Procedure: After routine preoperative evaluation examination and obtaining of informed consent he was taken to the operating suite on 01/18/2021 where general anesthesia was administered without difficulty after appropriate timeout was performed, SCDs confirmed to be functioning, preoperative antibiotics administered, beta-mitzi protocol confirmed. Prepped and draped in the usual sterile fashion in dorsolithotomy position paying careful attention to avoiding pressure points. 21 Nauruan cystoscope with 30 degree lens was introduced into urethra meatus and advanced into the bladder to videoscopy. The bladder was systematically examined and the stone previously identified in clinic was confirmed. It was quite large occupying about a quarter of his bladder volume. A 365 ?m thulium superpulse laser fiber was utilized to fragment the stone. It took about 2 hours of working directly on the stone in order for this to be accomplished. Ultimately the stone was completely fragmented and all fragments removed sequentially over the course of the procedure and sent for pathologic evaluation. On final inspection there was minimal trauma to the bladder wall. The bladder was drained and the procedure was completed. He tolerated procedure well without complications and was awakened in the operating room and returned to the recovery in stable condition. PLANS: 1. Anticipate discharge from outpatient surgery 2. Follow-up in approximately 2 months with a flow rate PVR AUA symptom score. 3. Can restart his Eliquis tomorrow 4. Continue TAMSULOSIN for chronic bladder outlet obstructive symptoms.
[2021-01-18 14:54] VITALS: BP 122/95; PULSE 80; RESP 13; TEMP 36.2; O2SAT 90
[2021-01-18 15:00] VITALS: BP 126/91; PULSE 80; RESP 12; O2SAT 92
[2021-01-18 15:05] VITALS: BP 133/95; PULSE 80; RESP 16; TEMP 36.6; O2SAT 95
[2021-01-18 15:07] VITALS: BP 136/105; PULSE 81; RESP 18; TEMP 36.6; O2SAT 97
[2021-01-18 15:35] VITALS: BP 143/94; PULSE 81; RESP 18; TEMP 36.6; O2SAT 97
--- NOTE | 2021-01-18 15:55 | ANE.PACU2 ---
Inpatient post-anesthesia follow up: Airway intact: Yes Vital signs: Temperature 97.8 F Pulse Rate 81 Respiratory Rate 18 Blood Pressure 143/94 Pulse Oximetry 97 Oxygen Delivery Me thod Room Air Oxygen Flow Rate Fraction of Inspir ed Oxygen Hydration adequate: Yes Nausea and vomiting: No Pain level: 2 Mental status: Baseline
[2021-01-24 04:58] LABS: Stone Source BLADDER STONE
== END 2021-01-18 16:04 | disposition home or self-care (01) ==
PROVIDERS: PCP Family Medicine Adult Medicine; Visit Provider Urology
PROC: 0TCB8ZZ Extirpation of Matter from Bladder, Via Natural or Artificial Opening Endoscopic (ICD-10-PCS; CPT 52318; principal; 2021-01-18 12:00)
PROC: 0TJB8ZZ Inspection of Bladder, Via Natural or Artificial Opening Endoscopic (ICD-10-PCS; CPT 52000; 2021-01-18 12:00)
DX: N21.0 Calculus in bladder (principal); E11.9 Type 2 diabetes mellitus without complications; I48.91 Unspecified atrial fibrillation; Z91.19 Patient's noncompliance with other medical treatment and regimen; E66.9 Obesity, unspecified; Z68.30 Body mass index [BMI] 30.0-30.9, adult; I50.20 Unspecified systolic (congestive) heart failure; Z82.49 Family history of ischemic heart disease and other diseases of the circulatory system
CPT/HCPCS: 52318; 36416; 82365; 82962; 88300; 96365; J1100; J1956; J2250; J2405; J2704; J2710; J3010; J3490; J7030

== ENCOUNTER → 2021-02-22 11:33 | Outpatient (BNVA) | payer MEDICAID, SELFPAY | PROVIDERS: PCP Family Medicine Adult Medicine; Visit Provider Family Medicine Adult Medicine | DX: Z00.00 Encounter for general adult medical examination without abnormal findings (principal); I48.92 Unspecified atrial flutter; I50.9 Heart failure, unspecified; N40.0 Benign prostatic hyperplasia without lower urinary tract symptoms; E11.9 Type 2 diabetes mellitus without complications; I42.0 Dilated cardiomyopathy; I34.0 Nonrheumatic mitral (valve) insufficiency; R30.9 Painful micturition, unspecified; Z87.442 Personal history of urinary calculi | CPT/HCPCS: 83036; 84443 ==

== ENCOUNTER 2021-03-31 14:28 | Outpatient (CLI) | payer MEDICAID, SELFPAY ==
--- NOTE | 2021-03-31 14:37 | XR_ITS ---
WS: [id number] KUB, AP view, 03/31/2021 Clinical Data: BLADDER STONE Comparison: KUB, 12/14/2020. Findings: There are multiple left renal calculi, the largest measures 1.0 cm. There is none on the right. The b ladder stone is no longer present. The remainder the abdomen is unremarkable. XR/XR KUB [id number] Impression: 1. Negative for bladder stone. 2. No change in left renal calculi.
== END 2021-03-31 14:29 | disposition home or self-care (01) ==
LOC: RAD 14:36
PROVIDERS: PCP Family Medicine Adult Medicine; Visit Provider Urology
DX: N21.0 Calculus in bladder (principal)
CPT/HCPCS: 74018; 81003

== ENCOUNTER 2021-05-06 16:09 | Emergency (ER) | payer MEDICAID, SELFPAY ==
[2021-05-06] VITALS (10 sets, daily range): BP systolic 129–140; BP diastolic 84–98; PULSE 80–82; RESP 16–26; TEMP 36.7; O2SAT 95–98
--- NOTE | 2021-05-06 16:51 | USR_ITS ---
PROCEDURE INFORMATION: Exam: US Abdomen, Limited; Right Upper Quadrant Exam date and time: 05/06/2021 4:51 PM Age: 55 years old Clinical indication: Abdominal pain; Acute; Additional info: Jaundice TECHNIQUE: Imaging protocol: US abdomen. Real time ultrasound with image documentation. Limited exam focused on the right upper quadrant. COMPARISON: US gall bladder [id number] 09/03/2020 6:32 AM FINDINGS: Liver: The liver is of normal echogenicity measuring 17.5 cm. Gallbladder: Echogenic shadowing stones in the gallbladder measuring up to 1.1 cm. The gallbladder is partially contracted with a wall thickness of 6 mm. Positive Taylor's sign. Common bile duct: The common bile duct is normal measuring mm. No intrahepatic ductal dilatation. Pancreas: Visualized pancreas is unremarkable. Right kidney: Normal. No mass. No hydronephrosis. Portal venous: The main portal vein is patent with hepatopetal flow. US/US gall bladder [id number] IMPRESSION: 1. Cholelithiasis with a thickened gallbladder wall. Acute or chronic cholecystitis is not excluded. 2. Mild hepatomegaly. Radiation Dose CTDIVOL = (mGy): DLP = (mGy-cm)
--- NOTE | 2021-05-06 17:02 | ED_ITS ---
Documented by User: Hugo Eaton DO 05/07/21 07:13 HPI - General Adult General: Chief complaint: General Medical Stated complaint: Elevated liver enzyme, sent by [facility] Time Seen by Provider: 05/06/21 16:45 History of Present Illness: HPI narrative: 55-year-old male presents emergency room directed here by the cardiology clinic he was seen for routine visit was obviously jaundiced lab work done shows elevated liver enzymes and a T bili of 9.2. Patient reports chest and abdominal discomfort for the last 3 days with dark urine. He is also had some loose stools. He also noticed some yellowing of the skin. Patient speaks some Tanzanian but is supportive by a family member at the bedside who translates for him. He denying any chest pain or shortness of breath this time denies any fever denies any dysuria urgency or frequency. Onset (ago): day(s) (3) Severity: mild Relieving factors: none Exacerbating factors: none Associated symptoms: Reports chest pain (Present yesterday resolved today), decreased appetite, malaise and short of breath; Deny confusion, cough, diaphoresis, dyspnea, fevers/chills, headache(s), nausea, rash, palpitations, seizures, syncope, vomiting or weakness Treatments prior to arrival: none Review of Systems Const: Reports: malaise; Denies: diaphoresis ENMT: Denies: throat pain, ear or mastoid pain, nasal discharge or nasal congestion Card: Reports: chest pain (Present yesterday resolved today); Denies: palpitations or syncope Resp: Denies: dyspnea GI: Denies: nausea or vomiting : Denies: flank pain, dysuria, urinary frequency or urinary urgency Skin/Breast: Denies: rash Neuro: Denies: headache(s) or confusion PFS ED PFSH: Medical History Atrial fibrillation with controlled ventricular rate Atrial flutter Cardiac resynchronization therapy defibrillator (OIL PROSPECTING OBSERVER-D) in place Cardiomyopathy CHF (congestive heart failure) Diabetes Hepatomegalia History of kidney stones Medication induced coagulopathy Noncompliance Obesity (BMI 30.0-34.9) Painful micturition Person under investigation for COVID-19 Urolithiasis Wellness examination Surgical History S/P AV siobhan ablation Family History Father , AT AGE 77 Heart disease Mother , AT 75 Heart disease Other CAD (coronary artery disease) Hypertension Social History Alcohol intake: never Marital status: Current occupational status: disabled History of recent travel: No Physical Exam Const: COMMON NORMALS: no acute distress GENERAL APPEARANCE: cooperative and comfortable ORIENTATION/CONSCIOUSNESS: Yes awake, Yes oriented to person, Yes oriented to place and Yes oriented to time HENMT: COMMON NORMALS: normocephalic, atraumatic and hearing grossly normal bilaterally HEAD & SCALP: normocephalic and atraumatic Eye: COMMON NORMALS: Equal, round and reactive pupils present, EOMs intact bilaterally and no scleral icterus SCLERA: scleral abnormal (icterus) PUPIL: Yes Equal, round and reactive pupils present Neck/C-Spine: COMMON NORMALS: no JVD Lymph: LYMPHATIC: no lymphadenopathy noted and no lymphedema noted Resp: AUSCULTATION: crackles, breath sounds absent on the right (lower half) and diminished lung sounds Cardio: COMMON NORMALS: no JVD, regular rate, regular rhythm and No murmurs present (Cardio) RATE: regular rate RHYTHM: regular rhythm GI: COMMON NORMALS: Soft to palpation and No hepatosplenomegaly present AUSCULTATION: Yes normoactive bowel sounds PALPATION: Yes Soft to palpation, No Tenderness to palpation present (GI), No Guarding due to palpation present (GI) and Yes No hepatosplenomegaly present Extremity: COMMON NORMALS: normal to inspection, capillary refill normal, no clubbing, cyanosis or edema, no calf tenderness and no pedal edema Neuro: SENSORIUM/ORIENTATION: Yes oriented to person, Yes oriented to place and Yes oriented to time Skin: COMMON NORMALS: no rashes or lesions noted NARRATIVE SKIN EXAM: Significant jaundice noted on the scan. GENERAL SKIN EXAM: no rashes or lesions noted Course Vital Signs: Vital signs: Vital Signs Temperature 98.1 F 05/07/21 02:25 Pulse Rate 80 05/07/21 02:25 Respiratory Rate 16 05/07/21 02:25 Blood Pressure 137/88 05/07/21 02:25 Pulse Oximetry 97 05/07/21 02:25 MDM - General Adult MDM Narrative: Medical decision making narrative: Patient has significant [place] dice. T bili is over 9. Although he has no significant abdominal pain. Labs are pending care turned over to Dr. Banda at change of shift see his note for final diagnosis and disposition. Lab Data: Labs: Lab Results 05/06/21 05/06/21 05/06/21 17:08 17:08 17:08 PT 15.30 SECONDS H S ECONDS (12.1-14.9) INR 1.17 (0.8-1.2) APTT 26.8 SECONDS SECO NDS (23.9-36.7) Lactic Acid 2.1 mmol/L mmol/L (0.5-2.2) Lactic Acid (Sepsi s) Magnesium 2.1 mg/dL mg/dL (1.7-2.3) Ammonia Troponin T Baselin e Troponin T 120 Min [place] Troponin T Troponin T Hi Sens 6Hr Troponin T Hi Sens 6Hr Delta NT-Pro-B Natriuret Pep 4880 pg/mL H pg/m L (0-125) Lipase Acetaminophen < 5.0 ug/mL L ug/ mL (10-30) Hepatitis A IgM Ab Hep Bs Antigen Hep B Core IgM Ab Hepatitis C Antibo dy SARS-CoV-2 Ag (Rap id) 05/06/21 05/06/21 05/06/21 17:08 18:15 18:15 PT INR APTT Lactic Acid Lactic Acid (Sepsi s) Magnesium Ammonia 53 umol/L umol/L (16-60) Troponin T Baselin e 19 ng/L H ng/L (0-15) Troponin T 120 Min [place] Delta Troponin T Troponin T Hi Sens 6Hr Troponin T Hi Sens 6Hr Delta NT-Pro-B Natriuret Pep Lipase Acetaminophen Hepatitis A IgM Ab Non-reactive (Nonreactive) Hep Bs Antigen Non-reactive (Nonreactive) Hep B Core IgM Ab Non-reactive (Nonreactive) Hepatitis C Antibo dy Non-reactive (Nonreactive) SARS-CoV-2 Ag (Rap id) 05/06/21 05/06/21 05/06/21 19:22 19:32 19:58 PT INR APTT Lactic Acid Lactic Acid (Sepsi s) 1.9 mmol/L mmol/L (0.5-2.2) Magnesium Ammonia Troponin T Baselin e Troponin T 120 Min [place] Cancelled 17.92 ng/L H ng/L (0-15) Delta Troponin T Cancelled -1.08 ABS# L ABS# (0-10) Troponin T Hi Sens 6Hr Troponin T Hi Sens 6Hr Delta NT-Pro-B Natriuret Pep Lipase Acetaminophen Hepatitis A IgM Ab Hep Bs Antigen Hep B Core IgM Ab Hepatitis C Antibo dy SARS-CoV-2 Ag (Rap id) 05/06/21 05/06/21 05/06/21 20:45 22:56 22:58 PT INR APTT Lactic Acid Lactic Acid (Sepsi s) Magnesium Ammonia Troponin T Baselin e Troponin T 120 Min [place] Troponin T Troponin T Hi Sens 6Hr 20.38 ng/L H ng/L (0-15) Troponin T Hi Sens 6Hr Delta 1.38 ng/L ng/L (0-12) NT-Pro-B Natriuret Pep Lipase 37 U/L U/L (13-60) Acetaminophen Hepatitis A IgM Ab Hep Bs Antigen Hep B Core IgM Ab Hepatitis C Antibo dy SARS-CoV-2 Ag (Rap id) Negative (Negative) Discharge Plan Discharge Patient Disposition: Xfer Short-Term Hosp Clinical Impression: Cholecystitis, Cholelithiasis, Elevated bilirubin Condition: Stable Referrals: Artis Patel MD [Primary Care Provider] - Coding Level of Care Code ED Worship Pastor for Chg Fwd Exam Comprehensive Documented by User: Carlos Banda MD 05/06/21 23:25 HPI - General Adult General: Chief complaint: General Medical Stated complaint: Elevated liver enzyme, sent by Heart clinic Time Seen by Provider: 05/06/21 16:45 PFSH ED PFSH: Medical History Atrial fibrillation with controlled ventricular rate Atrial flutter Cardiac resynchronization therapy defibrillator (OIL PROSPECTING OBSERVER-D) in place Cardiomyopathy CHF (congestive heart failure) Diabetes Hepatomegalia History of kidney stones Medication induced coagulopathy Noncompliance Obesity (BMI 30.0-34.9) Painful micturition Person under investigation for COVID-19 Urolithiasis Wellness examination Surgical History S/P AV siobhan ablation Family History Father , AT AGE 77 Heart disease Mother , AT 75 Heart disease Other CAD (coronary artery disease) Hypertension Social History Alcohol intake: never Marital status: Current occupational status: disabled History of recent travel: No Course Vital Signs: Vital signs: Vital Signs Temperature 98.1 F 05/07/21 02:25 Pulse Rate 80 05/07/21 02:25 Respiratory Rate 16 05/07/21 02:25 Blood Pressure 137/88 05/07/21 02:25 Pulse Oximetry 97 05/07/21 02:25 MDM - General Adult MDM Narrative: Medical decision making narrative: Patient presents here with abdominal pain does have elevated liver enzymes slightly with a quite elevated bilirubin level. Patient's ultrasound here shows a thickened gallbladder wall with gallstones possible cholecystitis. Does have a normal common bile duct still concerned of possible stone count is elevated bilirubin his hepatitis panel here is normal. Will start on antibiotics I spoke to physician in [place] will transfer there for higher level of care for GI. Lab Data: Labs: Lab Results 05/06/21 05/06/21 05/06/21 17:08 17:08 17:08 PT 15.30 SECONDS H S ECONDS (12.1-14.9) INR 1.17 (0.8-1.2) APTT 26.8 SECONDS SECO NDS (23.9-36.7) Lactic Acid 2.1 mmol/L mmol/L (0.5-2.2) Lactic Acid (Sepsi s) Magnesium 2.1 mg/dL mg/dL (1.7-2.3) Ammonia Troponin T Baselin e Troponin T 120 Min [place] Troponin T Troponin T Hi Sens 6Hr Troponin T Hi Sens 6Hr Delta NT-Pro-B Natriuret Pep 4880 pg/mL H pg/m L (0-125) Lipase Acetaminophen < 5.0 ug/mL L ug/ mL (10-30) Hepatitis A IgM Ab Hep Bs Antigen Hep B Core IgM Ab Hepatitis C Antibo dy SARS-CoV-2 Ag (Rap id) 05/06/21 05/06/21 05/06/21 17:08 18:15 18:15 PT INR APTT Lactic Acid Lactic Acid (Sepsi s) Magnesium Ammonia 53 umol/L umol/L (16-60) Troponin T Baselin e 19 ng/L H ng/L (0-15) Troponin T 120 Min [place] Troponin T Troponin T Hi Sens 6Hr Troponin T Hi Sens 6Hr Delta NT-Pro-B Natriuret Pep Lipase Acetaminophen Hepatitis A IgM Ab Non-reactive (Nonreactive) Hep Bs Antigen Non-reactive (Nonreactive) Hep B Core IgM Ab Non-reactive (Nonreactive) Hepatitis C Antibo dy Non-reactive (Nonreactive) SARS-CoV-2 Ag (Rap id) 05/06/21 05/06/21 05/06/21 19:22 19:32 19:58 PT INR APTT Lactic Acid Lactic Acid (Sepsi s) 1.9 mmol/L mmol/L (0.5-2.2) Magnesium Ammonia Troponin T Baselin e Troponin T 120 Min [place] Cancelled 17.92 ng/L H ng/L (0-15) Delta Troponin T Cancelled -1.08 ABS# L ABS# (0-10) Troponin T Hi Sens 6Hr Troponin T Hi Sens 6Hr Delta NT-Pro-B Natriuret Pep Lipase Acetaminophen Hepatitis A IgM Ab Hep Bs Antigen Hep B Core IgM Ab Hepatitis C Antibo dy SARS-CoV-2 Ag (Rap id) 05/06/21 05/06/21 05/06/21 20:45 22:56 22:58 PT INR APTT Lactic Acid Lactic Acid (Sepsi s) Magnesium Ammonia Troponin T Baselin e Troponin T 120 Min [place] Troponin T Troponin T Hi Sens 6Hr 20.38 ng/L H ng/L (0-15) Troponin T Hi Sens 6Hr Delta 1.38 ng/L ng/L (0-12) NT-Pro-B Natriuret Pep Lipase 37 U/L U/L (13-60) Acetaminophen Hepatitis A IgM Ab Hep Bs Antigen Hep B Core IgM Ab Hepatitis C Antibo dy SARS-CoV-2 Ag (Rap id) Negative (Negative) Imaging Data^: US: Attestation: I personally reviewed and interpreted this imaging study as follows: Radiologist's impression: [address] [place] [address] Ultrasound Report Signed Patient: Conner Macdonald Unit #: [id number] : 1965 Age/Sex: 55 / M ADM Date: 05/06/21 Loc: ER Room/Bed: Attending Dr: Ordering Provider/Ordering MD: Hugo Eaton DO Date of Service: 05/06/21 Procedure(s): US gall bladder [id number] Accession Number(s): [id number] Report Number: [id number] PROCEDURE INFORMATION: Exam: US Abdomen, Limited; Right Upper Quadrant Exam date and time: 05/06/2021 4:51 PM Age: 55 years old Clinical indication: Abdominal pain; Acute; Additional info: Jaundice TECHNIQUE: Imaging protocol: US abdomen. Real time ultrasound with image documentation. Limited exam focused on the right upper quadrant. COMPARISON: US gall bladder [id number] 09/03/2020 6:32 AM FINDINGS: Liver: The liver is of normal echogenicity measuring 17.5 cm. Gallbladder: Echogenic shadowing stones in the gallbladder measuring up to 1.1 cm. The gallbladder is partially contracted with a wall thickness of 6 mm. Positive Taylor's sign. Common bile duct: The common bile duct is normal measuring mm. No intrahepatic ductal dilatation. Pancreas: Visualized pancreas is unremarkable. Right kidney: Normal. No mass. No hydronephrosis. Portal venous: The main portal vein is patent with hepatopetal flow. US/US gall bladder [id number] IMPRESSION: 1. Cholelithiasis with a thickened gallbladder wall. Acute or chronic cholecystitis is not excluded. 2. Mild hepatomegaly. Radiation Dose CTDIVOL = (mGy): DLP = (mGy-cm) Dictated By: Gautam Mills Signed By: Gautam Mills Signed Date/Time: 05/06/212032 DD/ 50 Discharge Plan Discharge Patient Disposition: Xfer Short-Term Hosp Clinical Impression: Cholecystitis, Cholelithiasis, Elevated bilirubin Condition: Stable Referrals: Artis Patel MD [Primary Care Provider] - Coding Level of Care Code ED Worship Pastor for Chg Fwd Exam Comprehensive
--- NOTE | 2021-05-06 17:04 | ECG_ITS ---
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 Measurements Intervals Powers Rate: 80 P: TN: QRS: -76 QRSD: 153 T: 73 QT: 450 QTc: 519 Interpretive Statements ATRIAL FLUTTER ELECTRONIC VENTRICULAR PACEMAKER ABNORMAL RHYTHM ECG Compared to ECG 09/08/2020 10:26:23 No significant change Electronically Signed On 05-07-2021 9:36:36 CDT by Maisha Subramanian M.D. [id number]
--- NOTE | 2021-05-06 17:16 | PC.NURSE ---
PATIENT CONNECTED TO POOL NURSE PER PROTOCOL.
--- NOTE | 2021-05-06 17:31 | PC.PHAR ---
pt had a family member with him that translated-pt states he hasnt taken aspirin in 2 years-pt states he is no longer taking flomax rx written in 02/22/21 from -pt states he takes kcl 20meq daily prn with lasix rx written on 02/22/21 for 20meq bid-
[2021-05-06 17:34] LABS: INR 1.17 (0.8-1.2)
[2021-05-06 17:35] LABS: Partial Thromboplastin Time 26.8 SECONDS (23.9-36.7)
[2021-05-06 17:40] LABS: Lactic Sepsis W/Reflex 2.1 mmol/L (0.5-2.2)
--- NOTE | 2021-05-06 17:42 | XRR_ITS ---
PROCEDURE INFORMATION: Exam: XR Chest Exam date and time: 05/06/2021 5:42 PM Age: 55 years old Clinical indication: Cough and shortness of breath; Additional info: Dyspnea/cough TECHNIQUE: Imaging protocol: XR of the chest. Views: 1 view. COMPARISON: CR XR chest 1V portable [id number] 09/05/2020 8:13 AM FINDINGS: Tubes, catheters and devices: Intact multi lead left subclavian pacemaker. Lungs: Unremarkable. No consolidation. Pleural spaces: Unremarkable. No pleural effusion. No pneumothorax. Heart/Mediastinum: The heart size is upper normal. Bones/joints: Unremarkable. XR/XR chest 1V portable [id number] IMPRESSION: No acute finding. Radiation Dose CTDIVOL = (mGy): DLP = (mGy-cm)
[2021-05-06 18:02] LABS: Troponin(5th) Baseline 19 ng/L (0-15)
[2021-05-06 18:06] LABS: Magnesium 2.1 mg/dL (1.7-2.3); NT Pro B Type Natriuretic Pept 4880 pg/mL (0-125)
[2021-05-06 18:07] LABS: Acetaminophen < 5.0 ug/mL (10-30)
--- NOTE | 2021-05-06 19:04 | CTR_ITS ---
PROCEDURE INFORMATION: Exam: CT Abdomen And Pelvis With Contrast Exam date and time: 05/06/2021 7:04 PM Age: 55 years old Clinical indication: Abnormal findings; Abnormal lab test; Prior surgery; Surgery type: Kidney stones, pacemaker; Patient HX: Weakness, elevated liver enzymes; Additional info: Antonia TECHNIQUE: Imaging protocol: Computed tomography of the abdomen and pelvis with contrast. Radiation optimization: All CT scans at this facility use at least one of these dose optimization techniques: automated exposure control; mA and/or kV adjustment per patient size (includes targeted exams where dose is matched to clinical indication); or iterative reconstruction. Contrast material: OMNI 300; Contrast volume: 95 ml; Contrast route: INTRAVENOUS (IV); COMPARISON: CR XR KUB [id number] 03/31/2021 3:04 PM RADIATION DOSE METRICS: Total DLP (mGy-cm): 1938.6 FINDINGS: Tubes, catheters and devices: Pacemaker leads in the heart. Lungs: 5 mm right middle lobe nodule. Liver: Normal. No mass. Gallbladder and bile ducts: Partially contracted gallbladder with multiple small calcified stones in the fundus. No visible wall thickening. No pericholecystic fluid. The bile ducts are normal. Pancreas: Normal. No ductal dilation. Spleen: Normal. No splenomegaly. Adrenal glands: Normal. No mass. Kidneys and ureters: Multiple nonobstructing left renal calculi, the largest measuring 12 mm. No ureteral calculus or hydronephrosis. The right kidney is normal. Stomach and bowel: Mild diverticulosis of the descending colon. No diverticulitis. The stomach and small bowel are unremarkable. No obstruction. Appendix: The appendix is not visualized. No secondary signs of appendicitis. Intraperitoneal space: Unremarkable. No free air. No significant fluid collection. Vasculature: Unremarkable. No abdominal aortic aneurysm. Lymph nodes: Unremarkable. No enlarged lymph nodes. Urinary bladder: Unremarkable as visualized. Reproductive: Unremarkable as visualized. Bones/joints: Degenerative changes of the spine. No fracture. Soft tissues: Fat containing left inguinal hernia. CT/CT abdomen pelvis w con* [id number] IMPRESSION: 1. No acute abnormality identified in the abdomen or pelvis. 2. Nonobstructing left renal calculi. 3. Cholelithiasis. 4. 5 mm right pulmonary nodule. For patients at low risk (minimal or absent history of smoking and of other known risk factors), no routine follow-up is indicated. For patients at high risk (history of smoking or of other known risk factors), consider optional CT Chest at 12 months. (Reference: Christine) References: Christine Erwin et al. Guidelines for Management of Incidental Pulmonary Nodules Detected on CT Images: From the Fleischner Society 2017. Radiology. 2017;284(1):228-243. Radiation Dose CTDIVOL = (mGy): DLP = 1938.6 (mGy-cm)
[2021-05-06 19:05] LABS: Reflex Lactate Order REFLEX LACTIC ORDERD
[2021-05-06 19:13] LABS: Ammonia 53 umol/L (16-60)
[2021-05-06] MEDS: iohexol 300 mg/mL 100 mL Btl IV (19:30)
[2021-05-06 19:45] LABS: Lactic Acid level (Lactate) 1.9 mmol/L (0.5-2.2)
[2021-05-06 20:31] LABS: Troponin 5 2HR 17.92 ng/L (0-15)
[2021-05-06 20:33] LABS: Troponin 5 2HR Delta -1.08 ABS# (0-10)
[2021-05-06 21:18] LABS: SARS Covid-2 Antigen Negative (Negative)
[2021-05-06 21:43] LABS: Hepatitis A Antibody IgM Non-Reactive (Nonreactive); Hepatitis B Core IgM Non-Reactive (Nonreactive); Hepatitis B Surface Antigen Non-Reactive (Nonreactive); Hepatitis C Virus Antibody Non-Reactive (Nonreactive)
[2021-05-06] MEDS: piperacillin-tazobactam 3.375 GM in sodium chloride 0.9% (plus) 50 ML IV (21:57)
[2021-05-06 23:41] LABS: Troponin 5 6HR 20.38 ng/L (0-15); Troponin 5 6HR Delta 1.38 ng/L (0-12)
[2021-05-06 23:43] LABS: Lipase 37 U/L (13-60)
[2021-05-07 01:19] VITALS: BP 137/88; PULSE 80; RESP 16; O2SAT 97
[2021-05-07 02:25] VITALS: BP 137/88; PULSE 80; RESP 16; TEMP 36.7; O2SAT 97
== END 2021-05-07 02:25 | disposition short-term general hospital (02) ==
PROVIDERS: Family Medicine; Emergency Provider Emergency Medicine; PCP Family Medicine Adult Medicine
DX: K80.10 Calculus of gallbladder with chronic cholecystitis without obstruction (principal); R17 Unspecified jaundice; I50.9 Heart failure, unspecified; E11.9 Type 2 diabetes mellitus without complications; Z20.822 Contact with and (suspected) exposure to COVID-19
CPT/HCPCS: 36415; 71045; 74177; 76705; 80053; 80074; 80307; 82140; 82150; 82247; 82248; 82977; 83605; 83690; 83735; 83880; 84484; 85025; 85610; 85730; 86709; 87040; 87426; 93005; 96365; 99284; J2543; Q9967

== ENCOUNTER 2021-06-15 07:05 | Outpatient (CLI) | payer MEDICAID, SELFPAY ==
--- NOTE | 2021-06-15 07:15 | US_ITS ---
WS: [id number] ULTRASOUND ABDOMEN LIMITED CLINICAL INFORMATION: R17 - Unspecified jaundice COMPARISON: May 06, 2021 FINDINGS: Liver Size: Enlarged Craniocaudal length: 18.3 cm. Echogenicity: Normal. Surface nodularity: None. Mass (size and location): None. Bile ducts Intrahepatic ducts: Normal. Common bile duct diameter: 0.5 cm. Gallbladder Surgically absent Pancreas Not well seen due to bowel gas Right kidney: Normal. Hydronephrosis: None. Size: 13.9 cm x 5.4 cm x 4.9 cm. Abdominal aorta and IVC Visualized portions are normal. Ascites: None. US/US gall bladder [id number] IMPRESSION: 1. Mild hepatomegaly. No intrahepatic biliary duct dilatation. 2. Prior cholecystectomy. 3. Normal common bile duct. 4. No hydronephrosis in right kidney. 5. No ascites.
== END 2021-06-15 07:06 | disposition home or self-care (01) ==
LOC: US 07:07
PROVIDERS: PCP Family Medicine Adult Medicine; Visit Provider Nurse Practitioner Family
DX: R17 Unspecified jaundice (principal); R16.0 Hepatomegaly, not elsewhere classified; Z90.49 Acquired absence of other specified parts of digestive tract
CPT/HCPCS: 76705; 93976

== ENCOUNTER → 2021-08-11 09:55 | Outpatient (BNVA) | payer MEDICAID, SELFPAY | PROVIDERS: PCP Family Medicine Adult Medicine; Visit Provider Family Medicine Adult Medicine | DX: I11.0 Hypertensive heart disease with heart failure (principal); I50.22 Chronic systolic (congestive) heart failure; I42.0 Dilated cardiomyopathy; E11.9 Type 2 diabetes mellitus without complications; M15.9 Polyosteoarthritis, unspecified; I48.92 Unspecified atrial flutter; Z95.810 Presence of automatic (implantable) cardiac defibrillator; I48.3 Typical atrial flutter | CPT/HCPCS: 80053; 80061; 83036; 85025 ==

== ENCOUNTER → 2021-09-13 09:31 | Outpatient (BNVA) | payer MEDICAID, SELFPAY | PROVIDERS: PCP Family Medicine Adult Medicine; Visit Provider Surgery | DX: Z20.822 Contact with and (suspected) exposure to COVID-19 (principal) | CPT/HCPCS: 87635 ==

== ENCOUNTER 2021-09-17 06:32 | Day surgery (SDC) | payer MEDICAID, SELFPAY ==
[2021-09-17] MEDS: sodium chloride 0.9% 1,000 ML 30 ML IV (07:10)
[2021-09-17 07:12] VITALS: BP 151/100; PULSE 80; RESP 18; TEMP 36.7; O2SAT 95
--- NOTE | 2021-09-17 08:38 | P.HP_ITS ---
Same Day Surgery H&P Indication for Procedure/HPI DATE OF PROCEDURE: September 17, 2021 CHIEF COMPLAINT/INDICATIONFOR SURGICAL PROCEDURE: Abdominal pain PREOP DIAGNOSIS: Gastric ulcer and screening colonoscopy PLANNED PROCEDURE: Operation Date: 09/17/21 08:00 Proposed Procedures p EGD/colon 30177/23081/Z87.11/Z12.11(Not Applicable) - Luiz Mujica MD s Colonoscopy(Not Applicable) - Luiz Mujica MD 09/17/21 Patient comes today for the Patient comes today for EGD for concern of gastric ulcer and screening colonoscopy ROS All systems have been reviewed negative except as per the above or per problem list Medications/Allergies* Home Medications Medication Instructions Recorded Confirmed Type aspirin 81 mg tablet,delayed 81 mg PO DAILY 08/23/21 09/17/21 History release (Adult Low Dose Aspirin) potassium chloride 20 mEq 40 meq PO BID tab 08/23/21 09/17/21 History tablet,extended release tamsulosin 0.4 mg capsule 0.4 mg PO DAILY 08/23/21 09/17/21 History Allergies/Adverse Reactions Allergy/AdvReac Type Severity Reaction Status Date / Time No Known Allergies Allergy Verified 09/17/21 08:40 Pertinent History/Comorbid Conditions* Medical History (Updated 08/11/21 @ 09:00 by Artis Patel MD) Atrial fibrillation with controlled ventricular rate Atrial flutter Cardiac resynchronization therapy defibrillator (BILLING ADMINISTRATOR-D) in place Cardiomyopathy CHF (congestive heart failure) Diabetes Elevated bilirubin Hepatomegalia History of kidney stones Hypertension Jaundice Medication induced coagulopathy Noncompliance Obesity (BMI 30.0-34.9) Osteoarthritis involving multiple joints on both sides of body Painful micturition Person under investigation for COVID-19 Surgical History (Updated 03/01/21 @ 22:08 by Osmar Galvez MD) S/P AV siobhan ablation Family History (Updated 12/14/20 @ 14:33 by Amberly Alex LPN) Father, AT AGE 77 Mother, AT 75 CAD (coronary artery disease) Heart disease Father Mother Hypertension Social History Alcohol intake: never Marital status: Current occupational status: disabled History of recent travel: No Pertinent Exam Findings alert, oriented x 3 and procedure specific exam findings (Abdominal examination nontender nondistended soft) Recommendations Surgery/Procedure today (Diagnostic EGD and screening colonoscopy) Coding Level of Care Code Acute 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
--- NOTE | 2021-09-17 08:46 | P.ANESASSM_ITS ---
Pre-Anesthetic Assessment Height/Weight: Height 1.8 m Temp Pulse Resp BP Pulse Ox 98.1 F 80 18 151/100 95 09/17/21 07:12 09/17/21 07:12 09/17/21 07:12 09/17/21 07:12 09/17/21 07:12 Preop Diagnosis: Gastric ulcer and screening colonoscopy Operation Date: 09/17/21 08:00 Proposed Procedures p EGD/colon 96083/75716/Z87.11/Z12.11(Not Applicable) - Luiz Mujica MD s Colonoscopy(Not Applicable) - Luiz Mujica MD Was Beta Bertha taken within 24 hours: N/A Was Clonidine taken within 24 hours: N/A Last intake: Intake Last Liquid Date 09/16/21 Last Liquid Time 00:00 Last Solid Date 09/16/21 Last Solid Time 12:00 Social No alcohol and No tobacco Exam alert and oriented x 3 Airway Submandibular: within normal limits Cervical ROM: within normal limits Mallampati: Class II Dentition: full History/ROS No significant history except as noted Pulmonary None reported CV/HEM Atrial Fibrillation and Hypertension PPM None reported Hepatic None reported GI None reported Metabolic Diabetes Mellitus [facility] [place] None reported Neuropsych None reported Anesthetic Plan Anesthesia: Anesthesia Evaluation and MAC Medications/Allergies Home Medications Medication Instructions Recorded Confirmed Last Taken Type apixaban 5 mg tablet (Eliquis) 5 mg PO BID #60 tab 08/11/21 09/17/21 09/13/21 Rx celecoxib 200 mg capsule 200 mg PO BID PRN #60 cap 08/11/21 09/17/21 09/13/21 Rx furosemide 40 mg tablet (Lasix) 40 mg PO DAILY PRN #30 tab 08/11/21 09/17/21 09/13/21 Rx glipizide 10 mg tablet 5 mg PO BID #60 tab 08/11/21 09/17/21 09/15/21 Rx metformin 1,000 mg tablet 500 mg PO BID #60 tab 08/11/21 09/17/21 09/15/21 Rx metoprolol tartrate 50 mg tablet 50 mg PO BID #30 tab 08/11/21 09/17/21 09/15/21 Rx aspirin 81 mg tablet,delayed 81 mg PO DAILY 08/23/21 09/17/21 09/13/21 History release (Adult Low Dose Aspirin) potassium chloride 20 mEq 40 meq PO BID tab 08/23/21 09/17/21 09/13/21 History tablet,extended release tamsulosin 0.4 mg capsule 0.4 mg PO DAILY 08/23/21 09/17/21 09/13/21 History valsartan 160 mg tablet 160 mg PO BID #180 tab 09/10/21 09/17/21 09/13/21 Rx Allergies Allergy/AdvReac Type Severity Reaction Status Date / Time No Known Allergies Allergy Verified 09/17/21 08:40 [facility] Anesthesia Medical History Atrial fibrillation with controlled ventricular rate Atrial flutter Cardiac resynchronization therapy defibrillator (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-D) in place Cardiomyopathy CHF (congestive heart failure) Diabetes Elevated bilirubin Hepatomegalia History of kidney stones Hypertension Jaundice Medication induced coagulopathy Noncompliance Obesity (BMI 30.0-34.9) Osteoarthritis involving multiple joints on both sides of body Painful micturition Person under investigation for COVID-19 Surgical History S/P AV siobhan ablation Family History Father , AT AGE 77 Heart disease Mother , AT 75 Heart disease Other CAD (coronary artery disease) Hypertension Social History Alcohol intake: never Marital status: Current occupational status: disabled History of recent travel: No Data Anesthesia Cardiac Studies: Echocardiogram Limited Views 09/06/20 Echocardiogram Ultrasound 07/03/20
[2021-09-17 09:30] VITALS: BP 160/104; PULSE 80; RESP 18; TEMP 36.6; O2SAT 96
[2021-09-17 09:42] VITALS: BP 153/98; PULSE 80; RESP 18; TEMP 36.2; O2SAT 98
--- NOTE | 2021-09-17 15:28 | ANE.PACU2 ---
Inpatient post-anesthesia follow up: Airway intact: Yes Vital signs: Temperature 97.2 F Pulse Rate 80 Respiratory Rate 18 Blood Pressure 153/98 Pulse Oximetry 98 Oxygen Delivery Me thod Room Air Oxygen Flow Rate Fraction of Inspir ed Oxygen Hydration adequate: Yes Nausea and vomiting: No Pain level: 1 Mental status: Baseline
== END 2021-09-17 10:16 | disposition home or self-care (01) ==
PROVIDERS: PCP Family Medicine Adult Medicine; Visit Provider Surgery
PROC: 0DJ08ZZ Inspection of Upper Intestinal Tract, Via Natural or Artificial Opening Endoscopic (ICD-10-PCS; CPT 43235; principal; 2021-09-17 08:00)
PROC: 0DJD8ZZ Inspection of Lower Intestinal Tract, Via Natural or Artificial Opening Endoscopic (ICD-10-PCS; CPT 45378; 2021-09-17 08:00)
DX: Z12.11 Encounter for screening for malignant neoplasm of colon (principal); K29.70 Gastritis, unspecified, without bleeding; K57.30 Diverticulosis of large intestine without perforation or abscess without bleeding; Z79.82 Long term (current) use of aspirin; I48.91 Unspecified atrial fibrillation; I11.0 Hypertensive heart disease with heart failure; I50.9 Heart failure, unspecified; E11.9 Type 2 diabetes mellitus without complications; P59.9 Neonatal jaundice, unspecified; Z91.14 Patient's other noncompliance with medication regimen; E66.9 Obesity, unspecified; Z82.49 Family history of ischemic heart disease and other diseases of the circulatory system
CPT/HCPCS: 43239; 45378; 88305; J2704; J7030

== ENCOUNTER → 2022-03-09 15:37 | Outpatient (BNVA) | payer MEDICAID, SELFPAY | PROVIDERS: PCP Family Medicine Adult Medicine; Visit Provider Family Medicine Adult Medicine | DX: E11.9 Type 2 diabetes mellitus without complications (principal); I50.22 Chronic systolic (congestive) heart failure; I10 Essential (primary) hypertension; K25.9 Gastric ulcer, unspecified as acute or chronic, without hemorrhage or perforation | CPT/HCPCS: 80053; 83036; 85025 ==

== ENCOUNTER 2022-04-05 08:25 | Outpatient (CLI) | payer MEDICAID, SELFPAY ==
--- NOTE | 2022-04-05 08:32 | XRR_ITS ---
PROCEDURE INFORMATION: Exam: XR Abdomen Exam date and time: 04/05/2022 8:33 AM Age: 56 years old Clinical indication: Condition or disease; Kidney or ureter condition; Calculus (stone) in ureter; Prior surgery; Surgery type: Liver; Additional info: N21.9 - calculus of lower urinary tract, unspecified, kub@ 8:00 appt to follow TECHNIQUE: Imaging protocol: Radiologic exam of the abdomen. Views: Frontal supine view of the abdomen. 1 View. COMPARISON: CT abdomen pelvis w con* [id number] 05/06/2021 7:25 PM FINDINGS: Gastrointestinal tract: There is a non-obstructive bowel gas pattern. There is no abnormal dilatation of bowel loops. There is no pneumatosis or mass effect. There is no organomegaly. Intraperitoneal space: No definite free air on the supine view exam. Bones/joints: There are no acute osseous abnormalities noted. Soft tissues: Left kidney upper pole 2-3 mm calculus is seen. Left kidney lower pole 10 x 10 mm calculus is seen. Adjacent 2-3 mm left kidney lower pole calculus is seen. Right kidney upper pole 1 x 1 mm calculus is seen. Right kidney lower pole 1 x 2 mm calculus is seen. These findings are not significantly changed in correlation with the prior exam dated abdomen one view exam dated March 31, 2021. These findings were also seen on the CT of the abdomen and pelvis dated May 06 2021. Surgical clips are seen in the right upper quadrant of the abdomen, likely related to prior cholecystectomy. XR/XR KUB [id number] IMPRESSION: Bilateral intrarenal calculi, as noted above.
== END 2022-04-05 08:26 | disposition home or self-care (01) ==
LOC: RAD 08:28
PROVIDERS: PCP Family Medicine Adult Medicine; Visit Provider Urology
DX: N21.9 Calculus of lower urinary tract, unspecified; N40.0 Benign prostatic hyperplasia without lower urinary tract symptoms
CPT/HCPCS: 74018; 99213

== ENCOUNTER → 2022-05-27 08:35 | Outpatient (BNVA) | payer MEDICAID, SELFPAY | PROVIDERS: PCP Family Medicine Adult Medicine; Visit Provider Internal Medicine Cardiovascular Disease | DX: Z45.02 Encounter for adjustment and management of automatic implantable cardiac defibrillator (principal) | CPT/HCPCS: 93284 ==

== ENCOUNTER → 2022-09-14 13:08 | Outpatient (BNVA) | payer MEDICAID, SELFPAY | PROVIDERS: PCP Family Medicine Adult Medicine; Visit Provider Podiatrist Foot & Ankle Surgery | DX: M21.611 Bunion of right foot (principal); M20.41 Other hammer toe(s) (acquired), right foot; B35.1 Tinea unguium; E11.9 Type 2 diabetes mellitus without complications; Z79.84 Long term (current) use of oral hypoglycemic drugs | CPT/HCPCS: 73630; 99204 ==

== ENCOUNTER → 2022-10-26 13:24 | Outpatient (BNVA) | payer MEDICAID, SELFPAY | PROVIDERS: PCP Family Medicine Adult Medicine; Visit Provider Podiatrist Foot & Ankle Surgery | DX: M21.611 Bunion of right foot (principal); B35.1 Tinea unguium; M20.41 Other hammer toe(s) (acquired), right foot; E11.9 Type 2 diabetes mellitus without complications; Z79.84 Long term (current) use of oral hypoglycemic drugs | CPT/HCPCS: 99213 ==

== ENCOUNTER → 2023-04-21 10:24 | Outpatient (BNVA) | payer MEDICAID, SELFPAY | PROVIDERS: PCP Family Medicine Adult Medicine; Visit Provider Family Medicine Adult Medicine | DX: I10 Essential (primary) hypertension (principal); I50.9 Heart failure, unspecified; E11.69 Type 2 diabetes mellitus with other specified complication; E78.5 Hyperlipidemia, unspecified; N40.0 Benign prostatic hyperplasia without lower urinary tract symptoms; B35.1 Tinea unguium; I50.22 Chronic systolic (congestive) heart failure; M15.9 Polyosteoarthritis, unspecified; Z78.9 Other specified health status | CPT/HCPCS: 80053; 80061; 83036; 84443; 85025; G0103 ==

== ENCOUNTER → 2023-10-13 09:22 | Outpatient (BNVA) | payer MEDICARE, MEDICAID, SELFPAY | PROVIDERS: PCP Family Medicine Adult Medicine; Visit Provider Family Medicine Adult Medicine | DX: I10 Essential (primary) hypertension (principal); I50.22 Chronic systolic (congestive) heart failure; N40.1 Benign prostatic hyperplasia with lower urinary tract symptoms; R35.1 Nocturia; N13.8 Other obstructive and reflux uropathy; E11.9 Type 2 diabetes mellitus without complications; E11.69 Type 2 diabetes mellitus with other specified complication; E78.5 Hyperlipidemia, unspecified | CPT/HCPCS: 80053; 80061; 83036; 85025; G0103 ==

== ENCOUNTER → 2024-12-12 15:23 | Outpatient (BNVA) | payer MEDICARE, MEDICAID, SELFPAY | DX: E11.9 Type 2 diabetes mellitus without complications (principal); N40.1 Benign prostatic hyperplasia with lower urinary tract symptoms; N13.8 Other obstructive and reflux uropathy; Z12.5 Encounter for screening for malignant neoplasm of prostate | CPT/HCPCS: 80053; 82550; 83036; G0103 ==

== ENCOUNTER → 2024-12-27 08:40 | Outpatient (BNVA) | payer MEDICARE, MEDICAID, SELFPAY | DX: R31.9 Hematuria, unspecified (principal); N13.8 Other obstructive and reflux uropathy; N40.1 Benign prostatic hyperplasia with lower urinary tract symptoms | CPT/HCPCS: 81000; 87086 ==

== ENCOUNTER 2025-01-09 14:46 | Outpatient (CLI) | payer OTHER, SELFPAY ==
--- NOTE | 2025-01-09 14:45 | CTR_ITS ---
PROCEDURE INFORMATION: Exam: CT Abdomen And Pelvis With Contrast Exam date and time: 01/09/2025 3:17 PM Age: 59 years old Clinical indication: Prior surgery; Surgery date: 6+ months; Surgery type: Gallbladder; Hematuria x 3 weeks, quit after stopping blood thinner; Additional info: Hematruia x2 weeks TECHNIQUE: Imaging protocol: Computed tomography of the abdomen and pelvis with contrast. Radiation optimization: All CT scans at this facility use at least one of these dose optimization techniques: automated exposure control; mA and/or kV adjustment per patient size (includes targeted exams where dose is matched to clinical indication); or iterative reconstruction. Contrast material: OMNIPAQUE 350; Contrast volume: 100 ml; Contrast route: INTRAVENOUS (IV); COMPARISON: CT abdomen pelvis w con* [id number] 05/06/2021 7:25 PM RADIATION DOSE METRICS: Total DLP (mGy-cm): 768.47 FINDINGS: Tubes, catheters and devices: Pacemaker leads within the heart. Lungs: Stable 5 mm right middle lobe nodule. Liver: Normal. No mass. Gallbladder and biliary ducts: Cholecystectomy. Pancreas: Normal. No ductal dilation. Spleen: Normal. No splenomegaly. Adrenal glands: Normal. No mass. Kidneys and ureters: Subcentimeter bilateral renal hypodensities. These are not completely characterized but are likely benign cysts. In the absence of risk factors, no further workup is recommended. Redemonstrated multiple nonobstructing left renal calculi measuring up to 12 mm within left lower pole. There is 20.3 mm hyperdensity within upper pole of left kidney, which is new from prior study. Punctate nonobstructing right renal calculi. No hydronephrosis bilaterally. Stomach and bowel: Mild diverticulosis of the descending colon without acute diverticulitis. No focal bowel dilatation. Appendix: No evidence of appendicitis. Intraperitoneal space: Unremarkable. No free air. No significant fluid collection. Vasculature: Unremarkable. No abdominal aortic aneurysm. Lymph nodes: Unremarkable. No enlarged lymph nodes. Urinary bladder: Unremarkable as visualized. Reproductive: Unremarkable as visualized. Bones/joints: Multilevel degenerative changes within visualized spine. No fracture. Soft tissues: Fat containing left inguinal hernia. CT/CT abdomen pelvis w con* [id number] IMPRESSION: 1. Redemonstrated nonobstructing left renal calculi measuring up to 13 mm. New 20.3 mm hyperdensity within upper portion of renal pelvis of the left kidney which may represent stone, however noncontrast images were not provided and early contrast excretion may have similar appearance. 2. Mild diverticulosis without CT evidence of acute diverticulitis. 3. Stable 5 mm right middle lobe nodule. For patients at low risk (minimal or absent history of smoking and of other known risk factors), no routine follow-up is indicated. For patients at high risk (history of smoking or of other known risk factors), consider optional CT Chest at 12 months. (Reference: Christine) COMMENTS: Consistent with the [employer]'s Incidental Findings Committee white paper (J Am Vikki Radiol 2018): Any incidental renal lesion less than 1 cm or classified as too small to characterize, or any incidental cystic renal lesion characterized as simple-appearing, is likely benign. No follow-up imaging is recommended for these lesions per consensus recommendations based on imaging criteria. REFERENCES: Christine Erwin, et al. Guidelines for Management of Incidental Pulmonary Nodules Detected on CT Images: From the Fleischner Society 2017. Radiology. 2017;284(1):228-243.
[2025-01-09] MEDS: iohexol 350 mg/mL 500 mL Btl (per mL) IV (15:24)
== END 2025-01-09 14:47 | disposition home or self-care (01) ==
LOC: RAD 14:53
DX: N21.9 Calculus of lower urinary tract, unspecified (principal); R31.9 Hematuria, unspecified; N20.0 Calculus of kidney; N28.89 Other specified disorders of kidney and ureter; K57.30 Diverticulosis of large intestine without perforation or abscess without bleeding; R91.1 Solitary pulmonary nodule; Z96.89 Presence of other specified functional implants; Z90.49 Acquired absence of other specified parts of digestive tract; M47.9 Spondylosis, unspecified; K40.90 Unilateral inguinal hernia, without obstruction or gangrene, not specified as recurrent
CPT/HCPCS: 74177

== ENCOUNTER → 2025-02-03 13:46 | Outpatient (BNVA) | payer OTHER, SELFPAY | PROVIDERS: Visit Provider Student in an Organized Health Care Education/Training Program | DX: Z12.11 Encounter for screening for malignant neoplasm of colon (principal) | CPT/HCPCS: 99024; 99204 ==

== ENCOUNTER → 2025-02-17 15:41 | Outpatient (BNVA) | payer OTHER, SELFPAY | PROVIDERS: Visit Provider Internal Medicine Cardiovascular Disease | DX: I42.9 Cardiomyopathy, unspecified (principal); I11.0 Hypertensive heart disease with heart failure; I50.9 Heart failure, unspecified; I48.3 Typical atrial flutter; Z95.810 Presence of automatic (implantable) cardiac defibrillator | CPT/HCPCS: 99204 ==

== ENCOUNTER 2025-03-18 07:03 | Outpatient (CLI) | payer OTHER, MEDICAID, SELFPAY ==
--- NOTE | 2025-03-18 07:15 | USCV_ITS ---
Conner Macdonald Age: 59 Gender: M : 1965 Exam Date: 03/18/2025 07:25 Ordering Phys: Osmar Galvez MD ([email or web address]) Technologist: PAOLA [place] [facility] [place]: CHF, Cardiomyopathy BP: 170 / 110 HR: 77 Rhythm: Sinus Technical Quality: Adequate MEASUREMENTS (Male / Female) Normal Values 2D ECHO LV Diastolic Diameter PLAX 6.1 cm 4.2 - 5.9 / 3.9 - 5.3 cm IVS Diastolic Thickness 1.3 cm 0.6 - 1.0 / 0.6 - 0.9 cm IVS Systolic Thickness 2.1 cm LVPW Diastolic Thickness 1.7 cm 0.6 - 1.0 / 0.6 - 0.9 cm LVPW Systolic Thickness 1.9 cm LVOT Diameter 2.1 cm LV Ejection Fraction 2D Teich 56.9 % LV Ejection Fraction MOD 4C 50.6 % LV Ejection Fraction MOD 2C 51.0 % LV Ejection Fraction 2C AL 49.7 % LA Diameter 5.3 cm RA Systolic Volume 4C AL 82.5 ml RA Systolic Volume 4C MOD 77.6 ml LA Sys Volume AL 80.6 cm cubed LA Sys Volume Index AL 35.1 cm cubed/m squared Aorta at Sinotubular Diameter 3.1 cm IVC Diameter 2.0 cm M-MODE LA Ao Ratio MM 1.9 AV Cusp Separation MM 1.6 cm DOPPLER AV Peak Velocity 111.0 cm/s LVOT Peak Velocity 70.0 cm/s AV Area Cont Eq vti 2.0 cm squared AV Area Cont Eq pk 2.2 cm squared MV Peak Velocity 103.0 cm/s MV Area PHT 4.1 cm squared Mitral E to A Ratio 2.5 TR Peak Velocity 291.0 cm/s TR Peak Gradient 33.9 mmHg TV Peak E Velocity 94.0 cm/s PV Peak Velocity 69.0 cm/s FINDINGS Left Ventricle Normal left ventricular size, systolic function and wall thickness, with no regional wall motion abnormalities. Left ventricular ejection fraction is estimated at 55 %. Normal diastolic function. Right Ventricle The right ventricle is normal in size and function. Right Atrium The right atrium is normal in size. Left Atrium Moderately increased left atrial size. Mitral Valve Structurally normal mitral valve. No mitral valve stenosis. Mild mitral valve regurgitation. Aortic Valve Moderate aortic valve calcification. No aortic valve stenosis. Trace aortic valve regurgitation. Tricuspid Valve Structurally normal tricuspid valve without significant stenosis or regurgitation. Pulmonary artery systolic pressure is normal. Pulmonic Valve Structurally normal pulmonic valve without significant stenosis. There is no pulmonic regurgitation. Pericardium Normal pericardium without effusion. Aorta Normal ascending aorta dimension. IVC The inferior vena cava appears normal. CONCLUSIONS Normal left ventricular size, systolic function and wall thickness, with no regional wall motion abnormalities. Left ventricular ejection fraction is estimated at 55 %. Normal diastolic function. Moderately increased left atrial size. Moderate aortic valve calcification. No aortic valve stenosis. Trace aortic valve regurgitation. Structurally normal mitral valve. No mitral valve stenosis. Mild mitral valve regurgitation. There is no pericardial effusion. Right atrial pressure is around 5 mm of mercury. Osmar Galvez MD (Electronically Signed) Final Date: 30 March 2025 17:17 S
== END 2025-03-18 07:04 | disposition home or self-care (01) ==
LOC: RAD 07:05
PROVIDERS: Visit Provider Internal Medicine Cardiovascular Disease
DX: I50.9 Heart failure, unspecified (principal); I42.9 Cardiomyopathy, unspecified; I51.7 Cardiomegaly; I34.0 Nonrheumatic mitral (valve) insufficiency; I35.8 Other nonrheumatic aortic valve disorders
CPT/HCPCS: 93306

== ENCOUNTER 2025-03-25 10:47 | Day surgery (SDC) | payer OTHER, MEDICAID, SELFPAY ==
[2025-03-25 11:20] VITALS: BP 165/107; PULSE 80; RESP 18; TEMP 36.7; O2SAT 97; BMI 30.7
--- NOTE | 2025-03-25 11:38 | ANES.PREANE2 ---
Pre-Anesthetic Assessment Height/Weight: Height 1.8 m Weight 99.79 kg Temp Pulse Resp BP Pulse Ox O2 Del Method 98.0 F 80 18 165/107 97 Room Air 03/25/25 11:20 03/25/25 11:20 03/25/25 11:20 03/25/25 11:20 03/25/25 11:20 03/25/25 11:20 Preop Diagnosis: screening GERD Operation Date: 03/25/25 12:00 Proposed Procedures p EGD with Biopsy [id number] G0121 Z12.11 R12(Not Applicable) - Joseph Romero MD s Colonoscopy(Not Applicable) - Joseph Romero MD Familial anesthetic complications: none Last intake: Intake Last Liquid Date 03/24/25 Last Liquid Time 20:00 Last Solid Date 03/23/25 Last Solid Time 20:00 Airway Submandibular: within normal limits Cervical ROM: within normal limits Mallampati: Class II Dentition: full Pulmonary None reported CV/HEM Atrial Fibrillation, Coronary Artery Disease and Hypertension Pacemaker, ICD EF 30% cardiac function stable. Dr. Galvez visit within last 6 weeks. 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 all questioned answered. Medications/Allergies Home Medications ?Medication ?Instructions ?Recorded ?Confirmed ?Last Taken ?Type lancets 33 gauge (BD Ultra Fine #100 ea 09/07/22 02/17/25 Unknown Rx Lancets) magnesium hydroxide 400 mg/5 mL 60 ml PO .q 3-4 hr PRN 01/10/23 02/17/25 Unknown Rx oral suspension (Milk of Magnesia) constipation #355 mL blood sugar diagnostic (OneTouch #100 ea 04/21/23 02/17/25 Unknown Rx Verio test strips) blood-glucose meter (OneTouch #1 ea 04/21/23 02/17/25 Unknown Rx Verio Reflect Meter) tramadol 50 mg tablet 50 mg PO Q8H PRN pain #20 tabs 01/02/24 02/17/25 Unknown Rx furosemide 40 mg tablet See Rx Instructions .Route 05/27/24 02/17/25 Unknown Rx .COMPLEX #90 tabs amlodipine 10 mg tablet See Rx Instructions .Route 07/29/24 02/17/25 Unknown Rx .COMPLEX #90 tabs potassium chloride 20 mEq See Rx Instructions .Route 07/29/24 02/17/25 Unknown Rx tablet,extended release .COMPLEX #90 tabs apixaban 5 mg tablet (Eliquis) See Rx Instructions .Route 09/20/24 02/17/25 Unknown Rx .COMPLEX #60 tabs celecoxib 200 mg capsule See Rx Instructions .Route 09/20/24 02/17/25 Unknown Rx .COMPLEX #180 caps pantoprazole 40 mg tablet,delayed See Rx Instructions .Route 09/20/24 02/17/25 Unknown Rx release .COMPLEX #90 tabs empagliflozin 25 mg tablet See Rx Instructions .Route 12/15/24 02/17/25 Unknown Rx (Jardiance) .COMPLEX #30 tabs glipizide 10 mg tablet See Rx Instructions .Route 12/15/24 02/17/25 Unknown Rx .COMPLEX #180 tabs metformin 1,000 mg tablet See Rx Instructions .Route 12/15/24 02/17/25 Unknown Rx .COMPLEX #180 tabs simvastatin 20 mg tablet See Rx Instructions .Route 02/14/25 02/17/25 Unknown Rx .COMPLEX #30 tabs hydralazine 25 mg tablet 25 mg PO TID #270 tabs 02/17/25 02/17/25 Unknown Rx valsartan 160 mg tablet 160 mg PO BID #180 tabs 02/17/25 02/17/25 Unknown Rx carvedilol 6.25 mg tablet 6.25 mg PO BID #60 tabs 03/03/25 Unknown Rx sitagliptin phosphate 50 mg tablet 50 mg PO DAILY #30 tabs 03/14/25 Unknown Rx (Januvia) tamsulosin 0.4 mg capsule 0.4 mg PO DAILY #30 caps 03/14/25 Unknown Rx Allergies Allergy/AdvReac Type Severity Reaction Status Date / Time No Known Allergies Allergy Verified 03/14/25 09:35 [facility] Anesthesia Medical History (Updated 03/04/25 @ 18:55 by Cindy Howell) Atrial flutter Infected sebaceous cyst of skin right mid back Dental abscess Onychomycosis Urolithiasis PUD (peptic ulcer disease) hx of gastric ulcer Dyslipidemia associated with type 2 diabetes mellitus Constipation Hammertoe of second toe of right foot Non-Ethiopian speaking patient Osteoarthritis involving multiple joints on both sides of body Hypertension CHF (congestive heart failure) History of kidney stones Cardiac resynchronization therapy defibrillator (INTERNAL CONTROL MANAGER-D) in place Hepatomegalia Benign prostatic hyperplasia Medication induced coagulopathy Obesity (BMI 30.0-34.9) Cardiomyopathy Diabetes Surgical History S/P AV siobhan ablation Family History Father , AT AGE 77 Heart disease Mother , AT 75 Heart disease Other CAD (coronary artery disease) Gastric ulcer Hypertension Social History Smoking and tobacco/nicotine status: never used tobacco/nicotine Alcohol intake: never Substance/Drug Use: never Lives independently: Yes Household members: spouse Marital status: Current occupational status: disabled Data Anesthesia Cardiac Studies: Echocardiogram Limited Views 09/06/20 Echocardiogram Ultrasound 07/03/20
--- NOTE | 2025-03-25 11:48 | P.HP_ITS ---
Same Day Surgery H&P Indication for Procedure/HPI DATE OF PROCEDURE: March 25, 2025 CHIEF COMPLAINT/INDICATIONFOR SURGICAL PROCEDURE: screening colonoscopy GERD PREOP DIAGNOSIS: screening colonoscopy GERD PLANNED PROCEDURE: Operation Date: 03/25/25 12:00 Proposed Procedures p EGD with Biopsy [id number] [id number] Z12.11 R12(Not Applicable) - Joseph Romero MD s Colonoscopy(Not Applicable) - Joseph Romero MD Medications/Allergies* Allergies/Adverse Reactions Allergy/AdvReac Type Severity Reaction Status Date / Time No Known Allergies Allergy Verified 03/14/25 09:35 Current Medications: Generic Name Dose Route Start Last Admin Trade Name Freq PRN Reason Stop Dose Admin Sodium Chloride 1,000 mls @ 15 mls/hr 03/25/25 10:54 03/25/25 11:42 Sodium Chloride 0.9% IV 03/26/25 10:53 15 mls/hr .Q24H PRN Administration COLONOSCOPY FLUIDS Pertinent History/Comorbid Conditions* Medical History (Updated 03/04/25 @ 18:55 by Cindy Howell) Atrial flutter Infected sebaceous cyst of skin right mid back Dental abscess Onychomycosis Urolithiasis PUD (peptic ulcer disease) hx of gastric ulcer Dyslipidemia associated with type 2 diabetes mellitus Constipation Hammertoe of second toe of right foot Non-Croatian speaking patient Osteoarthritis involving multiple joints on both sides of body Hypertension CHF (congestive heart failure) History of kidney stones Cardiac resynchronization therapy defibrillator ([employer]-D) in place Hepatomegalia Benign prostatic hyperplasia Medication induced coagulopathy Obesity (BMI 30.0-34.9) Cardiomyopathy Diabetes Surgical History (Updated 01/24/23 @ 13:47 by Artis Patel MD) S/P AV siobhan ablation Family History (Updated 10/13/23 @ 06:43 by Artis Patel MD) Father, AT AGE 77 Mother, AT 75 CAD (coronary artery disease) Heart disease Father Mother Gastric ulcer Hypertension Social History Smoking and tobacco/nicotine status: never used tobacco/nicotine Alcohol intake: never Substance/Drug Use: never Lives independently: Yes Household members: spouse Marital status: Current occupational status: disabled Pertinent Exam Findings alert, oriented x 3, clear to auscultation bilaterally, regular rate & rhythm and procedure specific exam findings abdomen soft, nt, nd Recommendations Risks and benefits of procedure reviewed and Patient/family agree to proceed Surgery/Procedure today Coding Level of Care Code Acute Code for Chg Fwd
[2025-03-25 11:51] VITALS: BP 133/90; PULSE 100; RESP 14; TEMP 36.2; O2SAT 90
--- NOTE | 2025-03-25 12:06 | PC.NURSE ---
Cecum time 1205
--- NOTE | 2025-03-25 12:42 | ANE.PACU2 ---
Inpatient post-anesthesia follow up: Airway intact: Yes Vital signs: Temperature 97.1 F Pulse Rate 100 Respiratory Rate 14 Blood Pressure 133/90 Pulse Oximetry 90 Oxygen Delivery Me thod Room Air Oxygen Flow Rate Fraction of Inspir ed Oxygen Hydration adequate: Yes Nausea and vomiting: No Pain level: 1 Mental status: Baseline
== END 2025-03-25 12:42 | disposition home or self-care (01) ==
PROVIDERS: Visit Provider Student in an Organized Health Care Education/Training Program
PROC: 0DJ08ZZ Inspection of Upper Intestinal Tract, Via Natural or Artificial Opening Endoscopic (ICD-10-PCS; principal; 2025-03-25 12:00)
PROC: 0DJD8ZZ Inspection of Lower Intestinal Tract, Via Natural or Artificial Opening Endoscopic (ICD-10-PCS; CPT 45378; 2025-03-25 12:00)
DX: Z12.11 Encounter for screening for malignant neoplasm of colon (principal); K57.30 Diverticulosis of large intestine without perforation or abscess without bleeding; K21.9 Gastro-esophageal reflux disease without esophagitis; K29.30 Chronic superficial gastritis without bleeding; B96.81 Helicobacter pylori [H. pylori] as the cause of diseases classified elsewhere; I48.92 Unspecified atrial flutter; E11.9 Type 2 diabetes mellitus without complications; E78.5 Hyperlipidemia, unspecified; I10 Essential (primary) hypertension; E66.9 Obesity, unspecified; Z68.30 Body mass index [BMI] 30.0-30.9, adult; I48.91 Unspecified atrial fibrillation; I25.10 Atherosclerotic heart disease of native coronary artery without angina pectoris; Z79.84 Long term (current) use of oral hypoglycemic drugs
CPT/HCPCS: 36416; 43239; 45378; 82962; 88305; 88342; J2371; J2704; J7030

== ENCOUNTER → 2025-04-07 07:50 | Outpatient (BNVA) | payer OTHER, MEDICAID, SELFPAY | PROVIDERS: Visit Provider Student in an Organized Health Care Education/Training Program | DX: Z09 Encounter for follow-up examination after completed treatment for conditions other than malignant neoplasm (principal) | CPT/HCPCS: 99213 ==